=== PATIENT | male | born 1945 | race American Indian/Alaskan Native ===

== ENCOUNTER 2016-11-10 10:43 | Inpatient (IN) | payer MEDICARE ==
[2016-11-10 11:26] LABS: Hemoglobin 13.1 gm/dl (11.8-15.2); Mean Corpuscular HGB Conc 32 % (32-34); Mean Corpuscular Hemoglobin 28 pg (28-32); Mean Corpuscular Volume 88 fl (84-94); Platelet Count 145 K/mm3 (140-440); Red Blood Count 4.66 M/mm3 (3.65-5.03); Red Cell Distribution Width 14.4 % (13.2-15.2); White Blood Count 9.8 K/mm3 (4.5-11.0)
[2016-11-10 11:28] LABS: INR 0.96 (0.87-1.13)
[2016-11-10 11:36] LABS: Anion Gap 17 mmol/L; Blood Urea Nitrogen 18 mg/dL (9-20); Calcium 8.7 mg/dL (8.4-10.2); Carbon Dioxide 27 mmol/L (22-30); Glucose 73 mg/dL (75-100); Potassium 3.8 mmol/L (3.6-5.0); Sodium 142 mmol/L (137-145)
[2016-11-10] MEDS ORDERED: MORPHINE IV ONE (11:45)
[2016-11-10] MEDS ORDERED: ZOFRAN IV ONE (11:45)
--- NOTE | 2016-11-10 11:50 | Emergency Department Report ---
ED Chest Pain HPI - General Chief Complaint: Chest Pain Stated Complaint: CHEST PAIN Time Seen by Provider: 11/10/16 11:27 Source: patient, old records reviewed (no previous medical record for review) Mode of arrival: Ambulatory Limitations: No Limitations - History of Present Illness Initial Comments: 70 year old male with a past medical history of osteoarthritis, Frausto's esophagus, COPD, hypertension, COPD, elevated cholesterol, and sleep apnea presents to the hospital with complaints of intermittent chest pain 1 week. Patient is in the substernal and left side of chest and radiates to the left arm and left-sided neck. Pain is intermittent, described as 8/10 tightness. Pain worse with activity/walking, last for several minutes, improves with rest. Positive associated shortness of breath, nausea. Denies vomiting or diaphoresis. Patient also states he has some difficulty and pain with swallowing. Patient does have a history of Frausto's esophagus and has a endoscopy scheduled for December 03. Patient has chronic shortness of breath secondary to COPD. Positive cough productive of white/green sputum without reported fever. Patient states history CAD. Had a cath 10-11 years ago and which his "arteries were cleaned out". Denies stent placement or bypass surgery. Reports outpatient negative stress test approximately 1-2 months ago performed by [facility]. He says states he has similar but more severe pain at that time. Patient compliant with his medication including aspirin 81 mg daily. Patient moved here from [place] 6 months ago. This is his first ER visit is relocating to [place]. Severity scale (0 -10): 7 - Related Data Allergies Allergy/AdvReac Type Severity Reaction Status Date / Time No Known Allergies Allergy Unverified 11/10/16 11:00 Heart Score - HEART Score History: Slightly suspicious EKG: Normal Age: > 65 Risk factors: > 3 risk factors or hx of atherosclerotic disease Troponin: < normal limit HEART Score: 4 ED Review of Systems ROS: Stated complaint: CHEST PAIN Other details as noted in HPI Comment: All other systems reviewed and negative Other: Constitutional: No fevers chills Eyes: No eye pain visual changes ENT: No ear pain or throat pain Neck: Denies pain Respiratory: Denies cough wheezing Cardiovascular: Denies palpitations, syncope GI: Denies abdominal pain : Denies dysuria Musculoskeletal: Denies back pain Skin: Denies rash, lesions, erythema Neurologic: Denies headache, numbness, weakness Psychiatric: Denies suicidal ideation, hallucinations ED Past Medical Hx - Past Medical History Hx Hypertension: Yes Hx Arthritis: Yes (osteoarthritis) Hx Psychiatric Treatment: Yes (depression) Hx COPD: Yes Additional medical history: high cholesterol. sleep apnea. CAD. spinal stenosis. PVD. Frausto's esophagus - Surgical History Additional Surgical History: hernia repair x 2 - Social History Smoking Status: Current Some Day Smoker Substance Use Type: None ED Physical Exam - General Limitations: No Limitations - Other Other exam information: General: No limitations, patient is alert in no acute distress Head exam: Atraumatic, normocephalic Eyes exam: Normal appearance ENT: Moist mucous membrane Neck exam: Normal inspection, full range of motion Respiratory exam: Clear to auscultation bilateral, wheezing with forced expiration. Mild crackles at the left base Cardiovascular: Normal rate and rhythm, normal heart sounds, chest wall nontender Abdomen: Soft, nondistended, and nontender, with normal bowel sounds, no rebound, or guarding Extremity: Full range of motion normal inspection no deformity, no calf tenderness or edema Back: Normal Inspection, full range of motion, no tenderness Neurologic: Alert, oriented x3, cranial nerves intact, no motor or sensory deficit Psychiatric: normal affect, normal mood Skin: Warm, dry, intact ED Course Vital Signs 11/10/16 11/10/16 10:57 11:27 Temperature 97.7 F Pulse Rate 72 70 Respiratory 19 20 Rate Blood Pressure 165/111 Blood Pressure 167/91 [Right] O2 Sat by Pulse 100 97 Oximetry LV score - Lv Score Age > 65: (1) Yes Aspirin use within the Past 7 Days: (1) Yes 3 or more CAD Risk Factors: (1) Yes 2 or more Angina events in past 24 hrs: (1) Yes Known CAD with more than 50% Stenosis: (0) No Elevated Cardiac Markers: (0) No ST Deviation Greater than 0.5mm: (0) No LV Score: 4 ED Medical Decision Making - Lab Data Result diagrams: 11/10/16 11:03 11/10/16 11:03 Lab Results 11/10/16 11/10/16 11/10/16 Range/Units 11:03 11:03 11:03 WBC 9.8 (4.5-11.0) K/mm3 RBC 4.66 (3.65-5.03) M/mm3 Hgb 13.1 (11.8-15.2) gm/dl Hct 41.0 (35.5-45.6) % MCV 88 (84-94) fl MCH 28 (28-32) pg MCHC 32 (32-34) % RDW 14.4 (13.2-15.2) % Plt Count 145 (140-440) K/mm3 Lymph % (Auto) Microfilm Operator [place] % (Auto) Microfilm Operator Eos % (Auto) Microfilm Operator Baso % (Auto) Microfilm Operator Lymph # Microfilm Operator [place] # Microfilm Operator Eos # Microfilm Operator Baso # Microfilm Operator Seg Neutrophils % Microfilm Operator Seg Neutrophils # Microfilm Operator PT 13.3 (12.2-14.9) Sec. INR 0.96 (0.87-1.13) Sodium 142 (137-145) mmol/L Potassium 3.8 (3.6-5.0) mmol/L Chloride 102.0 (98-107) mmol/L Carbon Dioxide 27 (22-30) mmol/L Anion Gap 17 mmol/L BUN 18 (9-20) mg/dL Creatinine 1.0 (0.8-1.5) mg/dL Estimated GFR > 60 ml/min BUN/Creatinine Ratio 18.00 % Glucose 73 L (75-100) mg/dL Calcium 8.7 (8.4-10.2) mg/dL Troponin T < 0.010 (0.00-0.029) ng/mL NT-Pro-B Natriuret Pep (0-900) pg/mL 11/10/16 Range/Units 11:44 WBC (4.5-11.0) K/mm3 RBC (3.65-5.03) M/mm3 Hgb (11.8-15.2) gm/dl Hct (35.5-45.6) % MCV (84-94) fl MCH (28-32) pg MCHC (32-34) % RDW (13.2-15.2) % Plt Count (140-440) K/mm3 Lymph % (Auto) [place] % (Auto) Eos % (Auto) Baso % (Auto) Lymph # [place] # Eos # Baso # Seg Neutrophils % Seg Neutrophils # PT (12.2-14.9) Sec. INR (0.87-1.13) Sodium (137-145) mmol/L Potassium (3.6-5.0) mmol/L Chloride (98-107) mmol/L Carbon Dioxide (22-30) mmol/L Anion Gap mmol/L BUN (9-20) mg/dL Creatinine (0.8-1.5) mg/dL Estimated GFR ml/min BUN/Creatinine Ratio % Glucose (75-100) mg/dL Calcium (8.4-10.2) mg/dL Troponin T (0.00-0.029) ng/mL NT-Pro-B Natriuret Pep 87.64 (0-900) pg/mL - EKG Data -: EKG Interpreted by Me (sinus rhythm rate 70, LAE, LVH) - EKG Data When compared to previous EKG there are: previous EKG unavailable - Radiology Data Radiology results: report reviewed (chest x-ray PA and lateral: Mild COPD) - Medical Decision Making Patient treated with nitroglycerin and morphine, and Zofran. Plan to admit patient to hospital due to chest pain to rule out acute coronary syndrome. - Differential Diagnosis OR, GERD, esophageal spasm, atypical chest pain, unstable angina Critical Care Time: No Critical care attestation.: If time is entered above; I have spent that time in minutes in the direct care of this critically ill patient, excluding procedure time. ED Disposition Clinical Impression: Chest pain, HTN (hypertension), COPD (chronic obstructive pulmonary disease), Painful swallowing, History of Frausto's esophagus Disposition: 09 OP ADMIT IP TO THIS HOSP Is pt being admited?: Yes Does the pt Need Aspirin: Yes Condition: Stable Time of Disposition: 12:47 (Dr Fan/hosp)
--- NOTE | 2016-11-10 12:16 | XRay Report ---
CHEST XRAY, 2 VIEWS: History: Chest pain, shortness of breath. Findings: There is mild diffuse interstitial coarsening. The lungs are hyperexpanded but clear. No infiltrate, pleural fluid or pneumothorax is detected. The cardiac silhouette and pulmonary vasculature are within normal limits for technique. The bony thorax is unremarkable. IMPRESSION: Changes consistent with mild COPD. No acute cardiopulmonary process.
[2016-11-10] MEDS ORDERED: ASPIRIN PO ONE (12:55)
[2016-11-10] MEDS ORDERED: TYLENOL PO PRN (13:01)
[2016-11-10] MEDS ORDERED: DULCOLAX PR PRN (13:01)
[2016-11-10] MEDS ORDERED: MILK OF MAGNESIA PO PRN (13:01)
[2016-11-10] MEDS ORDERED: SODIUM CHLORIDE FLUSH SYRINGE 10 ML IV PRN (13:01)
[2016-11-10] MEDS ORDERED: PROVENTIL IH PRN (13:21)
--- NOTE | 2016-11-10 13:30 | History and Physical Report ---
History of Present Illness Chief complaint: I have chest pain History of present illness: 70 YO Male with HTN, OA, COPD, CAD, Depression, Barrets Esophagus, Nicotine Dependence, HLD, TIAGO, Spinal Stenosis presents to ED for evaluation. Pt states that he has experienced pain in his chest for the past 1 week with worsening symptoms over the past 1 day. Pain 8/10 in severity, substernal , begins on the left side of chest and radiates to the left arm and left-sided neck. Pain is intermittent, worse with activity/walking, last for several minutes, improves with rest. Pain is associated shortness of breath and nausea. Pt denies vomiting or diaphoresi, fever, chills, Palpitations, recent ill contacts , productive cough, BRBPR, unintentional weight loss or night sweats. Past History Past Medical History: arthritis, CAD, COPD, hypertension, hyperlipidemia Past Surgical History: hernia repair Social history: , lives with family, smoking. denies: alcohol abuse, prescription drug abuse, IV drug use Family history: CAD, hypertension Medications and Allergies Allergies Allergy/AdvReac Type Severity Reaction Status Date / Time No Known Allergies Allergy Unverified 11/10/16 11:00 Active Meds: Active Medications Nitroglycerin (Nitro-Bid 2%) 1 inch TP BIDNTG MOIZ PRN Reason: Protocol Review of Systems Constitutional: no weight loss, no weight gain, no fever, no chills Ears, nose, mouth and throat: no ear pain, no ear discharge, no tinnitis, no dental pain, no mouth pain Cardiovascular: chest pain Respiratory: no cough, no cough with sputum Gastrointestinal: no abdominal pain, no nausea, no vomiting, no diarrhea Genitourinary Male: no dysuria, no hematuria, no flank pain, no discharge Rectal: no pain, no incontinence, no bleeding Musculoskeletal: no neck stiffness, no neck pain, no shooting arm pain, no morning stiffness, no muscle weakness Integumentary: no rash, no pruritis, no redness, no sores Neurological: no head injury, no transient paralysis, no paralysis, no weakness , no migraines, no convulsions Psychiatric: no anxiety, no memory loss, no change in sleep habits Endocrine: no cold intolerance, no heat intolerance, no polyphagia, no excessive thirst Hematologic/Lymphatic: no easy bruising, no easy bleeding Allergic/Immunologic: no urticaria, no allergic rhinitis, no wheezing Exam - Constitutional Vitals: Temp Pulse Resp BP Pulse Ox 97.7 F 70 20 167/91 97 11/10/16 10:57 11/10/16 11:27 11/10/16 11:27 11/10/16 11:27 11/10/16 11:27 General appearance: Present: mild distress - EENT Eyes: Present: PERRL ENT: hearing intact, clear oral mucosa - Neck Neck: Present: supple, normal ROM - Respiratory Respiratory effort: normal Respiratory: bilateral: CTA - Cardiovascular Heart Sounds: Present: S1 & S2. Absent: rub, click - Extremities Extremities: pulses symmetrical, No edema Peripheral Pulses: within normal limits - Abdominal General gastrointestinal: Present: soft, non-tender, non-distended, normal bowel sounds Male genitourinary: Present: normal - Integumentary Integumentary: Present: clear, warm, dry - Musculoskeletal Musculoskeletal: gait normal, strength equal bilaterally - Psychiatric Psychiatric: appropriate mood/affect, intact judgment & insight - Neurologic Neurologic: CNII-XII intact, moves all extremities Results - Labs CBC & Chem 7: 11/10/16 13:44 11/10/16 13:44 Labs: Abnormal lab results 11/10/16 Range/Units 11:03 Glucose 73 L (75-100) mg/dL Assessment and Plan - Patient Problems (1) ACS (acute coronary syndrome) Current Visit: Yes Status: Acute Plan to address problem: Serial cardiac enzymes, ekg, telemetry, cardiology consulted, echo, stress test , (2) Accelerated hypertension Current Visit: Yes Status: Acute Plan to address problem: monitor bp q shift, continue current therapy (3) COPD (chronic obstructive pulmonary disease) Current Visit: Yes Status: Acute Qualifiers: COPD type: C Chronic bronchitis type: C Emphysema type: E Plan to address problem: supplemental oxygen, nebs, aspiration precautions, NIPPV as clinically indicated. (4) HTN (hypertension) Current Visit: Yes Status: Acute Qualifiers: Hypertension type: H Plan to address problem: monitor bp q shift (5) CAD (coronary artery disease) Current Visit: Yes Status: Acute Qualifiers: Coronary Disease-Associated Artery/Lesion type: C [place] vs. transplanted heart: N Associated angina: with stable angina Plan to address problem: Serial cardiac enzymes, ekg, supportive care, continue medical management (6) Nicotine dependence Current Visit: Yes Status: Acute Qualifiers: Nicotine product type: N Substance use status: S Plan to address problem: Pt counseled, supportive care, (7) DVT prophylaxis Current Visit: Yes Status: Acute
[2016-11-10 14:10] LABS: Basophils % (Auto) 0.4 % (0.0-1.8); Eosinophils % (Auto) 0.7 % (0.0-4.3); Hematocrit 39.1 % (35.5-45.6); Hemoglobin 12.7 gm/dl (11.8-15.2); Mean Corpuscular HGB Conc 32 % (32-34); Mean Corpuscular Hemoglobin 28 pg (28-32); Mean Corpuscular Volume 86 fl (84-94); Platelet Count 132 K/mm3 (140-440); Red Blood Count 4.52 M/mm3 (3.65-5.03); Red Cell Distribution Width 14.1 % (13.2-15.2); White Blood Count 8.9 K/mm3 (4.5-11.0)
[2016-11-10 14:20] LABS: Anion Gap 17 mmol/L; BUN/Creatinine Ratio 18.88; Blood Urea Nitrogen 17 mg/dL (9-20); Calcium 8.4 mg/dL (8.4-10.2); Carbon Dioxide 24 mmol/L (22-30); Chloride 103.4 mmol/L (98-107); Glucose 78 mg/dL (75-100); Potassium 3.7 mmol/L (3.6-5.0); Sodium 141 mmol/L (137-145)
[2016-11-10] MEDS ORDERED: BABY ASPIRIN ONE (14:44)
[2016-11-10] MEDS ORDERED: NITRO-BID 2% TP ONE (14:44)
[2016-11-10] MEDS ORDERED: ASPIRIN ONE (14:46)
[2016-11-10] MEDS: NITRO-BID 2% TP SCH (14:51)
[2016-11-11] MEDS: NITRO-BID 2% TP SCH ×2 (06:30→13:52)
--- NOTE | 2016-11-11 07:24 | Admit Criteria Form ---
Admission Criteria Documentation: CHEST PAIN Clinical Indications for Admission to Inpatient Care ([place]/check or initial the applicable condition/criteria) Admission is indicated for chest pain and ANY ONE of the following (1)(2)(3)(4)( 5)(6)(7): [X ]I. Angina with acute coronary syndrome (Also use Myocardial Infarction or Angina guideline) [ ]II. Hemodynamic instability [ ]III. Respiratory distress [ ]IV. Chest pain indicative of serious diagnosis other than coronary artery disease (e.g., aorticdissection) Extended stay beyond goal length of stay may be needed for(3)(4)(10)(45)(48) [ ]a) Unstable angina [ ]b) Continued suspicion of acute coronary syndrome with inability to complete needed cardiac evaluation (eg, patient clinically unable to undergo stress testing) [ ]c) Myocardial infarction [ ]d) Specific condition diagnosed after evaluation (eg, pulmonary embolism, aortic dissection)(49)(50)(51) The original [employer] content created by [employer] has been revised. The portions of the content which have been revised are identified through the use of italic text or in bold, and [employer] has neither reviewed nor approved the modified material. All other unmodified content is copyright [employer]. Please see references footnoted in the original [employer] edition 2017 Admission Criteria Met: Yes
--- NOTE | 2016-11-11 08:16 | Progress Note ---
Hospitalist Physical - Constitutional Vitals: Temp Pulse Resp BP Pulse Ox 98.0 F 69 18 177/92 100 11/11/16 04:01 11/11/16 04:01 11/11/16 04:01 11/11/16 04:01 11/11/16 04:01 General appearance: Present: mild distress Results - Labs CBC & Chem 7: 11/10/16 13:44 11/10/16 13:44 Labs: Laboratory Last Values WBC 8.9 K/mm3 (4.5-11.0) 11/10/16 13:44 RBC 4.52 M/mm3 (3.65-5.03) 11/10/16 13:44 Hgb 12.7 gm/dl (11.8-15.2) 11/10/16 13:44 Hct 39.1 % (35.5-45.6) 11/10/16 13:44 MCV 86 fl (84-94) 11/10/16 13:44 MCH 28 pg (28-32) 11/10/16 13:44 MCHC 32 % (32-34) 11/10/16 13:44 RDW 14.1 % (13.2-15.2) 11/10/16 13:44 Plt Count 132 K/mm3 (140-440) L 11/10/16 13:44 Lymph % (Auto) 16.1 % (13.4-35.0) 11/10/16 13:44 [place] % (Auto) 7.4 % (0.0-7.3) H 11/10/16 13:44 Eos % (Auto) 0.7 % (0.0-4.3) 11/10/16 13:44 Baso % (Auto) 0.4 % (0.0-1.8) 11/10/16 13:44 Lymph # 1.4 K/mm3 (1.2-5.4) 11/10/16 13:44 [place] # 0.7 K/mm3 (0.0-0.8) 11/10/16 13:44 Eos # 0.1 K/mm3 (0.0-0.4) 11/10/16 13:44 Baso # 0.0 K/mm3 (0.0-0.1) 11/10/16 13:44 Seg Neutrophils % 75.4 % (40.0-70.0) H 11/10/16 13:44 Seg Neutrophils # 6.7 K/mm3 (1.8-7.7) 11/10/16 13:44 PT 13.3 Sec. (12.2-14.9) 11/10/16 11:03 INR 0.96 (0.87-1.13) 11/10/16 11:03 Sodium 142 mmol/L (137-145) 11/10/16 11:03 Potassium 3.8 mmol/L (3.6-5.0) 11/10/16 11:03 Chloride 103.4 mmol/L (98-107) 11/10/16 13:44 Carbon Dioxide 24 mmol/L (22-30) 11/10/16 13:44 Anion Gap 17 mmol/L 11/10/16 13:44 BUN 17 mg/dL (9-20) 11/10/16 13:44 Creatinine 0.9 mg/dL (0.8-1.5) 11/10/16 13:44 Estimated GFR > 60 ml/min 11/10/16 13:44 BUN/Creatinine Ratio 18.88 % 11/10/16 13:44 Glucose 78 mg/dL (75-100) 11/10/16 13:44 Calcium 8.4 mg/dL (8.4-10.2) 11/10/16 13:44 Troponin T < 0.010 ng/mL (0.00-0.029) 11/10/16 19:04 NT-Pro-B Natriuret Pep 87.64 pg/mL (0-900) 11/10/16 11:44
[2016-11-11] MEDS ORDERED: LEXISCAN IV ONE ×2 (09:56→09:59)
--- NOTE | 2016-11-11 11:12 | Consultation ---
History of Present Illness Consult date: 11/11/16 Requesting physician: JUDD ROMAN Consult reason: other (ACS) History of present illness: The patient is a 70-year-old male with a past medical history significant for hypertension, hyperlipidemia and tobacco use. He has been seen in our office by Dr. Farah. He presented with complaints of chest pain for the past several days prior to arrival. He describes his chest pain has an exertional, midsternal pressure which radiates down his left arm and into his neck at times. The pain is associated with shortness of breath and SMITH. The pain is aggravated by activity and alleviated by rest. The patient denies any palpitations, nausea, vomiting, diaphoresis, dizziness or syncope. Admission EKG shows no acute ischemic changes; troponins are negative for AMI x 3 sets. On evaluation, he is seen in the stress lab for stress test ordered per primary team. He has no current complaints. Of note, he recently underwent lexiscan MPI in our office on 08/14/2016, which was negative for significant ischemia. He also had echo in our office on 08/07/2016 which showed mild to moderate LVH, EF 40 - 45%, mild, diffuse LV hypokinesis, mild diastolic dysfunction. BLE arterial duplex done in our office 08/14/2016 showed no significant abnormalities. Past History Past Medical History: arthritis, hypertension, hyperlipidemia Past Surgical History: hernia repair Social history: , lives with family, smoking. denies: alcohol abuse, prescription drug abuse, IV drug use Family history: CAD, hypertension Medications and Allergies Allergies Allergy/AdvReac Type Severity Reaction Status Date / Time No Known Allergies Allergy Unverified 11/10/16 11:00 Home Medications Medication Instructions Recorded Confirmed Last Taken Type Aspirin [Adult Low Dose Aspirin EC] 81 mg PO QDAY 11/10/16 11/10/16 Unknown History AtorvaSTATin [Lipitor] 40 mg PO QDAY 11/10/16 11/10/16 Unknown History Baclofen [Lioresal] 10 mg PO TID 11/10/16 11/10/16 Unknown History Lisinopril [Zestril] 20 mg PO QDAY 11/10/16 11/10/16 Unknown History Metoprolol [Lopressor] 25 mg PO BID 11/10/16 11/10/16 Unknown History Morphine Sulfate [Ms Contin] 15 mg PO Q12HR 11/10/16 11/10/16 Unknown History Nortriptyline [Pamelor] 10 mg PO TID 11/10/16 11/10/16 Unknown History Oxybutynin [Ditropan] 5 mg PO BID 11/10/16 11/10/16 Unknown History Pantoprazole [Protonix] 40 mg PO BID 11/10/16 11/10/16 Unknown History Ranitidine HCl [Zantac 150 MG TAB] 150 mg PO HS 11/10/16 11/10/16 Unknown History Sennosides/Docusate Sodium 2 each PO PRN PRN 11/10/16 11/10/16 Unknown History [Senna-Docusate Sodium Tablet] Tamsulosin [Flomax] 0.4 mg PO QHS 11/10/16 11/10/16 Unknown History Active Meds: Active Medications Acetaminophen (Tylenol) 650 mg PO Q4H PRN PRN Reason: Pain MILD(1-3)/Fever >100.5/FERRER Albuterol (Proventil) 2.5 mg IH Q4HRT PRN PRN Reason: Shortness Of Breath Bisacodyl (Dulcolax) 10 mg [place] QDAY PRN PRN Reason: Constipation unrelieved by MOM Magnesium Hydroxide (Milk Of Magnesia) 30 ml PO Q4H PRN PRN Reason: Constipation Nitroglycerin (Nitro-Bid 2%) 1 inch TP BIDNTG MOIZ PRN Reason: Protocol Last Admin: 11/11/16 06:30 Dose: Not Given Sodium Chloride (Sodium Chloride Flush Syringe 10 Ml) 10 ml IV PRN PRN PRN Reason: LINE FLUSH Review of Systems Constitutional: no weight loss, no weight gain, no fever, no chills, no sweats Ears, nose, mouth and throat: no ear pain, no nose pain, no sinus pressure, no sinus pain Cardiovascular: chest pain, shortness of breath, dyspnea on exertion, high blood pressure, no orthopnea, no palpitations, no rapid/irregular heart beat, no edema, no syncope, no lightheadedness, no paroxysmal nocturnal dyspnea, no leg edema Respiratory: shortness of breath, dyspnea on exertion, no cough, no congestion, no wheezing, no pain on inspiration Gastrointestinal: no abdominal pain, no nausea, no vomiting, no diarrhea, no constipation, no change in bowel habits Genitourinary Male: no dysuria, no hematuria, no flank pain, no discharge, no urinary frequency, no urinary hesitancy Musculoskeletal: low back pain (chronic), other (BLE pain, chronic), no neck stiffness, no neck pain, no shooting arm pain, no arm numbness/tingling, no shooting leg pain, no leg numbness/tingling, no redness of joints Integumentary: no rash, no pruritis, no redness, no sores, no wounds Neurological: no head injury, no paralysis, no weakness, no parathesias, no numbness, no tingling, no seizures, no syncope Psychiatric: no anxiety Endocrine: no cold intolerance, no heat intolerance Hematologic/Lymphatic: no easy bruising, no easy bleeding, no lymphadenopathy Allergic/Immunologic: no urticaria, no wheezing, no persistent infections Physical Examination Last Vital Signs Temp 98.0 F 11/11/16 07:35 Pulse 66 11/11/16 07:35 Resp 18 11/11/16 07:35 BP 164/98 11/11/16 07:35 Pulse Ox 98 11/11/16 07:35 General appearance: no acute distress HEENT: Positive: PERRL, Normocephaly, Mucus Membranes Moist Neck: Positive: neck supple, trachea midline Cardiac: Positive: Reg Rate and Rhythm, S1/S2 Lungs: Positive: clear to auscultation Neuro: Positive: Grossly Intact, Cranial Nerve 2-12 Intact Abdomen: Positive: Unremarkable, Soft, Active Bowel Sounds. Negative: Tender Skin: Positive: Clear. Negative: Rash, Wound Musculoskeletal: No Fluid Collection, No Pain, Normal Range of Motion Extremities: Absent: edema Results 11/10/16 13:44 11/10/16 13:44 CBC 11/10/16 Range/Units 13:44 WBC 8.9 (4.5-11.0) K/mm3 RBC 4.52 (3.65-5.03) M/mm3 Hgb 12.7 (11.8-15.2) gm/dl Hct 39.1 (35.5-45.6) % Plt Count 132 L (140-440) K/mm3 Lymph # 1.4 (1.2-5.4) K/mm3 [place] # 0.7 (0.0-0.8) K/mm3 Eos # 0.1 (0.0-0.4) K/mm3 Baso # 0.0 (0.0-0.1) K/mm3 Comprehensive Metabolic Panel 11/10/16 Range/Units 13:44 Chloride 103.4 (98-107) mmol/L Carbon Dioxide 24 (22-30) mmol/L BUN 17 (9-20) mg/dL Creatinine 0.9 (0.8-1.5) mg/dL Glucose 78 (75-100) mg/dL Calcium 8.4 (8.4-10.2) mg/dL - Imaging and Cardiology Echo: report reviewed (08/07/2016: mild to moderate LVH, EF 40 - 45%, mild, diffuse LV hypokinesis, mild diastolic dysfunction) EKG: image reviewed EKG interpretations - Telemetry EKG Rhythm: Sinus Rhythm - EKG Sinus rhythms and dysrhythmias: sinus rhythm Assessment and Plan Assessment: Chest pain - with somewhat typical features; EKG with no acute findings; Roseline negative for AMI x 3 sets. Accelerated HTN HLP Tobacco use Plan: Await results of lexiscan MPI stress test. Resume home cardiac regimen and optimize anti-hypertensive regimen. Chest discomfort could be secondary to accelerated HTN. Assessment and plan reviewed with pt at bedside. The patient has been seen in conjunction with Dr. Ragland agrees with the assessment and plan of care.
[2016-11-11] MEDS ORDERED: ZESTRIL PO SCH ×2 (11:20→12:00)
--- NOTE | 2016-11-11 13:01 | Event Note ---
Date: 11/11/16 lexiscan MPI stress test this AM negative for ischemia. Currently stable cardiac status. Optimize anti-hypertensive regimen. Pt may discharge home from cardiology standpoint. Recommend follow up in our office with Chela Cruz NP, within 1-2 weeks of hospital discharge ([phone] ). Hollis CONTRERAS NP / DR. JAVED
[2016-11-11 13:17] VITALS: BP 203/110
--- NOTE | 2016-11-11 13:20 | Discharge Summary ---
<ANTHONY GOMES - Last Filed: 11/11/16 13:24> Providers - Providers Date of Admission: 11/10/16 13:01 Date of discharge: 11/11/16 Attending physician: MARINA WOOD Primary care physician: ARCHITECTURE INTERN Hospitalization Condition: Good Hospital course: Patient is a 70 years old male with HTN, OA, COPD, CAD, Depression, Barrets Esophagus, Nicotine Dependence, HLD, TIAGO, Spinal Stenosis presents to ED for evaluation. Pt states that he has experienced pain in his chest pain for the past 1 week with worsening symptoms since yesterday. Patient was diagnosed Chest pain, Accelerated, Hypertension, COPD, CAD and Nicotine dependence.Patient presented with atypical chest pain, ACS was ruled out, stress test normal MPI, negative cardiac enzymes, ECGs shows normal sinus rythm , CXR was wnl and CTA with no risk for pulmonary embolism. Patient chest pain probably from musculoskeletal or gastritis. He was treated with supplemental oxygen, nebulizer therapy and antihypertensive medications. Also Nicotine dependence, smoking cessation counseling done patient strongly advised to quit. Patient agreed upon course of action.Patient is clinically improved and stable for discharge. Patient advised to follow-up with her primary care provider. Discharge Diagnosed Chest Pain due to Costochondritis Accelerated Hypertension COPD CAD Nicotine dependence Disposition: DC-01 TO HOME OR SELFCARE Time spent for discharge: 33 minutes. Core Measure Documentation - Palliative Care Palliative Care/ Comfort Measures: Not Applicable - Core Measures Any of the following diagnoses?: none Exam - Constitutional Vitals: Temp Pulse Resp BP Pulse Ox 97.8 F 54 L 20 203/110 97 11/11/16 12:20 11/11/16 12:20 11/11/16 12:20 11/11/16 12:20 11/11/16 12:20 General appearance: Present: no acute distress - EENT Eyes: Present: PERRL ENT: hearing intact, clear oral mucosa - Neck Neck: Present: supple - Respiratory Respiratory effort: normal Respiratory: bilateral: CTA - Cardiovascular Rhythm: regular Heart Sounds: Present: S1 & S2 - Extremities Extremities: no ischemia Peripheral Pulses: within normal limits - Abdominal General gastrointestinal: Present: soft, non-tender Male genitourinary: Present: deferred - Rectal Rectal Exam: deferred - Integumentary Integumentary: Present: clear, warm, dry - Musculoskeletal Musculoskeletal: strength equal bilaterally - Psychiatric Psychiatric: appropriate mood/affect - Neurologic Neurologic: CNII-XII intact - Allied Health Allied health notes reviewed: nursing Plan Activity: no restrictions Diet: low fat, low cholesterol, low salt Follow up with: PRIMARY CARE, [Primary Care Provider] - 7 Days <MARINA OWOD - Last Filed: 11/14/16 08:31> Providers - Providers Date of Admission: 11/10/16 13:01 Attending physician: MRAINA WOOD Primary care physician: ARCHITECTURE INTERN Hospitalization Hospital course: I saw and evaluated the patient. I agree with the findings and the plan of care as documented in the Nurse Practitioner's~note, with the following corrections and additions. Exam - Constitutional Vitals: Temp Pulse Resp BP Pulse Ox 97.8 F 54 L 20 203/110 97 11/11/16 12:20 11/11/16 12:20 11/11/16 12:20 11/11/16 12:20 11/11/16 12:20
[2016-11-11] MEDS ORDERED: LIORESAL PO SCH (14:00)
[2016-11-11] MEDS ORDERED: PAMELOR PO SCH (14:00)
[2016-11-11] MEDS ORDERED: PEPCID PO SCH (22:00)
[2016-11-11] MEDS ORDERED: MS CONTIN ER PO SCH (22:00)
[2016-11-11] MEDS ORDERED: MORPHINE SULFATE 15 MG PO SCH (22:00)
[2016-11-11] MEDS ORDERED: DITROPAN PO SCH (22:00)
[2016-11-11] MEDS ORDERED: NON-FORMULARY (Ranitidine Hcl [Zantac 150 Mg Tab] 150 MG) PO SCH (22:00)
[2016-11-11] MEDS ORDERED: LOPRESSOR PO SCH (22:00)
[2016-11-11] MEDS ORDERED: PROTONIX PO SCH (22:00)
[2016-11-11] MEDS ORDERED: FLOMAX PO SCH (22:00)
--- NOTE | 2016-11-12 00:02 | Treadmill Report ---
Resting images revealed homogeneous radioisotope activity throughout the myocardium. The same is noted on post-exercise images. Ejection fraction on gated scan showed 51%. There is no evidence of transient ischemic dilatation. IMPRESSION: 1.Negative test for ischemia. 2.Ejection fraction is normal at 51%. JOB# [id number] TASHA/LIGIA
[2016-11-12] MEDS ORDERED: HALFPRIN EC PO SCH (10:00)
== END 2016-11-11 14:22 | disposition home or self-care (01) | DRG 206 ==
LOC: ED 10:43 → 4A 13:01
PROVIDERS: ADMIT Internal Medicine; ATTEND Hospitalist
DX: M94.0 Chondrocostal junction syndrome [Tietze] (principal); I24.9 Acute ischemic heart disease, unspecified; F17.200 Nicotine dependence, unspecified, uncomplicated; I10 Essential (primary) hypertension; K29.70 Gastritis, unspecified, without bleeding; M19.90 Unspecified osteoarthritis, unspecified site; J44.9 Chronic obstructive pulmonary disease, unspecified; F32.9 Major depressive disorder, single episode, unspecified; I25.10 Atherosclerotic heart disease of native coronary artery without angina pectoris; I73.9 Peripheral vascular disease, unspecified; E78.5 Hyperlipidemia, unspecified; G47.33 Obstructive sleep apnea (adult) (pediatric); Z71.6 Tobacco abuse counseling; Z82.49 Family history of ischemic heart disease and other diseases of the circulatory system; Z87.19 Personal history of other diseases of the digestive system
CPT/HCPCS: 36415; 71020; 78452; 80048; 83880; 84484; 85025; 85610; 93005; 93010; 93017; 93306; 99285; A9502; J2270; J2405; J2785

== ENCOUNTER 2017-11-16 01:01 | Emergency (ER) | payer MEDICARE ==
--- NOTE | 2017-11-16 04:17 | XRay Report ---
FINAL REPORT EXAM: XRAY FOOT 2 VIEWS BILATERAL HISTORY: Bilat. foot pain , remote surgery in the left foot a couple of years ago COMPARISONS: None. FINDINGS: Two nonweightbearing views of both feet Right: There is mild osteoarthrosis at the tibiotalar and midfoot joints and moderate to severe osteoarthrosis in the tarsometatarsal joints of the right foot. Diffuse mild interphalangeal osteoarthrosis. No acute right foot fracture or gross malalignment. No obvious erosion. Mild soft tissue swelling. Normal mineralization. No abnormal soft tissue calcification. Small calcaneal heel spur is noted. Left: Surgical absence of the 5th metacarpal head in the left foot. Lucencies and mild expansion are present in the 5th proximal phalanx. There is overlying soft tissue swelling and subcutaneous emphysema. No abnormal soft tissue calcification or periosteal reaction. No acute fracture. Sequela of prior surgery involving first metatarsal base/proximal diaphysis. Small left calcaneal heel spur. Mild tibiotalar and diffuse interphalangeal osteoarthrosis. IMPRESSION: Left 5th metatarsophalangeal joint erosive arthropathy with overlying soft tissue swelling and subcutaneous emphysema may be sequela of infection superimposed on postsurgical changes. Correlation with history and any prior examinations is requested. Consider joint aspiration as warranted. Degenerative osteoarthropathy elsewhere in the right greater than left foot as detailed above. Dr. Ordoñez discussed findings with at 0311 central Time on 11/16/2017 immediately following the examination.
--- NOTE | 2017-11-16 04:44 | Emergency Department Report ---
ED Extremity Problem HPI - General Chief complaint: Extremity Injury, Lower Stated complaint: BILATERAL FOOT PAIN Time Seen by Provider: 11/16/17 04:41 Source: patient Mode of arrival: Stretcher Limitations: No Limitations - History of Present Illness Initial comments: 71-year-old -[place] male with a past medical history of hypertension COPD and sleep apnea comes in with a complaint of bilateral foot pain 2 weeks. Patient states that the pain medication is not working. Patient reports that he is on amitriptyline for pain. [place]. Patient is followed by podiatry for chronic pain of his feet. Patient has been putting corn/callus remover on his toes. Patient has not taken any other pain medication. MD Complaint: extremity pain -: week(s) (2) Location: left, right, other History of Same: Yes -: Yes myalgia, Yes arthralgia (seat) Radiation: none Severity scale (0 -10): 4 Quality: burning, aching Consistency: constant Improves with: rest Worsens with: weight bearing, walking Associated Symptoms: denies other symptoms - Related Data Home Medications Medication Instructions Recorded Confirmed Last Taken Aspirin [Adult Low Dose Aspirin EC] 81 mg PO QDAY 11/10/16 04/04/17 04/03/17 AtorvaSTATin [Lipitor] 40 mg PO QDAY 11/10/16 04/04/17 04/03/17 Baclofen [Lioresal] 10 mg PO TID 11/10/16 04/04/17 04/03/17 Lisinopril [Zestril TAB] 20 mg PO QDAY 11/10/16 04/04/17 04/03/17 Metoprolol [Lopressor TAB] 25 mg PO BID 11/10/16 04/04/17 04/03/17 Nortriptyline [Pamelor] 10 mg PO TID 11/10/16 04/04/17 04/03/17 Oxybutynin [Ditropan] 5 mg PO BID 11/10/16 04/04/17 04/03/17 Pantoprazole [Protonix TAB] 40 mg PO BID 11/10/16 04/04/17 04/03/17 Cholecalciferol (Vitamin D3) 1,000 unit PO DAILY 01/12/18 01/12/18 01/11/18 [Vitamin D3] Fluticasone [Flonase] 1 spray NS QDAY 04/04/17 04/04/17 04/03/17 Gabapentin [Neurontin] 300 mg PO Q8HR 04/04/17 04/04/17 04/03/17 Ranitidine HCl [Zantac] 300 mg PO QHS 04/04/17 04/04/17 04/03/17 Tiotropium [Spiriva] 18 mcg IH QDAY 04/04/17 04/04/17 04/03/17 amLODIPine [Norvasc] 10 mg PO DAILY 04/04/17 04/04/17 04/03/17 methOCARBAMOL [Robaxin TAB] 500 mg PO Q6H PRN 04/04/17 04/04/17 04/03/17 Previous Rx's Medication Instructions Recorded Last Taken Type Tramadol HCl [Ultram] 50 mg PO Q6H #12 tablet 11/16/17 Unknown Rx Allergies Allergy/AdvReac Type Severity Reaction Status Date / Time No Known Allergies Allergy Unverified 11/10/16 11:00 ED Review of Systems ROS: Stated complaint: BILATERAL FOOT PAIN Other details as noted in HPI Comment: All other systems reviewed and negative Musculoskeletal: arthralgia (bilateral feet) ED Past Medical Hx - Past Medical History Hx Hypertension: Yes Hx Arthritis: Yes (osteoarthritis) Hx Psychiatric Treatment: Yes (depression) Hx COPD: Yes Additional medical history: high cholesterol, Neuropathy, Chronic Foot Pain. sleep apnea. CAD. spinal stenosis. PVD. Frausto's esophagus - Surgical History Additional Surgical History: hernia repair x 2 - Social History Smoking Status: Current Every Day Smoker Substance Use Type: None - Medications Home Medications: Home Medications Medication Instructions Recorded Confirmed Last Taken Type Aspirin [Adult Low Dose Aspirin EC] 81 mg PO QDAY 11/10/16 04/04/17 04/03/17 History AtorvaSTATin [Lipitor] 40 mg PO QDAY 11/10/16 04/04/17 04/03/17 History Baclofen [Lioresal] 10 mg PO TID 11/10/16 04/04/17 04/03/17 History Lisinopril [Zestril TAB] 20 mg PO QDAY 11/10/16 04/04/17 04/03/17 History Metoprolol [Lopressor TAB] 25 mg PO BID 11/10/16 04/04/17 04/03/17 History Nortriptyline [Pamelor] 10 mg PO TID 11/10/16 04/04/17 04/03/17 History Oxybutynin [Ditropan] 5 mg PO BID 11/10/16 04/04/17 04/03/17 History Pantoprazole [Protonix TAB] 40 mg PO BID 11/10/16 04/04/17 04/03/17 History Cholecalciferol (Vitamin D3) 1,000 unit PO DAILY 04/04/17 04/04/17 04/03/17 History [Vitamin D3] Fluticasone [Flonase] 1 spray NS QDAY 04/04/17 04/04/17 04/03/17 History Gabapentin [Neurontin] 300 mg PO Q8HR 04/04/17 04/04/17 04/03/17 History Ranitidine HCl [Zantac] 300 mg PO QHS 04/04/17 04/04/17 04/03/17 History Tiotropium [Spiriva] 18 mcg IH QDAY 04/04/17 04/04/17 04/03/17 History amLODIPine [Norvasc] 10 mg PO DAILY 04/04/17 04/04/17 04/03/17 History methOCARBAMOL [Robaxin TAB] 500 mg PO Q6H PRN 04/04/17 04/04/17 04/03/17 History Tramadol HCl [Ultram] 50 mg PO Q6H #12 tablet 11/16/17 Unknown Rx ED Physical Exam - General Limitations: No Limitations General appearance: alert, in no apparent distress - Head Head exam: Present: atraumatic, normocephalic - Eye Eye exam: Present: EOMI - ENT ENT exam: Present: mucous membranes moist - Expanded Lower Extremity Exam Left Lower Leg exam: Present: normal inspection, full ROM Ankle exam: Present: normal inspection, full ROM Foot/Toe exam: Present: tenderness (right great toe). Absent: swelling Neuro vascular tendon exam: Present: no vascular compromise. Absent: abnormal cap refill Right Lower Leg exam: Present: normal inspection, full ROM. Absent: tenderness Ankle exam: Present: normal inspection, full ROM. Absent: tenderness Foot/Toe exam: Present: full ROM, tenderness (lateral fifth toe, medial great toe,) ED Course Vital Signs 11/16/17 11/16/17 02:39 05:18 Temperature 97.8 F Pulse Rate 83 80 Respiratory 18 Rate Blood Pressure 151/91 152/88 [Left] O2 Sat by Pulse 99 Oximetry ED Medical Decision Making - Lab Data Result diagrams: 11/16/17 06:00 - Radiology Data Radiology results: report reviewed, image reviewed FINAL REPORT EXAM: XRAY FOOT 2 VIEWS BILATERAL HISTORY: Bilat. foot pain , remote surgery in the left foot a couple of years ago COMPARISONS: None. FINDINGS: Two nonweightbearing views of both feet Right: There is mild osteoarthrosis at the tibiotalar and midfoot joints and moderate to severe osteoarthrosis in the tarsometatarsal joints of the right foot. Diffuse mild interphalangeal osteoarthrosis. No acute right foot fracture or gross malalignment. No obvious erosion. Mild soft tissue swelling. Normal mineralization. No abnormal soft tissue calcification. Small calcaneal heel spur is noted. Left: Surgical absence of the 5th metacarpal head in the left foot. Lucencies and mild expansion are present in the 5th proximal phalanx. There is overlying soft tissue swelling and subcutaneous emphysema. No abnormal soft tissue calcification or periosteal reaction. No acute fracture. Sequela of prior surgery involving first metatarsal base/proximal diaphysis. Small left calcaneal heel spur. Mild tibiotalar and diffuse interphalangeal osteoarthrosis. IMPRESSION: Left 5th metatarsophalangeal joint erosive arthropathy with overlying soft tissue swelling and subcutaneous emphysema may be sequela of infection superimposed on postsurgical changes. Correlation with history and any prior examinations is requested. Consider joint aspiration as warranted. Degenerative osteoarthropathy elsewhere in the right greater than left foot as detailed above. Dr. Madden discussed findings with at 0311 central Time on 11/16/2017 immediately following the examination. Transcribed By: MB Dictated By: JINA MADDEN MD Electronically Authenticated By: JINA MADDEN MD Signed Date/Time: 11/16/17415 DD/ 5 TD/TT: 11/16/17415 - Medical Decision Making Patient has been evaluated by this provider in fast track. Ibuprofen order for patient for pain management. Bilateral foot x-ray were completed Radiologist's called to report that patient has what appears to be necrosis of the left fifth metatarsal. Radiology recommended if patient has clinical complaint of the fifth metatarsal to consider infection since he appreciate emphysema of the soft tissue. Patient had labs that shows no elevation of WBCs and CRP is within normal limits. Place patient on tramadol for pain management and referral to podiatry. Critical care attestation.: If time is entered above; I have spent that time in minutes in the direct care of this critically ill patient, excluding procedure time. ED Disposition Clinical Impression: Bilateral foot pain, Callus of foot Disposition: - TO HOME OR SELFCARE Is pt being admited?: No Does the pt Need Aspirin: No Condition: Stable Additional Instructions: Please take pain medication as prescribed. Please follow up with your horticultural technical officer or one of the horticultural technical officer I have listed below. Prescriptions: Tramadol HCl [Ultram] 50 mg PO Q6H #12 tablet Referrals: NELI ESPOSITO MD [Primary Care Provider] - 3-5 Days WEI JASSO MD [Staff Physician] - 3-5 Days PRATIBHA ROSAIRO DPM [Staff Physician] - 3-5 Days Forms: Work/School Release Form(ED)
[2017-11-16 05:19] VITALS: BP 152/88
[2017-11-16] MEDS ORDERED: MOTRIN PO ONE (05:49)
[2017-11-16 06:44] LABS: Basophils % (Auto) 0.6 % (0.0-1.8); Eosinophils # (Auto) 0.2 K/mm3 (0.0-0.4); Eosinophils % (Auto) 3.2 % (0.0-4.3); Hematocrit 41.6 % (35.5-45.6); Hemoglobin 13.6 gm/dl (11.8-15.2); Lymphocytes # (Auto) 1.5 K/mm3 (1.2-5.4); Lymphocytes % (Auto) 21.2 % (13.4-35.0); Mean Corpuscular HGB Conc 33 % (32-34); Mean Corpuscular Hemoglobin 28 pg (28-32); Mean Corpuscular Volume 87 fl (84-94); Monocytes # (Auto) 0.6 K/mm3 (0.0-0.8); Monocytes % (Auto) 8.7 % (0.0-7.3); Platelet Count 178 K/mm3 (140-440); Red Cell Distribution Width 15.1 % (13.2-15.2)
[2017-11-16 07:54] LABS: Erythrocyte Sedimentation Rate 13 mm/Hr (0-20)
== END 2017-11-16 07:48 | disposition home or self-care (01) ==
LOC: ED 01:01
DX: L84 Corns and callosities (principal); M79.671 Pain in right foot; M79.672 Pain in left foot; I10 Essential (primary) hypertension; M19.90 Unspecified osteoarthritis, unspecified site; J44.9 Chronic obstructive pulmonary disease, unspecified; F32.9 Major depressive disorder, single episode, unspecified; E78.00 Pure hypercholesterolemia, unspecified; G89.29 Other chronic pain; I25.10 Atherosclerotic heart disease of native coronary artery without angina pectoris; M48.00 Spinal stenosis, site unspecified; F17.200 Nicotine dependence, unspecified, uncomplicated; Z79.82 Long term (current) use of aspirin
CPT/HCPCS: 36415; 85025; 85652; 86140

== ENCOUNTER 2018-06-20 15:33 | Inpatient (IN) | payer MEDICARE ==
--- NOTE | 2018-06-20 16:21 | Emergency Department Report ---
Blank Doc - Documentation Documentation: Cp started 2 days ago. CP in cristhian past. HTN and High cholesterol. Denies cardiac disease. Dr. Savage. . reports sob. cough. Cough x 1 week. Pain radiating down left . Cp located in mid chest and lt chest Lungs- Lung sound coarse with some wheezing CV-Tachycardia. A/P CP Cough wheeze SOB ekg labs Patient medically screened by and to go to main side ED
[2018-06-20] MEDS ORDERED: XOPENEX IH ONE (16:24)
[2018-06-20] MEDS ORDERED: ASPIRIN PO ONE (16:24)
[2018-06-20] MEDS ORDERED: ATROVENT IH ONE ×3 (16:24→19:38)
--- NOTE | 2018-06-20 17:18 | XRay Report ---
PROCEDURE: XR CHEST ROUTINE 2V TECHNIQUE: Chest radiograph , PA and lateral views. HISTORY: cough, sob COMPARISONS: CXR 04/03/2017 . FINDINGS: Heart: Normal. Mediastinum/Vessels: Unfolded aorta is stable. Lungs/Pleural space: Normal. Bony thorax: No acute osseous abnormality. Degenerative disc changes throughout the thoracic spine ar e stable Life support devices: None. IMPRESSION: No acute cardiopulmonary abnormality. No change This document is electronically signed by Ayanna Rodriguez MD., June 20 2018 05:16:25 PM ET
[2018-06-20 17:23] LABS: Basophils % (Auto) 0.1 % (0.0-1.8); Eosinophils % (Auto) 0.6 % (0.0-4.3); Hemoglobin 12.8 gm/dl (11.8-15.2); Lymphocytes # (Auto) 1.2 K/mm3 (1.2-5.4); Lymphocytes % (Auto) 16.2 % (13.4-35.0); Mean Corpuscular HGB Conc 33 % (32-34); Mean Corpuscular Volume 87 fl (84-94); Monocytes # (Auto) 0.6 K/mm3 (0.0-0.8); Monocytes % (Auto) 7.6 % (0.0-7.3); Platelet Count 217 K/mm3 (140-440); Red Cell Distribution Width 13.7 % (13.2-15.2)
[2018-06-20 17:31] LABS: Alanine Aminotransferase 10 units/L (7-56); Albumin 3.6 g/dL (3.9-5); BUN/Creatinine Ratio 15; Blood Urea Nitrogen 15 mg/dL (9-20); Hemolysis Index 19
[2018-06-20] MEDS ORDERED: TORADOL IV ONE (17:33)
[2018-06-20] MEDS ORDERED: PROVENTIL IH ONE ×2 (17:33→19:38)
[2018-06-20] MEDS ORDERED: SOLU-Medrol IV ONE (17:33)
[2018-06-20] MEDS ORDERED: LEVAQUIN 500MG/100ML 500 MG/100 ML BAG IV ONE ×2 (17:34→18:07)
[2018-06-20] MEDS ORDERED: NACL 0.9% 500 ML 500 ML IV ONE (17:35)
[2018-06-20] MEDS ORDERED: NITROSTAT SL PRN (17:35)
--- NOTE | 2018-06-20 17:36 | Emergency Department Report ---
ED Chest Pain HPI - General Chief Complaint: Chest Pain Stated Complaint: CHEST AND LEFT PAIN/SOB/ Time Seen by Provider: 06/20/18 16:14 Source: patient, RN notes reviewed, old records reviewed Mode of arrival: Ambulatory Limitations: No Limitations - History of Present Illness Initial Comments: Primary care Dr.: Dr. Francis Cardiology: [facility] This is a 72-year-old gentleman who is not known to this provider previously. His past history includes peripheral vascular disease, COPD, hypertension, heart disease. He takes aspirin on a daily basis. He presents to the emergency room today with a complaint of left-sided chest pain, that radiates down the left arm, cough, wheezing, shortness of breath. Symptoms present intermittently for the past 3-4 days. They do not have exacerbating or relieving factors. He reports cough, wheezing, shortness of breath. He reports that he feels like his COPD is acting up. He denies DVT, pulmonary embolus risk factors. MD Complaint: chest pain -: Gradual Onset: during rest Pain Location: left chest Pain Radiation: LUE Severity: moderate Quality: aching, heaviness Consistency: intermittent Improves With: other Worsens With: other Aspirin use within the Past 7 Days: (1) Yes - Related Data On Oral Contraceptives: No Home Medications Medication Instructions Recorded Confirmed Last Taken Aspirin [Adult Low Dose Aspirin EC] 81 mg PO QDAY 11/10/16 04/04/17 04/03/17 AtorvaSTATin [Lipitor] 40 mg PO QDAY 11/10/16 04/04/17 04/03/17 Baclofen [Lioresal] 10 mg PO TID 11/10/16 04/04/17 04/03/17 Lisinopril [Zestril TAB] 20 mg PO QDAY 11/10/16 04/04/17 04/03/17 Metoprolol [Lopressor TAB] 25 mg PO BID 11/10/16 04/04/17 04/03/17 Nortriptyline [Pamelor] 10 mg PO TID 11/10/16 04/04/17 04/03/17 Oxybutynin [Ditropan] 5 mg PO BID 11/10/16 04/04/17 04/03/17 Pantoprazole [Protonix TAB] 40 mg PO BID 11/10/16 04/04/17 04/03/17 Cholecalciferol (Vitamin D3) 1,000 unit PO DAILY 04/04/17 04/04/17 04/03/17 [Vitamin D3] Fluticasone [Flonase] 1 spray NS QDAY 04/04/17 04/04/17 04/03/17 Gabapentin [Neurontin] 300 mg PO Q8HR 04/04/17 04/04/17 04/03/17 Ranitidine HCl [Zantac] 300 mg PO QHS 04/04/17 04/04/17 04/03/17 Tiotropium [Spiriva] 18 mcg IH QDAY 04/04/17 04/04/17 04/03/17 amLODIPine [Norvasc] 10 mg PO DAILY 04/04/17 04/04/17 04/03/17 methOCARBAMOL [Robaxin TAB] 500 mg PO Q6H PRN 04/04/17 04/04/17 04/03/17 Previous Rx's Medication Instructions Recorded Last Taken Type Tramadol HCl [Ultram] 50 mg PO Q6H #12 tablet 11/16/17 Unknown Rx Allergies Allergy/AdvReac Type Severity Reaction Status Date / Time No Known Allergies Allergy Verified 06/20/18 16:58 Heart Score - HEART Score History: Moderately suspicious EKG: Non-specific Age: > 65 Risk factors: 1-2 risk factors Troponin: < normal limit HEART Score: 5 - Critical Actions Critical Actions: 4-6 pts:12-16.6% risk of adverse cardiac event. Should be admitted ED Review of Systems ROS: Stated complaint: CHEST AND LEFT PAIN/SOB/ Other details as noted in HPI Constitutional: denies: malaise ENT: congestion Respiratory: cough, shortness of breath, wheezing Cardiovascular: chest pain Gastrointestinal: denies: abdominal pain, nausea, vomiting Genitourinary: denies: dysuria Musculoskeletal: denies: back pain Neurological: weakness. denies: as per HPI Psychiatric: denies: anxiety ED Past Medical Hx - Past Medical History Previous Medical History?: Yes Hx Hypertension: Yes Hx Arthritis: Yes (osteoarthritis) Hx Psychiatric Treatment: Yes (depression) Hx COPD: Yes Additional medical history: high cholesterol, Neuropathy, Chronic Foot Pain. sleep apnea. CAD. spinal stenosis. PVD. Frausto's esophagus - Surgical History Past Surgical History?: Yes Additional Surgical History: hernia repair x 2 - Social History Smoking Status: Current Every Day Smoker Substance Use Type: None - Medications Home Medications: Home Medications Medication Instructions Recorded Confirmed Last Taken Type Aspirin [Adult Low Dose Aspirin EC] 81 mg PO QDAY 11/10/16 04/04/17 04/03/17 History AtorvaSTATin [Lipitor] 40 mg PO QDAY 11/10/16 04/04/17 04/03/17 History Baclofen [Lioresal] 10 mg PO TID 11/10/16 04/04/17 04/03/17 History Lisinopril [Zestril TAB] 20 mg PO QDAY 11/10/16 04/04/17 04/03/17 History Metoprolol [Lopressor TAB] 25 mg PO BID 11/10/16 04/04/17 04/03/17 History Nortriptyline [Pamelor] 10 mg PO TID 11/10/16 04/04/17 04/03/17 History Oxybutynin [Ditropan] 5 mg PO BID 11/10/16 04/04/17 04/03/17 History Pantoprazole [Protonix TAB] 40 mg PO BID 11/10/16 04/04/17 04/03/17 History Cholecalciferol (Vitamin D3) 1,000 unit PO DAILY 04/04/17 04/04/17 04/03/17 History [Vitamin D3] Fluticasone [Flonase] 1 spray NS QDAY 04/04/17 04/04/17 04/03/17 History Gabapentin [Neurontin] 300 mg PO Q8HR 04/04/17 04/04/17 04/03/17 History Ranitidine HCl [Zantac] 300 mg PO QHS 04/04/17 04/04/17 04/03/17 History Tiotropium [Spiriva] 18 mcg IH QDAY 04/04/17 04/04/17 04/03/17 History amLODIPine [Norvasc] 10 mg PO DAILY 04/04/17 04/04/17 04/03/17 History methOCARBAMOL [Robaxin TAB] 500 mg PO Q6H PRN 04/04/17 04/04/17 04/03/17 History Tramadol HCl [Ultram] 50 mg PO Q6H #12 tablet 11/16/17 Unknown Rx ED Physical Exam - General Limitations: No Limitations General appearance: alert, in no apparent distress - Head Head exam: Present: atraumatic, normocephalic - Eye Eye exam: Present: normal appearance, EOMI. Absent: nystagmus - ENT ENT exam: Present: normal exam, normal orophraynx, mucous membranes moist, normal external ear exam - Neck Neck exam: Present: normal inspection - Respiratory Respiratory exam: Present: respiratory distress, wheezes, rhonchi. Absent: decreased breath sounds - Cardiovascular Cardiovascular Exam: Present: normal rhythm, tachycardia, normal heart sounds. Absent: systolic murmur, diastolic murmur, rubs, gallop - GI/Abdominal GI/Abdominal exam: Present: soft. Absent: distended, tenderness, guarding, rebound, rigid, pulsatile mass - Rectal Rectal exam: Present: deferred - Extremities Exam Extremities exam: Present: normal inspection, full ROM, other (2+ pulses noted in the bilateral upper, lower extremities. Compartments soft. No long bony tenderness. The pelvis is stable.). Absent: pedal edema, joint swelling, calf tenderness - Back Exam Back exam: Present: normal inspection, full ROM. Absent: tenderness, CVA tenderness (R), paraspinal tenderness, vertebral tenderness - Neurological Exam Neurological exam: Present: alert, oriented X3, other (Extraocular movements intact. Tongue midline. No facial droop. Facial sensation intact to light touch in the V1, V2, V3 distribution bilaterally. 5 and 5 strength in 4 extremities.. Sensation is intact to light touch in 4 extremities.). Absent: motor sensory deficit - Psychiatric Psychiatric exam: Present: normal affect, normal mood - Skin Skin exam: Present: warm, dry, intact, normal color. Absent: rash ED Course Vital Signs 06/20/18 06/20/18 15:51 17:07 Temperature 97.9 F Pulse Rate 112 H Pulse Rate [ 103 H Anterior Bilateral Throughout] Respiratory 16 Rate Respiratory 20 Rate [Anterior Bilateral Throughout] Blood Pressure 137/91 O2 Sat by Pulse 98 Oximetry LV score - Lv Score Age > 65: (1) Yes Aspirin use within the Past 7 Days: (1) Yes 3 or more CAD Risk Factors: (1) Yes 2 or more Angina events in past 24 hrs: (1) Yes Known CAD with more than 50% Stenosis: (0) No Elevated Cardiac Markers: (0) No ST Deviation Greater than 0.5mm: (0) No LV Score: 4 ED Medical Decision Making - Lab Data Result diagrams: 06/20/18 17:00 06/20/18 17:00 Vital Signs 06/20/18 06/20/18 15:51 17:07 Temperature 97.9 F Pulse Rate 112 H Pulse Rate [ 103 H Anterior Bilateral Throughout] Respiratory 16 Rate Respiratory 20 Rate [Anterior Bilateral Throughout] Blood Pressure 137/91 O2 Sat by Pulse 98 Oximetry Lab Results 06/20/18 06/20/18 06/20/18 Range/Units 17:00 17:00 17:00 WBC 7.7 (4.5-11.0) K/mm3 RBC 4.50 (3.65-5.03) M/mm3 Hgb 12.8 (11.8-15.2) gm/dl Hct 39.0 (35.5-45.6) % MCV 87 (84-94) fl MCH 29 (28-32) pg MCHC 33 (32-34) % RDW 13.7 (13.2-15.2) % Plt Count 217 (140-440) K/mm3 Lymph % (Auto) 16.2 (13.4-35.0) % [place] % (Auto) 7.6 H (0.0-7.3) % Eos % (Auto) 0.6 (0.0-4.3) % Baso % (Auto) 0.1 (0.0-1.8) % Lymph # 1.2 (1.2-5.4) K/mm3 [place] # 0.6 (0.0-0.8) K/mm3 Eos # 0.0 (0.0-0.4) K/mm3 Baso # 0.0 (0.0-0.1) K/mm3 Seg Neutrophils % 75.5 H (40.0-70.0) % Seg Neutrophils # 5.8 (1.8-7.7) K/mm3 Sodium 138 (137-145) mmol/L Potassium 3.9 (3.6-5.0) mmol/L Chloride 98.4 (98-107) mmol/L Carbon Dioxide 29 (22-30) mmol/L Anion Gap 15 mmol/L BUN 15 (9-20) mg/dL Creatinine 1.0 (0.8-1.5) mg/dL Estimated GFR > 60 ml/min BUN/Creatinine Ratio 15 % Glucose 89 (75-100) mg/dL Calcium 9.0 (8.4-10.2) mg/dL Total Bilirubin 0.20 (0.1-1.2) mg/dL AST 14 (5-40) units/L ALT 10 (7-56) units/L Alkaline Phosphatase 64 (35-129) units/L Troponin T < 0.010 (0.00-0.029) ng/mL Total Protein 6.7 (6.3-8.2) g/dL Albumin 3.6 L (3.9-5) g/dL Albumin/Globulin Ratio 1.2 % - EKG Data -: EKG Interpreted by Nd EKG shows normal: sinus rhythm Rate: tachycardia - EKG Data 06/20/18 18:43 Sinus tachycardia, 112 bpm, normal axis, premature atrial contractions, left ventricular hypertrophy, T-wave inversions in the lateral leads, abnormal EKG, not consistent with ST elevation myocardial infarction, nonspecific changes when compared to prior EKG from 04/04/2007 - Radiology Data Radiology results: report reviewed, image reviewed X-ray the chest was negative for acute disease - Medical Decision Making Differential diagnosis, including not limited to: COPD exacerbation, pneumonia, costochondritis, GERD, gastritis, hiatal hernia, acute coronary syndrome Assessment and plan: 72-year-old gentleman with cough, wheezing, shortness of breath that proceeded chest pain. Patient is afebrile with reassuring vital signs and tachycardia. He denies DVT, pulmonary embolus risk factors. Find the patient to be low risk by well's criteria. COPD exacerbation is a more likely diagnosis than pulmonary embolus. Also complains of chest pain that radiates to the left arm. Patient on aspirin and has an elevated risk profile, as per the heart score, and LV score. He is treated empirically with albuterol, Atrovent, steroids, aspirin and Levaquin for presumed COPD exacerbation. Aspirin is also ordered.. The patient currently appears comfortable, he is resting on his stretcher, and in no acute distress, and watching TV. Discussed with covering electric tool repairer, Dr. Roly Castellon, who is group will follow in consultation and make recommendations on a cardiac risk stratification. Patient has not had a stress test recently that he can recall. Presented the case to the patient's primary care doctor, Dr. Matos, who has accepted the patient to the medical service for presumed COPD exacerbation, and cardiac risk stratification. Critical care attestation.: If time is entered above; I have spent that time in minutes in the direct care of this critically ill patient, excluding procedure time. ED Disposition Clinical Impression: COPD (chronic obstructive pulmonary disease), Chest pain, HTN (hypertension) Disposition: OP ADMIT IP TO THIS HOSP Is pt being admited?: Yes Condition: Fair
[2018-06-20] MEDS ORDERED: NACL 0.9% 500 ML 500 ML ONE (18:07)
[2018-06-20] MEDS ORDERED: SOLU-Medrol ONE (18:07)
[2018-06-20] MEDS ORDERED: TORADOL ONE (18:07)
[2018-06-20] MEDS ORDERED: MORPHINE IV PRN (19:35)
[2018-06-20] MEDS ORDERED: SODIUM CHLORIDE FLUSH SYRINGE 10 ML IV PRN (19:35)
[2018-06-20] MEDS ORDERED: SPIRIVA IH SCH (20:00)
--- NOTE | 2018-06-20 20:06 | History and Physical Report ---
History of Present Illness Date of examination: 06/20/18 Date of admission: 06/20/18 17:36 Chief complaint: Chest pain, shortness of breath, History of present illness: Patient is a 72-year-old gentleman who has a history of COPD, current tobacco use, peripheral vascular disease, heart disease. He takes aspirin on a daily basis. He presents to the emergency room today with a complaint of left-sided chest pain, that radiates down the left arm. Denies any diaphoresis. Endorses, coughing, wheezing, shortness of breath. Cough is productive of yellowish sputu m. Denies any fever. No orthopnea or paroxysmal nocturnal dyspnea. Symptoms present intermittently for the past 3-4 days. They do not have exacerbating or relieving factors. He reports that he feels like his COPD is acting up. Patient states he smokes about 5 cigarettes a day. Past History Past Medical History: COPD, hypertension Medications and Allergies Allergies Allergy/AdvReac Type Severity Reaction Status Date / Time No Known Allergies Allergy Verified 06/20/18 16:58 Home Medications Medication Instructions Recorded Confirmed Last Taken Type Aspirin [Adult Low Dose Aspirin EC] 81 mg PO QDAY 11/10/16 04/04/17 04/03/17 History AtorvaSTATin [Lipitor] 40 mg PO QDAY 11/10/16 04/04/17 04/03/17 History Baclofen [Lioresal] 10 mg PO TID 11/10/16 04/04/17 04/03/17 History Lisinopril [Zestril TAB] 20 mg PO QDAY 11/10/16 04/04/17 04/03/17 History Metoprolol [Lopressor TAB] 25 mg PO BID 11/10/16 04/04/17 04/03/17 History Nortriptyline [Pamelor] 10 mg PO TID 11/10/16 04/04/17 04/03/17 History Oxybutynin [Ditropan] 5 mg PO BID 11/10/16 04/04/17 04/03/17 History Pantoprazole [Protonix TAB] 40 mg PO BID 11/10/16 04/04/17 04/03/17 History Cholecalciferol (Vitamin D3) 1,000 unit PO DAILY 04/04/17 04/04/17 04/03/17 History [Vitamin D3] Fluticasone [Flonase] 1 spray NS QDAY 04/04/17 04/04/17 04/03/17 History Gabapentin [Neurontin] 300 mg PO Q8HR 04/04/17 04/04/17 04/03/17 History Ranitidine HCl [Zantac] 300 mg PO QHS 04/04/17 04/04/17 04/03/17 History Tiotropium [Spiriva] 18 mcg IH QDAY 04/04/17 04/04/17 04/03/17 History amLODIPine [Norvasc] 10 mg PO DAILY 04/04/17 04/04/17 04/03/17 History methOCARBAMOL [Robaxin TAB] 500 mg PO Q6H PRN 04/04/17 04/04/17 04/03/17 History Tramadol HCl [Ultram] 50 mg PO Q6H #12 tablet 11/16/17 Unknown Rx Active Meds: Active Medications Albuterol (Proventil) 2.5 mg IH Q6HRT [facility] Albuterol/Ipratropium (Duoneb *Not For Prn Use*) 1 ampul IH Q6HRT [facility] Amlodipine Besylate (Norvasc) 10 mg PO DAILY [facility] Arformoterol Tartrate (Brovana Nebu) 15 mcg IH Q12HRT [facility] Aspirin (Ecotrin) 325 mg PO QDAY [facility] Atorvastatin Calcium (Lipitor) 40 mg PO QHS [facility] Atorvastatin Calcium (Lipitor) 40 mg PO QDAY [facility] Baclofen (Lioresal) 10 mg PO TID [facility] Fluticasone Propionate (Flonase) 50 mcg NS QDAY [facility] Gabapentin (Neurontin) 300 mg PO Q8HR [facility] Levofloxacin/Dextrose (Levaquin 500mg/100ml) 500 mg in 100 mls @ 100 mls/hr IV Q24HR [facility]; Protocol Lisinopril (Zestril) 20 mg PO QDAY [facility] Methylprednisolone Sodium Succinate (Solu-Medrol) 40 mg IV Q8HR [facility] Miscellaneous Medication (Cholecalciferol (Vitamin D3) [Vitamin D3]) 1,000 unit PO DAILY [facility] Miscellaneous Medication (Ranitidine Hcl [Zantac]) 300 mg PO QHS [facility] Morphine Sulfate (Morphine) 2 mg IV Q5MIN PRN PRN Reason: Chest Pain unrelieved by NTG Nitroglycerin (Nitrostat) 0.4 mg SL .Q5MIN PRN PRN Reason: Chest Pain Nitroglycerin (Nitro Dur) 0.2 mg TD QDAY@0600 [facility] Sodium Chloride (Sodium Chloride Flush Syringe 10 Ml) 10 ml IV PRN PRN PRN Reason: LINE FLUSH Tiotropium [place] (Spiriva) puff IH QDAY Review of systems Constitutional: Well Nouridhed and Well developed. Head: NC/ AT Eyes: Denies any visual impairments. No discharge from the eyes Nose: Denies any rhinorrhea or epistaxis Throats: Denies any post nasal drainage. Ears: Denies any hearing deficits Cardiovascular system: Has chest pain, shortness of breath, orthopnea, paroxysmal nocturnal dyspnea, or palpitation. Respiratory system: Has any cough, difficulty breathing, wheezing, pleuritic chest pain, Gastrointestinal system: Denies any abdominal pain, nausea vomiting, hematemesis or melena. Neurological system: Denies any headache, slurred speech, facial droop, lateralizing weakness Genitalia system: Denies any dysuria, urinary frequency or urgency, urethral discharge Skin: No rashes, hyperpigmented spots. Hematological: Denies any cervical tenderness hemorrhages or petechia. Immunological: Denies any multiple septic spots, Lymphatic: Denies any generalized lymphadenopathy. Endocrine: Denies any polyuria, polydipsia, polyphagia. No heat or cold intolerance. Musculoskeletal system: No joint pain or swelling. Psych: No visual, tactile, auditory or hallucination Exam - Physical Exam Narrative exam: Constitutional: Well-nourished well-developed. In no distress Head: Normocephalic atraumatic Eyes: Pupils are equal round and reactive to light Nose: No enlarged turbinates, no septal deviation. Mouth: Moist mucous membranes. Neck: Supple no thyromegaly. No bruit. No JVD Heart: Regular rate and rhythm, S1-S2 normal. No rubs murmurs or gallop Lungs: Decreased breath sounds bilaterally. no rales or rhonchi Abdomen: Soft, nontender. Bowel sound are present. Extremities: No edema, no cyanosis, no clubbing. Neuro: Alert oriented Oriented x3. No focal sensory or motor deficit. Skin: No rashes or hyperpigmented spots Musculoskeletal system: No joint pain or swelling Hematological: No petechia or subcutanous hemorrhages. Immunological: No multiple septic spots on the skin Lymphatic: No generalized lymphadenopathy Psychiatry: Euthymic. Calm. - Constitutional Vitals: Temp Pulse Resp BP Pulse Ox 97.9 F 55 L 16 132/84 96 06/20/18 15:51 06/20/18 18:47 06/20/18 18:47 06/20/18 18:47 06/20/18 18:47 Results - Labs CBC & Chem 7: 06/20/18 20:08 06/20/18 17:00 Labs: Abnormal lab results 06/20/18 06/20/18 Range/Units 17:00 17:00 [place] % (Auto) 7.6 H (0.0-7.3) % Seg Neutrophils % 75.5 H (40.0-70.0) % Albumin 3.6 L (3.9-5) g/dL Assessment and Plan - Chest pain Obtain serial cardiac enzymes, Comments patient on oxygen, nitroglycerin, aspirin, morphine. We hold beta blockers because of COPD - COPD exacerbation Commence bronchodilators, Brovana IV Solu-Medrol, IV Levaquin - History of coronary artery disease On aspirin,acei, statins, holding beta jacqueline because of COPD exacerbation - Tobacco use disorder Counselling on tobacco cessation done - DVT prophylaxis with Lovenox and GI with Pepcid Advance Directives: Yes VTE prophylaxis?: Chemical Plan of care discussed with patient/family: Yes
[2018-06-20 20:35] LABS: Basophils % (Auto) 0.1 % (0.0-1.8); Eosinophils % (Auto) 0.3 % (0.0-4.3); Hematocrit 37.3 % (35.5-45.6); Hemoglobin 12.5 gm/dl (11.8-15.2); Lymphocytes # (Auto) 1.3 K/mm3 (1.2-5.4); Lymphocytes % (Auto) 11.6 % (13.4-35.0); Mean Corpuscular HGB Conc 34 % (32-34); Mean Corpuscular Volume 87 fl (84-94); Monocytes # (Auto) 0.4 K/mm3 (0.0-0.8); Monocytes % (Auto) 3.4 % (0.0-7.3); Platelet Count 208 K/mm3 (140-440); Red Blood Count 4.27 M/mm3 (3.65-5.03); Red Cell Distribution Width 13.7 % (13.2-15.2)
[2018-06-20 21:20] LABS: BUN/Creatinine Ratio 17; Blood Urea Nitrogen 15 mg/dL (9-20); Calcium 8.4 mg/dL (8.4-10.2); HDL Cholesterol 46 mg/dL (40-59); Hemolysis Index 14; LDL Cholesterol,Direct 103 mg/dL (50-130)
[2018-06-20] MEDS: PROVENTIL IH SCH (21:20)
[2018-06-20] MEDS: DUONEB *Not for PRN Use IH SCH (21:20)
[2018-06-20] MEDS: BROVANA NEBU IH SCH (21:20)
[2018-06-20 21:30] LABS: INR 0.98 (0.87-1.13)
[2018-06-20] MEDS ORDERED: NON-FORMULARY (Ranitidine Hcl [Zantac] 300 MG) PO SCH (22:00)
[2018-06-20] MEDS: LEVAQUIN 500MG/100ML 500 MG/100 ML BAG IV SCH (22:09)
[2018-06-20] MEDS: SOLU-Medrol IV SCH (22:49)
[2018-06-20] MEDS: NEURONTIN PO SCH (22:49)
[2018-06-20] MEDS: PEPCID PO SCH (22:49)
[2018-06-20] MEDS: LOVENOX SUB-Q SCH (22:49)
[2018-06-20] MEDS: NORVASC PO SCH (22:50)
[2018-06-20] MEDS: LIORESAL PO SCH (22:51)
[2018-06-20] MEDS: ZESTRIL PO SCH (22:52)
[2018-06-21] MEDS: DUONEB *Not for PRN Use IH SCH ×4 (03:03→21:16)
[2018-06-21] MEDS: PROVENTIL IH SCH ×2 (03:03→08:50)
[2018-06-21] MEDS: NEURONTIN PO SCH ×3 (05:57→22:50)
[2018-06-21] MEDS: SOLU-Medrol IV SCH ×3 (05:57→21:57)
[2018-06-21] MEDS: NITRO DUR TD SCH (05:58)
[2018-06-21] MEDS: BROVANA NEBU IH SCH ×2 (08:50→21:16)
[2018-06-21] MEDS ORDERED: NON-FORMULARY (Cholecalciferol (Vitamin D3) [Vitamin D3] 1,000 UNIT) PO SCH (10:00)
[2018-06-21] MEDS ORDERED: PROVENTIL IH PRN (10:34)
--- NOTE | 2018-06-21 11:11 | Event Note ---
Date: 06/21/18 CARDIOLOGY NOTE DICTATED 1.CHEST PAIN 2. HTN 3. HYPERLIPIDEMIA WILL OBTAIN CARDIAC TESTING AND MONITOR CLOSELY THANK YOU DR BRADEN FELIZ
[2018-06-21] MEDS: LEVAQUIN 500MG/100ML 500 MG/100 ML BAG IV SCH (11:56)
[2018-06-21] MEDS: VITAMIN D3 PO SCH (11:56)
[2018-06-21] MEDS: ECOTRIN PO SCH (11:56)
[2018-06-21] MEDS: FLONASE NS SCH ×2 (11:57)
[2018-06-21] MEDS: LIORESAL PO SCH ×3 (11:57→21:56)
[2018-06-21] MEDS: PEPCID PO SCH ×2 (11:59→21:57)
[2018-06-21] MEDS: NORVASC PO SCH (11:59)
[2018-06-21] MEDS: ZESTRIL PO SCH (11:59)
--- NOTE | 2018-06-21 12:12 | Progress Note ---
Assessment and Plan - Chest pain cardiac enzymes x 2 - nl, Continue with oxygen, nitroglycerin, aspirin, morphine. We hold beta blockers because of COPD Stress test - COPD exacerbation Cont with bronchodilators, Brovana IV Solu-Medrol, IV Levaquin - History of coronary artery disease On aspirin, acei, statins, holding beta jacqueline because of COPD exacerbation - Tobacco use disorder Counselling on tobacco cessation done - DVT prophylaxis with Lovenox and GI with Pepcid Advance Directives: Yes VTE prophylaxis?: Chemical Plan of care discussed with patient/family: Yes Subjective Date of service: 06/21/18 Principal diagnosis: COPD exacerbation, chest pain Interval history: Patient seen and examined. Chest pain resolved. Still having shortness of breath. Complains of epigastric abdominal pain. 3-07/31. No nausea no vomiting. Objective - Exam Narrative Exam: Constitutional: Well-nourished well-developed.In no distress Head: Normocephalic atraumatic Eyes: Pupils are equal round and reactive to light Nose: No enlarged turbinates, no septal deviation. Mouth: Moist mucous membranes. Neck: Supple no thyromegaly. No bruit. No JVD Heart: Regular rate and rhythm, S1-S2 normal. No rubs murmurs or gallop Lungs: Decreased breath sounds bilaterally. no rales or rhonchi Abdomen: Soft, nontender. Bowel sound are present. Extremities: No edema, no cyanosis, no clubbing. Neuro: Alert oriented Oriented x3. No focal sensory or motor deficit. Skin: No rashes or hyperpigmented spots Musculoskeletal system: No joint pain or swelling Hematological: No petechia or subcutanous hemorrhages. Immunological: No multiple septic spots on the skin Lymphatic: No generalized lymphadenopathy Psychiatry: Euthymic. Calm. - Constitutional Vitals: Vital Signs - 12hr 06/21/18 06/21/18 06/21/18 01:40 03:06 03:17 Temperature Pulse Rate 115 H Pulse Rate [ 117 H 119 H Anterior Bilateral Throughout] Respiratory Rate Respiratory 19 20 Rate [Anterior Bilateral Throughout] Blood Pressure Blood Pressure [Left] O2 Sat by Pulse Oximetry 06/21/18 06/21/18 06/21/18 03:36 05:58 08:08 Temperature 98.1 F 98.1 F Pulse Rate 115 H 112 H 121 H Pulse Rate [ Anterior Bilateral Throughout] Respiratory 18 20 20 Rate Respiratory Rate [Anterior Bilateral Throughout] Blood Pressure 102/56 Blood Pressure 133/86 [Left] O2 Sat by Pulse 96 92 92 Oximetry 06/21/18 06/21/18 08:54 10:28 Temperature Pulse Rate Pulse Rate [ 118 H Anterior Bilateral Throughout] Respiratory Rate Respiratory 20 Rate [Anterior Bilateral Throughout] Blood Pressure Blood Pressure [Left] O2 Sat by Pulse 95 Oximetry - Labs CBC & Chem 7: 06/20/18 20:08 06/20/18 20:08 Labs: Abnormal lab results 06/20/18 06/20/18 06/20/18 Range/Units 17:00 17:00 20:08 Lymph % (Auto) 11.6 L (13.4-35.0) % [place] % (Auto) 7.6 H (0.0-7.3) % Seg Neutrophils % 75.5 H 84.6 H (40.0-70.0) % Seg Neutrophils # 9.3 H (1.8-7.7) K/mm3 Sodium (137-145) mmol/L Carbon Dioxide (22-30) mmol/L Glucose (75-100) mg/dL Hemoglobin A1c (4-6) % Albumin 3.6 L (3.9-5) g/dL 06/20/18 06/20/18 Range/Units 20:08 20:08 Lymph % (Auto) (13.4-35.0) % [place] % (Auto) (0.0-7.3) % Seg Neutrophils % (40.0-70.0) % Seg Neutrophils # (1.8-7.7) K/mm3 Sodium 135 L (137-145) mmol/L Carbon Dioxide 21 L D (22-30) mmol/L Glucose 121 H (75-100) mg/dL Hemoglobin A1c 6.6 H (4-6) % Albumin (3.9-5) g/dL
[2018-06-21] MEDS ORDERED: PROVENTIL IH SCH (14:00)
--- NOTE | 2018-06-21 18:55 | Consultation ---
CARDIOLOGY EVALUATION HISTORY OF PRESENT ILLNESS: The patient is a 72-year-old gentleman admitted with chest pain. He is known to have had chest pains in the past; however, within the last 2-3 days, he has been having more discomfort, sometimes described as heaviness, but he notices more when he is standing and no significant relationship activity. No significant radiation to the neck, but sometimes it radiates to left arm. He does complain about cough and wheezing as well as some difficulty in breathing. The patient continues to smoke about 5-7 cigarettes a day. Nonalcoholic. No prior myocardial infarction. The patient is apparently known to have had chronic obstructive pulmonary disease. The patient is known to have had longstanding history of hypertension and hyperlipidemia. REVIEW OF SYSTEMS: HEAD, EYES, EARS, NOSE AND THROAT: No symptoms. ENDOCRINE: No history of diabetes. GASTROINTESTINAL: No abdominal pain, nausea, or vomiting. Bowel habits have been regular. No history of peptic ulcer disease or gallbladder disease. GENITOURINARY: No symptoms. LOCOMOTOR: No symptoms. CENTRAL NERVOUS SYSTEM: No history of cerebrovascular accident or convulsive disorder. PHYSICAL EXAMINATION: GENERAL: Adult gentleman, well built and nourished, no distress. VITAL SIGNS: Blood pressure 133/86, pulse 118. HEAD, EYES, EARS, NOSE, AND THROAT: Unremarkable. NECK: Supple. No thyromegaly. Both carotids are palpable and equal. Neck veins are flat. CHEST: Symmetrical. LUNGS: Scattered rhonchi present. Mildly reduced breath sounds in both bases. HEART: S1 and S2 are heard well. No significant murmurs are present. ABDOMEN: Soft, nontender. No hepatosplenomegaly. EXTREMITIES: No significant edema or calf tenderness. Peripheral pulses are somewhat difficult to palpate. LABORATORY DATA: Hemoglobin 12.5, hematocrit 37.3. Sodium 135, potassium 3.6, blood sugar 121, hemoglobin A1c 6.6, cholesterol 45, triglycerides 45. Total cholesterol 143, LDL 103, HDL 46. Stress EKG, sinus tachycardia, nonspecific ST changes present. IMPRESSION: 1. Chest pain, atypical. 2. Hypertension. 3. Hyperlipidemia. 4. History of chronic smoking. 5. Possible peripheral vascular disease. 6. Possible diabetes. The patient is seen for cardiac evaluation. Currently, his cardiac rhythm is stable. He still has some chest discomfort, but overall he seems to be comfortable. We will obtain a stress test and echocardiogram for further cardiac evaluation. Previous studies done in 2017 showed left ventricular systolic dysfunction. We will obtain a repeat echo and reassess status of the cardiac function. The patient will be monitored and followed closely with you. Thank you for allowing me to participate in the care of this gentleman. JOB# [id number] KB/NTS
[2018-06-21] MEDS: LOVENOX SUB-Q SCH (21:57)
[2018-06-22] MEDS: NITRO DUR TD SCH (05:59)
[2018-06-22] MEDS: NEURONTIN PO SCH ×3 (05:59→21:02)
[2018-06-22] MEDS: SOLU-Medrol IV SCH ×3 (06:01→21:02)
[2018-06-22] MEDS: DUONEB *Not for PRN Use IH SCH ×3 (07:15→20:04)
[2018-06-22] MEDS: BROVANA NEBU IH SCH ×2 (07:15→20:04)
[2018-06-22] MEDS ORDERED: LEXISCAN IV ONE ×2 (11:26→11:27)
--- NOTE | 2018-06-22 11:59 | Progress Note ---
Assessment and Plan Await echo. Proceed with lexiscan MPI stress test. Optimize BP and HR - resume home lopressor. Check thyroid profile in setting of transient SVT noted yesterday around 10AM. The patient has been seen in conjunction with Dr. Padilla who agrees with the assessment and plan of care. - Patient Problems (1) Chest pain Current Visit: Yes Status: Acute (2) SVT (supraventricular tachycardia) Current Visit: Yes Status: Acute (3) HTN (hypertension) Current Visit: Yes Status: Chronic (4) Hyperlipemia Current Visit: Yes Status: Acute (5) COPD (chronic obstructive pulmonary disease) Current Visit: Yes Status: Chronic (6) Nicotine dependence Current Visit: Yes Status: Chronic (7) PVD (peripheral vascular disease) Current Visit: Yes Status: Suspected Subjective Date of service: 06/22/18 Principal diagnosis: COPD exacerbation, chest pain Interval history: pt resting in bed, c/o intermittent chest pain overnight. tele reviewed - pt in ST HR 100s with bout of SVT noted yesterday around 10AM. Objective Last Vital Signs Temp 97.5 F L 06/22/18 08:07 Pulse 116 H 06/22/18 08:07 Resp 16 06/22/18 08:07 BP 152/94 06/22/18 08:07 Pulse Ox 97 06/22/18 08:07 - Physical Examination General: No Apparent Distress HEENT: Positive: PERRL, Normocephaly, Mucus Membranes Moist Neck: Positive: neck supple, trachea midline Cardiac: Positive: Reg Rate and Rhythm, S1/S2 Lungs: Positive: Decreased Breath Sounds Neuro: Positive: Grossly Intact Abdomen: Negative: Tender Skin: Negative: Rash Musculoskeletal: No Pain - Imaging and Cardiology Pharmacologic stress test: pending Echo: pending - Telemetry EKG Rhythm: Sinus Rhythm
[2018-06-22] MEDS: ZESTRIL PO SCH (12:37)
[2018-06-22] MEDS: LIORESAL PO SCH ×3 (12:37→21:02)
[2018-06-22] MEDS: LEVAQUIN 500MG/100ML 500 MG/100 ML BAG IV SCH (12:37)
[2018-06-22] MEDS: PEPCID PO SCH ×2 (12:37→21:03)
[2018-06-22] MEDS: NORVASC PO SCH (12:37)
[2018-06-22] MEDS: VITAMIN D3 PO SCH (12:37)
[2018-06-22] MEDS: FLONASE NS SCH (12:38)
[2018-06-22] MEDS: ECOTRIN PO SCH (12:38)
[2018-06-22] MEDS: LOPRESSOR PO SCH ×2 (12:42→21:02)
--- NOTE | 2018-06-22 17:28 | Progress Note ---
Assessment and Plan - Chest pain cardiac enzymes x 2 - nl, Continue with oxygen, nitroglycerin, aspirin, morphine. We hold beta blockers because of COPD For Lexoscan Stress test ECHO showed EF 55-60% - SVT now back to baseline Resume BB per snow shoveler - Abnormal TSH Normal T4 - COPD exacerbation Cont with bronchodilators, Brovana IV Solu-Medrol, IV Levaquin - History of coronary artery disease On aspirin, acei, statins, holding beta jacqueline because of COPD exacerbation - Tobacco use disorder Counselling on tobacco cessation done - DVT prophylaxis with Lovenox and GI with Pepcid Advance Directives: Yes VTE prophylaxis?: Chemical Plan of care discussed with patient/family: Yes Subjective Date of service: 06/22/18 Principal diagnosis: COPD exacerbation, chest pain Interval history: Patient seen and examined. Chest pain resolved. Shortness of breath improved. Complains of epigastric abdominal pain. No nausea no vomiting. Objective - Exam Narrative Exam: Constitutional: Well-nourished well-developed. In no distress Head: Normocephalic atraumatic Eyes: Pupils are equal round and reactive to light Nose: No enlarged turbinates, no septal deviation. Mouth: Moist mucous membranes. Neck: Supple no thyromegaly. No bruit. No JVD Heart: Regular rate and rhythm, S1-S2 normal. No rubs murmurs or gallop Lungs: Decreased breath sounds bilaterally. no rales or rhonchi Abdomen: Soft, nontender. Bowel sound are present. Extremities: No edema, no cyanosis, no clubbing. Neuro: Alert oriented Oriented x3. No focal sensory or motor deficit. Skin: No rashes or hyperpigmented spots Musculoskeletal system: No joint pain or swelling Hematological: No petechia or subcutanous hemorrhages. Immunological: No multiple septic spots on the skin Lymphatic: No generalized lymphadenopathy Psychiatry: Euthymic. Calm. - Constitutional Vitals: Vital Signs - 12hr 06/22/18 06/22/18 06/22/18 07:40 08:07 11:31 Temperature 97.5 F L Pulse Rate 116 H Pulse Rate [ 116 H Anterior Bilateral Throughout] Respiratory 16 Rate Respiratory 18 Rate [Anterior Bilateral Throughout] Blood Pressure 152/94 143/90 O2 Sat by Pulse 97 Oximetry 06/22/18 06/22/18 06/22/18 11:35 11:42 11:43 Temperature Pulse Rate Pulse Rate [ Anterior Bilateral Throughout] Respiratory Rate Respiratory Rate [Anterior Bilateral Throughout] Blood Pressure 122/98 138/95 146/93 O2 Sat by Pulse Oximetry 06/22/18 06/22/18 06/22/18 11:44 11:46 11:47 Temperature Pulse Rate Pulse Rate [ Anterior Bilateral Throughout] Respiratory Rate Respiratory Rate [Anterior Bilateral Throughout] Blood Pressure 137/92 136/91 139/92 O2 Sat by Pulse Oximetry 06/22/18 06/22/18 11:48 11:51 Temperature Pulse Rate Pulse Rate [ Anterior Bilateral Throughout] Respiratory Rate Respiratory Rate [Anterior Bilateral Throughout] Blood Pressure 136/90 143/90 O2 Sat by Pulse Oximetry - Labs CBC & Chem 7: 06/20/18 20:08 06/20/18 20:08 Labs: Abnormal lab results 06/22/18 Range/Units 14:21 TSH 0.134 L (0.270-4.200) mlU/mL
[2018-06-22] MEDS: LOVENOX SUB-Q SCH (21:03)
--- NOTE | 2018-06-23 01:35 | Treadmill Report ---
NUCLEAR CARDIAC IMAGING STUDY INDICATION FOR PROCEDURE: Chest pain. Informed consent was obtained. Vasodilator stress was achieved with the intravenous administration of 0.4 mg of Lexiscan per protocol. Rest and stress nuclear cardiac imaging were performed following the intravenous administration of 10 and 20 mCi of technetium 99m Myoview respectively. Imaging was performed per protocol. After data acquisition, the images were processed and reoriented into the vertical long, horizontal long, and horizontal short axis slices. A polar color map of the horizontal short axis slices was generated and reviewed. The rotating planar images were viewed in cinematic format on the computer console. Gated SPECT imaging demonstrates a post-stress left ventricular ejection fraction of 61% with normal wall motion. Myocardial perfusion imaging demonstrates no significant cavity change between stress and rest. No significant stress induced perfusion defects are seen. Nuclear cardiac imaging demonstrates grossly normal post-stress left ventricular systolic function with no significant evidence for myocardial ischemia or necrosis. JOB# [id number] JUAN/LIGIA
[2018-06-23] MEDS: NEURONTIN PO SCH ×2 (05:07→14:15)
[2018-06-23] MEDS: SOLU-Medrol IV SCH ×2 (05:07→14:25)
[2018-06-23] MEDS: NITRO DUR TD SCH (05:09)
[2018-06-23] MEDS: BROVANA NEBU IH SCH (07:59)
[2018-06-23] MEDS: DUONEB *Not for PRN Use IH SCH ×2 (07:59→13:45)
[2018-06-23] MEDS: ECOTRIN PO SCH (11:20)
[2018-06-23] MEDS: LIORESAL PO SCH ×2 (11:22→14:15)
[2018-06-23] MEDS: LOPRESSOR PO SCH (11:23)
[2018-06-23] MEDS: NORVASC PO SCH (11:23)
[2018-06-23] MEDS: LEVAQUIN 500MG/100ML 500 MG/100 ML BAG IV SCH (11:24)
[2018-06-23] MEDS: PEPCID PO SCH (11:24)
--- NOTE | 2018-06-23 11:24 | Progress Note ---
Assessment and Plan s/p lexiscan MPI stress test yesterday which was negative. tte reviewed. TSH noted to be low. Further eval/management per primary. Optimize BP and HR - increase lopressor. currently stable cardiac status. Pt may discharge home from cardiology standpoint. Recommend follow up in our office with Dr. Farah within 1-2 weeks of hospital discharge ([phone]). The patient has been seen in conjunction with Dr. Padilla who agrees with the assessment and plan of care. - Patient Problems (1) Chest pain Current Visit: Yes Status: Resolved (2) SVT (supraventricular tachycardia) Current Visit: Yes Status: Acute (3) HTN (hypertension) Current Visit: Yes Status: Chronic (4) Hyperlipemia Current Visit: Yes Status: Acute (5) COPD (chronic obstructive pulmonary disease) Current Visit: Yes Status: Chronic (6) Nicotine dependence Current Visit: Yes Status: Chronic (7) PVD (peripheral vascular disease) Current Visit: Yes Status: Suspected Subjective Date of service: 06/23/18 Principal diagnosis: COPD exacerbation, chest pain Interval history: pt resting in bed, no current complaints. tele reviewed - pt in SR with bout of PAT noted this AM, pt asymptomatic. Objective Last Vital Signs Temp 98.6 F 06/23/18 08:37 Pulse 81 06/23/18 08:11 Resp 18 06/23/18 08:37 BP 153/96 06/23/18 08:37 Pulse Ox 97 06/23/18 04:35 - Physical Examination General: No Apparent Distress HEENT: Positive: PERRL, Normocephaly, Mucus Membranes Moist Neck: Positive: neck supple, trachea midline Cardiac: Positive: Reg Rate and Rhythm, S1/S2 Lungs: Positive: Decreased Breath Sounds Neuro: Positive: Grossly Intact Abdomen: Negative: Tender Skin: Negative: Rash Musculoskeletal: No Pain - Imaging and Cardiology Echo: pending
[2018-06-23] MEDS: VITAMIN D3 PO SCH (11:26)
[2018-06-23] MEDS: ZESTRIL PO SCH (11:27)
[2018-06-23] MEDS: FLONASE NS SCH (11:33)
[2018-06-23] MEDS ORDERED: LOPRESSOR PO SCH (14:00)
[2018-06-23 16:37] VITALS: BP 147/95
--- NOTE | 2018-06-23 18:00 | Discharge Summary ---
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 He takes aspirin on a daily basis. He presents to the emergency room today with a complaint of left-sided chest pain, that radiates down the left arm. Denies any diaphoresis. Endorses, coughing, wheezing, shortness of breath. Cough is productive of yellowish sputum. Denies any fever. No orthopnea or paroxysmal nocturnal dyspnea. Symptoms present intermittently for the past 3-4 days. They do not have exacerbating or relieving factors. He reports that he feels like his COPD is acting up. Patient states he smokes about 5 cigarettes a day. EKG showed evidence of anterolateral ischemia, cardiac enzymes 3 were ordered. Result was normal. On admission patient was commenced on oxygen and nitroglycerin and aspirin and morphine. Stress test was done. This was normal. Echocardiogram showed ejection fraction of 55-60%. Patient was treated with bronchodilator for COPD. Chest pain or shortness of breath improved. He is being discharged to follow-up with primary care physician in 3- 5 days. He is to follow stitch cleaner Dr. Manley in 1-2 weeks Disposition: [id number] TO HOME OR SELFCARE Time spent for discharge: 35 min - Discharge Diagnoses (1) Hyperlipemia Status: Acute (2) SVT (supraventricular tachycardia) Status: Acute (3) COPD (chronic obstructive pulmonary disease) Status: Chronic (4) HTN (hypertension) Status: Chronic (5) Nicotine dependence Status: Chronic Core Measure Documentation - Palliative Care Palliative Care/ Comfort Measures: Not Applicable - Core Measures Any of the following diagnoses?: none Exam - Physical Exam Narrative exam: Constitutional: Well-nourished well-developed. In no distress Head: Normocephalic atraumatic Eyes: Pupils are equal round and reactive to light Nose: No enlarged turbinates, no septal deviation. Mouth: Moist mucous membranes. Neck: Supple no thyromegaly. No bruit. No JVD Heart: Regular rate and rhythm, S1-S2 normal. No rubs murmurs or gallop Lungs: Decreased breath sounds bilaterally. no rales or rhonchi Abdomen: Soft, nontender. Bowel sound are present. Extremities: No edema, no cyanosis, no clubbing. Neuro: Alert oriented Oriented x3. No focal sensory or motor deficit. Skin: No rashes or hyperpigmented spots Musculoskeletal system: No joint pain or swelling Hematological: No petechia or subcutanous hemorrhages. Immunological: No multiple septic spots on the skin Lymphatic: No generalized lymphadenopathy Psychiatry: Euthymic. Calm. - Constitutional Vitals: Temp Pulse Resp BP Pulse Ox 98.3 F 85 18 147/95 100 06/23/18 16:36 06/23/18 16:36 06/23/18 16:36 06/23/18 16:36 06/23/18 16:36 Plan Activity: advance as tolerated, fall precautions Weight Bearing Status: Weight Bear as Tolerated Diet: diabetic Follow up with: PRIMARY CARE, [Primary Care Provider] - 3-5 Days NELI ESPOSITO MD [Staff Physician] - 3 Days Forms: Work/School Release Form Prescriptions: Aspirin [Adult Low Dose Aspirin EC] 81 mg PO QDAY #30 tablet. Ipratropium/Albuterol Sulfate [DUONEB *Not for PRN Use*] 1 ampul IH TIDRT #100 ampul.neb AtorvaSTATin [Lipitor] 40 mg PO QDAY #30 tablet Metoprolol [Lopressor TAB] 25 mg PO TID #90 tablet Gabapentin [Neurontin] 300 mg PO Q8HR #90 capsule amLODIPine [Norvasc] 10 mg PO DAILY #30 tablet Nortriptyline [Pamelor] 10 mg PO HS #30 capsule Famotidine [Pepcid] 20 mg PO BID #60 tablet methOCARBAMOL [Robaxin TAB] 500 mg PO Q6H PRN #90 tablet PRN Reason: Muscle Spasm Tiotropium [Spiriva] 18 mcg IH QDAY #30 cap Cholecalciferol Vit D3 [Vitamin D3 1,000 UNIT TAB] 1,000 unit PO QDAY #30 tablet Ranitidine HCl [Zantac] 300 mg PO QHS #30 tablet Lisinopril [Zestril TAB] 20 mg PO QDAY #30 tablet
--- NOTE | 2018-06-25 11:56 | Cat Scan Report ---
PROCEDURE: CT ANGIO CHEST TECHNIQUE: Computerized tomographic angiography of the chest was performed after the IV injection of iodinated nonionic contrast including image processing. The image data was postprocessed using 2-di mensional multiplanar reformatted (MPR) and 3-dimensional (MIP and/or volume rendered) techniques. Au tomated exposure control, adjustment of mA and/or kV according to patient size, or iterative reconstr uction dose optimization techniques were utilized. CT DOSE LENGTH PRODUCT: 741 mGycm HISTORY: shortness of breath COMPARISONS: None . FINDINGS: Heart and pericardium: The heart size slightly pronounced. No pericardial effusion. Thoracic aorta: The aorta has moderate atherosclerosis.. Pulmonary vasculature: There is no evidence of pulmonary arterial emboli. Lymph nodes: No enlarged thoracic lymph nodes. Lungs: There are moderate chronic obstructive pulmonary changes. No acute consolidation, effusion or pneumothorax. The central airway is patent. Pleural space: No effusion, thickening, or pneumothorax. Musculoskeletal structures: Mild degenerative changes of the spine. No acute osseous abnormality. Upper abdominal structures: No significant abnormality. IMPRESSION: There is no evidence of pulmonary arterial emboli. COPD with mild fibrosis. No acute consolidation, effusion or pneumothorax. Mild cardiomegaly. . This document is electronically signed by Bety Arellano DO., June 20 2018 11:21:06 PM ET
== END 2018-06-23 19:50 | disposition home or self-care (01) | DRG 191 ==
LOC: ED 15:33 → 4A 17:36
PROVIDERS: ADMIT Family Medicine; ATTEND Family Medicine
PROC: 5A09357 Assistance with Respiratory Ventilation, Less than 24 Consecutive Hours, Continuous Positive Airway Pressure (ICD-10-PCS; principal; 2018-06-21)
PROC: 5A09357 Assistance with Respiratory Ventilation, Less than 24 Consecutive Hours, Continuous Positive Airway Pressure (ICD-10-PCS; 2018-06-22)
DX: J44.1 Chronic obstructive pulmonary disease with (acute) exacerbation (principal); I47.1 Supraventricular tachycardia; F17.210 Nicotine dependence, cigarettes, uncomplicated; I10 Essential (primary) hypertension; R07.89 Other chest pain; E78.5 Hyperlipidemia, unspecified; F32.9 Major depressive disorder, single episode, unspecified; E78.00 Pure hypercholesterolemia, unspecified; I25.10 Atherosclerotic heart disease of native coronary artery without angina pectoris; Z71.6 Tobacco abuse counseling; Z79.82 Long term (current) use of aspirin
CPT/HCPCS: 36415; 71046; 71275; 78452; 80048; 80053; 80061; 83036; 83735; 84439; 84443; 84484; 85025; 85610; 93005; 93010; 93017; 93306; 94640; 94660; 99406; G0378; A9270-GY; A9502; J1650; J1885; J1956; J2785; J2920; J2930; J7040; Q9967

== ENCOUNTER 2018-07-17 07:45 | Outpatient (CLI) | payer MEDICARE ==
[2018-07-17 08:48] LABS: Alanine Aminotransferase 7 units/L (7-56); Albumin 3.8 g/dL (3.9-5); BUN/Creatinine Ratio 13; Blood Urea Nitrogen 12 mg/dL (9-20); Calcium 9.2 mg/dL (8.4-10.2); Chol/HDL Ratio 2.83 %; HDL Cholesterol 59 mg/dL (40-59); Hemolysis Index 1; LDL Cholesterol,Direct 110 mg/dL (50-130)
--- NOTE | 2018-07-17 12:49 | Nuclear Medicine Report ---
NUCLEAR MEDICINE WHOLE-BODY BONE SCAN: 07/17/18 CLINICAL: Malignant neoplasm prostate COMPARISON: No previous bone scan. Bilateral foot x-rays 11/16/17. TECHNIQUE: 25 millicuries technetium 99m MDP was injected intravenously and whole body scans were obtained at 3 hours. FINDINGS: Focal FDG uptake in the right mid foot. Otherwise normal distribution of radionuclide in the skeleton and soft tissues. No suspicious uptake. IMPRESSION: Uptake in the right mid foot is likely related to arthritis which is apparent on the previous foot x-ray. Negative for metastatic disease.
== END 2018-07-17 07:46 | disposition home or self-care (01) ==
LOC: NM 07:45
PROVIDERS: ATTEND Urology
DX: C61 Malignant neoplasm of prostate (principal); I10 Essential (primary) hypertension; J44.9 Chronic obstructive pulmonary disease, unspecified; E78.5 Hyperlipidemia, unspecified
CPT/HCPCS: 36415; 78306; 80053; 80061; 82785; 82803; 84436; 84443; A9503

== ENCOUNTER 2018-08-01 11:29 | Inpatient (IN) | payer MEDICARE ==
[2018-08-01] MEDS ORDERED: ASPIRIN PO ONE (12:37)
--- NOTE | 2018-08-01 12:41 | Emergency Department Report ---
Blank Doc - Documentation Documentation: 72 y/o male comes in for multiple issues. C/o chest pain, muscle spasm dizzin ess and urinary frequency. Times 1 week. Able to drink.
[2018-08-01 13:10] LABS: Basophils % (Auto) 0.1 % (0.0-1.8); Eosinophils % (Auto) 0.1 % (0.0-4.3); Hematocrit 40.9 % (35.5-45.6); Hemoglobin 13.4 gm/dl (11.8-15.2); Lymphocytes # (Auto) 0.7 K/mm3 (1.2-5.4); Lymphocytes % (Auto) 6.8 % (13.4-35.0); Mean Corpuscular HGB Conc 33 % (32-34); Mean Corpuscular Volume 87 fl (84-94); Monocytes # (Auto) 0.6 K/mm3 (0.0-0.8); Monocytes % (Auto) 5.8 % (0.0-7.3); Platelet Count 156 K/mm3 (140-440); Red Blood Count 4.69 M/mm3 (3.65-5.03); Red Cell Distribution Width 16.2 % (13.2-15.2)
--- NOTE | 2018-08-01 13:28 | XRay Report ---
PROCEDURE: XR CHEST 1V AP TECHNIQUE: Chest, AP upright HISTORY: Chest Pain COMPARISON: 06/20/2018 FINDINGS: There is no cardiomegaly, vascular congestion, infiltrate, pleural effusion or pneumothorax seen. IMPRESSION: There is no acute abnormality identified. This document is electronically signed by Alexa Serrano MD., Aug 01 2018 01:26:53 PM ET
[2018-08-01 13:36] LABS: Alanine Aminotransferase 13 units/L (7-56); Albumin 3.9 g/dL (3.9-5); BUN/Creatinine Ratio 17; Blood Urea Nitrogen 12 mg/dL (9-20); Calcium 9.2 mg/dL (8.4-10.2); Hemolysis Index 7
--- NOTE | 2018-08-01 15:34 | Emergency Department Report ---
ED Chest Pain HPI - General Chief Complaint: Chest Pain Stated Complaint: DIZZINESS/CHEST PAIN/VOMITTING Time Seen by Provider: 08/01/18 15:25 Source: patient Mode of arrival: Ambulatory Limitations: No Limitations - History of Present Illness Initial Comments: Patient is 72 years old male with history of coronary artery disease, hypertension, COPD. Patient presented to the ER complaining of left sided chest pain, pressure in nature with no radiation. Patient denied any shortness of breath. No fever or chills or vomiting. MD Complaint: chest pain -: This morning Onset: during rest Pain Location: left chest Severity scale (0 -10): 6 Quality: tightness, pressure Consistency: constant - Related Data Home Medications Medication Instructions Recorded Confirmed Last Taken Cholecalciferol (Vitamin D3) 1,000 unit PO DAILY 04/04/17 06/21/18 2 Days Ago [Vitamin D3] ~06/19/18 Fluticasone [Flonase] 1 spray NS QDAY 04/04/17 06/21/18 2 Days Ago ~06/19/18 Previous Rx's Medication Instructions Recorded Last Taken Type Tramadol HCl [Ultram] 50 mg PO Q6H #12 tablet 11/16/17 2 Days Ago Rx ~06/19/18 Aspirin [Adult Low Dose Aspirin EC] 81 mg PO QDAY #30 tablet. 06/23/18 Unknown Rx AtorvaSTATin [Lipitor] 40 mg PO QDAY #30 tablet 06/23/18 Unknown Rx AtorvaSTATin [Lipitor] 40 mg PO QHS tablet 06/23/18 Unknown Rx Cholecalciferol Vit D3 [Vitamin D3 1,000 unit PO QDAY #30 tablet 06/23/18 Unknown Rx 1,000 UNIT TAB] Famotidine [Pepcid] 20 mg PO BID #60 tablet 06/23/18 Unknown Rx Fluticasone [Flonase] 50 mcg NS QDAY bottle 06/23/18 Unknown Rx Gabapentin [Neurontin] 300 mg PO Q8HR #90 capsule 06/23/18 Unknown Rx Ipratropium/Albuterol Sulfate 1 ampul IH TIDRT #100 ampul.neb 06/23/18 Unknown Rx [DUONEB *Not for PRN Use*] Lisinopril [Zestril TAB] 20 mg PO QDAY #30 tablet 06/23/18 Unknown Rx Metoprolol [Lopressor TAB] 25 mg PO TID #90 tablet 06/23/18 Unknown Rx Nortriptyline [Pamelor] 10 mg PO HS #30 capsule 06/23/18 Unknown Rx Ranitidine HCl [Zantac] 300 mg PO QHS #30 tablet 06/23/18 Unknown Rx Tiotropium [Spiriva] 18 mcg IH QDAY #30 cap 06/23/18 Unknown Rx amLODIPine [Norvasc] 10 mg PO DAILY #30 tablet 06/23/18 Unknown Rx methOCARBAMOL [Robaxin TAB] 500 mg PO Q6H PRN #90 tablet 06/23/18 Unknown Rx Allergies Allergy/AdvReac Type Severity Reaction Status Date / Time No Known Allergies Allergy Verified 06/20/18 16:58 Heart Score - HEART Score History: Moderately suspicious EKG: Non-specific Age: > 65 Risk factors: > 3 risk factors or hx of atherosclerotic disease Troponin: < normal limit HEART Score: 6 - Critical Actions Critical Actions: 4-6 pts:12-16.6% risk of adverse cardiac event. Should be admitted ED Review of Systems ROS: Stated complaint: DIZZINESS/CHEST PAIN/VOMITTING Other details as noted in HPI Comment: All other systems reviewed and negative Constitutional: denies: chills, fever Respiratory: cough. denies: shortness of breath, SOB with exertion, SOB at rest, wheezing Cardiovascular: chest pain. denies: palpitations, dyspnea on exertion Gastrointestinal: denies: abdominal pain, nausea, vomiting, diarrhea, constipation, hematemesis, melena, hematochezia Musculoskeletal: denies: back pain Neurological: denies: headache, weakness, numbness, paresthesias, confusion, abnormal gait ED Past Medical Hx - Past Medical History Previous Medical History?: Yes Hx Hypertension: Yes Hx Arthritis: Yes (osteoarthritis) Hx Psychiatric Treatment: Yes (depression) Hx COPD: Yes Additional medical history: high cholesterol, Neuropathy, Chronic Foot Pain. sleep apnea. CAD. spinal stenosis. PVD. Frausto's esophagus - Surgical History Past Surgical History?: Yes Additional Surgical History: hernia repair x 2 - Social History Smoking Status: Current Every Day Smoker Substance Use Type: None - Medications Home Medications: Home Medications Medication Instructions Recorded Confirmed Last Taken Type Cholecalciferol (Vitamin D3) 1,000 unit PO DAILY 04/04/17 06/21/18 2 Days Ago History [Vitamin D3] ~06/19/18 Fluticasone [Flonase] 1 spray NS QDAY 04/04/17 06/21/18 2 Days Ago History ~06/19/18 Tramadol HCl [Ultram] 50 mg PO Q6H #12 tablet 11/16/17 06/21/18 2 Days Ago Rx ~06/19/18 Aspirin [Adult Low Dose Aspirin EC] 81 mg PO QDAY #30 tablet. 06/23/18 Unknown Rx AtorvaSTATin [Lipitor] 40 mg PO QDAY #30 tablet 06/23/18 Unknown Rx AtorvaSTATin [Lipitor] 40 mg PO QHS tablet 06/23/18 Unknown Rx Cholecalciferol Vit D3 [Vitamin D3 1,000 unit PO QDAY #30 tablet 06/23/18 Unknown Rx 1,000 UNIT TAB] Famotidine [Pepcid] 20 mg PO BID #60 tablet 06/23/18 Unknown Rx Fluticasone [Flonase] 50 mcg NS QDAY bottle 06/23/18 Unknown Rx Gabapentin [Neurontin] 300 mg PO Q8HR #90 capsule 06/23/18 Unknown Rx Ipratropium/Albuterol Sulfate 1 ampul IH TIDRT #100 ampul.neb 06/23/18 Unknown Rx [DUONEB *Not for PRN Use*] Lisinopril [Zestril TAB] 20 mg PO QDAY #30 tablet 06/23/18 Unknown Rx Metoprolol [Lopressor TAB] 25 mg PO TID #90 tablet 06/23/18 Unknown Rx Nortriptyline [Pamelor] 10 mg PO HS #30 capsule 06/23/18 Unknown Rx Ranitidine HCl [Zantac] 300 mg PO QHS #30 tablet 06/23/18 Unknown Rx Tiotropium [Spiriva] 18 mcg IH QDAY #30 cap 06/23/18 Unknown Rx amLODIPine [Norvasc] 10 mg PO DAILY #30 tablet 06/23/18 Unknown Rx methOCARBAMOL [Robaxin TAB] 500 mg PO Q6H PRN #90 tablet 06/23/18 Unknown Rx ED Physical Exam - General Limitations: No Limitations General appearance: alert, in no apparent distress - Head Head exam: Present: atraumatic, normocephalic, normal inspection - Eye Eye exam: Present: normal appearance, PERRL - ENT ENT exam: Present: normal exam, normal orophraynx, mucous membranes moist - Neck Neck exam: Present: normal inspection, full ROM. Absent: tenderness, meningismus, lymphadenopathy, thyromegaly - Respiratory Respiratory exam: Present: normal lung sounds bilaterally - Cardiovascular Cardiovascular Exam: Present: regular rate, normal rhythm, normal heart sounds - GI/Abdominal GI/Abdominal exam: Present: soft, normal bowel sounds. Absent: distended, tenderness, guarding, rebound, rigid, organomegaly, mass, bruit, pulsatile mass, hernia - Extremities Exam Extremities exam: Present: normal inspection, full ROM, normal capillary refill - Back Exam Back exam: Present: normal inspection, full ROM. Absent: tenderness, CVA tenderness (R), CVA tenderness (L), muscle spasm, paraspinal tenderness - Neurological Exam Neurological exam: Present: alert, oriented X3, CN II-XII intact, reflexes normal - Psychiatric Psychiatric exam: Present: normal mood. Absent: depressed - Skin Skin exam: Present: warm, intact, normal color ED Course Vital Signs 08/01/18 08/01/18 08/01/18 12:17 15:04 15:05 Temperature 97.6 F Pulse Rate 60 Respiratory 20 14 14 Rate Blood Pressure 157/97 Blood Pressure 160/90 [Left] O2 Sat by Pulse 98 97 97 Oximetry LV score - Lv Score Age > 65: (1) Yes Aspirin use within the Past 7 Days: (1) Yes 3 or more CAD Risk Factors: (1) Yes 2 or more Angina events in past 24 hrs: (1) Yes Known CAD with more than 50% Stenosis: (0) No Elevated Cardiac Markers: (0) No ST Deviation Greater than 0.5mm: (0) No LV Score: 4 ED Medical Decision Making - Lab Data Result diagrams: 08/01/18 12:46 08/01/18 12:46 - EKG Data -: EKG Interpreted by Dc EKG shows normal: sinus rhythm Rate: normal - EKG Data Interpretation: no acute changes - Radiology Data Radiology results: report reviewed Chest x-ray is unremarkable. - Medical Decision Making Patient is 72 years old male with history of coronary artery disease, hypertension, COPD. Patient presented to the ER complaining of left sided chest pain, pressure in nature with no radiation. Patient denied any shortness of breath. No fever or chills or vomiting. EKG was no ST elevation. Chest x-ray is unremarkable. First set of troponin is negative. I discussed the patient is , he had return of the patient to medical service. Critical care attestation.: If time is entered above; I have spent that time in minutes in the direct care of this critically ill patient, excluding procedure time. ED Disposition Clinical Impression: Chest pain Disposition: OP ADMIT IP TO THIS HOSP Is pt being admited?: Yes Condition: Stable Instructions: Chest Pain (ED) Referrals: NELI ESPOSITO MD [Primary Care Provider] - 3-5 Days
[2018-08-01 18:26] LABS: Bacteria,Urine 1+ /HPF (Negative); Bilirubin,Urine NEG (Negative); Blood,Urine MOD (Negative); Color,Urine Yellow (Yellow); Mucus,Urine FEW /HPF; Protein,Urine <15 mg/dL mg/dL (Negative); Urobilinogen,Urine < 2.0 mg/dL (<2.0); WBC,Urine < 1.0 /HPF (0.0-6.0)
[2018-08-01] MEDS ORDERED: TYLENOL PO PRN (19:51)
[2018-08-01] MEDS ORDERED: PERCOCET 5/325 PO PRN (19:51)
[2018-08-01] MEDS ORDERED: IBUPROFEN PO PRN (19:51)
[2018-08-01] MEDS ORDERED: MORPHINE IV PRN (19:51)
[2018-08-01] MEDS ORDERED: SODIUM CHLORIDE FLUSH SYRINGE 10 ML IV PRN (19:51)
[2018-08-01] MEDS ORDERED: ZOFRAN IV PRN (19:51)
[2018-08-01] MEDS ORDERED: ROBAXIN PO PRN (19:56)
[2018-08-01] MEDS ORDERED: PROVENTIL IH PRN (20:02)
[2018-08-01] MEDS: HALFPRIN EC PO SCH (20:21)
[2018-08-01] MEDS: PEPCID PO SCH (21:01)
[2018-08-01] MEDS: NEURONTIN PO SCH (21:06)
[2018-08-01] MEDS: ZESTRIL PO SCH (21:07)
[2018-08-01] MEDS: LOPRESSOR PO SCH (21:07)
[2018-08-01] MEDS: ULTRAM PO SCH (21:07)
[2018-08-01] MEDS: SOLU-Medrol IV SCH (21:07)
[2018-08-01] MEDS: PAMELOR PO SCH (21:09)
[2018-08-01] MEDS: LEVAQUIN 750MG/150ML 750 MG/150 ML BAG IV SCH (21:11)
[2018-08-01] MEDS: NORVASC PO SCH (21:12)
[2018-08-01] MEDS: SODIUM CHLORIDE FLUSH SYRINGE 10 ML IV SCH (21:12)
[2018-08-01] MEDS ORDERED: PEPCID PO SCH (22:00)
[2018-08-01] MEDS ORDERED: NON-FORMULARY (Ranitidine Hcl [Zantac] 300 MG) PO SCH (22:00)
[2018-08-02] MEDS: SPIRIVA IH SCH ×2 (01:02→11:42)
[2018-08-02] MEDS: ULTRAM PO SCH ×4 (05:27→21:41)
[2018-08-02] MEDS: NEURONTIN PO SCH ×3 (05:27→21:42)
--- NOTE | 2018-08-02 05:37 | History and Physical Report ---
History of Present Illness Date of examination: 08/01/18 Date of admission: 08/01/18 15:53 Chief complaint: Cough and SOB and Chest pain 2 days History of present illness: 72 years old male with history of coronary artery disease, hypertension, COPD. Patient presented to the ER complaining of left sided chest pain, pressure in nature with no radiation and cough with shortness of breath. No fever or chills or vomiting.Cough productive of mucoid sputum.Also muscle spasm in the chest. Had complete cardiac workup in June 2018 in this facility and w/u was negativ e.Lexiscan and ECHO were normal. Past Medical History Previous Medical History?: Yes Hx Hypertension: Yes Hx Arthritis: Yes (osteoarthritis) Hx Psychiatric Treatment: Yes (depression) Hx COPD: Yes Additional medical history: high cholesterol, Neuropathy, Chronic Foot Pain. sleep apnea. CAD. spinal stenosis. PVD. Frausto's esophagus Surgical History Past Surgical History?: Yes Additional Surgical History: hernia repair x 2 Social History Smoking Status: Current Every Day Smoker Substance Use Type: None Family History Htn Review of Systems ROS: Stated complaint: DIZZINESS/CHEST PAIN/VOMITTING Other details as noted in HPI Comment: All other systems reviewed and negative Constitutional: denies: chills, fever Respiratory: cough. denies: shortness of breath, SOB with exertion, SOB at rest, wheezing Cardiovascular: chest pain. denies: palpitations, dyspnea on exertion Gastrointestinal: denies: abdominal pain, nausea, vomiting, diarrhea, constipation, hematemesis, melena, hematochezia Musculoskeletal: denies: back pain Neurological: denies: headache, weakness, numbness, paresthesias, confusion, abnormal gait Medications and Allergies Allergies Allergy/AdvReac Type Severity Reaction Status Date / Time No Known Allergies Allergy Verified 06/20/18 16:58 Home Medications Medication Instructions Recorded Confirmed Last Taken Type Tramadol HCl [Ultram] 50 mg PO Q6H #12 tablet 11/16/17 08/01/18 2 Days Ago Rx ~06/19/18 Aspirin [Adult Low Dose Aspirin EC] 81 mg PO QDAY #30 tablet. 06/23/18 08/01/18 Unknown Rx AtorvaSTATin [Lipitor] 40 mg PO QHS tablet 06/23/18 08/01/18 Unknown Rx Cholecalciferol Vit D3 [Vitamin D3 1,000 unit PO QDAY #30 tablet 06/23/18 08/01/18 Unknown Rx 1,000 UNIT TAB] Famotidine [Pepcid] 20 mg PO BID #60 tablet 06/23/18 08/01/18 Unknown Rx Fluticasone [Flonase] 50 mcg NS QDAY bottle 06/23/18 08/01/18 Unknown Rx Gabapentin [Neurontin] 300 mg PO Q8HR #90 capsule 06/23/18 08/01/18 Unknown Rx Ipratropium/Albuterol Sulfate 1 ampul IH TIDRT #100 ampul.neb 06/23/18 08/01/18 Unknown Rx [DUONEB *Not for PRN Use*] Lisinopril [Zestril TAB] 20 mg PO QDAY #30 tablet 06/23/18 08/01/18 Unknown Rx Metoprolol [Lopressor TAB] 25 mg PO TID #90 tablet 06/23/18 08/01/18 Unknown Rx Nortriptyline [Pamelor] 10 mg PO HS #30 capsule 06/23/18 08/01/18 Unknown Rx Ranitidine HCl [Zantac] 300 mg PO QHS #30 tablet 06/23/18 08/01/18 Unknown Rx Tiotropium [Spiriva] 18 mcg IH QDAY #30 cap 06/23/18 08/01/18 Unknown Rx amLODIPine [Norvasc] 10 mg PO DAILY #30 tablet 06/23/18 08/01/18 Unknown Rx methOCARBAMOL [Robaxin TAB] 500 mg PO Q6H PRN #90 tablet 06/23/18 08/01/18 Unknown Rx Active Meds: Active Medications Acetaminophen (Tylenol) 650 mg PO Q4H PRN PRN Reason: Pain MILD(1-3)/Fever >100.5/FERRER Albuterol (Proventil) 2.5 mg IH Q4HRT PRN PRN Reason: Shortness Of Breath Albuterol/Ipratropium (Duoneb *Not For Prn Use*) 1 ampul IH QIDRT REPLACED BY [facility] Amlodipine Besylate (Norvasc) 10 mg PO DAILY REPLACED BY [facility] Last Admin: 08/01/18 21:12 Dose: 10 mg Documented by: Aspirin (Halfprin Ec) 81 mg PO QDAY REPLACED BY [facility] Last Admin: 08/01/18 20:21 Dose: Not Given Documented by: Atorvastatin Calcium (Lipitor) 40 mg PO QHS REPLACED BY [facility] Last Admin: 08/01/18 21:06 Dose: 40 mg Documented by: Cholecalciferol (Vitamin D3) 1,000 unit PO QDAY REPLACED BY [facility] Enoxaparin Sodium (Lovenox) 40 mg SUB-Q QDAY REPLACED BY [facility] Famotidine (Pepcid) 20 mg PO BID REPLACED BY [facility] Last Admin: 08/01/18 21:01 Dose: 20 mg Documented by: Fluticasone Propionate (Flonase) 50 mcg NS QDAY REPLACED BY [facility] Gabapentin (Neurontin) 300 mg PO Q8HR REPLACED BY [facility] Last Admin: 08/02/18 05:27 Dose: 300 mg Documented by: Levofloxacin/Dextrose (Levaquin 750mg/150ml) 750 mg in 150 mls @ 100 mls/hr IV Q24HR REPLACED BY [facility]; Protocol Last Admin: 08/01/18 21:11 Dose: 100 mls/hr Documented by: Ibuprofen (Motrin) 600 mg PO Q6H PRN PRN Reason: Pain, Mild (1-3) Lisinopril (Zestril) 20 mg PO QDAY REPLACED BY [facility] Last Admin: 08/01/18 21:07 Dose: 20 mg Documented by: Methocarbamol (Robaxin) 500 mg PO Q6H PRN PRN Reason: Muscle Spasm Last Admin: 08/02/18 00:11 Dose: 500 mg Documented by: Methylprednisolone Sodium Succinate (Solu-Medrol) 20 mg IV Q12HR REPLACED BY [facility] Last Admin: 08/01/18 21:07 Dose: 20 mg Documented by: Metoprolol Tartrate (Lopressor) 25 mg PO TID REPLACED BY [facility] Last Admin: 08/01/18 21:07 Dose: 25 mg Documented by: Morphine Sulfate (Morphine) 2 mg IV Q4H PRN PRN Reason: Pain, Moderate (4-6) Nortriptyline HCl (Pamelor) 10 mg PO HS REPLACED BY [facility] Last Admin: 08/01/18 21:09 Dose: 10 mg Documented by: Ondansetron HCl (Zofran) 4 mg IV Q8H PRN PRN Reason: Nausea And Vomiting Oxycodone/Acetaminophen (Percocet 5/325) 1 tab PO Q6H PRN PRN Reason: Pain, Moderate (4-6) Sodium Chloride (Sodium Chloride Flush Syringe 10 Ml) 10 ml IV BID REPLACED BY [facility] Last Admin: 08/01/18 21:12 Dose: 10 ml Documented by: Sodium Chloride (Sodium Chloride Flush Syringe 10 Ml) 10 ml IV PRN PRN PRN Reason: LINE FLUSH Tiotropium Solen (Spiriva) 1 puff IH QDAY REPLACED BY [facility] Last Admin: 08/02/18 01:02 Dose: Not Given Documented by: Tramadol HCl (Ultram) 50 mg PO Q6H REPLACED BY [facility] Last Admin: 08/02/18 05:27 Dose: 50 mg Documented by: Exam - Constitutional Vitals: Temp Pulse Resp BP Pulse Ox 98.6 F 72 16 137/92 96 08/02/18 04:26 08/02/18 04:26 08/02/18 04:26 08/02/18 04:26 08/02/18 04:26 General appearance: Present: mild distress, well-nourished - EENT Eyes: Present: PERRL ENT: hearing intact, clear oral mucosa - Neck Neck: Present: supple, normal ROM - Respiratory Respiratory effort: normal Respiratory: bilateral: rhonchi, wheezing - Cardiovascular Heart rate: 76 Rhythm: regular Heart Sounds: Present: S1 & S2. Absent: rub, click - Extremities Extremities: pulses symmetrical, No edema Peripheral Pulses: within normal limits - Abdominal General gastrointestinal: Present: soft, non-tender, non-distended, normal bowel sounds Male genitourinary: Present: normal - Rectal Rectal Exam: deferred - Integumentary Integumentary: Present: clear, warm, dry - Musculoskeletal Musculoskeletal: gait normal, strength equal bilaterally - Psychiatric Psychiatric: appropriate mood/affect, intact judgment & insight - Neurologic Neurologic: CNII-XII intact, moves all extremities - Allied Health Allied health notes reviewed: nursing, case management Results - Labs CBC & Chem 7: 08/01/18 12:46 08/01/18 12:46 Labs: Laboratory Last Values WBC 10.1 K/mm3 (4.5-11.0) 08/01/18 12:46 RBC 4.69 M/mm3 (3.65-5.03) 08/01/18 12:46 Hgb 13.4 gm/dl (11.8-15.2) 08/01/18 12:46 Hct 40.9 % (35.5-45.6) 08/01/18 12:46 MCV 87 fl (84-94) 08/01/18 12:46 MCH 29 pg (28-32) 08/01/18 12:46 MCHC 33 % (32-34) 08/01/18 12:46 RDW 16.2 % (13.2-15.2) H 08/01/18 12:46 Plt Count 156 K/mm3 (140-440) 08/01/18 12:46 Lymph % (Auto) 6.8 % (13.4-35.0) L 08/01/18 12:46 Lane % (Auto) 5.8 % (0.0-7.3) 08/01/18 12:46 Eos % (Auto) 0.1 % (0.0-4.3) 08/01/18 12:46 Baso % (Auto) 0.1 % (0.0-1.8) 08/01/18 12:46 Lymph # 0.7 K/mm3 (1.2-5.4) L 08/01/18 12:46 Lane # 0.6 K/mm3 (0.0-0.8) 08/01/18 12:46 Eos # 0.0 K/mm3 (0.0-0.4) 08/01/18 12:46 Baso # 0.0 K/mm3 (0.0-0.1) 08/01/18 12:46 Seg Neutrophils % 87.2 % (40.0-70.0) H 08/01/18 12:46 Seg Neutrophils # 8.8 K/mm3 (1.8-7.7) H 08/01/18 12:46 Sodium 141 mmol/L (137-145) 08/01/18 12:46 Potassium 4.1 mmol/L (3.6-5.0) 08/01/18 12:46 Chloride 101.9 mmol/L (98-107) 08/01/18 12:46 Carbon Dioxide 27 mmol/L (22-30) 08/01/18 12:46 16 mmol/L 08/01/18 12:46 BUN 12 mg/dL (9-20) 08/01/18 12:46 0.7 mg/dL (0.8-1.5) L 08/01/18 12:46 Estimated GFR > 60 ml/min 08/01/18 12:46 17 % 08/01/18 12:46 Glucose 123 mg/dL (75-100) H 08/01/18 12:46 6.8 % (4-6) H 08/01/18 20:09 Calcium 9.2 mg/dL (8.4-10.2) 08/01/18 12:46 0.50 mg/dL (0.1-1.2) 08/01/18 12:46 AST 14 units/L (5-40) 08/01/18 12:46 ALT 13 units/L (7-56) 08/01/18 12:46 55 units/L (35-129) 08/01/18 12:46 < 0.010 ng/mL (0.00-0.029) 08/01/18 18:07 6.5 g/dL (6.3-8.2) 08/01/18 12:46 3.9 g/dL (3.9-5) 08/01/18 12:46 1.5 % 08/01/18 12:46 Yellow (Yellow) 08/01/18 Unknown Clear (Clear) 08/01/18 Unknown 9.0 (5.0-7.0) H 08/01/18 Unknown Ur Specific [place] 1.009 (1.003-1.030) 08/01/18 Unknown <15 mg/dl mg/dL (Negative) 08/01/18 Unknown Neg mg/dL (Negative) 08/01/18 Unknown Neg mg/dL (Negative) 08/01/18 Unknown Mod (Negative) 08/01/18 Unknown Neg (Negative) 08/01/18 Unknown Neg (Negative) 08/01/18 Unknown < 2.0 mg/dL (<2.0) 08/01/18 Unknown Ur Leukocyte Esterase Neg (Negative) 08/01/18 Unknown < 1.0 /HPF (0.0-6.0) 08/01/18 Unknown 26.0 /HPF (0.0-6.0) 08/01/18 Unknown 1+ /HPF (Negative) 08/01/18 Unknown Few /HPF 08/01/18 Unknown Short CBC 08/01/18 Range/Units 12:46 WBC 10.1 (4.5-11.0) K/mm3 Hgb 13.4 (11.8-15.2) gm/dl Hct 40.9 (35.5-45.6) % Plt Count 156 (140-440) K/mm3 BMP 08/01/18 12:46 Sodium 141 Potassium 4.1 Chloride 101.9 Carbon Dioxide 27 BUN 12 Creatinine 0.7 L Glucose 123 H Calcium 9.2 Cardiac Enzymes 08/01/18 08/01/18 08/01/18 Range/Units 12:46 15:45 18:07 Troponin T < 0.010 < 0.010 < 0.010 (0.00-0.029) ng/mL Liver Function 08/01/18 Range/Units 12:46 Total Bilirubin 0.50 (0.1-1.2) mg/dL AST 14 (5-40) units/L ALT 13 (7-56) units/L Alkaline Phosphatase 55 (35-129) units/L Albumin 3.9 (3.9-5) g/dL Urine 08/01/18 Range/Units Unknown Urine Color Yellow (Yellow) Urine pH 9.0 H (5.0-7.0) Ur Specific [place] 1.009 (1.003-1.030) Urine Protein <15 mg/dl (Negative) mg/dL Urine Glucose (UA) Neg (Negative) mg/dL - Imaging and Cardiology EKG: report reviewed (NSR 75/min,No acute St t wave changes) Chest x-ray: report reviewed (NAF) Assessment and Plan Advance Directives: Yes (Full code) VTE prophylaxis?: Chemical Plan of care discussed with patient/family: Yes - Patient Problems (1) COPD with acute exacerbation Current Visit: Yes Status: Acute Plan to address problem: Patientinitiated on IV Levaquin Neb treatments and low dose IV solumedrol. No resp failure. (2) Newly diagnosed diabetes Current Visit: Yes Status: Acute Plan to address problem: Patients A1c 6.8 Primary team to cemetery counselor about T2DM The data was not available during history taking Initiated on Metformin (3) Chest pain Current Visit: Yes Status: Acute Qualifiers: Chest pain type: intercostal pain Qualified Code(s): R07.82 - Intercostal pain Plan to address problem: C/w costochondritis sec to coughing W/u in June 2018 negative including Lexiscan and ECHO which were normal NSAIDS prn (4) Acute costochondritis Current Visit: Yes Status: Acute Plan to address problem: NSAIDS (5) HTN (hypertension) Current Visit: Yes Status: Chronic Qualifiers: Hypertension type: essential hypertension Qualified Code(s): I10 - Essential (primary) hypertension Plan to address problem: Cont antihypertensives (6) HLD (hyperlipidemia) Current Visit: Yes Status: Chronic Qualifiers: Hyperlipidemia type: mixed hyperlipidemia Qualified Code(s): E78.2 - Mixed hyperlipidemia Plan to address problem: COnt statins (7) GERD (gastroesophageal reflux disease) Current Visit: Yes Status: Chronic Qualifiers: Esophagitis presence: with esophagitis Qualified Code(s): K21.0 - Gastro- esophageal reflux disease with esophagitis Plan to address problem: Cont Famotidine (8) Peripheral neuropathy Current Visit: Yes Status: Chronic Qualifiers: Peripheral neuropathy type: polyneuropathy, unspecified Qualified Code(s): G62.9 - Polyneuropathy, unspecified Plan to address problem: Cont Gabapentin (9) DVT prophylaxis Current Visit: Yes Status: Acute Plan to address problem: On Lovenox and GI prophylaxis
[2018-08-02 06:09] LABS: Hematocrit 39.9 % (35.5-45.6); Hemoglobin 13.3 gm/dl (11.8-15.2); Mean Corpuscular HGB Conc 33 % (32-34); Mean Corpuscular Volume 88 fl (84-94); Platelet Count 145 K/mm3 (140-440); Red Blood Count 4.55 M/mm3 (3.65-5.03); Red Cell Distribution Width 15.8 % (13.2-15.2)
[2018-08-02 06:31] LABS: Alanine Aminotransferase 11 units/L (7-56); Albumin 3.6 g/dL (3.9-5); BUN/Creatinine Ratio 17; Blood Urea Nitrogen 12 mg/dL (9-20); Calcium 8.8 mg/dL (8.4-10.2); Hemolysis Index 2
[2018-08-02 07:05] LABS: Eosinophils % (Manual) 0 % (0.0-4.3); Total Cells Counted 100
[2018-08-02 07:08] LABS: Basophils % (Manual) 0 % (0.0-1.8); Platelet Estimate Consistent w Auto; RBC Morphology Normal
[2018-08-02] MEDS: DUONEB *Not for PRN Use IH SCH ×4 (07:19→21:42)
[2018-08-02] MEDS: LOVENOX SUB-Q SCH (09:08)
[2018-08-02] MEDS: SOLU-Medrol IV SCH ×2 (09:08→21:44)
[2018-08-02] MEDS: LOPRESSOR PO SCH ×3 (09:09→21:42)
[2018-08-02] MEDS: VITAMIN D3 PO SCH (09:10)
[2018-08-02] MEDS: ZESTRIL PO SCH (09:10)
[2018-08-02] MEDS: PEPCID PO SCH ×2 (09:10→21:43)
[2018-08-02] MEDS: HALFPRIN EC PO SCH (09:11)
[2018-08-02] MEDS: HumaLOG SUB-Q SCH ×3 (09:21→16:57)
[2018-08-02] MEDS: LEVAQUIN 750MG/150ML 750 MG/150 ML BAG IV SCH (09:34)
[2018-08-02] MEDS: FLONASE NS SCH (12:49)
[2018-08-02] MEDS: GLUCOPHAGE XR PO SCH (12:50)
[2018-08-02] MEDS: MOBIC PO SCH (12:50)
--- NOTE | 2018-08-02 14:05 | Progress Note ---
Assessment and Plan Assessment and plan: Patient is a 72 yo man with a history of CAD, hypertension, COPD, tobacco dependency, OA, dyslipidemia, PVD and OA who presents with sob and chest pains. Patient had cardiac workup in June 2018 in this facility, w/u was negative including Lexiscan stress test and ECHO. Patient states his PCP is Dr. Del Cid. I spoke with him and Dr. Del Cid will assume care tomorrow. AE COPD: treat with abx, iv steroid and nebs Newly diagnosed NIDDM, A1c 6.8: counseling done, Initiated on Metformin Chest pain suspected related to costochondritis sec to coughing Hypertension: cardiac diet, antihypertensives Tobacco dependency: family life counselor on stopping Dr. Matos, his pcp will assume care tomorrow History Interval history: Patient was seen and examined. Follow-up on current diagnosis of COPD and chest pains, which has resolved. No overnight events reported to me. Patient denies any chest pain, shortness breath, nausea/vomiting or severe headaches. Imaging, nursing note, chart, labs and old chart reviewed. Discussed with patient and he wants to go home. Hospitalist Physical - Physical exam Narrative exam: Gen: WDWN, NAD, Awake, Alert, Orientated HEENT: NCAT, EOMI, PERRL, OP Clear Neck: supple, no adenopathy, no thyromegaly, no JVD CVS/Heart: RRR, normal S1S2, pulses present bilaterally Chest/Lungs: diminished bs bilateral with wheezing, Symmetrical chest expansion, good air entry bilaterally GI/Abdomen: soft, NTND, good bowel sounds, no guarding or rebound /Bladder: no suprapubic tenderness, no CVA or paraspinal tenderness Extermity/Skin: no c/c/e, no obvious rash MSK: FROM x 4 Neuro: CN 2-12 grossly intact, no new focal deficits Psych: calm - Constitutional Vitals: Temp Pulse Resp BP Pulse Ox 97.1 F L 79 18 111/64 96 08/02/18 08:11 08/02/18 09:09 08/02/18 08:11 08/02/18 08:11 08/02/18 04:26 General appearance: Present: well-nourished. Absent: mild distress Results - Labs CBC & Chem 7: 08/02/18 04:32 08/02/18 04:32 Labs: Laboratory Last Values WBC 8.7 K/mm3 (4.5-11.0) 08/02/18 04:32 RBC 4.55 M/mm3 (3.65-5.03) 08/02/18 04:32 Hgb 13.3 gm/dl (11.8-15.2) 08/02/18 04:32 Hct 39.9 % (35.5-45.6) 08/02/18 04:32 MCV 88 fl (84-94) 08/02/18 04:32 MCH 29 pg (28-32) 08/02/18 04:32 MCHC 33 % (32-34) 08/02/18 04:32 RDW 15.8 % (13.2-15.2) H 08/02/18 04:32 Plt Count 145 K/mm3 (140-440) 08/02/18 04:32 Lymph % (Auto) 6.8 % (13.4-35.0) L 08/01/18 12:46 [place] % (Auto) 5.8 % (0.0-7.3) 08/01/18 12:46 Eos % (Auto) 0.1 % (0.0-4.3) 08/01/18 12:46 Baso % (Auto) 0.1 % (0.0-1.8) 08/01/18 12:46 Lymph # 0.7 K/mm3 (1.2-5.4) L 08/01/18 12:46 Dundy # 0.6 K/mm3 (0.0-0.8) 08/01/18 12:46 Eos # 0.0 K/mm3 (0.0-0.4) 08/01/18 12:46 Baso # 0.0 K/mm3 (0.0-0.1) 08/01/18 12:46 Add Manual Diff Complete 08/02/18 04:32 Total Counted 100 08/02/18 04:32 Seg Neutrophils % Garbage Pick Up Worker 08/02/18 04:32 Seg Neuts % (Manual) 95.0 % (40.0-70.0) H 08/02/18 04:32 0 % 08/02/18 04:32 3.0 % (13.4-35.0) L 08/02/18 04:32 Reactive Lymphs % (Man) 0 % 08/02/18 04:32 2.0 % (0.0-7.3) 08/02/18 04:32 0 % (0.0-4.3) 08/02/18 04:32 0 % (0.0-1.8) 08/02/18 04:32 0 % 08/02/18 04:32 0 % 08/02/18 04:32 0 % 08/02/18 04:32 0 % 08/02/18 04:32 Nucleated RBC % Not Reportable 08/02/18 04:32 Seg Neutrophils # 8.8 K/mm3 (1.8-7.7) H 08/01/18 12:46 Seg Neutrophils # Man 8.3 K/mm3 (1.8-7.7) H 08/02/18 04:32 Band Neutrophils # 0.0 K/mm3 08/02/18 04:32 0.3 K/mm3 (1.2-5.4) L 08/02/18 04:32 Abs React Lymphs (Man) 0.0 K/mm3 08/02/18 04:32 0.2 K/mm3 (0.0-0.8) 08/02/18 04:32 0.0 K/mm3 (0.0-0.4) 08/02/18 04:32 0.0 K/mm3 (0.0-0.1) 08/02/18 04:32 0.0 K/mm3 08/02/18 04:32 0.0 K/mm3 08/02/18 04:32 0.0 K/mm3 08/02/18 04:32 Blast Cells # 0.0 K/mm3 08/02/18 04:32 WBC Morphology Not Reportable 08/02/18 04:32 WBC Morphology TNR 08/02/18 04:32 Hypersegmented Neuts Not Reportable 08/02/18 04:32 Hyposegmented Neuts Not Reportable 08/02/18 04:32 Hypogranular Neuts Not Reportable 08/02/18 04:32 Not Reportable 08/02/18 04:32 Not Reportable 08/02/18 04:32 Not Reportable 08/02/18 04:32 Not Reportable 08/02/18 04:32 Not Reportable 08/02/18 04:32 Not Reportable 08/02/18 04:32 Consistent w auto 08/02/18 04:32 Not Reportable 08/02/18 04:32 Plt Clumps, EDTA Not Reportable 08/02/18 04:32 Not Reportable 08/02/18 04:32 Not Reportable 08/02/18 04:32 Not Reportable 08/02/18 04:32 Plt Morphology Comment Not Reportable 08/02/18 04:32 RBC Morphology Normal 08/02/18 04:32 Dimorphic RBCs Not Reportable 08/02/18 04:32 Not Reportable 08/02/18 04:32 Not Reportable 08/02/18 04:32 Not Reportable 08/02/18 04:32 Not Reportable 08/02/18 04:32 Not Reportable 08/02/18 04:32 Not Reportable 08/02/18 04:32 Not Reportable 08/02/18 04:32 Not Reportable 08/02/18 04:32 Not Reportable 08/02/18 04:32 Not Reportable 08/02/18 04:32 Not Reportable 08/02/18 04:32 Not Reportable 08/02/18 04:32 Not Reportable 08/02/18 04:32 Not Reportable 08/02/18 04:32 Not Reportable 08/02/18 04:32 Not Reportable 08/02/18 04:32 Not Reportable 08/02/18 04:32 Not Reportable 08/02/18 04:32 Not Reportable 08/02/18 04:32 Acanthocytes (Spur) Not Reportable 08/02/18 04:32 Rouleaux Not Reportable 08/02/18 04:32 Not Reportable 08/02/18 04:32 Not Reportable 08/02/18 04:32 Not Reportable 08/02/18 04:32 Not Reportable 08/02/18 04:32 Hem Pathologist Commnt No 08/02/18 04:32 Sodium 136 mmol/L (137-145) L 08/02/18 04:32 Potassium 4.5 mmol/L (3.6-5.0) 08/02/18 04:32 Chloride 100.5 mmol/L (98-107) 08/02/18 04:32 Carbon Dioxide 24 mmol/L (22-30) 08/02/18 04:32 16 mmol/L 08/02/18 04:32 BUN 12 mg/dL (9-20) 08/02/18 04:32 0.7 mg/dL (0.8-1.5) L 08/02/18 04:32 Estimated GFR > 60 ml/min 08/02/18 04:32 17 % 08/02/18 04:32 Glucose 125 mg/dL (75-100) H 08/02/18 04:32 POC Glucose 142 (70-105) H 08/02/18 12:29 6.8 % (4-6) H 08/01/18 20:09 Calcium 8.8 mg/dL (8.4-10.2) 08/02/18 04:32 0.50 mg/dL (0.1-1.2) 08/02/18 04:32 AST 13 units/L (5-40) 08/02/18 04:32 ALT 11 units/L (7-56) 08/02/18 04:32 51 units/L (35-129) 08/02/18 04:32 < 0.010 ng/mL (0.00-0.029) 08/01/18 18:07 6.3 g/dL (6.3-8.2) 08/02/18 04:32 3.6 g/dL (3.9-5) L 08/02/18 04:32 1.3 % 08/02/18 04:32 Yellow (Yellow) 08/01/18 Unknown Clear (Clear) 08/01/18 Unknown 9.0 (5.0-7.0) H 08/01/18 Unknown Ur Specific [place] 1.009 (1.003-1.030) 08/01/18 Unknown <15 mg/dl mg/dL (Negative) 08/01/18 Unknown Neg mg/dL (Negative) 08/01/18 Unknown Neg mg/dL (Negative) 08/01/18 Unknown Mod (Negative) 08/01/18 Unknown Neg (Negative) 08/01/18 Unknown Neg (Negative) 08/01/18 Unknown < 2.0 mg/dL (<2.0) 08/01/18 Unknown Ur Leukocyte Esterase Neg (Negative) 08/01/18 Unknown < 1.0 /HPF (0.0-6.0) 08/01/18 Unknown 26.0 /HPF (0.0-6.0) 08/01/18 Unknown 1+ /HPF (Negative) 08/01/18 Unknown Few /HPF 08/01/18 Unknown Active Medications - Current Medications Current Medications: Generic Name Dose Route Start Last Admin Trade Name Freq PRN Reason Stop Dose Admin Acetaminophen 650 mg 08/01/18 19:51 Tylenol PO Q4H PRN Pain MILD(1-3)/Fever >100.5/FERRER Albuterol 2.5 mg 08/01/18 20:02 Proventil IH Q4HRT PRN Shortness Of Breath Albuterol/Ipratropium 1 ampul 08/02/18 08:00 08/02/18 07:19 Duoneb *Not For Prn Use* IH 1 ampul QIDRT MOIZ Administration Amlodipine Besylate 10 mg 08/01/18 20:00 08/01/18 21:12 Norvasc PO 10 mg DAILY MOIZ Administration Aspirin 81 mg 08/01/18 20:00 08/02/18 09:11 Halfprin Ec PO 81 mg QDAY MOIZ Administration Atorvastatin Calcium 40 mg 08/01/18 22:00 08/01/18 21:06 Lipitor PO 40 mg QHS MOIZ Administration Cholecalciferol 1,000 unit 08/02/18 10:00 08/02/18 09:10 Vitamin D3 PO 1,000 unit QDAY MOIZ Administration Enoxaparin Sodium 40 mg 08/02/18 10:00 08/02/18 09:08 Lovenox SUB-Q 40 mg QDAY MOIZ Administration Famotidine 20 mg 08/01/18 22:00 08/02/18 09:10 Pepcid PO 20 mg BID MOIZ Administration Fluticasone Propionate 50 mcg 08/02/18 10:00 08/02/18 12:49 Flonase NS 50 mcg QDAY MOIZ Administration Gabapentin 300 mg 08/01/18 22:00 08/02/18 05:27 Neurontin PO 300 mg Q8HR MOIZ Administration Levofloxacin/Dextrose 750 mg in 150 mls @ 100 mls/hr 08/01/18 21:00 08/02/18 09:34 Levaquin 750mg/150ml IV 100 mls/hr Q24HR MOIZ Administration Protocol Ibuprofen 600 mg 08/01/18 19:51 Motrin PO Q6H PRN Pain, Mild (1-3) Insulin Human Lispro 0 unit 08/02/18 07:30 08/02/18 09:21 Humalog SUB-Q Not Given ACHS [facility] Protocol Lisinopril 20 mg 08/01/18 20:00 08/02/18 09:10 Zestril PO 20 mg QDAY MOIZ Administration Meloxicam 7.5 mg 08/02/18 10:00 08/02/18 12:50 Mobic PO 7.5 mg QDAY MOIZ Administration Metformin HCl 500 mg 08/02/18 08:00 08/02/18 12:50 Glucophage Xr PO 500 mg QDDIAB MOIZ Administration Methocarbamol 500 mg 08/01/18 19:56 08/02/18 00:11 Robaxin PO 500 mg Q6H PRN Administration Muscle Spasm Methylprednisolone Sodium Succinate 20 mg 08/01/18 22:00 08/02/18 09:08 Solu-Medrol IV 20 mg Q12HR MOIZ Administration Metoprolol Tartrate 25 mg 08/01/18 20:00 08/02/18 09:09 Lopressor PO 25 mg TID MOIZ Administration Morphine Sulfate 2 mg 08/01/18 19:51 Morphine IV Q4H PRN Pain, Moderate (4-6) Nortriptyline HCl 10 mg 08/01/18 22:00 08/01/18 21:09 Pamelor PO 10 mg HS MOIZ Administration Ondansetron HCl 4 mg 08/01/18 19:51 Zofran IV Q8H PRN Nausea And Vomiting Oxycodone/Acetaminophen 1 tab 08/01/18 19:51 Percocet 5/325 PO Q6H PRN Pain, Moderate (4-6) Sodium Chloride 10 ml 08/01/18 22:00 08/01/18 21:12 Sodium Chloride Flush Syringe 10 Ml IV 10 ml BID MOIZ Administration Sodium Chloride 10 ml 08/01/18 19:51 Sodium Chloride Flush Syringe 10 Ml IV PRN PRN LINE FLUSH Tiotropium [place] 1 puff 08/01/18 20:00 08/02/18 11:42 Spiriva IH Not Given QDAY MOIZ Tramadol HCl 50 mg 08/01/18 20:00 08/02/18 09:27 Ultram PO 50 mg Q6H MOIZ Administration
[2018-08-02] MEDS: NORVASC PO SCH (15:22)
[2018-08-02] MEDS: SODIUM CHLORIDE FLUSH SYRINGE 10 ML IV SCH ×2 (15:26→21:44)
[2018-08-02] MEDS: PAMELOR PO SCH (21:43)
[2018-08-03] MEDS: HumaLOG SUB-Q SCH ×4 (00:09→21:25)
[2018-08-03] MEDS: ULTRAM PO SCH ×4 (03:07→21:21)
[2018-08-03] MEDS: NEURONTIN PO SCH ×3 (05:21→21:21)
[2018-08-03] MEDS: DUONEB *Not for PRN Use IH SCH ×4 (07:20→20:44)
[2018-08-03] MEDS: LOPRESSOR PO SCH ×3 (09:25→21:23)
[2018-08-03] MEDS: LOVENOX SUB-Q SCH (09:25)
[2018-08-03] MEDS: GLUCOPHAGE XR PO SCH (09:27)
[2018-08-03] MEDS: ZESTRIL PO SCH (09:27)
[2018-08-03] MEDS: PEPCID PO SCH ×2 (09:27→21:21)
[2018-08-03] MEDS: VITAMIN D3 PO SCH (09:28)
[2018-08-03] MEDS: HALFPRIN EC PO SCH (09:28)
[2018-08-03] MEDS: NORVASC PO SCH (09:28)
[2018-08-03] MEDS: MOBIC PO SCH (09:29)
[2018-08-03] MEDS: LEVAQUIN 750MG/150ML 750 MG/150 ML BAG IV SCH (09:31)
[2018-08-03] MEDS: SODIUM CHLORIDE FLUSH SYRINGE 10 ML IV SCH ×2 (09:32→21:22)
[2018-08-03] MEDS: SOLU-Medrol IV SCH ×2 (10:00→21:22)
--- NOTE | 2018-08-03 10:05 | Progress Note ---
Assessment and Plan AE COPD: treat with abx, iv steroid and nebs Newly diagnosed NIDDM, A1c 6.8: counseling done, Initiated on Metformin Chest pain suspected related to costochondritis sec to coughing Hypertension: cardiac diet, antihypertensives Tobacco dependency: recreation counselor on stopping DVT PPx with lovenox Code status : pt is full code Subjective Date of service: 08/03/18 Principal diagnosis: chest pain, shortness of breath Interval history: still having shortness of breath Objective - Constitutional Vitals: Vital Signs - 12hr 08/02/18 08/03/18 08/03/18 23:37 04:16 06:00 Temperature 97.6 F 97.7 F Pulse Rate 71 70 66 Respiratory 18 20 Rate Blood Pressure 171/100 117/64 O2 Sat by Pulse 98 94 Oximetry 08/03/18 08/03/18 08/03/18 09:25 09:27 09:28 Temperature Pulse Rate 93 H 93 H 93 H Respiratory Rate Blood Pressure 106/72 106/72 106/72 O2 Sat by Pulse Oximetry 08/03/18 08/03/18 09:49 09:51 Temperature 97.7 F Pulse Rate 82 Respiratory 18 Rate Blood Pressure 135/79 O2 Sat by Pulse 96 Oximetry General appearance: Present: no acute distress, well-nourished - EENT Eyes: PERRL, EOM intact ENT: clear oral mucosa Ears: bilateral: normal - Neck Neck: supple, normal ROM - Respiratory Respiratory effort: normal Respiratory: bilateral: CTA - Cardiovascular Rhythm: regular Heart Sounds: Present: S1 & S2. Absent: gallop, rub Extremities: pulses intact, No edema, normal color, Full ROM - Gastrointestinal General gastrointestinal: Present: soft, non-tender, non-distended, normal bowel sounds - Integumentary Integumentary: clear, warm, dry - Musculoskeletal Musculoskeletal: 1, strength equal bilaterally - Neurologic Neurologic: moves all extremities - Psychiatric Psychiatric: memory intact, appropriate mood/affect, intact judgment & insight - Labs CBC & Chem 7: 08/02/18 04:32 08/02/18 04:32 Labs: Abnormal lab results 08/02/18 08/02/18 08/02/18 Range/Units 09:26 12:29 20:03 POC Glucose 114 H 142 H 156 H (70-105) 08/03/18 Range/Units 07:53 POC Glucose 145 H (70-105)
[2018-08-03] MEDS: FLONASE NS SCH (10:31)
[2018-08-03] MEDS: SPIRIVA IH SCH (12:07)
[2018-08-03] MEDS: PAMELOR PO SCH (21:21)
[2018-08-04] MEDS: ULTRAM PO SCH ×2 (01:45→10:20)
[2018-08-04] MEDS: NEURONTIN PO SCH (05:42)
[2018-08-04] MEDS: HumaLOG SUB-Q SCH (08:00)
[2018-08-04 08:21] VITALS: BP 146/90
[2018-08-04] MEDS: DUONEB *Not for PRN Use IH SCH (08:49)
--- NOTE | 2018-08-04 10:12 | Discharge Summary ---
Providers - Providers Date of Admission: 08/01/18 15:53 Date of discharge: 08/04/18 Attending physician: NELI ESPOSITO none Primary care physician: NELI ESPOSITO Hospitalization Reason for admission: chest pain, shortness of breath. Condition: Stable Pertinent studies: cxr thaw twas normal and EKG showed normal sinus rhythm Procedures: none Hospital course: 72 years old male with history of coronary artery disease, hypertension, COPD. Patient presented to the ER complaining of left sided chest pain, pressure like in nature with no radiation. He has cough with shortness of breath. No fever or chills or vomiting. Cough productive of mucoid sputum. Also c/o muscle spasm in the chest. Had complete cardiac workup in June 2018 in this facility and w/u was negative.Lexiscan and ECHO were normal. Patient on admission was commenced on bronchodilators and antihypertensive medications. Cardiac enzyme was normal. Shortness of breath improved with bronchodilators. He was also placed on Levaquin for COPD exacerbation. Cough resolved. He was diagnosed with new onst diabetes mellitus with A1c of 6.8%. Dietary counseling was done. Patient comments on oral anti-diabetic medication. Tobacco cessation couselling was also done. He'll be discharged today to follow with primary care physician in 3 to 5 days. Disposition: TO HOME OR SELFCARE Time spent for discharge: 35 min - Discharge Diagnoses (1) Acute costochondritis Status: Acute (2) COPD with acute exacerbation Status: Acute (3) Chest pain Status: Acute (4) Newly diagnosed diabetes Status: Acute (5) GERD (gastroesophageal reflux disease) Status: Chronic Qualifiers: Esophagitis presence: with esophagitis Qualified Code(s): K21.0 - Gastro- esophageal reflux disease with esophagitis Core Measure Documentation - Palliative Care Palliative Care/ Comfort Measures: Not Applicable - Core Measures Any of the following diagnoses?: none Exam - Physical Exam Narrative exam: Constitutional: Well-nourished well-developed. In no distress Head: Normocephalic atraumatic Eyes: Pupils are equal round and reactive to light Nose: No enlarged turbinates, no septal deviation. Mouth: Moist mucous membranes. Neck: Supple no thyromegaly. No bruit. No JVD Heart: Regular rate and rhythm, S1-S2 normal. No rubs murmurs or gallop Lungs: Clear to auscultation bilaterally. no rales or rhonchi Abdomen: Soft, nontender. Bowel sound are present. Extremities: No edema, no cyanosis, no clubbing. Neuro: Alert oriented Oriented x3. No focal sensory or motor deficit. Skin: No rashes or hyperpigmented spots Musculoskeletal system: No joint pain or swelling Hematological: No petechia or subcutanous hemorrhages. Immunological: No multiple septic spots on the skin Lymphatic: No generalized lymphadenopathy Psychiatry: Euthymic. Calm. - Constitutional Vitals: Temp Pulse Resp BP Pulse Ox 98.1 F 78 18 146/90 97 08/04/18 08:19 08/04/18 08:51 08/04/18 08:51 08/04/18 08:19 08/04/18 03:40 Plan Activity: fall precautions Weight Bearing Status: Weight Bear as Tolerated Diet: diabetic Follow up with: NELI ESPOSITO MD [Primary Care Provider] - 3-5 Days Prescriptions: Glimepiride [Amaryl] 2 mg PO QAM #30 tablet Ipratropium/Albuterol Sulfate [DUONEB *Not for PRN Use*] 1 ampul IH QIDRT #100 ampul.neb metFORMIN [Glucophage] 500 mg PO BID #60 tablet AtorvaSTATin [Lipitor] 40 mg PO QHS #30 tablet Metoprolol [Lopressor TAB] 25 mg PO BID #90 tablet amLODIPine [Norvasc] 10 mg PO DAILY #30 tablet Nortriptyline [Pamelor] 10 mg PO HS #30 capsule Famotidine [Pepcid] 20 mg PO DAILY #30 tablet ALBUTEROL NEB's [Proventil 0.083% NEBS] 2.5 mg IH Q4HRT PRN #100 nebu PRN Reason: Shortness Of Breath Tiotropium [Spiriva] 18 mcg IH QDAY #30 cap Lisinopril [Zestril TAB] 20 mg PO QDAY #30 tablet
[2018-08-04] MEDS: LEVAQUIN 750MG/150ML 750 MG/150 ML BAG IV SCH (10:16)
[2018-08-04] MEDS: GLUCOPHAGE XR PO SCH (10:17)
[2018-08-04] MEDS: FLONASE NS SCH (10:17)
[2018-08-04] MEDS: NORVASC PO SCH (10:18)
[2018-08-04] MEDS: MOBIC PO SCH (10:18)
[2018-08-04] MEDS: VITAMIN D3 PO SCH (10:19)
[2018-08-04] MEDS: ZESTRIL PO SCH (10:19)
[2018-08-04] MEDS: PEPCID PO SCH (10:19)
[2018-08-04] MEDS: LOVENOX SUB-Q SCH (10:19)
[2018-08-04] MEDS: HALFPRIN EC PO SCH (10:20)
[2018-08-04] MEDS: SODIUM CHLORIDE FLUSH SYRINGE 10 ML IV SCH (10:20)
[2018-08-04] MEDS: SOLU-Medrol IV SCH (10:21)
[2018-08-04] MEDS: SPIRIVA IH SCH (10:30)
[2018-08-04] MEDS: LOPRESSOR PO SCH (10:37)
== END 2018-08-04 13:00 | disposition home or self-care (01) | DRG 206 ==
LOC: ED 11:29 → 4A 15:53
PROVIDERS: ADMIT Internal Medicine; ATTEND Family Medicine
DX: M94.0 Chondrocostal junction syndrome [Tietze] (principal); J44.1 Chronic obstructive pulmonary disease with (acute) exacerbation; I25.10 Atherosclerotic heart disease of native coronary artery without angina pectoris; I10 Essential (primary) hypertension; M19.90 Unspecified osteoarthritis, unspecified site; F32.9 Major depressive disorder, single episode, unspecified; G89.29 Other chronic pain; F17.210 Nicotine dependence, cigarettes, uncomplicated; E11.51 Type 2 diabetes mellitus with diabetic peripheral angiopathy without gangrene; E11.42 Type 2 diabetes mellitus with diabetic polyneuropathy; E78.2 Mixed hyperlipidemia; R07.82 Intercostal pain; K21.0 Gastro-esophageal reflux disease with esophagitis; Z71.6 Tobacco abuse counseling; Z71.3 Dietary counseling and surveillance
CPT/HCPCS: 36415; 71045; 80053; 81001; 82962; 83036; 84484; 85007; 85025; 93005; 93010; 94640; G0378; A9270-GY; J1650; J1956; J2920

== ENCOUNTER 2018-09-09 09:59 | Day surgery (SDC) | payer MEDICARE ==
[2018-09-09] MEDS ORDERED: ANCEF/STERILE WATER 2 GM/20 ML IV NR (10:00)
[2018-09-09] MEDS ORDERED: SUBLIMAZE IV PRN (10:51)
--- NOTE | 2018-09-09 10:54 | Anesthesia Consultation ---
Anesthesia Consult and Med Hx Date of service: 09/09/18 - Airway Anesthetic Teeth Evaluation: Poor (multiple missing teeth. Denies loose teeth.) ROM Head & Neck: Adequate Mental/Hyoid Distance: Adequate Mallampati Class: Class II Intubation Access Assessment: Probably Good - Pulmonary Exam CTA: No (mild scatter expiratory wheezes) - Cardiac Exam Cardiac Exam: RRR - Pre-Operative Health Status ASA Pre-Surgery Classification: ASA3 Proposed Anesthetic Plan: General - Pulmonary Hx Smoking: Yes (CURRENT SMOKER) SOB: Yes (SOB; recent neg cardiac work up) COPD: Yes (daily spiriva, advair, and prn albuterol) Home Oxygen Therapy: No Hx Sleep Apnea: Yes (compliant with CPAP) - Cardiovascular System Hx Hypertension: Yes Hx Coronary Artery Disease: Yes (neg ST and normal TTE 07/2018) Hx Heart Attack/AMI: No Hx Percutaneous Transluminal Coronary Angioplasty (PTCA): No Hx Cardia Arrhythmia: Yes (Hx SVT. Normal EKG 08/02/18) Hx Pacemaker: No Hx Internal Defibrillator: No Hx Peripheral Vascular Disease: Yes - Central Nervous System Hx Seizures: No CVA: No Hx Back Pain: Yes Hx Psychiatric Problems: No - Gastrointestinal Hx Gastroesophageal Reflux Disease: No - Endocrine Hx Renal Disease: No Hx Liver Disease: No Hx Non-Insulin Dependent Diabetes: Yes (took oral hypoglycemic medication this morning) Hx Thyroid Disease: No - Hematic Hx Anemia: Yes - Other Systems Hx Obesity: No - Additional Comments Anesthesia Medical History Comments: No hx anesthetic complications. Will check glucose perioperatively. Albuterol and home dose metoprolol to be given in preop.
--- NOTE | 2018-09-09 10:55 | Anesthesia Day of Surgery ---
Anesthesia Day of Surgery - Day of Surgery Patient Examined: Yes Patient H&P Reviewed: Yes Patient is NPO: Yes Beta Blockers: Yes Cardiac Clearance: Yes
[2018-09-09] MEDS ORDERED: LACTATED RINGERS 1,000 ML IV SCH (11:00)
[2018-09-09] MEDS ORDERED: PROVENTIL IH NR (11:00)
[2018-09-09] MEDS ORDERED: LOPRESSOR PO ONE (11:51)
[2018-09-09] MEDS ORDERED: DILAUDID ONE (12:41)
[2018-09-09] MEDS ORDERED: DIPRIVAN 10 MG/ML IV ONE (12:41)
[2018-09-09] MEDS ORDERED: XYLOCAINE MPF 2% ONE (12:43)
[2018-09-09] MEDS ORDERED: NACL 0.9% 1000 ML 1,000 ML ONE (13:10)
[2018-09-09] MEDS ORDERED: NACL 0.9% 1000 ML IR ONE (14:02)
[2018-09-09] MEDS ORDERED: NACL 0.9% IR ONE (14:02)
--- NOTE | 2018-09-09 14:48 | Post Operative Note ---
Date of procedure: 09/09/18 Pre-op diagnosis: ca prostate Post-op diagnosis: same Findings: as above Procedure: cysto cryo ablation prostate Anesthesia: GETA Surgeon: COLT BRYANT Estimated blood loss: minimal Pathology: none Condition: stable Disposition: PACU
--- NOTE | 2018-09-09 14:49 | Discharge Summary ---
Short Stay Discharge Plan Activity: other (strAINING ) Weight Bearing Status: Full Weight Bearing Diet: low fat, low salt Wound: open to air Special Instructions: other (ICE PACKS IN RR ) Durable Medical Equipment Needed Upon Discharge: other (HOME WITH PRADO ) Follow up with: NELI ESPOSITO MD [Primary Care Provider] - 7 Days COLT BRYANT MD [Staff Physician] - 7 Days
[2018-09-09] MEDS ORDERED: VERSED ONE ×2 (15:31→15:38)
[2018-09-09] MEDS ORDERED: KETALAR ONE (15:55)
[2018-09-09] MEDS ORDERED: PROVENTIL IH ONE (15:55)
[2018-09-09] MEDS ORDERED: APRESOLINE ONE (15:57)
[2018-09-09] MEDS ORDERED: ZOFRAN IV PRN (16:30)
[2018-09-09] MEDS ORDERED: ZOFRAN ONE (16:32)
--- NOTE | 2018-09-09 17:53 | Post Anesthesia Evaluation ---
- Post Anesthesia Evaluation Patient Participated: Yes Airway Patent: Yes Stable Respiratory Function: Yes Nausea/Vomiting: No Temp > 96.8F: Yes Pain Manageable: Yes Adequeate Hydration: Yes Anesthesia Complications: No
[2018-09-09 19:45] VITALS: BP 138/75
[2018-09-09] MEDS ORDERED: PROVENTIL IH SCH (20:00)
--- NOTE | 2018-09-09 20:01 | Operative Report ---
PREOPERATIVE DIAGNOSIS: Adenocarcinoma of the prostate, right lobe. POSTOPERATIVE DIAGNOSIS: Adenocarcinoma of the prostate, right lobe. PROCEDURES: Cystoscopy, cryosurgical ablation of prostate. SURGEON: Kevyn Torres MD ANESTHESIA: General. FINDINGS: This is a gentleman with extensive prostate cancer, right lobe. He now presents for cryoablation. All risks and implications discussed. DESCRIPTION OF PROCEDURE: The patient was brought to the operating room and placed on the operating table. Following induction of anesthesia, placed in lithotomy position, prepped and draped in usual sterile fashion. At this point, Mahan catheter was inserted. The ultrasound was placed on the gantry and excellent visualization of the prostate on ultrasound. The prostate gland measured approximately 26 grams. Once we had the initial measurements, 6 probes were used. After the probes were all checked, probes 1 and 2 were placed, 5 and 6 and 3 and 4. Excellent positioning was done. We repositioned all the probes from 3-3.5 cm. The patient tolerated the procedure well. At this point, it should be noted once probes 1 and 2 were placed, we placed ____ fascia without difficulty. External sphincter was also placed. Once this was done, cystoscopy showed interestingly enough an area of the mid urethra on the right side, almost looked like a nevus. This was biopsied. The patient tolerated the procedure well. The rest of the urethra, there was no trauma to the urethra at all and this was in the mid urethra well away from where any of the needles were and there was no bleeding and nowhere near where the needles were placed. There was no trauma to the urethra, bladder neck or bladder. Cystoscopy placed the wire and the warmer under ultrasound vision was placed. The patient tolerated the procedure well. At this point, probes were rechecked and the first freeze was carried out for approximately total of about 7-7-1/2 minutes. We went from 1 to 2 to 3 and 4 and then probes 5 and to 6. We had an excellent ice ball focusing higher percentages in temperatures on the right lobe. A thaw was carried out and then the probes were rechecked and second freeze was carried out. The patient tolerated the procedure well. No significant complication. After a second thaw carried out, we left the warmer for approximately 25-30 minutes in the coude catheter was easily placed and brought to recovery in stable condition. [facility]# [id number] KARLA/LIGIA
== END 2018-09-09 18:30 | disposition home or self-care (01) ==
LOC: OR 09:59
PROVIDERS: ATTEND Urology
DX: C61 Malignant neoplasm of prostate (principal); F17.210 Nicotine dependence, cigarettes, uncomplicated; I25.10 Atherosclerotic heart disease of native coronary artery without angina pectoris; E78.00 Pure hypercholesterolemia, unspecified; I10 Essential (primary) hypertension; E11.51 Type 2 diabetes mellitus with diabetic peripheral angiopathy without gangrene; J44.9 Chronic obstructive pulmonary disease, unspecified; G47.30 Sleep apnea, unspecified; M19.90 Unspecified osteoarthritis, unspecified site; F32.9 Major depressive disorder, single episode, unspecified; Z79.899 Other long term (current) drug therapy; Z79.84 Long term (current) use of oral hypoglycemic drugs; Z98.890 Other specified postprocedural states; Z86.2 Personal history of diseases of the blood and blood-forming organs and certain disorders involving the immune mechanism
CPT/HCPCS: 55873; 82962; 88305; A4217; C2618; J0360; J0690; J1170; J2250; J2405; J2704; J3010; J7030; J7120; 88342

== ENCOUNTER 2018-09-11 13:06 | Inpatient (IN) | payer MEDICARE ==
[2018-09-11] MEDS ORDERED: NACL 0.9% 1000 ML IV ONE ×2 (13:16→19:06)
--- NOTE | 2018-09-11 13:19 | Event Note ---
ED Screening Note ED Screening Note: SP ABLATION OF PROSTATE 6-19 COMES TO ER WITH CHILLS, ABD PAIN, PRADO CATH WITH CLOUDY URINE, TACHY AND HYPO TENSION CULTURES SENT IV ROCEPHIN TO MAIN This initial assessment/diagnostic orders/clinical plan/treatment(s) is/are subject to change based on patients health status, clinical progression and re- assessment by fellow clinical providers in the ED. Further treatment and workup at subsequent clinical providers discretion. Patient/guardian urged not to elope from the ED as their condition may be serious if not clinically assessed and managed. Initial orders include:
[2018-09-11] MEDS ORDERED: MAXIPIME/NS 2 GM/100 ML 2 GM/100 ML BAG IV ONE (13:40)
--- NOTE | 2018-09-11 13:41 | Emergency Department Report ---
ED General Adult HPI - General Chief complaint: Urogenital-Male Stated complaint: CATH BAG CLOGGED Time Seen by Provider: 09/11/18 13:12 Source: patient Mode of arrival: Ambulatory Limitations: Physical Limitation - History of Present Illness Initial comments: Patient is a 72-year-old mellitus emergency room with complaints of his catheter being clogged. Patient states yesterday he had a prostate procedure done for prostate cancer and was discharged from his urologist office with a catheter. Patient states he is not having any lower abdominal pain. Patient states symptoms of penile discomfort from the catheter tube. Patient states his little more short of breath today than usual. Patient denies fever and chills. Patient denies abdominal pain. Patient denies headache. Patient denies chest pain. In triage the patient was found to be tachycardic and hypotensive. Patient had a code sepsis initiated by the nursing staff. -: Sudden Location: genitals Severity scale (0 -10): 3 Quality: aching Consistency: constant Improves with: rest Worsens with: movement Associated Symptoms: malaise, shortness of breath. denies: confusion, chest p ain, cough, diaphoresis, fever/chills, headaches, loss of appetite, nausea/vomiting, rash, seizure, syncope, weakness Treatments Prior to Arrival: none - Related Data Home Medications Medication Instructions Recorded Confirmed Last Taken Albuterol Sulfate [Proventil Hfa] 2 puff IH PRN PRN 08/27/18 09/11/18 09/08/18 21:00 Baclofen [Lioresal] 10 mg PO QDAY 08/27/18 09/11/18 09/08/18 21:00 Ranitidine HCl [Zantac] 300 mg PO QHS 08/27/18 09/11/18 09/08/18 21:00 Tamsulosin [Flomax] 0.4 mg PO QDAY 08/27/18 09/11/18 09/08/18 21:00 Docusate Sodium [Colace] 100 mg PO QDAY PRN 09/11/18 09/11/18 Unknown Metoprolol Xl [Metoprolol 25 mg PO QDAY 09/11/18 09/11/18 Unknown SUCCINATE ER TAB] Previous Rx's Medication Instructions Recorded Last Taken Type AtorvaSTATin [Lipitor] 40 mg PO QHS #30 tablet 08/04/18 09/08/18 21:00 Rx metFORMIN [Glucophage] 500 mg PO BID #60 tablet 08/04/18 09/08/18 21:00 Rx ALBUTEROL NEB's [Proventil 0.083% 2.5 mg IH Q4H PRN #100 nebu 09/13/18 Unknown Rx NEBS] Fluticasone [Flonase] 2 sprays NS QDAY #1 bottle 09/13/18 Unknown Rx Gabapentin [Neurontin] 100 mg PO TID #60 capsule 09/13/18 Unknown Rx Glimepiride [Amaryl] 2 mg PO QAM #30 tablet 09/13/18 Unknown Rx Lisinopril [Zestril TAB] 40 mg PO BID #60 tablet 09/13/18 Unknown Rx Nortriptyline [Pamelor] 30 mg PO BID #60 capsule 09/13/18 Unknown Rx oxyCODONE /ACETAMINOPHEN [Percocet 1 tab PO Q4HR PRN #8 09/13/18 Unknown Rx 5/325 mg] Allergies Allergy/AdvReac Type Severity Reaction Status Date / Time No Known Allergies Allergy Verified 09/11/18 13:14 ED Review of Systems ROS: Stated complaint: CATH BAG CLOGGED Other details as noted in HPI Constitutional: malaise. denies: chills, fever Eyes: denies: eye pain, eye discharge, vision change ENT: denies: ear pain, throat pain Respiratory: shortness of breath. denies: cough, wheezing Cardiovascular: denies: chest pain, palpitations Endocrine: no symptoms reported Gastrointestinal: denies: abdominal pain, nausea, diarrhea Genitourinary: denies: urgency, dysuria Musculoskeletal: denies: back pain, joint swelling, arthralgia Skin: denies: rash, lesions Neurological: denies: headache, weakness, paresthesias Psychiatric: denies: anxiety, depression Hematological/Lymphatic: denies: easy bleeding, easy bruising ED Past Medical Hx - Past Medical History Previous Medical History?: Yes Hx Hypertension: Yes Hx Heart Attack/AMI: No Hx Liver Disease: No Hx Renal Disease: No Hx Arthritis: Yes (osteoarthritis) Hx Seizures: No Hx Psychiatric Treatment: Yes (depression) Hx COPD: Yes (daily spiriva, advair, and prn albuterol) Additional medical history: high cholesterol, Neuropathy, Chronic Foot Pain. sleep apnea. CAD. spinal stenosis. PVD. Frausto's esophagus - Surgical History Past Surgical History?: Yes Hx Pacemaker: No Hx Internal Defibrillator: No Additional Surgical History: hernia repair x 2. Prostate cancer removal surgery - Family History Family history: no significant - Social History Smoking Status: Current Every Day Smoker Substance Use Type: None - Medications Home Medications: Home Medications Medication Instructions Recorded Confirmed Last Taken Type AtorvaSTATin [Lipitor] 40 mg PO QHS #30 tablet 08/04/18 09/11/18 09/08/18 21:00 Rx metFORMIN [Glucophage] 500 mg PO BID #60 tablet 08/04/18 09/11/18 09/08/18 21:00 Rx Albuterol Sulfate [Proventil Hfa] 2 puff IH PRN PRN 08/27/18 09/11/18 09/08/18 21:00 History Baclofen [Lioresal] 10 mg PO QDAY 08/27/18 09/11/18 09/08/18 21:00 History Ranitidine HCl [Zantac] 300 mg PO QHS 08/27/18 09/11/18 09/08/18 21:00 History Tamsulosin [Flomax] 0.4 mg PO QDAY 08/27/18 09/11/18 09/08/18 21:00 History Docusate Sodium [Colace] 100 mg PO QDAY PRN 09/11/18 09/11/18 Unknown History Metoprolol Xl [Metoprolol 25 mg PO QDAY 09/11/18 09/11/18 Unknown History SUCCINATE ER TAB] ALBUTEROL NEB's [Proventil 0.083% 2.5 mg IH Q4H PRN #100 nebu 09/13/18 Unknown Rx NEBS] Fluticasone [Flonase] 2 sprays NS QDAY #1 bottle 09/13/18 Unknown Rx Gabapentin [Neurontin] 100 mg PO TID #60 capsule 09/13/18 Unknown Rx Glimepiride [Amaryl] 2 mg PO QAM #30 tablet 09/13/18 Unknown Rx Lisinopril [Zestril TAB] 40 mg PO BID #60 tablet 09/13/18 Unknown Rx Nortriptyline [Pamelor] 30 mg PO BID #60 capsule 09/13/18 Unknown Rx oxyCODONE /ACETAMINOPHEN [Percocet 1 tab PO Q4HR PRN #8 09/13/18 09/11/18 Unknown Rx 5/325 mg] ED Physical Exam - General Limitations: Physical Limitation General appearance: alert, in no apparent distress - Head Head exam: Present: atraumatic, normocephalic - Eye Eye exam: Present: normal appearance, PERRL Pupils: Present: normal accommodation - ENT ENT exam: Present: mucous membranes moist - Neck Neck exam: Present: normal inspection - Respiratory Respiratory exam: Present: normal lung sounds bilaterally. Absent: respiratory distress, wheezes, rales - Cardiovascular Cardiovascular Exam: Present: regular rate, normal rhythm, tachycardia. Absent: systolic murmur, diastolic murmur, rubs, gallop - GI/Abdominal GI/Abdominal exam: Present: soft, tenderness (mild lower abdominal tenderness.), normal bowel sounds - Rectal Rectal exam: Present: deferred - Extremities Exam Extremities exam: Present: normal inspection - Back Exam Back exam: Present: normal inspection - Neurological Exam Neurological exam: Present: alert, oriented X3 - Psychiatric Psychiatric exam: Present: normal affect, normal mood - Skin Skin exam: Present: warm, dry, intact, normal color. Absent: rash ED Course Vital Signs 09/11/18 09/11/18 09/11/18 13:11 13:12 13:31 Temperature 97.5 F L Pulse Rate 117 H 117 H 94 H Pulse Rate [ From Monitor] Respiratory 20 Rate Blood Pressure 86/58 132/74 Blood Pressure 89/49 [Right] O2 Sat by Pulse 100 Oximetry 09/11/18 09/11/18 09/11/18 13:45 14:00 14:15 Temperature Pulse Rate 99 H 106 H 105 H Pulse Rate [ From Monitor] Respiratory 18 21 14 Rate Blood Pressure 94/70 99/77 115/74 Blood Pressure [Right] O2 Sat by Pulse 95 Oximetry 09/11/18 09/11/18 09/11/18 14:30 14:45 15:30 Temperature Pulse Rate 104 H 97 H Pulse Rate [ From Monitor] Respiratory 20 20 18 Rate Blood Pressure 101/70 112/68 Blood Pressure [Right] O2 Sat by Pulse 94 93 97 Oximetry 09/11/18 09/11/18 09/11/18 16:30 16:45 17:00 Temperature Pulse Rate 86 83 Pulse Rate [ From Monitor] Respiratory 18 15 Rate Blood Pressure 112/68 111/75 113/83 Blood Pressure [Right] O2 Sat by Pulse 95 95 96 Oximetry 09/11/18 09/11/18 09/11/18 17:01 17:15 17:30 Temperature Pulse Rate 82 81 Pulse Rate [ 93 H From Monitor] Respiratory 15 17 18 Rate Blood Pressure 119/77 119/81 Blood Pressure [Right] O2 Sat by Pulse 97 97 97 Oximetry 09/11/18 17:44 Temperature Pulse Rate 86 Pulse Rate [ From Monitor] Respiratory 19 Rate Blood Pressure Blood Pressure [Right] O2 Sat by Pulse 95 Oximetry - Reevaluation(s) Reevaluation #1: Patient denies shortness of breath. Patient states he is feeling little bit better. Patient getting fluids. Patient blood pressure improving 09/11/18 15:13 Discussed all results with patient. Patient will be admitted to the primary care's service. Patient agrees to plan of care. 09/11/18 15:51 Vazquez flushed with no resistance. No urine noted. Patient denied pain 09/11/18 17:27 Vazquez flushed again. No resistance noted. 6 mL pushed in and 60 mL return. Patient complained of discomfort with flushing. Urologist will be made aware. 09/11/18 17:55 - Consultations Consultation #1: DR ESPOSITO consulted for admission. PCP to admit AND assume care patient. 09/11/18 15:54 Dr. Esposito updated with information 09/11/18 16:51 Consultation #2: Radiologist called to discuss CT scan and recommends cystogram 09/11/18 16:49 Consultation #3: Urologist paged 09/11/18 16:[address] BRYANT, the patient's urologist. Dr. BRYANT recommends admission and patient to have a cystogram done and to have the Vazquez flushed. Dr. Bryant made aware of ct reading. Dr bryant states this is not a bladder rupture. 09/11/18 17:15 Dr. BRYANT made aware of vazqeuz flushed without resistance but with discomfort 09/11/18 17:58 ED Medical Decision Making - Lab Data Result diagrams: 09/13/18 04:46 09/13/18 04:46 - EKG Data -: EKG Interpreted by Me EKG shows normal: sinus rhythm, axis, intervals, QRS complexes, ST-T waves Rate: normal - Radiology Data Radiology results: report reviewed AP CHEST: HISTORY: Shortness of breath AP view of the chest demonstrates a normal mediastinal and cardiac contour with clear lungs and normal bony and soft tissue structures. IMPRESSION: No acute cardiopulmonary process. PROCEDURE: NM LUNG SCAN PERF/VENT TECHNIQUE: 4.37 mCi Tc-99m MAA was injected IV for pulmonary perfusion imaging in multiple projections. 23.4 mCi Xenon-133 was inhaled for pulmonary ventilation imaging in multiple projections. HISTORY: Tachycardic. Shortness of breath. Postoperative. Renal insufficiency. COMPARISONS: Chest x-ray September 11, 2018. FINDINGS: Ventilation: Heterogeneous. Perfusion: Small subsegmental perfusion deficits in both upper lungs appear matched. IMPRESSION: * Based on the PIOPED study, findings represent low probability for PE. CT ABD> IMPRESSION: * Emphysema. * Nonspecific peripheral pulmonary findings may represent pneumonitis or mild pulmonary vascular congestion. * Right renal cyst. * Small amount of free fluid around the spleen. Trace fluid in both colic gutters. Stranding of the mesentery in the right lower abdomen and upper pelvis extending around the dome of the bladder. Findings could represent postsurgical changes, inflammation, or infection. A distinct fluid collection is not clearly evident on this noncontrast CT scan. * Bladder is collapsed around a Vazquez catheter and not adequately evaluated. Small pocket of gas at the superior aspect may be related to Vazquez catheter insertion. A fistula is not entirely excluded. * Enlarged heterogeneous prostate. Prominent bilateral seminal vesicles. - Medical Decision Making Patient is a 72-year-old mellitus emergency room for shortness of breath and clogged Vazquez and penile irritation. Patient found to be hypotensive and tachycardic in triage. Patient brought to the main ER and code sepsis initiated. She given fluids and antibiotics immediately. Patient tender upon palpation of the abdomen and CT scan was done. CT scan has abnormal findings. His urologist and primary care made aware of all results. Neurology recommends Vazquez be flushed and cystogram done cystogram ordered. Vazquez flushed without difficulty. CT scan reviewed. Patient also complained of shortness of breath and had a d-dimer done. D-dimer elevated and nuclear med scan to lungs. Nuclear scan negative. Chest x-ray negative. Patient's labs positive for elevated white count and lactic acidosis. Patient also found to have renal failure. - Differential Diagnosis abdominal pain. Vazquez blockage. UTI. Pyelonephritis. Sepsis. Critical Care Time: Yes Critical care attestation.: If time is entered above; I have spent that time in minutes in the direct care of this critically ill patient, excluding procedure time. Critical Care Time: 55 MINUTES ED Disposition Clinical Impression: Tachycardia, SOB (shortness of breath), Elevated lactic acid level Hypotension Qualifiers: Hypotension type: unspecified hypotension type Qualified Code(s): I95.9 - Hypotension, unspecified Vazquez catheter problem Qualifiers: Encounter type: initial encounter Qualified Code(s): T83.9XXA - Unspecified complication of genitourinary prosthetic device, implant and graft, initial encounter Sepsis Qualifiers: Sepsis type: sepsis due to unspecified organism Qualified Code(s): A41.9 - Seps is, unspecified organism Renal failure Qualifiers: Renal failure chronicity: acute Acute renal failure type: unspecified Qualified Code(s): N17.9 - Acute kidney failure, unspecified Abdominal pain Qualifiers: Abdominal location: lower abdomen, unspecified Qualified Code(s): R10.30 - Lower abdominal pain, unspecified UTI (urinary tract infection) Qualifiers: Urinary tract infection type: catheter-associated UTI Indwelling urinary catheter type: indwelling urethral catheter Encounter type: initial encounter Qualified Code(s): T83.511A - Infection and inflammatory reaction due to indwelling urethral catheter, initial encounter Disposition: OP ADMIT IP TO THIS HOSP Is pt being admited?: Yes Does the pt Need Aspirin: No Condition: Critical Time of Disposition: 15:56
[2018-09-11 13:48] LABS: Basophils % (Auto) 0.2 % (0.0-1.8); Eosinophils % (Auto) 0.1 % (0.0-4.3); Hematocrit 43.8 % (35.5-45.6); Hemoglobin 14.9 gm/dl (11.8-15.2); Lymphocytes # (Auto) 1.3 K/mm3 (1.2-5.4); Lymphocytes % (Auto) 11.8 % (13.4-35.0); Mean Corpuscular HGB Conc 34 % (32-34); Mean Corpuscular Volume 87 fl (84-94); Monocytes # (Auto) 0.8 K/mm3 (0.0-0.8); Monocytes % (Auto) 7.4 % (0.0-7.3); Platelet Count 174 K/mm3 (140-440); Red Blood Count 5.04 M/mm3 (3.65-5.03); Red Cell Distribution Width 15.7 % (13.2-15.2)
[2018-09-11] MEDS ORDERED: ROCEPHIN/NS 1 GM/50 ML 1 GM/50 ML BAG IV SCH (14:00)
[2018-09-11 14:03] LABS: Albumin 3.7 g/dL (3.9-5); Calcium 9.2 mg/dL (8.4-10.2)
[2018-09-11 14:31] LABS: Creatine Kinase MB 3.6 ng/mL (0.0-4.0)
--- NOTE | 2018-09-11 15:04 | XRay Report ---
AP CHEST: HISTORY: Shortness of breath AP view of the chest demonstrates a normal mediastinal and cardiac contour with clear lungs and normal bony and soft tissue structures. IMPRESSION: No acute cardiopulmonary process.
[2018-09-11] MEDS ORDERED: NACL 0.9% 1000 ML 1,000 ML ONE (15:35)
[2018-09-11 15:52] LABS: Bilirubin,Urine NEG (Negative); Blood,Urine LG (Negative); Color,Urine Amber (Yellow); Mucus,Urine 2+ /HPF; Urobilinogen,Urine < 2.0 mg/dL (<2.0)
[2018-09-11 15:55] LABS: RBC,Urine > 182.0 /HPF (0.0-6.0)
[2018-09-11] MEDS ORDERED: VANCOMYCIN/NS 1 GM/250 ML 1 GM/250 ML BAG IV ONE (16:15)
--- NOTE | 2018-09-11 16:34 | Cat Scan Report ---
PROCEDURE: CT ABDOMEN PELVIS WO CON TECHNIQUE: Computerized axial tomography of the abdomen and pelvis was performed without intravenous contrast. This study is performed without intravascular contrast material and its sensitivity for abd ominal and pelvic pathology, including neoplasms, inflammation, abscess, free fluid, thrombosis, jo rial dissection and infarction, is reduced compared with a contrast enhanced study. CT DOSE LENGTH PRODUCT: 1005.4 mGy-cm. HISTORY: abd pain. Recent prostate surgery COMPARISONS: None currently available. FINDINGS: Abdomen: Peripheral interseptal thickening noted within both lung bases. Interspersed areas of groundglass opa cities without honeycombing. No traction bronchiectasis. No centrilobular nodules. Emphysema. Kidneys: Low-attenuation lesion in the mid cortex of the right kidney measures 2.3 cm. No hydronephro sis. No stone. Left kidney is unremarkable. Liver, gallbladder, stomach, spleen, pancreas, and adrenals are unremarkable. No aneurysm. Vyyp-ed-dyfzhpya atherosclerotic disease. IVC is unremarkable. There is no periaortic or retroperitoneal adenopathy or mass. Gzbp-af-efrnygyu stool. No wall thickening or inflammatory changes. Terminal ileum is unremarkable. Appendix is normal. Small bowel loops are unremarkable. No obstructive pattern. No air-fluid levels. Trace fluid in both colic gutters. Small amount of fluid around the spleen. Stranding of the mesentery in the right lower abdomen extending into the upper pelvis may be related to postsurgical changes. No distinct fluid collection in the right lower quadrant around the pelvis. Pelvis: Enlarged heterogeneous prostate with calcification. Prominent bilateral seminal vesicles. Bladder: Collapsed around a Mahan catheter and not adequately evaluated. Small pocket of gas at the s uperior aspect may be related to Mahan catheter insertion. Stranding around the dome of the bladder m ay be related to postsurgical changes. There is no pelvic mass or adenopathy. Inguinal regions are unremarkable. Bones: No suspicious osseous lesions on this limited examination of the skeleton. Metastatic disease better evaluated with bone scan. Degenerative changes are in the spine. IMPRESSION: * Emphysema. * Nonspecific peripheral pulmonary findings may represent pneumonitis or mild pulmonary vascular con gestion. * Right renal cyst. * Small amount of free fluid around the spleen. Trace fluid in both colic gutters. Stranding of the mesentery in the right lower abdomen and upper pelvis extending around the dome of the bladder. Findi ngs could represent postsurgical changes, inflammation, or infection. A distinct fluid collection is not clearly evident on this noncontrast CT scan. * Bladder is collapsed around a Mahan catheter and not adequately evaluated. Small pocket of gas at the superior aspect may be related to Mahan catheter insertion. A fistula is not entirely excluded. * Enlarged heterogeneous prostate. Prominent bilateral seminal vesicles. This document is electronically signed by Salvador Avelar MD., September 11 2018 04:32:51 PM ET
--- NOTE | 2018-09-11 16:43 | Nuclear Medicine Report ---
PROCEDURE: NM LUNG SCAN PERF/VENT TECHNIQUE: 4.37 mCi Tc-99m MAA was injected IV for pulmonary perfusion imaging in multiple projectio ns. 23.4 mCi Xenon-133 was inhaled for pulmonary ventilation imaging in multiple projections. HISTORY: Tachycardic. Shortness of breath. Postoperative. Renal insufficiency. COMPARISONS: Chest x-ray September 11, 2018. FINDINGS: Ventilation: Heterogeneous. Perfusion: Small subsegmental perfusion deficits in both upper lungs appear matched. IMPRESSION: * Based on the PIOPED study, findings represent low probability for PE. This document is electronically signed by Salvador Avelar MD., September 11 2018 04:41:11 PM ET
[2018-09-11] MEDS ORDERED: NACL 0.9% 1000 ML 1,000 ML IV ONE ×2 (17:58)
--- NOTE | 2018-09-11 19:18 | History and Physical Report ---
History of Present Illness Date of examination: 09/11/18 Date of admission: 09/11/18 16:14 Chief complaint: sepsis from UTI History of present illness: Patient is a 72-year-old gentleman with a history of COPD, peripheral vascular disease, current smoker, prostate cancer status post cryoablation on 09/09/18 and discharged home on Mahan's catheter connected to get him back presented to the emergency department on account of being unable to pass urine saying that his Mahan catheter is clogged up. He was also noted to have chills, lower abdominal pain, tachycardia and hypotension with systolic blood pressure in the 80s. Patient denies any headache no chest pain or shortness of breath. Patient had mucositis of 11.4, lactic acid was 3.7 and subsequently increased to 4.1. BUN was 34 and creatinine was 2.2. Baseline creatinine was 0.9 as at 06/20/2018. Code sepsis was initiated. IV fluid resuscitation commenced. Blood cultures and IV antibiotics initiated. CT scan of the abdomen and pelvis without contrast showed evidence small food around the spleen that may be consistent with post surgical changes. Enlarged heterogeneous prostate with prominent seminal vesicles also identified. Emphysema and nonspecific pulmonary changes around right renal cyst reported. Urologist, was consulted. By emergency department physician. Bladder irrigation was done in emergency department as well as in the ICU to which he was admitted. Uterine flow established. Abdomen pain gradually resolved. Past History Past Medical History: COPD, hypertension, other (prostate cancer) Past Surgical History: Other (cryoablation of the prostate) Social history: smoking. denies: alcohol abuse, prescription drug abuse Family history: no significant family history Medications and Allergies Allergies Allergy/AdvReac Type Severity Reaction Status Date / Time No Known Allergies Allergy Verified 09/11/18 13:14 Home Medications Medication Instructions Recorded Confirmed Last Taken Type AtorvaSTATin [Lipitor] 40 mg PO QHS #30 tablet 08/04/18 09/11/18 09/08/18 21:00 Rx Glimepiride [Amaryl] 2 mg PO QAM #30 tablet 08/04/18 09/11/18 09/08/18 21:00 Rx metFORMIN [Glucophage] 500 mg PO BID #60 tablet 08/04/18 09/11/18 09/08/18 21:00 Rx Albuterol Sulfate [Proventil Hfa] 2 puff IH PRN PRN 08/27/18 09/11/18 09/08/18 21:00 History Baclofen [Lioresal] 10 mg PO QDAY 08/27/18 09/11/18 09/08/18 21:00 History Fluticasone [Flonase] 2 sprays NS QDAY 08/27/18 09/11/18 09/08/18 21:00 History Nortriptyline [Pamelor] 30 mg PO BID 08/27/18 09/11/18 09/08/18 21:00 History Ranitidine HCl [Zantac] 300 mg PO QHS 08/27/18 09/11/18 09/08/18 21:00 History Tamsulosin [Flomax] 0.4 mg PO QDAY 08/27/18 09/11/18 09/08/18 21:00 History ALBUTEROL NEB's [Proventil] 2.5 mg IH Q4H PRN 09/11/18 09/11/18 Unknown History Docusate Sodium [Colace] 100 mg PO QDAY PRN 09/11/18 09/11/18 Unknown History Gabapentin [Neurontin] 100 mg PO TID 09/11/18 09/11/18 Unknown History Lisinopril [Zestril TAB] 40 mg PO BID 09/11/18 09/11/18 Unknown History Metoprolol Xl [Metoprolol 25 mg PO QDAY 09/11/18 09/11/18 Unknown History SUCCINATE ER TAB] oxyCODONE /ACETAMINOPHEN [Percocet 1 tab PO Q4HR PRN 09/11/18 09/11/18 Unknown History 5/325] Active Meds: Active Medications Sodium Chloride (Nacl 0.9% 1000 Ml) 1,000 mls @ 250 mls/hr IV ONCE ONE Stop: 09/11/18 21:57 Review of systems Constitutional: Well Nourished and Well developed. Head: NC/ AT Eyes: Denies any visual impairments. No discharge from the eyes Nose: Denies any rhinorrhea or epistaxis Throats: Denies any post nasal drainage. Ears: Denies any hearing deficits Cardiovascular system: Denies any chest pain, shortness of breath, orthopnea, paroxysmal nocturnal dyspnea, or palpitation. Respiratory system: Denies any cough, difficulty breathing, wheezing, pleuritic chest pain, Gastrointestinal system: Has abdominal pain, no nausea vomiting, hematemesis or melena. Neurological system: Denies any headache, slurred speech, facial droop, lateralizing weakness Genitalia system: Unable to pass urine through the Mahan catheter Skin: No rashes, hyperpigmented spots. Hematological: Denies any cervical tenderness hemorrhages or petechia. Immunological: Denies any multiple septic spots, Lymphatic: Denies any generalized lymphadenopathy. Endocrine: Denies any polyuria, polydipsia, polyphagia. No heat or cold intolerance. Musculoskeletal system: No joint pain or swelling. Psych: No visual, tactile, auditory or hallucination Exam - Physical Exam Narrative exam: Constitutional: Well-nourished well-developed. In no distress Head: Normocephalic atraumatic Eyes: Pupils are equal round and reactive to light Nose: No enlarged turbinates, no septal deviation. Mouth: Moist mucous membranes. Neck: Supple no thyromegaly. No bruit. No JVD Heart: Regular rate and rhythm, S1-S2 normal. No rubs murmurs or gallop Lungs: Clear to auscultation bilaterally. no rales or rhonchi Abdomen: Soft, nontender. Bowel sound are present. ADITYA: Has a Mahan catheter in place connected to a urine bag slightly bloody urine. Extremities: No edema, no cyanosis, no clubbing. Neuro: Alert oriented Oriented x3. No focal sensory or motor deficit. Skin: No rashes or hyperpigmented spots Musculoskeletal system: No joint pain or swelling Hematological: No petechia or subcutanous hemorrhages. Immunological: No multiple septic spots on the skin Lymphatic: No generalized lymphadenopathy Psychiatry: Euthymic. Calm. - Constitutional Vitals: Temp Pulse Resp BP Pulse Ox 97.5 F L 81 18 119/81 97 09/11/18 13:12 09/11/18 17:30 09/11/18 17:30 09/11/18 17:30 09/11/18 17:30 Results - Labs CBC & Chem 7: 09/11/18 13:19 09/11/18 13:19 Labs: Abnormal lab results 09/11/18 09/11/18 09/11/18 Range/Units 13:19 13:19 13:19 WBC 11.3 H (4.5-11.0) K/mm3 RBC 5.04 H (3.65-5.03) M/mm3 RDW 15.7 H (13.2-15.2) % Lymph % (Auto) 11.8 L (13.4-35.0) % [place] % (Auto) 7.4 H (0.0-7.3) % Seg Neutrophils % 80.5 H (40.0-70.0) % Seg Neutrophils # 9.1 H (1.8-7.7) K/mm3 D-Dimer (0-234) ng/mlDDU Sodium 134 L (137-145) mmol/L Chloride 94.5 L (98-107) mmol/L BUN 34 H (9-20) mg/dL Creatinine 2.2 H (0.8-1.5) mg/dL Glucose 111 H (75-100) mg/dL Lactic Acid 2.70 H* (0.7-2.0) mmol/L Total Creatine Kinase (55-170) units/L Albumin 3.7 L (3.9-5) g/dL Urine WBC (Auto) (0.0-6.0) /HPF 09/11/18 09/11/18 09/11/18 Range/Units 13:38 13:48 14:15 WBC (4.5-11.0) K/mm3 RBC (3.65-5.03) M/mm3 RDW (13.2-15.2) % Lymph % (Auto) (13.4-35.0) % [place] % (Auto) (0.0-7.3) % Seg Neutrophils % (40.0-70.0) % Seg Neutrophils # (1.8-7.7) K/mm3 D-Dimer 6305.03 H (0-234) ng/mlDDU Sodium (137-145) mmol/L Chloride (98-107) mmol/L BUN (9-20) mg/dL Creatinine (0.8-1.5) mg/dL Glucose (75-100) mg/dL Lactic Acid 3.70 H* (0.7-2.0) mmol/L Total Creatine Kinase 442 H (55-170) units/L Albumin (3.9-5) g/dL Urine WBC (Auto) (0.0-6.0) /HPF 09/11/18 09/11/18 Range/Units 14:57 16:05 WBC (4.5-11.0) K/mm3 RBC (3.65-5.03) M/mm3 RDW (13.2-15.2) % Lymph % (Auto) (13.4-35.0) % [place] % (Auto) (0.0-7.3) % Seg Neutrophils % (40.0-70.0) % Seg Neutrophils # (1.8-7.7) K/mm3 D-Dimer (0-234) ng/mlDDU Sodium (137-145) mmol/L Chloride (98-107) mmol/L BUN (9-20) mg/dL Creatinine (0.8-1.5) mg/dL Glucose (75-100) mg/dL Lactic Acid 4.10 H* (0.7-2.0) mmol/L Total Creatine Kinase (55-170) units/L Albumin (3.9-5) g/dL Urine WBC (Auto) 34.0 H (0.0-6.0) /HPF Assessment and Plan Patient is a 72-year-old gentleman with a history of COPD, peripheral vascular disease, current smoker, prostate cancer status post cryoablation on 09/09/18 and discharged home on Mahan's catheter on continuous drainage presented to the emergency department on account of being unable to pass urine saying that his Mahan catheter is clogged up. He was also noted to have chills, lower abdominal pain, tachycardia and hypotension with systolic blood pressure in the 80s. Patient denies any headache, chest pain or shortness of breath. Patient had leukocytosis of 11.4 and lactic acid level of 3.7 and subsequently increased to 4.1. BUN was 34 and creatinine was 2.2. Baseline creatinine was 0.9 as at 05/24. Code sepsis was initiated. IV fluid resuscitation commenced. Blood cultures and IV antibiotics initiated. CT scan of the abdomen and pelvis without contrast showed evidence small fluid around the spleen that may be consistent with post surgical changes. Enlarged heterogeneous prostate with prominent seminal vesicles were also identified. Emphysema and nonspecific pulmonary changes asx well as right renal cyst reported. The emergency room physician irrigated the bladder. Urologist, was consulted. 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 Uterine flow established. Abdomen pain gradually resolved. - Sepsis with shock positive for UTI Treatment with tachycardia, tachypnea, leukocytosis and elevated lactic acid level greater than 4.0 Obtain urine and blood cultures Comments patient on sepsis protocol with IV hydration, serial lactic acid levels, IV antibiotics ID consult - Acute renal failure from acute tubular necrosis Strict input and output CT scan of the abdomen did not identified any hydronephrosis Serial electrolytes Nephrologic consult - Lactic acidosis IV hydration Trend - Urinary obstruction status post cryoablation If additional symptoms have resolved the obstruction Urology oracle adf consultant in emergency department We'll continue to monitor urine output - Prostate cancer status post cryoablation Stable Urology following - 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
[2018-09-11] MEDS ORDERED: COLACE PO PRN (19:24)
[2018-09-11] MEDS ORDERED: PROAIR IH PRN (19:24)
[2018-09-11] MEDS ORDERED: PROVENTIL IH PRN (19:24)
[2018-09-11] MEDS ORDERED: ZOSYN/NS 2.25 GM/50ML 2.25 GM/50 ML BAG IV SCH (22:00)
[2018-09-11] MEDS ORDERED: ZOSYN/NS 4.5GM/100ML 4.5 GM/100 ML VIAL IV SCH (22:00)
[2018-09-11] MEDS ORDERED: FLAGYL 500 MG/100 ML 500 MG/100 ML BAG IV SCH (22:00)
[2018-09-11] MEDS: FLONASE NS SCH (23:26)
[2018-09-11] MEDS: NEURONTIN PO SCH (23:27)
[2018-09-11] MEDS: HEPARIN SUB-Q SCH (23:27)
[2018-09-11] MEDS: PAMELOR PO SCH (23:28)
[2018-09-11] MEDS: MAXIPIME/NS 2 GM/100 ML 2 GM/100 ML BAG IV SCH (23:28)
[2018-09-11] MEDS: PEPCID IV SCH (23:29)
[2018-09-11] MEDS: ZOSYN/NS 2.25 GM/50ML 2.25 GM/50 ML BAG IV SCH (23:37)
[2018-09-11] MEDS ORDERED: D5/0.45NS 2,000 ML IV SCH (23:45)
--- NOTE | 2018-09-12 00:15 | Consultation ---
History of Present Illness - Reason for Consult Consult date: 09/11/18 - History of Present Illness pt w/ prosta ca and cyro this week. presetn er w/ poor cath drainage , fever Past History Past Medical History: COPD, hypertension, other (prostate cancer) Past Surgical History: Other (cryoablation of the prostate) Social history: smoking. denies: alcohol abuse, prescription drug abuse Family history: no significant family history Medications and Allergies Allergies Allergy/AdvReac Type Severity Reaction Status Date / Time No Known Allergies Allergy Verified 09/11/18 13:14 Home Medications Medication Instructions Recorded Confirmed Last Taken Type AtorvaSTATin [Lipitor] 40 mg PO QHS #30 tablet 08/04/18 09/11/18 09/08/18 21:00 Rx Glimepiride [Amaryl] 2 mg PO QAM #30 tablet 08/04/18 09/11/18 09/08/18 21:00 Rx metFORMIN [Glucophage] 500 mg PO BID #60 tablet 08/04/18 09/11/18 09/08/18 21:00 Rx Albuterol Sulfate [Proventil Hfa] 2 puff IH PRN PRN 08/27/18 09/11/18 09/08/18 21:00 History Baclofen [Lioresal] 10 mg PO QDAY 08/27/18 09/11/18 09/08/18 21:00 History Fluticasone [Flonase] 2 sprays NS QDAY 08/27/18 09/11/18 09/08/18 21:00 History Nortriptyline [Pamelor] 30 mg PO BID 08/27/18 09/11/18 09/08/18 21:00 History Ranitidine HCl [Zantac] 300 mg PO QHS 08/27/18 09/11/18 09/08/18 21:00 History Tamsulosin [Flomax] 0.4 mg PO QDAY 08/27/18 09/11/18 09/08/18 21:00 History ALBUTEROL NEB's [Proventil] 2.5 mg IH Q4H PRN 09/11/18 09/11/18 Unknown History Docusate Sodium [Colace] 100 mg PO QDAY PRN 09/11/18 09/11/18 Unknown History Gabapentin [Neurontin] 100 mg PO TID 09/11/18 09/11/18 Unknown History Lisinopril [Zestril TAB] 40 mg PO BID 09/11/18 09/11/18 Unknown History Metoprolol Xl [Metoprolol 25 mg PO QDAY 09/11/18 09/11/18 Unknown History SUCCINATE ER TAB] oxyCODONE /ACETAMINOPHEN [Percocet 1 tab PO Q4HR PRN 09/11/18 09/11/18 Unknown H istory 5/325] Active Meds: Active Medications Albuterol (Proventil) 2.5 mg IH Q4H PRN PRN Reason: Shortness Of Breath Atorvastatin Calcium (Lipitor) 40 mg PO QHS [facility] Last Admin: 09/11/18 23:28 Dose: 40 mg Documented by: Docusate Sodium (Colace) 100 mg PO QDAY PRN PRN Reason: Constipation Famotidine (Pepcid) 20 mg IV BID [facility] Last Admin: 09/11/18 23:29 Dose: 20 mg Documented by: Fluticasone Propionate (Flonase) 100 mcg NS QDAY [facility] Last Admin: 09/11/18 23:26 Dose: 100 mcg Documented by: Gabapentin (Neurontin) 100 mg PO TID [facility] Last Admin: 09/11/18 23:27 Dose: 100 mg Documented by: Heparin Sodium (Porcine) (Heparin) 5,000 unit SUB-Q Q12HR [facility] Last Admin: 09/11/18 23:27 Dose: 5,000 unit Documented by: Cefepime HCl (Maxipime/Ns 2 Gm/100 Ml) 2 gm in 100 mls @ 200 mls/hr IV Q12HR [facility]; Protocol Last Admin: 09/11/18 23:28 Dose: 200 mls/hr Documented by: Dextrose/Sodium Chloride (D5/0.45ns) 2,000 mls @ 125 mls/hr IV DIRECT MOIZ Stop: 09/12/18 15:44 Last Admin: 09/11/18 23:44 Dose: 125 mls/hr Documented by: Piperacillin Sod/Tazobactam Sod (Zosyn/Ns 2.25 Gm/50ml) 2.25 gm in 50 mls @ 100 mls/hr IV Q6HR [facility] Last Admin: 09/11/18 23:37 Dose: 100 mls/hr Documented by: Nortriptyline HCl (Pamelor) 30 mg PO BID [facility] Last Admin: 09/11/18 23:28 Dose: 30 mg Documented by: Exam - Constitutional Vitals: Temp Pulse Resp BP Pulse Ox 98.4 F 101 H 20 119/81 100 09/11/18 23:20 09/11/18 19:01 09/11/18 19:01 09/11/18 17:30 09/11/18 19:01 - EENT Eyes: Present: EOM intact - Neck Neck: Present: supple - Respiratory Respiratory effort: normal - Abdominal General gastrointestinal: Present: soft, non-tender, non-distended Male genitourinary: Present: normal Results - Labs CBC & Chem 7: 09/11/18 13:19 09/11/18 13:19 Labs: Abnormal lab results 09/11/18 09/11/18 09/11/18 Range/Units 13:19 13:19 13:19 WBC 11.3 H (4.5-11.0) K/mm3 RBC 5.04 H (3.65-5.03) M/mm3 RDW 15.7 H (13.2-15.2) % Lymph % (Auto) 11.8 L (13.4-35.0) % [place] % (Auto) 7.4 H (0.0-7.3) % Seg Neutrophils % 80.5 H (40.0-70.0) % Seg Neutrophils # 9.1 H (1.8-7.7) K/mm3 D-Dimer (0-234) ng/mlDDU Sodium 134 L (137-145) mmol/L Chloride 94.5 L (98-107) mmol/L BUN 34 H (9-20) mg/dL Creatinine 2.2 H (0.8-1.5) mg/dL Glucose 111 H (75-100) mg/dL POC Glucose (70-105) Lactic Acid 2.70 H* (0.7-2.0) mmol/L Total Creatine Kinase (55-170) units/L Albumin 3.7 L (3.9-5) g/dL Urine WBC (Auto) (0.0-6.0) /HPF 09/11/18 09/11/18 09/11/18 Range/Units 13:38 13:48 14:15 WBC (4.5-11.0) K/mm3 RBC (3.65-5.03) M/mm3 RDW (13.2-15.2) % Lymph % (Auto) (13.4-35.0) % [place] % (Auto) (0.0-7.3) % Seg Neutrophils % (40.0-70.0) % Seg Neutrophils # (1.8-7.7) K/mm3 D-Dimer 6305.03 H (0-234) ng/mlDDU Sodium (137-145) mmol/L Chloride (98-107) mmol/L BUN (9-20) mg/dL Creatinine (0.8-1.5) mg/dL Glucose (75-100) mg/dL POC Glucose (70-105) Lactic Acid 3.70 H* (0.7-2.0) mmol/L Total Creatine Kinase 442 H (55-170) units/L Albumin (3.9-5) g/dL Urine WBC (Auto) (0.0-6.0) /HPF 09/11/18 09/11/18 09/11/18 Range/Units 14:57 16:05 17:59 WBC (4.5-11.0) K/mm3 RBC (3.65-5.03) M/mm3 RDW (13.2-15.2) % Lymph % (Auto) (13.4-35.0) % [place] % (Auto) (0.0-7.3) % Seg Neutrophils % (40.0-70.0) % Seg Neutrophils # (1.8-7.7) K/mm3 D-Dimer (0-234) ng/mlDDU Sodium (137-145) mmol/L Chloride (98-107) mmol/L BUN (9-20) mg/dL Creatinine (0.8-1.5) mg/dL Glucose (75-100) mg/dL POC Glucose < 40 L (70-105) Lactic Acid 4.10 H* (0.7-2.0) mmol/L Total Creatine Kinase (55-170) units/L Albumin (3.9-5) g/dL Urine WBC (Auto) 34.0 H (0.0-6.0) /HPF 09/11/18 09/11/18 Range/Units 20:15 21:25 WBC (4.5-11.0) K/mm3 RBC (3.65-5.03) M/mm3 RDW (13.2-15.2) % Lymph % (Auto) (13.4-35.0) % [place] % (Auto) (0.0-7.3) % Seg Neutrophils % (40.0-70.0) % Seg Neutrophils # (1.8-7.7) K/mm3 D-Dimer (0-234) ng/mlDDU Sodium (137-145) mmol/L Chloride (98-107) mmol/L BUN (9-20) mg/dL Creatinine (0.8-1.5) mg/dL Glucose (75-100) mg/dL POC Glucose (70-105) Lactic Acid 3.80 H* 3.60 H* (0.7-2.0) mmol/L Total Creatine Kinase (55-170) units/L Albumin (3.9-5) g/dL Urine WBC (Auto) (0.0-6.0) /HPF Assessment and Plan PROSTATE CA S/P CRYOABLATION SEPSIS / UTI CATH OBSTR AKD - cath draining; irrigated by nj easily - abx / management per IMS - supportive care
[2018-09-12 04:56] LABS: Basophils % (Auto) 0.2 % (0.0-1.8); Eosinophils # (Auto) 0.1 K/mm3 (0.0-0.4); Eosinophils % (Auto) 1.1 % (0.0-4.3); Hemoglobin 12.2 gm/dl (11.8-15.2); Lymphocytes # (Auto) 1.5 K/mm3 (1.2-5.4); Lymphocytes % (Auto) 19.9 % (13.4-35.0); Mean Corpuscular HGB Conc 33 % (32-34); Mean Corpuscular Volume 88 fl (84-94); Monocytes # (Auto) 0.7 K/mm3 (0.0-0.8); Monocytes % (Auto) 9.3 % (0.0-7.3); Platelet Count 148 K/mm3 (140-440); Red Cell Distribution Width 15.6 % (13.2-15.2)
[2018-09-12 05:17] LABS: INR 1.15 (0.87-1.13)
[2018-09-12 05:24] LABS: Alanine Aminotransferase 10 units/L (7-56); Albumin 2.9 g/dL (3.9-5); BUN/Creatinine Ratio 27; Blood Urea Nitrogen 27 mg/dL (9-20); Calcium 7.7 mg/dL (8.4-10.2); Hemolysis Index 24
[2018-09-12] MEDS: ZOSYN/NS 2.25 GM/50ML 2.25 GM/50 ML BAG IV SCH ×2 (06:15→14:55)
--- NOTE | 2018-09-12 08:04 | Progress Note ---
Assessment and Plan creatinine normal suspect this was all due to dehydration good urine output perhaps cath was kinked ok for dischage urologically cath out in 3 -4 days as out pt Subjective Date of service: 09/12/18 Principal diagnosis: prostate cancer Objective - Constitutional Vitals: Vital Signs - 12hr 09/11/18 09/11/18 09/11/18 21:00 22:00 23:00 Temperature Pulse Rate 94 H 88 91 H Pulse Rate [ From Monitor] Respiratory 21 18 17 Rate Blood Pressure 137/74 136/74 112/63 O2 Sat by Pulse 97 96 95 Oximetry 09/11/18 09/12/18 09/12/18 23:20 00:00 01:00 Temperature 98.4 F Pulse Rate 90 86 Pulse Rate [ 101 H From Monitor] Respiratory 19 18 Rate Blood Pressure 128/79 114/72 O2 Sat by Pulse 94 94 Oximetry 09/12/18 09/12/18 09/12/18 02:00 03:00 03:30 Temperature 97.7 F Pulse Rate 79 70 Pulse Rate [ From Monitor] Respiratory 12 16 Rate Blood Pressure 118/69 118/69 O2 Sat by Pulse 95 98 Oximetry 09/12/18 09/12/18 09/12/18 04:00 05:00 06:00 Temperature Pulse Rate 66 69 68 Pulse Rate [ 101 H From Monitor] Respiratory 14 15 12 Rate Blood Pressure 127/70 119/78 120/73 O2 Sat by Pulse 98 99 95 Oximetry 09/12/18 07:00 Temperature Pulse Rate 59 L Pulse Rate [ From Monitor] Respiratory 17 Rate Blood Pressure 118/72 O2 Sat by Pulse 100 Oximetry General appearance: Present: no acute distress - Neck Neck: supple - Respiratory Respiratory effort: normal Extremities: no ischemia - Gastrointestinal General gastrointestinal: Present: soft, non-tender - Labs CBC & Chem 7: 09/12/18 04:23 09/12/18 04:23 Labs: Abnormal lab results 09/11/18 09/11/18 09/11/18 Range/Units 13:19 13:19 13:19 WBC 11.3 H (4.5-11.0) K/mm3 RBC 5.04 H (3.65-5.03) M/mm3 RDW 15.7 H (13.2-15.2) % Lymph % (Auto) 11.8 L (13.4-35.0) % [place] % (Auto) 7.4 H (0.0-7.3) % Seg Neutrophils % 80.5 H (40.0-70.0) % Seg Neutrophils # 9.1 H (1.8-7.7) K/mm3 INR (0.87-1.13) D-Dimer (0-234) ng/mlDDU Sodium 134 L (137-145) mmol/L Chloride 94.5 L (98-107) mmol/L BUN 34 H (9-20) mg/dL Creatinine 2.2 H (0.8-1.5) mg/dL Glucose 111 H (75-100) mg/dL POC Glucose (70-105) Lactic Acid 2.70 H* (0.7-2.0) mmol/L Calcium (8.4-10.2) mg/dL Total Creatine Kinase (55-170) units/L Total Protein (6.3-8.2) g/dL Albumin 3.7 L (3.9-5) g/dL Urine WBC (Auto) (0.0-6.0) /HPF 09/11/18 09/11/18 09/11/18 Range/Units 13:38 13:48 14:15 WBC (4.5-11.0) K/mm3 RBC (3.65-5.03) M/mm3 RDW (13.2-15.2) % Lymph % (Auto) (13.4-35.0) % [place] % (Auto) (0.0-7.3) % Seg Neutrophils % (40.0-70.0) % Seg Neutrophils # (1.8-7.7) K/mm3 INR (0.87-1.13) D-Dimer 6305.03 H (0-234) ng/mlDDU Sodium (137-145) mmol/L Chloride (98-107) mmol/L BUN (9-20) mg/dL Creatinine (0.8-1.5) mg/dL Glucose (75-100) mg/dL POC Glucose (70-105) Lactic Acid 3.70 H* (0.7-2.0) mmol/L Calcium (8.4-10.2) mg/dL Total Creatine Kinase 442 H (55-170) units/L Total Protein (6.3-8.2) g/dL Albumin (3.9-5) g/dL Urine WBC (Auto) (0.0-6.0) /HPF 09/11/18 09/11/18 09/11/18 Range/Units 14:57 16:05 17:59 WBC (4.5-11.0) K/mm3 RBC (3.65-5.03) M/mm3 RDW (13.2-15.2) % Lymph % (Auto) (13.4-35.0) % [place] % (Auto) (0.0-7.3) % Seg Neutrophils % (40.0-70.0) % Seg Neutrophils # (1.8-7.7) K/mm3 INR (0.87-1.13) D-Dimer (0-234) ng/mlDDU Sodium (137-145) mmol/L Chloride (98-107) mmol/L BUN (9-20) mg/dL Creatinine (0.8-1.5) mg/dL Glucose (75-100) mg/dL POC Glucose < 40 L (70-105) Lactic Acid 4.10 H* (0.7-2.0) mmol/L Calcium (8.4-10.2) mg/dL Total Creatine Kinase (55-170) units/L Total Protein (6.3-8.2) g/dL Albumin (3.9-5) g/dL Urine WBC (Auto) 34.0 H (0.0-6.0) /HPF 09/11/18 09/11/18 09/12/18 Range/Units 20:15 21:25 04:23 WBC (4.5-11.0) K/mm3 RBC (3.65-5.03) M/mm3 RDW 15.6 H (13.2-15.2) % Lymph % (Auto) (13.4-35.0) % [place] % (Auto) 9.3 H (0.0-7.3) % Seg Neutrophils % (40.0-70.0) % Seg Neutrophils # (1.8-7.7) K/mm3 INR (0.87-1.13) D-Dimer (0-234) ng/mlDDU Sodium (137-145) mmol/L Chloride (98-107) mmol/L BUN (9-20) mg/dL Creatinine (0.8-1.5) mg/dL Glucose (75-100) mg/dL POC Glucose (70-105) Lactic Acid 3.80 H* 3.60 H* (0.7-2.0) mmol/L Calcium (8.4-10.2) mg/dL Total Creatine Kinase (55-170) units/L Total Protein (6.3-8.2) g/dL Albumin (3.9-5) g/dL Urine WBC (Auto) (0.0-6.0) /HPF 09/12/18 09/12/18 Range/Units 04:23 04:23 WBC (4.5-11.0) K/mm3 RBC (3.65-5.03) M/mm3 RDW (13.2-15.2) % Lymph % (Auto) (13.4-35.0) % [place] % (Auto) (0.0-7.3) % Seg Neutrophils % (40.0-70.0) % Seg Neutrophils # (1.8-7.7) K/mm3 INR 1.15 H (0.87-1.13) D-Dimer (0-234) ng/mlDDU Sodium (137-145) mmol/L Chloride (98-107) mmol/L BUN 27 H (9-20) mg/dL Creatinine (0.8-1.5) mg/dL Glucose 106 H (75-100) mg/dL POC Glucose (70-105) Lactic Acid (0.7-2.0) mmol/L Calcium 7.7 L D (8.4-10.2) mg/dL Total Creatine Kinase (55-170) units/L Total Protein 4.9 L D (6.3-8.2) g/dL Albumin 2.9 L (3.9-5) g/dL Urine WBC (Auto) (0.0-6.0) /HPF Medications & Allergies - Medications Allergies/Adverse Reactions: Allergies No Known Allergies Allergy (Verified 09/11/18 13:14) Home Medications: Home Medications Medication Instructions Recorded Confirmed Last Taken Type AtorvaSTATin [Lipitor] 40 mg PO QHS #30 tablet 08/04/18 09/11/18 09/08/18 21:00 Rx Glimepiride [Amaryl] 2 mg PO QAM #30 tablet 08/04/18 09/11/18 09/08/18 21:00 Rx metFORMIN [Glucophage] 500 mg PO BID #60 tablet 08/04/18 09/11/18 09/08/18 21:00 Rx Albuterol Sulfate [Proventil Hfa] 2 puff IH PRN PRN 08/27/18 09/11/18 09/08/18 21:00 History Baclofen [Lioresal] 10 mg PO QDAY 08/27/18 09/11/18 09/08/18 21:00 History Fluticasone [Flonase] 2 sprays NS QDAY 08/27/18 09/11/18 09/08/18 21:00 History Nortriptyline [Pamelor] 30 mg PO BID 08/27/18 09/11/18 09/08/18 21:00 History Ranitidine HCl [Zantac] 300 mg PO QHS 08/27/18 09/11/18 09/08/18 21:00 History Tamsulosin [Flomax] 0.4 mg PO QDAY 08/27/18 09/11/18 09/08/18 21:00 History ALBUTEROL NEB's [Proventil] 2.5 mg IH Q4H PRN 09/11/18 09/11/18 Unknown History Docusate Sodium [Colace] 100 mg PO QDAY PRN 09/11/18 09/11/18 Unknown History Gabapentin [Neurontin] 100 mg PO TID 09/11/18 09/11/18 Unknown History Lisinopril [Zestril TAB] 40 mg PO BID 09/11/18 09/11/18 Unknown History Metoprolol Xl [Metoprolol 25 mg PO QDAY 09/11/18 09/11/18 Unknown History SUCCINATE ER TAB] oxyCODONE /ACETAMINOPHEN [Percocet 1 tab PO Q4HR PRN 09/11/18 09/11/18 Unknown History 5/325] Active Medications: Generic Name Dose Route Start Last Admin Trade Name Freq PRN Reason Stop Dose Admin Albuterol 2.5 mg 09/11/18 19:24 Proventil IH Q4H PRN Shortness Of Breath Atorvastatin Calcium 40 mg 09/11/18 22:00 09/11/18 23:28 Lipitor PO 40 mg QHS MOIZ Administration Docusate Sodium 100 mg 09/11/18 19:24 Colace PO QDAY PRN Constipation Famotidine 20 mg 09/11/18 22:00 09/11/18 23:29 Pepcid IV 20 mg BID MOIZ Administration Fluticasone Propionate 100 mcg 09/11/18 20:00 09/11/18 23:26 Flonase NS 100 mcg QDAY MOIZ Administration Gabapentin 100 mg 09/11/18 20:00 09/11/18 23:27 Neurontin PO 100 mg TID MOIZ Administration Heparin Sodium (Porcine) 5,000 unit 09/11/18 22:00 09/11/18 23:27 Heparin SUB-Q 5,000 unit Q12HR MOIZ Administration Cefepime HCl 2 gm in 100 mls @ 200 mls/hr 09/11/18 22:00 09/11/18 23:28 Maxipime/Ns 2 Gm/100 Ml IV 200 mls/hr Q12HR MOIZ Administration Protocol Dextrose/Sodium Chloride 2,000 mls @ 125 mls/hr 09/11/18 23:45 09/11/18 23:44 D5/0.45ns IV 09/12/18 15:44 125 mls/hr DIRECT MOIZ Administration Piperacillin Sod/Tazobactam Sod 2.25 gm in 50 mls @ 100 mls/hr 09/12/18 00:00 09/12/18 06:15 Zosyn/Ns 2.25 Gm/50ml IV 100 mls/hr Q6HR MOIZ Administration Nortriptyline HCl 30 mg 09/11/18 22:00 09/11/18 23:28 Pamelor PO 30 mg BID MOIZ Administration
--- NOTE | 2018-09-12 10:33 | Consultation ---
History of Present Illness - History of Present Illness Thank you for the consultation ! Patient was evaluated today My assessment and plan are as follows Acute kidney injury currently in remission patient creatinine has returned back to 1.0 which was 2.2 yesterday in the prior admissions in 2017 and 2018 and 19 he has been having a normal renal function creatinine has been less than 1 At this point I'll recommend close follow-up on the renal function, avoid any hypotension hypoxemia Lactic acidosis has already improved it peaked at around 4.10 currently 1.1 Mild elevation in CK that needs to be monitored Malnutrition present upon admission Pyuria consider doing a urine culture patient also does have evidence of hematuria history of prostate cancer status post urology evaluation admitted with fever sepsis-like picture Prior history of COPD, hypertension, prostate cancer status post cryoablation of prostate diabetes mellitus type 2, patient was taking lisinopril 40 mg twice a day as well as metformin in outpatient setting which should be avoided for now Had a detailed discussion with patient about the plan of care from renal standpoint. All questions were answered labs and pertinent imaging findings were explained to the patient and simple Portuguese. Prognosis: Guarded We'll continue to follow and make recommendation from renal standpoint Thank you for the consultation. History of presenting illness; Patient is 72-year-old the male who has been admitted here with multiple health issues including sepsis likely urinary source in the setting of prostate cancer status post urology evaluation patient has had cryoablation done on August, and came to the hospital with complaints of unable to avoid and Mahan that was not draining. He was also noted to have chills fever or abdominal pain tachycardia hypertension and was also having issues with lactic acidosis which is currently improved. Baseline creatinine is essentially normal in his case, Events of this hospitalization have been noted Current allergies: Reviewed Home medication/present medication: Reviewed Social history: Reviewed from the current chart Family history: Reviewed from the current chart Review of system is positive for; All other review of systems were negative Physical examination Vitals: Reviewed from this admission Gen.: No acute distress HEENT: Normocephalic/atraumatic skull oral mucosa moist minimal pallor no icterus or uremic order Neck: Supple without any thyromegaly nodular mass or JVD Chest: Clear to auscultation anteriorly few faint basilar crackles otherwise unremarkable Heart: Regular rate and rhythm S1 and S2 heard no S3-S4 no pericardial rub Abdomen: Soft nontender no guarding rigidity rebound organomegaly no suprapubic masses, no CVA tenderness no renal bruit Back: No CVA tenderness Derm: No petechial rashes dry skin Extremity: Pulses palpable no peripheral cyanosis, 1+ edema dry skin Neurological: Alert awake follows commands Psychiatric: No agitation and aggression Labs and x-rays: Were reviewed from this admission Past History Past Medical History: COPD, hypertension, other (prostate cancer) Past Surgical History: Other (cryoablation of the prostate) Social history: smoking. denies: alcohol abuse, prescription drug abuse Family history: no significant family history Medications and Allergies Allergies Allergy/AdvReac Type Severity Reaction Status Date / Time No Known Allergies Allergy Verified 09/11/18 13:14 Home Medications Medication Instructions Recorded Confirmed Last Taken Type AtorvaSTATin [Lipitor] 40 mg PO QHS #30 tablet 08/04/18 09/11/18 09/08/18 21:00 Rx Glimepiride [Amaryl] 2 mg PO QAM #30 tablet 08/04/18 09/11/18 09/08/18 21:00 Rx metFORMIN [Glucophage] 500 mg PO BID #60 tablet 08/04/18 09/11/18 09/08/18 21:00 Rx Albuterol Sulfate [Proventil Hfa] 2 puff IH PRN PRN 08/27/18 09/11/18 09/08/18 21:00 History Baclofen [Lioresal] 10 mg PO QDAY 08/27/18 09/11/18 09/08/18 21:00 History Fluticasone [Flonase] 2 sprays NS QDAY 08/27/18 09/11/18 09/08/18 21:00 History Nortriptyline [Pamelor] 30 mg PO BID 08/27/18 09/11/18 09/08/18 21:00 History Ranitidine HCl [Zantac] 300 mg PO QHS 08/27/18 09/11/18 09/08/18 21:00 History Tamsulosin [Flomax] 0.4 mg PO QDAY 08/27/18 09/11/18 09/08/18 21:00 History ALBUTEROL NEB's [Proventil] 2.5 mg IH Q4H PRN 09/11/18 09/11/18 Unknown History Docusate Sodium [Colace] 100 mg PO QDAY PRN 09/11/18 09/11/18 Unknown History Gabapentin [Neurontin] 100 mg PO TID 09/11/18 09/11/18 Unknown History Lisinopril [Zestril TAB] 40 mg PO BID 09/11/18 09/11/18 Unknown History Metoprolol Xl [Metoprolol 25 mg PO QDAY 09/11/18 09/11/18 Unknown History SUCCINATE ER TAB] oxyCODONE /ACETAMINOPHEN [Percocet 1 tab PO Q4HR PRN 09/11/18 09/11/18 Unknown History 5/325] Active Meds: Active Medications Albuterol (Proventil) 2.5 mg IH Q4H PRN PRN Reason: Shortness Of Breath Atorvastatin Calcium (Lipitor) 40 mg PO QHS [facility] Last Admin: 09/11/18 23:28 Dose: 40 mg Documented by: Docusate Sodium (Colace) 100 mg PO QDAY PRN PRN Reason: Constipation Famotidine (Pepcid) 20 mg IV BID [facility] Last Admin: 09/11/18 23:29 Dose: 20 mg Documented by: Fluticasone Propionate (Flonase) 100 mcg NS QDAY [facility] Last Admin: 09/11/18 23:26 Dose: 100 mcg Documented by: Gabapentin (Neurontin) 100 mg PO TID [facility] Last Admin: 09/11/18 23:27 Dose: 100 mg Documented by: Heparin Sodium (Porcine) (Heparin) 5,000 unit SUB-Q Q12HR [facility] Last Admin: 09/11/18 23:27 Dose: 5,000 unit Documented by: Cefepime HCl (Maxipime/Ns 2 Gm/100 Ml) 2 gm in 100 mls @ 200 mls/hr IV Q12HR [facility]; Protocol Last Admin: 09/11/18 23:28 Dose: 200 mls/hr Documented by: Dextrose/Sodium Chloride (D5/0.45ns) 2,000 mls @ 125 mls/hr IV DIRECT [facility] Stop: 09/12/18 15:44 Last Admin: 09/11/18 23:44 Dose: 125 mls/hr Documented by: Piperacillin Sod/Tazobactam Sod (Zosyn/Ns 2.25 Gm/50ml) 2.25 gm in 50 mls @ 100 mls/hr IV Q6HR [facility] Last Admin: 09/12/18 06:15 Dose: 100 mls/hr Documented by: Nortriptyline HCl (Pamelor) 30 mg PO BID [facility] Last Admin: 09/11/18 23:28 Dose: 30 mg Documented by: Exam - Vital Signs Vital signs: Vital Signs Pulse BP 117 H 86/58 09/11/18 13:11 09/11/18 13:11 Results - Lab Results 09/12/18 04:23 09/12/18 04:23 Most recent lab results Calcium 7.7 mg/dL (8.4-10.2) L D 09/12/18 04:23 Phosphorus 3.50 mg/dL (2.5-4.5) 09/12/18 04:23 Magnesium 1.70 mg/dL (1.7-2.3) 09/12/18 04:23
[2018-09-12] MEDS: MAXIPIME/NS 2 GM/100 ML 2 GM/100 ML BAG IV SCH (10:38)
[2018-09-12] MEDS: FLONASE NS SCH (10:39)
[2018-09-12] MEDS: NEURONTIN PO SCH ×3 (10:40→21:47)
[2018-09-12] MEDS: PEPCID IV SCH ×2 (10:40→21:48)
[2018-09-12] MEDS: HEPARIN SUB-Q SCH ×2 (10:40→21:46)
[2018-09-12] MEDS: PAMELOR PO SCH (10:40)
--- NOTE | 2018-09-12 12:31 | Progress Note ---
Assessment and Plan Patient is a 72-year-old gentleman with a history of COPD, peripheral vascular disease, current smoker, prostate cancer status post cryoablation on 09/09/18 and discharged home on Mahan's catheter on continuous drainage presented to the emergency department on account of being unable to pass urine saying that his Mahan catheter is clogged up. He was also noted to have chills, lower abdominal pain, tachycardia and hypotension with systolic blood pressure in the 80s. Patient denies any headache, chest pain or shortness of breath. Patient had leukocytosis of 11.4 and lactic acid level of 3.7 and subsequently increased to 4.1. BUN was 34 and creatinine was 2.2. Baseline creatinine was 0.9 as at 06/20/2018. Code sepsis was initiated. IV fluid resuscitation commenced. Blood cultures and IV antibiotics initiated. CT scan of the abdomen and pelvis without contrast showed evidence small fluid around the spleen that may be co nsistent with post surgical changes. Enlarged heterogeneous prostate with prominent seminal vesicles were also identified. Emphysema and nonspecific pulmonary changes asx well as right renal cyst reported. The emergency room physician irrigated the bladder. Urologist, was consulted. 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 Uterine flow established. Abdomen pain gradually resolved. - Sepsis with shock positive for UTI Treatment with tachycardia, tachypnea, leukocytosis and elevated lactic acid level greater than 4.0 f/u with urine and blood cultures Cont patient on sepsis protocol with IV hydration, serial lactic acid levels, IV antibiotics ID consult - Acute renal failure from acute tubular necrosis - improving Strict input and output CT scan of the abdomen did not identified any hydronephrosis Serial electrolytes Nephrologic consult - Lactic acidosis - resolved IV hydration Trend - Urinary obstruction status post cryoablation If additional symptoms have resolved the obstruction Urology help desk consultant in emergency department We'll continue to monitor urine output - Prostate cancer status post cryoablation Stable Urology following - 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 Subjective Date of service: 09/12/18 Principal diagnosis: sepsis with septic shock, acute renal failure, prostate cancer Interval history: Patient is feeling better. Having good urinary flow from the Mahan's catheter, Objective - Exam Narrative Exam: Constitutional: Well-nourished well-developed. In no distress Head: Normocephalic atraumatic Eyes: Pupils are equal round and reactive to light Nose: No enlarged turbinates, no septal deviation. Mouth: Moist mucous membranes. Neck: Supple no thyromegaly. No bruit. No JVD Heart: Regular rate and rhythm, S1-S2 normal. No rubs murmurs or gallop Lungs: Clear to auscultation bilaterally. no rales or rhonchi Abdomen: Soft, nontender. Bowel sound are present. ADITYA: Has a Mahan catheter in place connected to a urine bag slightly bloody urine. Extremities: No edema, no cyanosis, no clubbing. Neuro: Alert oriented Oriented x3. No focal sensory or motor deficit. Skin: No rashes or hyperpigmented spots Musculoskeletal system: No joint pain or swelling Hematological: No petechia or subcutanous hemorrhages. Immunological: No multiple septic spots on the skin Lymphatic: No generalized lymphadenopathy Psychiatry: Euthymic. Calm. - Constitutional Vitals: Vital Signs - 12hr 09/12/18 09/12/18 09/12/18 01:00 02:00 03:00 Temperature Pulse Rate 86 79 70 Pulse Rate [ 101 H From Monitor] Respiratory 18 12 16 Rate Blood Pressure 114/72 118/69 118/69 O2 Sat by Pulse 94 95 98 Oximetry 09/12/18 09/12/18 09/12/18 03:30 04:00 05:00 Temperature 97.7 F Pulse Rate 66 69 Pulse Rate [ 101 H From Monitor] Respiratory 14 15 Rate Blood Pressure 127/70 119/78 O2 Sat by Pulse 98 99 Oximetry 09/12/18 09/12/18 09/12/18 06:00 07:00 08:00 Temperature Pulse Rate 68 59 L 78 Pulse Rate [ 78 From Monitor] Respiratory 12 17 18 Rate Blood Pressure 120/73 118/72 120/73 O2 Sat by Pulse 95 100 98 Oximetry - Labs CBC & Chem 7: 09/12/18 04:23 09/12/18 04:23 Labs: Abnormal lab results 09/11/18 09/11/18 09/11/18 Range/Units 13:19 13:19 13:19 WBC 11.3 H (4.5-11.0) K/mm3 RBC 5.04 H (3.65-5.03) M/mm3 RDW 15.7 H (13.2-15.2) % Lymph % (Auto) 11.8 L (13.4-35.0) % [place] % (Auto) 7.4 H (0.0-7.3) % Seg Neutrophils % 80.5 H (40.0-70.0) % Seg Neutrophils # 9.1 H (1.8-7.7) K/mm3 INR (0.87-1.13) D-Dimer (0-234) ng/mlDDU Sodium 134 L (137-145) mmol/L Chloride 94.5 L (98-107) mmol/L BUN 34 H (9-20) mg/dL Creatinine 2.2 H (0.8-1.5) mg/dL Glucose 111 H (75-100) mg/dL POC Glucose (70-105) Lactic Acid 2.70 H* (0.7-2.0) mmol/L Calcium (8.4-10.2) mg/dL Total Creatine Kinase (55-170) units/L Total Protein (6.3-8.2) g/dL Albumin 3.7 L (3.9-5) g/dL Urine WBC (Auto) (0.0-6.0) /HPF 09/11/18 09/11/18 09/11/18 Range/Units 13:38 13:48 14:15 WBC (4.5-11.0) K/mm3 RBC (3.65-5.03) M/mm3 RDW (13.2-15.2) % Lymph % (Auto) (13.4-35.0) % [place] % (Auto) (0.0-7.3) % Seg Neutrophils % (40.0-70.0) % Seg Neutrophils # (1.8-7.7) K/mm3 INR (0.87-1.13) D-Dimer 6305.03 H (0-234) ng/mlDDU Sodium (137-145) mmol/L Chloride (98-107) mmol/L BUN (9-20) mg/dL Creatinine (0.8-1.5) mg/dL Glucose (75-100) mg/dL POC Glucose (70-105) Lactic Acid 3.70 H* (0.7-2.0) mmol/L Calcium (8.4-10.2) mg/dL Total Creatine Kinase 442 H (55-170) units/L Total Protein (6.3-8.2) g/dL Albumin (3.9-5) g/dL Urine WBC (Auto) (0.0-6.0) /HPF 09/11/18 09/11/18 09/11/18 Range/Units 14:57 16:05 17:59 WBC (4.5-11.0) K/mm3 RBC (3.65-5.03) M/mm3 RDW (13.2-15.2) % Lymph % (Auto) (13.4-35.0) % [place] % (Auto) (0.0-7.3) % Seg Neutrophils % (40.0-70.0) % Seg Neutrophils # (1.8-7.7) K/mm3 INR (0.87-1.13) D-Dimer (0-234) ng/mlDDU Sodium (137-145) mmol/L Chloride (98-107) mmol/L BUN (9-20) mg/dL Creatinine (0.8-1.5) mg/dL Glucose (75-100) mg/dL POC Glucose < 40 L (70-105) Lactic Acid 4.10 H* (0.7-2.0) mmol/L Calcium (8.4-10.2) mg/dL Total Creatine Kinase (55-170) units/L Total Protein (6.3-8.2) g/dL Albumin (3.9-5) g/dL Urine WBC (Auto) 34.0 H (0.0-6.0) /HPF 09/11/18 09/11/18 09/12/18 Range/Units 20:15 21:25 04:23 WBC (4.5-11.0) K/mm3 RBC (3.65-5.03) M/mm3 RDW 15.6 H (13.2-15.2) % Lymph % (Auto) (13.4-35.0) % [place] % (Auto) 9.3 H (0.0-7.3) % Seg Neutrophils % (40.0-70.0) % Seg Neutrophils # (1.8-7.7) K/mm3 INR (0.87-1.13) D-Dimer (0-234) ng/mlDDU Sodium (137-145) mmol/L Chloride (98-107) mmol/L BUN (9-20) mg/dL Creatinine (0.8-1.5) mg/dL Glucose (75-100) mg/dL POC Glucose (70-105) Lactic Acid 3.80 H* 3.60 H* (0.7-2.0) mmol/L Calcium (8.4-10.2) mg/dL Total Creatine Kinase (55-170) units/L Total Protein (6.3-8.2) g/dL Albumin (3.9-5) g/dL Urine WBC (Auto) (0.0-6.0) /HPF 09/12/18 09/12/18 Range/Units 04:23 04:23 WBC (4.5-11.0) K/mm3 RBC (3.65-5.03) M/mm3 RDW (13.2-15.2) % Lymph % (Auto) (13.4-35.0) % [place] % (Auto) (0.0-7.3) % Seg Neutrophils % (40.0-70.0) % Seg Neutrophils # (1.8-7.7) K/mm3 INR 1.15 H (0.87-1.13) D-Dimer (0-234) ng/mlDDU Sodium (137-145) mmol/L Chloride (98-107) mmol/L BUN 27 H (9-20) mg/dL Creatinine (0.8-1.5) mg/dL Glucose 106 H (75-100) mg/dL POC Glucose (70-105) Lactic Acid (0.7-2.0) mmol/L Calcium 7.7 L D (8.4-10.2) mg/dL Total Creatine Kinase (55-170) units/L Total Protein 4.9 L D (6.3-8.2) g/dL Albumin 2.9 L (3.9-5) g/dL Urine WBC (Auto) (0.0-6.0) /HPF
[2018-09-12] MEDS ORDERED: D50W (25GM) Syringe IV PRN ×2 (13:23→21:32)
[2018-09-12] MEDS: ZESTRIL PO SCH ×2 (14:55→21:47)
--- NOTE | 2018-09-12 16:09 | Consultation ---
History of Present Illness - Reason for Consult Consult date: 09/12/18 Sepsis Requesting physician: NELI ESPOSITO - History of Present Illness The patient is a 72-year-old male with COPD, peripheral vascular disease, prostate cancer who underwent cryoablation on 09/09/2018 was discharged home with a Mahan catheter presented to the emergency room and was hospitalized on 09/11/2018 with complaints of lower abdominal pain and unable to pass urine. Patient was concerned that his Mahan catheter was clogged up. He was found to have leukocytosis as well as lactic acidosis with concerns for sepsis. His creatinine was also found to be elevated. He was given IV fluids, IV antibiotics. Urology was consulted for his Mahan catheter, which was flushed and now is functioning well. Currently, he is feeling well. He has remained afebrile. He feels that he is back to his baseline. Creatinine has also improved. Infectious diseases was consulted for antibiotic recommendations. Review of Systems: General: no fevers,chills or rigors HEENT: no new visual disturbance Respiratory: No cough, sputum, hemoptysis or shortness of breath Cardiovascular: No chest pain, syncope Gastrointestinal: No nausea, vomiting or diarrhea. Lower abdominal pain + on a dmission, now resolved. Genitourinary: No dysuria or hematuria Musculoskeletal: No new or worsening neck pain or back pain Neurologic: No headaches, seizures Hematologic: No easy bruising or bleeding Endocrine: No night sweats or acute weight loss Skin: negative for rash, jaundice Psychiatric: No suicidal or homicidal ideation Past History Past Medical History: COPD, hypertension, other (prostate cancer) Past Surgical History: Other (cryoablation of the prostate) Social history: smoking. denies: alcohol abuse, prescription drug abuse Family history: no significant family history Medications and Allergies Allergies Allergy/AdvReac Type Severity Reaction Status Date / Time No Known Allergies Allergy Verified 09/11/18 13:14 Home Medications Medication Instructions Recorded Confirmed Last Taken Type AtorvaSTATin [Lipitor] 40 mg PO QHS #30 tablet 08/04/18 09/11/18 09/08/18 21:00 Rx Glimepiride [Amaryl] 2 mg PO QAM #30 tablet 08/04/18 09/11/18 09/08/18 21:00 Rx metFORMIN [Glucophage] 500 mg PO BID #60 tablet 0509/11/18 09/08/18 21:00 Rx Albuterol Sulfate [Proventil Hfa] 2 puff IH PRN PRN 08/27/18 09/11/18 09/08/18 21:00 History Baclofen [Lioresal] 10 mg PO QDAY 08/27/18 09/11/18 09/08/18 21:00 History Fluticasone [Flonase] 2 sprays NS QDAY 08/27/18 09/11/18 09/08/18 21:00 History Nortriptyline [Pamelor] 30 mg PO BID 08/27/18 09/11/18 09/08/18 21:00 History Ranitidine HCl [Zantac] 300 mg PO QHS 08/27/18 09/11/18 09/08/18 21:00 History Tamsulosin [Flomax] 0.4 mg PO QDAY 08/27/18 09/11/18 09/08/18 21:00 History ALBUTEROL NEB's [Proventil] 2.5 mg IH Q4H PRN 09/11/18 09/11/18 Unknown History Docusate Sodium [Colace] 100 mg PO QDAY PRN 09/11/18 09/11/18 Unknown History Gabapentin [Neurontin] 100 mg PO TID 09/11/18 09/11/18 Unknown History Lisinopril [Zestril TAB] 40 mg PO BID 09/11/18 09/11/18 Unknown History Metoprolol Xl [Metoprolol 25 mg PO QDAY 09/11/18 09/11/18 Unknown History SUCCINATE ER TAB] oxyCODONE /ACETAMINOPHEN [Percocet 1 tab PO Q4HR PRN 09/11/18 09/11/18 Unknown History 5/325] Active Meds: Active Medications Albuterol (Proventil) 2.5 mg IH Q4H PRN PRN Reason: Shortness Of Breath Atorvastatin Calcium (Lipitor) 40 mg PO QHS [facility] Last Admin: 09/11/18 23:28 Dose: 40 mg Documented by: Dextrose (D50w (25gm) Syringe) 50 ml IV PRN PRN PRN Reason: Hypoglycemia Last Admin: 09/12/18 13:32 Dose: 50 ml Documented by: Docusate Sodium (Colace) 100 mg PO QDAY PRN PRN Reason: Constipation Famotidine (Pepcid) 20 mg IV BID [facility] Last Admin: 09/12/18 10:40 Dose: 20 mg Documented by: Fluticasone Propionate (Flonase) 100 mcg NS QDAY [facility] Last Admin: 09/12/18 10:39 Dose: 100 mcg Documented by: Gabapentin (Neurontin) 100 mg PO TID [facility] Last Admin: 09/12/18 13:32 Dose: 100 mg Documented by: Heparin Sodium (Porcine) (Heparin) 5,000 unit SUB-Q Q12HR [facility] Last Admin: 09/12/18 10:40 Dose: 5,000 unit Documented by: Cefepime HCl (Maxipime/Ns 2 Gm/100 Ml) 2 gm in 100 mls @ 200 mls/hr IV Q12HR [facility]; Protocol Last Admin: 09/12/18 10:38 Dose: 200 mls/hr Documented by: Piperacillin Sod/Tazobactam Sod (Zosyn/Ns 2.25 Gm/50ml) 2.25 gm in 50 mls @ 100 mls/hr IV Q6HR [facility] Last Admin: 09/12/18 14:55 Dose: 100 mls/hr Documented by: Lisinopril (Zestril) 40 mg PO BID [facility] Last Admin: 09/12/18 14:55 Dose: 40 mg Documented by: Nortriptyline HCl (Pamelor) 30 mg PO BID [facility] Last Admin: 09/12/18 10:40 Dose: 30 mg Documented by: Physical Examination - Physical Exam Narrative exam: Physical Exam: Constitutional: Alert, cooperative. No acute distress Head, Ears, Nose: Normocephalic, atraumatic. External ears, nose normal Eyes: Conjunctivae/corneas clear. No icterus. No ptosis. Neck: Supple, no meningeal signs Oral: dentition fair with few missing teeth, no thrush Cardiovascular: S1, S2 normal, 2/6 murmur + Respiratory: Good air entry, clear to auscultation bilaterally GI: Soft, non-tender; bowel sounds normal. No peritoneal signs. No suprapubic or CVA tenderness. Mahan + Musculoskeletal: No pedal edema, no cyanosis. Skin: No rash or abscess Hem/Lymphatic: No palpable cervical or supraclavicular nodes. No lymphangitis Psych: Mood ok. Affect normal Neurological: Awake, alert, oriented. No gross abnormality Imaging: reviewed personally. CT abdomen pelvis without contrast IMPRESSION: * Emphysema. * Nonspecific peripheral pulmonary findings may represent pneumonitis or mild pulmonary vascular congestion. * Right renal cyst. * Small amount of free fluid around the spleen. Trace fluid in both colic gutters. Stranding of the mesentery in the right lower abdomen and upper pelvis extending around the dome of the bladder. Findings could represent postsurgical changes, inflammation, or infection. A distinct fluid collection is not clearly evident on this noncontrast CT scan. * Bladder is collapsed around a Mahan catheter and not adequately evaluated. Small pocket of gas at the superior aspect may be related to Mahan catheter insertion. A fistula is not entirely excluded. * Enlarged heterogeneous prostate. Prominent bilateral seminal vesicles. - Constitutional Vitals: Vital Signs Temp Pulse Resp BP Pulse Ox 97.7 F 100 H 20 156/102 98 09/12/18 03:30 09/12/18 15:00 09/12/18 15:00 09/12/18 15:00 09/12/18 15:00 Temperature -Last 24 Hours Temperature 97.7 F Temperature 98.4 F Temperature 98.1 F Results - Labs CBC & Chem 7: 09/12/18 04:23 09/12/18 04:23 Labs: Abnormal lab results 09/11/18 09/11/18 09/11/18 Range/Units 16:05 17:59 20:15 RDW (13.2-15.2) % [place] % (Auto) (0.0-7.3) % INR (0.87-1.13) BUN (9-20) mg/dL Glucose (75-100) mg/dL POC Glucose < 40 L (70-105) Lactic Acid 4.10 H* 3.80 H* (0.7-2.0) mmol/L Calcium (8.4-10.2) mg/dL Total Protein (6.3-8.2) g/dL Albumin (3.9-5) g/dL 09/11/18 09/12/18 09/12/18 Range/Units 21:25 04:23 04:23 RDW 15.6 H (13.2-15.2) % [place] % (Auto) 9.3 H (0.0-7.3) % INR 1.15 H (0.87-1.13) BUN (9-20) mg/dL Glucose (75-100) mg/dL POC Glucose (70-105) Lactic Acid 3.60 H* (0.7-2.0) mmol/L Calcium (8.4-10.2) mg/dL Total Protein (6.3-8.2) g/dL Albumin (3.9-5) g/dL 09/12/18 09/12/18 09/12/18 Range/Units 04:23 11:50 12:54 RDW (13.2-15.2) % [place] % (Auto) (0.0-7.3) % INR (0.87-1.13) BUN 27 H (9-20) mg/dL Glucose 106 H (75-100) mg/dL POC Glucose 62 L 65 L (70-105) Lactic Acid (0.7-2.0) mmol/L Calcium 7.7 L D (8.4-10.2) mg/dL Total Protein 4.9 L D (6.3-8.2) g/dL Albumin 2.9 L (3.9-5) g/dL - Imaging and Cardiology Chest x-ray: report reviewed, image reviewed (Chest x-ray shows no evidence of pneumonia. VQ scan showed low probability of PE.) Assessment and Plan Cultures: 09/11/2018 blood culture: No growth 09/11/2018 urine culture: No growth A/P: 72-year-old male with COPD, peripheral vascular disease, prostate cancer who underwent cryoablation on 09/09/2018 was discharged home with a Mahan catheter, now with: 1) Severe sepsis, possibly related to UTI in the setting of Mahan catheter dysfunction: Present on admission, leukocytosis and lactic acidosis. Improved. 2) Acute renal failure: Creatinine improved. 3) Prostate cancer status post cryoablation. Recs: Treat empirically with IV cefepime 2 gm q12 hrs for now. Zosyn discontinued Follow-up blood and urine cultures, if negative at 48 hours, anticipate discharge on oral antibiotics, short course recommended MD Jaycee [facility] C: [phone] O: [phone] F: [phone]
[2018-09-13] MEDS: PAMELOR PO SCH ×2 (00:01→11:01)
[2018-09-13] MEDS: MAXIPIME/NS 2 GM/100 ML 2 GM/100 ML BAG IV SCH ×2 (00:01→11:01)
[2018-09-13 05:22] LABS: Basophils % (Auto) 0.4 % (0.0-1.8); Eosinophils # (Auto) 0.1 K/mm3 (0.0-0.4); Eosinophils % (Auto) 1.8 % (0.0-4.3); Hematocrit 37.7 % (35.5-45.6); Hemoglobin 12.7 gm/dl (11.8-15.2); Lymphocytes # (Auto) 1.5 K/mm3 (1.2-5.4); Lymphocytes % (Auto) 19.9 % (13.4-35.0); Mean Corpuscular HGB Conc 34 % (32-34); Mean Corpuscular Volume 88 fl (84-94); Monocytes # (Auto) 0.7 K/mm3 (0.0-0.8); Platelet Count 151 K/mm3 (140-440); Red Cell Distribution Width 15.6 % (13.2-15.2)
[2018-09-13 05:43] LABS: Alanine Aminotransferase 9 units/L (7-56); Albumin 3.1 g/dL (3.9-5); BUN/Creatinine Ratio 20; Blood Urea Nitrogen 14 mg/dL (9-20); Calcium 8.4 mg/dL (8.4-10.2); Hemolysis Index 7
[2018-09-13] MEDS: ZESTRIL PO SCH (11:00)
[2018-09-13] MEDS: NEURONTIN PO SCH (11:00)
[2018-09-13] MEDS: PEPCID IV SCH (11:00)
[2018-09-13] MEDS: HEPARIN SUB-Q SCH (11:01)
--- NOTE | 2018-09-13 11:02 | Progress Note ---
Subjective Principal diagnosis: sepsis with septic shock, acute renal failure, prostate cancer Interval history: Patient was seen today for follow-up on multiple renal related issues Events of this hospitalization noted Patient denies having any chest pain pressure or shortness of breath Vitals labs intake output medications were reviewed Social history: Reviewed Allergies: Reviewed Family history: Reviewed Physical examination HEENT: Oral mucosa moist no pallor or icterus Neck: Supple no JVD Chest: Clear to auscultation anteriorly CVS: Regular rate and rhythm S1 and S2 heard Abdomen: Soft nontender no suprapubic masses no organomegaly appreciable Extremity: Dry skin less than 1+ peripheral edema Musculoskeletal: No joint effusion noted in knees and ankle Neurological: Alert awake Dermatology: No petechial rashes Psychiatry: No evidence of any agitation and aggression noted Assessment and plan; Acute kidney injury mostly resulting from volume depletion Obstructive uropathy, renal function normalized Small lesion the kidney patient will follow-up with urology Will sign off the case please call if needed Status post recent prostate surgery Objective - Vital Signs Vital signs: Vital Signs - 12hr 09/13/18 06:05 Temperature 98.0 F Pulse Rate [ 86 Left] Respiratory 20 Rate Blood Pressure 126/63 O2 Sat by Pulse 100 Oximetry - Lab 09/13/18 04:46 09/13/18 04:46 Most recent lab results Calcium 8.4 mg/dL (8.4-10.2) 09/13/18 04:46 Phosphorus 3.50 mg/dL (2.5-4.5) 09/12/18 04:23 Magnesium 1.70 mg/dL (1.7-2.3) 09/12/18 04:23 Medications & Allergies - Medications Allergies/Adverse Reactions: Allergies No Known Allergies Allergy (Verified 09/11/18 13:14) Home Medications: Home Medications Medication Instructions Recorded Confirmed Last Taken Type AtorvaSTATin [Lipitor] 40 mg PO QHS #30 tablet 08/04/18 09/11/18 09/08/18 21:00 Rx Glimepiride [Amaryl] 2 mg PO QAM #30 tablet 08/04/18 09/11/18 09/08/18 21:00 Rx metFORMIN [Glucophage] 500 mg PO BID #60 tablet 08/04/18 09/11/18 09/08/18 21:00 Rx Albuterol Sulfate [Proventil Hfa] 2 puff IH PRN PRN 08/27/18 09/11/18 09/08/18 21:00 History Baclofen [Lioresal] 10 mg PO QDAY 08/27/18 09/11/18 09/08/18 21:00 History Fluticasone [Flonase] 2 sprays NS QDAY 08/27/18 09/11/18 09/08/18 21:00 History Nortriptyline [Pamelor] 30 mg PO BID 08/27/18 09/11/18 09/08/18 21:00 History Ranitidine HCl [Zantac] 300 mg PO QHS 08/27/18 09/11/18 09/08/18 21:00 History Tamsulosin [Flomax] 0.4 mg PO QDAY 08/27/18 09/11/18 09/08/18 21:00 History ALBUTEROL NEB's [Proventil] 2.5 mg IH Q4H PRN 09/11/18 09/11/18 Unknown History Docusate Sodium [Colace] 100 mg PO QDAY PRN 09/11/18 09/11/18 Unknown History Gabapentin [Neurontin] 100 mg PO TID 09/11/18 09/11/18 Unknown History Lisinopril [Zestril TAB] 40 mg PO BID 09/11/18 09/11/18 Unknown History Metoprolol Xl [Metoprolol 25 mg PO QDAY 09/11/18 09/11/18 Unknown History SUCCINATE ER TAB] oxyCODONE /ACETAMINOPHEN [Percocet 1 tab PO Q4HR PRN 09/11/18 09/11/18 Unknown History 5/325] Active Medications: Generic Name Dose Route Start Last Admin Trade Name Freq PRN Reason Stop Dose Admin Albuterol 2.5 mg 09/11/18 19:24 Proventil IH Q4H PRN Shortness Of Breath Atorvastatin Calcium 40 mg 09/11/18 22:00 09/12/18 21:47 Lipitor PO 40 mg QHS MOIZ Administration Dextrose 50 ml 09/12/18 21:32 D50w (25gm) Syringe IV PRN PRN Hypoglycemia Docusate Sodium 100 mg 09/11/18 19:24 Colace PO QDAY PRN Constipation Famotidine 20 mg 09/11/18 22:00 09/12/18 21:48 Pepcid IV 20 mg BID MOIZ Administration Fluticasone Propionate 100 mcg 09/11/18 20:00 09/12/18 10:39 Flonase NS 100 mcg QDAY MOIZ Administration Gabapentin 100 mg 09/11/18 20:00 09/12/18 21:47 Neurontin PO 100 mg TID MOIZ Administration Heparin Sodium (Porcine) 5,000 unit 09/11/18 22:00 09/12/18 21:46 Heparin SUB-Q 5,000 unit Q12HR MOIZ Administration Cefepime HCl 2 gm in 100 mls @ 200 mls/hr 09/11/18 22:00 09/13/18 00:01 Maxipime/Ns 2 Gm/100 Ml IV 200 mls/hr Q12HR MOIZ Administration Protocol Lisinopril 40 mg 09/12/18 14:00 09/12/18 21:47 Zestril PO 40 mg BID MOIZ Administration Nortriptyline HCl 30 mg 09/11/18 22:00 09/13/18 00:01 Pamelor PO 30 mg BID MOIZ Administration
[2018-09-13] MEDS: FLONASE NS SCH (11:03)
[2018-09-13 12:00] VITALS: BP 156/98
--- NOTE | 2018-09-13 13:05 | Discharge Summary ---
Providers - Providers Date of Admission: 09/11/18 16:14 Date of discharge: 09/13/18 Attending physician: NELI ESPOSITO 09/11/18 17:25 Consult to Physician [CONS] Stat Comment: Dr. Marrero spoke with Dr. Bryant @ [id number] Consulting Provider: COLT BRYANT Physician Instructions: Reason For Exam: abd pain. s/p prostate sxr 09/11/18 19:15 Consult to Infection Control Nurse [CONS] Routine Reason For Exam: sepsis 09/11/18 19:26 Consult to Physician [CONS] Routine Comment: Consulting Provider: NORMA VICENTE Physician Instructions: Reason For Exam: sepsis 09/11/18 23:06 Consult to Physician [CONS] Routine Comment: Consulting Provider: PAUL PRICE Physician Instructions: Reason For Exam: Acute renal failure Primary care physician: NELI ESPOSITO Hospitalization Reason for admission: sepsis, urinary retention s/p cryoablation of the prostate for prostate CA Condition: Critical Pertinent studies: Chest x-ray was unremarkable CT abdomen and pelvis that showed a right renal cyst, possible bladder fistula however no clinical evidence Procedures: Bladder irrigation Hospital course: Patient is a 72-year-old gentleman with a history of COPD, peripheral vascular disease, current smoker, prostate cancer status post cryoablation on 09/09/18 and discharged home on Mahan's catheter connected to get him back presented to the emergency department on account of being unable to pass urine saying that his Mahan catheter is clogged up. He was also noted to have chills, lower abdominal pain, tachycardia and hypotension with systolic blood pressure in the 80s. Patient denies any headache no chest pain or shortness of breath. Patient had mucositis of 11.4, lactic acid was 3.7 and subsequently increased to 4.1. BUN was 34 and creatinine was 2.2. Baseline creatinine was 0.9 as at 06/20/2018. Code sepsis was initiated. IV fluid resuscitation commenced. Blood cultures and IV antibiotics initiated. CT scan of the abdomen and pelvis without contrast showed evidence small food around the spleen that may be consistent with post surgical changes. Enlarged heterogeneous prostate with prominent seminal vesicles also identified. Emphysema and nonspecific pulmonary changes around right renal cyst reported. Urologist, was consulted. By emergency department physician. Bladder irrigation was done in emergency department as well as in the ICU to which he was admitted. Uterine flow established. Blood pressure improved. Had episode of hypoglycemia without any symptoms. Patient was commenced on regular diet. Blood sugar improved. Johnson resolved. ID recommendation applied. Patient is tolerating regular diet with stable vital signs. He is been discharged today to follow with primary care physician in 3-5 days and urologist in 1 week Disposition: DC-[id number] TO HOME OR SELFCARE Time spent for discharge: 40 mins - Discharge Diagnoses (1) Urinary retention Status: Acute (2) Abdominal pain Status: Acute Qualifiers: Abdominal location: lower abdomen, unspecified Qualified Code(s): R10.30 - Lower abdominal pain, unspecified (3) Elevated lactic acid level Status: Acute (4) Hypotension Status: Acute Qualifiers: Hypotension type: unspecified hypotension type Qualified Code(s): I95.9 - Hypotension, unspecified (5) SOB (shortness of breath) Status: Acute (6) Sepsis Status: Acute Qualifiers: Sepsis type: sepsis due to unspecified organism Qualified Code(s): A41.9 - Sepsis, unspecified organism (7) Tachycardia Status: Acute Core Measure Documentation - Palliative Care Palliative Care/ Comfort Measures: Not Applicable - Core Measures Any of the following diagnoses?: none Exam - Physical Exam Narrative exam: Constitutional: Well-nourished well-developed. In no distress Head: Normocephalic atraumatic Eyes: Pupils are equal round and reactive to light Nose: No enlarged turbinates, no septal deviation. Mouth: Moist mucous membranes. Neck: Supple no thyromegaly. No bruit. No JVD Heart: Regular rate and rhythm, S1-S2 normal. No rubs murmurs or gallop Lungs: Clear to auscultation bilaterally. no rales or rhonchi Abdomen: Soft, nontender. Bowel sound are present. ADITYA: Has a Mahan catheter in place connected to a urine bag with clearing urine. Extremities: No edema, no cyanosis, no clubbing. Neuro: Alert oriented Oriented x3. No focal sensory or motor deficit. Skin: No rashes or hyperpigmented spots Musculoskeletal system: No joint pain or swelling Hematological: No petechia or subcutanous hemorrhages. Immunological: No multiple septic spots on the skin Lymphatic: No generalized lymphadenopathy Psychiatry: Euthymic. Calm. - Constitutional Vitals: Temp Pulse Resp BP Pulse Ox 97.9 F 82 16 156/98 98 09/13/18 11:25 09/13/18 11:25 09/13/18 11:25 09/13/18 11:25 09/13/18 11:25 Plan Activity: advance as tolerated Weight Bearing Status: Weight Bear as Tolerated Diet: diabetic Follow up with: NELI ESPOSITO MD [Primary Care Provider] - 3-5 Days Prescriptions: Glimepiride [Amaryl] 2 mg PO QAM #30 tablet Fluticasone [Flonase] 2 sprays NS QDAY #1 bottle Gabapentin [Neurontin] 100 mg PO TID #60 capsule Nortriptyline [Pamelor] 30 mg PO BID #60 capsule ALBUTEROL NEB's [Proventil 0.083% NEBS] 2.5 mg IH Q4H PRN #100 nebu PRN Reason: Shortness Of Breath Lisinopril [Zestril TAB] 40 mg PO BID #60 tablet
== END 2018-09-13 16:10 | disposition home or self-care (01) | DRG 698 ==
LOC: ED 13:06 → CC1 16:14 → 3A 09-12 20:05
PROVIDERS: ADMIT Family Medicine; ATTEND Family Medicine
DX: T83.511A Infection and inflammatory reaction due to indwelling urethral catheter, initial encounter (principal); A41.9 Sepsis, unspecified organism; N17.0 Acute kidney failure with tubular necrosis; R65.21 Severe sepsis with septic shock; E46 Unspecified protein-calorie malnutrition; N39.0 Urinary tract infection, site not specified; E16.2 Hypoglycemia, unspecified; J43.9 Emphysema, unspecified; I10 Essential (primary) hypertension; M19.90 Unspecified osteoarthritis, unspecified site; F32.9 Major depressive disorder, single episode, unspecified; G62.9 Polyneuropathy, unspecified; G89.29 Other chronic pain; I25.10 Atherosclerotic heart disease of native coronary artery without angina pectoris; I73.9 Peripheral vascular disease, unspecified; F17.210 Nicotine dependence, cigarettes, uncomplicated; K12.30 Oral mucositis (ulcerative), unspecified; Z68.24 Body mass index [BMI] 24.0-24.9, adult; N13.9 Obstructive and reflux uropathy, unspecified; R33.9 Retention of urine, unspecified; Y83.8 Other surgical procedures as the cause of abnormal reaction of the patient, or of later complication, without mention of misadventure at the time of the procedure; Y92.89 Other specified places as the place of occurrence of the external cause; Z85.46 Personal history of malignant neoplasm of prostate
CPT/HCPCS: 36415; 71045; 74176; 78582; 80053; 81001; 82140; 82550; 82553; 82962; 83735; 83930; 84100; 84484; 84550; 85025; 85379; 85610; 86850; 86900; 86901; 87040; 87086; 93005; 93010; 96361; 96365; G0378; A9270-GY; A9540; A9558; J0692; J1644; J2543; J3370; J7030

== ENCOUNTER 2020-01-05 12:36 | Outpatient (CLI) | payer MEDICARE ==
[2020-01-05 13:30] LABS: Hematocrit 41.3 % (35.5-45.6); Hemoglobin 13.6 gm/dl (11.8-15.2); Mean Corpuscular HGB Conc 33 % (32-34); Mean Corpuscular Volume 88 fl (84-94); Platelet Count 178 K/mm3 (140-440); Red Blood Count 4.68 M/mm3 (3.65-5.03); Red Cell Distribution Width 13.2 % (13.2-15.2)
[2020-01-05 13:43] LABS: INR 1.06 (0.87-1.13); Partial Thromboplastin Time 28.5 Sec. (24.2-36.6)
[2020-01-05 13:59] LABS: ABG Base Excess 3.4 mmol/L (-2.0-3.0); ABG HCO3 28.3 mmol/L (20.0-26.0); ABG Methemoglobin 0.5 % (0.0-1.5); ABG Oxygen Saturation 95.7 % (95.0-99.0); ABG PH 7.427 pH Units (7.350-7.450); ABG PO2 67.7 mm Hg (80.0-90.0)
--- NOTE | 2020-01-05 14:28 | XRay Report ---
CHEST 2 VIEWS INDICATION / CLINICAL INFORMATION: COPD. COMPARISON: 09/11/2018 FINDINGS: SUPPORT DEVICES: None. HEART / MEDIASTINUM: No significant abnormality. LUNGS / PLEURA: Stable hyperexpansion suggesting obstructive airways disease with mild chronic bibasi lar linear scarring. No acute findings. No pneumothorax. ADDITIONAL FINDINGS: No significant additional findings. IMPRESSION: 1. No acute findings. Signer Name: Brown Segura MD Signed: 01/05/2020 2:23 PM Workstation Name: [id number]
[2020-01-05 15:36] LABS: Alanine Aminotransferase 16 units/L (7-56); BUN/Creatinine Ratio 15; Blood Urea Nitrogen 12 mg/dL (9-20); Calcium 9.5 mg/dL (8.4-10.2); Hemolysis Index 7
[2020-01-05 16:30] LABS: HDL Cholesterol 50 mg/dL (40-59); LDL Cholesterol,Direct 116 mg/dL (50-130)
== END 2020-01-05 12:37 | disposition home or self-care (01) ==
LOC: LAB 12:36
PROVIDERS: ATTEND Internal Medicine
DX: J44.9 Chronic obstructive pulmonary disease, unspecified (principal); G47.33 Obstructive sleep apnea (adult) (pediatric); I10 Essential (primary) hypertension; E66.9 Obesity, unspecified
CPT/HCPCS: 36415; 71046; 80053; 80061; 82803; 84436; 84443; 85027; 85610; 85730

== ENCOUNTER 2020-02-09 05:53 | Day surgery (SDC) | payer MEDICARE ==
--- NOTE | 2020-02-02 10:50 | Anesthesia Consultation ---
Anesthesia Consult and Med Hx Date of service: 02/09/20 - Airway Anesthetic Teeth Evaluation: Chipped (Missing) ROM Head & Neck: Adequate Mental/Hyoid Distance: Adequate Mallampati Class: Class II Intubation Access Assessment: Probably Good - Pulmonary Exam CTA: No (+Expiratory wheezing R>L) - Cardiac Exam Cardiac Exam: RRR - Pre-Operative Health Status ASA Pre-Surgery Classification: ASA4 Proposed Anesthetic Plan: General - Pulmonary Hx Smoking: Yes (CURRENT SMOKER) Hx Respiratory Symptoms: Yes (States he can walk a city block) SOB: Yes (SOB; Neg cardiac work up 2018) COPD: Yes (DAILY AND PRN INHALERS/ POOR COMPLIANCE) Home Oxygen Therapy: No (+Pulmonary clearance) Hx Sleep Apnea: Yes (DX SLEEP APNEA WITH CPAP USE) - Cardiovascular System Hx Hypertension: Yes Hx Coronary Artery Disease: Yes (neg ST and normal TTE 07/2018) Hx Heart Attack/AMI: No Hx Percutaneous Transluminal Coronary Angioplasty (PTCA): No Hx Cardia Arrhythmia: Yes (Hx SVT. Normal EKG 08/02/18) Hx Pacemaker: No Hx Internal Defibrillator: No Hx Peripheral Vascular Disease: Yes - Central Nervous System Hx Neuromuscular Disorder: Yes (Neuropathy) Hx Seizures: No CVA: No Hx Back Pain: Yes (SPINAL STENOSIS) - Gastrointestinal Hx Gastroesophageal Reflux Disease: Yes (Frausto's) - Endocrine Hx Renal Disease: No Hx Liver Disease: No Hx Non-Insulin Dependent Diabetes: Yes Hx Thyroid Disease: No - Hematic Hx Anemia: Yes (NOT RECENT) - Other Systems Hx Cancer: Yes (Prostate) Hx Obesity: No
[2020-02-09] MEDS ORDERED: ONDANSETRON 4 MG/2 ML INJ IV PRN (07:22)
[2020-02-09] MEDS ORDERED: HYDROmorphone 1 MG/1 ML INJ IV PRN ×2 (07:22)
--- NOTE | 2020-02-09 07:22 | Anesthesia Day of Surgery ---
Anesthesia Day of Surgery - Day of Surgery Patient Examined: Yes Patient H&P Reviewed: Yes Patient is NPO: Yes
[2020-02-09] MEDS ORDERED: GLYCOPYRROLATE 0.4 MG/2 ML INJ ONE (07:33)
[2020-02-09] MEDS ORDERED: propofoL 200 MG/20 ML VIAL IV ONE (07:33)
[2020-02-09] MEDS ORDERED: dexAMETHasone 20 MG/5 ML VIAL ONE (07:33)
[2020-02-09] MEDS ORDERED: LIDOCAINE MPF (2%) 20 MG/1 ML VIAL 5 ML ONE (07:33)
[2020-02-09] MEDS ORDERED: PHENYLEPHRINE/NS 1,000 MCG/10 ML SYRINGE (OR USE) IV ONE (07:33)
[2020-02-09] MEDS ORDERED: fentaNYL 100 MCG/2 ML INJ ONE (07:33)
[2020-02-09] MEDS ORDERED: SUCCINYLCHOLINE CHLORIDE 200 MG/10 ML INJ MDV ONE (07:33)
[2020-02-09] MEDS ORDERED: LACTATED RINGERS 1,000 ML IV SCH (08:00)
[2020-02-09] MEDS ORDERED: IOHEXOL 300 MG/ML 100ML IR ONE (08:39)
[2020-02-09] MEDS ORDERED: SODIUM CHLORIDE 0.9% IRRIG SOLN 2000 ML IR ONE (08:39)
[2020-02-09] MEDS ORDERED: ceFAZolin/STERILE WATER 2 GM/20 ML SYRINGE IV NR (09:30)
[2020-02-09] MEDS ORDERED: IPRATROPIUM 0.02% NEBU 2.5 ML IH ONE ×2 (09:59)
[2020-02-09] MEDS ORDERED: SODIUM CHLORIDE FOR INHALATION NEBU 3 ML ONE (10:00)
[2020-02-09] MEDS ORDERED: ALBUTEROL 2.5 MG/3 ML NEBU IH ONE (10:30)
[2020-02-09 10:39] VITALS: BP 132/82
--- NOTE | 2020-02-09 10:39 | Post Operative Note ---
Date of procedure: 02/09/20 Pre-op diagnosis: hematuria +cytology Post-op diagnosis: same Findings: nl Procedure: cysto rpg bx Anesthesia: GETA Estimated blood loss: none Pathology: list (bladder) Specimen disposition: to lab Condition: stable Disposition: PACU
--- NOTE | 2020-02-09 10:40 | Discharge Summary ---
Short Stay Discharge Plan Activity: other (no straining) Weight Bearing Status: Full Weight Bearing Diet: low fat, low cholesterol, low salt Special Instructions: other (inc fluids ) Follow up with: NELI ESPOSITO MD [Primary Care Provider] - 7 Days CLOT BRYANT MD [Staff Physician] - 7 Days Forms: Outpatient Surgery DC Inst.
--- NOTE | 2020-02-09 10:54 | Operative Report ---
PREOPERATIVE DIAGNOSES: History of prostate cancer, hematuria, positive cytology. POSTOPERATIVE DIAGNOSES: History of prostate cancer, hematuria, positive cytology with no evidence of solid lesions. PROCEDURE: Cystoscopy, retrograde biopsies. SURGEON: Dr. Torres. ANESTHESIA: General. FINDINGS: This is a gentleman with positive cytology, now presents for cystoscopy. He had prostate cancer. DESCRIPTION OF PROCEDURE: The patient was brought to the operating table. Following induction of anesthesia, placed in lithotomy position, prepped and draped in usual sterile fashion. Cystourethroscopy showed an open bladder neck, previous cryo. The trigone, which showed small orifices. Retrograde showed delicate collecting system, which drained bilaterally. There were no solid lesions. Bladder was well visualized with 30-and 70-degree lenses. Random biopsies were taken. The patient tolerated the procedure well and brought to recovery in stable condition. JOB# [id number] KARLA/LIGIA
--- NOTE | 2020-02-09 11:15 | Post Anesthesia Evaluation ---
- Post Anesthesia Evaluation Patient Participated: Yes Airway Patent: Yes Stable Respiratory Function: Yes Nausea/Vomiting: No Temp > 96.8F: Yes Pain Manageable: Yes Adequeate Hydration: Yes Anesthesia Complications: No Block Receding Appropriately: Not Applicable Patient on Ventilator: No
--- NOTE | 2020-02-09 15:21 | Fluoroscopy Report ---
FL retrograde urography INDICATION / CLINICAL INFORMATION: NEOPLASM BLADDER. COMPARISON: None available. FINDINGS: Bilateral retrograde ureterography. The collecting systems are nondilated. Small filling defect noted at the right ureteropelvic junction. It is uncertain if this is real or artifactual. Fluoroscopy time: 11 seconds. Fluoroscopic images: 5. Signer Name: Hammad Pena MD Signed: 02/09/2020 3:20 PM Workstation Name: [id number]
== END 2020-02-09 11:15 | disposition home or self-care (01) ==
LOC: OR 05:53
PROVIDERS: ATTEND Urology
DX: R31.9 Hematuria, unspecified (principal); N32.89 Other specified disorders of bladder; Z20.828 Contact with and (suspected) exposure to other viral communicable diseases; F17.210 Nicotine dependence, cigarettes, uncomplicated; I10 Essential (primary) hypertension; I25.2 Old myocardial infarction; I25.10 Atherosclerotic heart disease of native coronary artery without angina pectoris; E78.5 Hyperlipidemia, unspecified; K21.9 Gastro-esophageal reflux disease without esophagitis; G62.9 Polyneuropathy, unspecified; I73.9 Peripheral vascular disease, unspecified; J43.9 Emphysema, unspecified; F32.9 Major depressive disorder, single episode, unspecified; G47.30 Sleep apnea, unspecified; M19.90 Unspecified osteoarthritis, unspecified site; E11.51 Type 2 diabetes mellitus with diabetic peripheral angiopathy without gangrene; Z79.899 Other long term (current) drug therapy; Z79.84 Long term (current) use of oral hypoglycemic drugs; Z79.82 Long term (current) use of aspirin; Z87.19 Personal history of other diseases of the digestive system; Z87.440 Personal history of urinary (tract) infections; Z98.890 Other specified postprocedural states
CPT/HCPCS: 52204; 74420; 82962; 88112; 88305; A4217; C1758; J0330; J1100; J2370; J2405; J2704; J3010; J7120; Q9967; U0003

== ENCOUNTER 2020-04-14 10:38 | Outpatient (CLI) | payer MEDICARE ==
[2020-04-14 12:01] LABS: Blood Urea Nitrogen 19 mg/dL (9-20)
--- NOTE | 2020-04-14 14:22 | Cat Scan Report ---
CT ABDOMEN AND PELVIS WITHOUT CONTRAST HISTORY: MALIGNANT NEOPLASM OF PROSTATE COMPARISON: 08/22/2018 TECHNIQUE: Axial CT images were obtained through the abdomen and pelvis without IV contrast. Sagittal and coronal reformatted images. All CT scans at this location are performed using CT dose reduction for ALARA by means of automated exposure control. FINDINGS: CT ABDOMEN: Lung Bases: Clear. Liver: No significant abnormality. Biliary: No significant abnormality. Spleen: No significant abnormality. Unenlarged. Pancreas: No significant abnormality. Adrenals: No significant abnormality. Kidneys: A 2.7 cm cyst is noted near mid pole of the right kidney. No change. Lymphatics: No lymphadenopathy. Vasculature: Moderate aortic and iliac calcifications are identified. No aneurysm. Bowel/Peritoneum: No significant abnormality. No free air. No free fluid. CT PELVIS: : No significant abnormality. Osseous Structures: Mild osteopenia and degenerative changes throughout the thoracolumbar spine and b ilateral hips. No suspicious bony lesion is detected. Millimetric sclerotic densities in the 11 and T 12 are unchanged and most consistent with small bone islands. Additional Findings: None IMPRESSION: No evidence for metastatic disease to the abdomen or pelvis. Signer Name: Travis Bey Jr, MD Signed: 04/14/2020 2:18 PM Workstation Name: [id number]
== END 2020-04-14 10:39 | disposition home or self-care (01) ==
LOC: CT 10:38
PROVIDERS: ATTEND Urology
DX: C61 Malignant neoplasm of prostate (principal); N28.1 Cyst of kidney, acquired; M47.815 Spondylosis without myelopathy or radiculopathy, thoracolumbar region; M16.0 Bilateral primary osteoarthritis of hip
CPT/HCPCS: 36415; 74176; 74178; 82565; 84520

== ENCOUNTER 2020-05-07 11:12 | Emergency (ER) | payer MEDICARE ==
[2020-05-07 11:54] LABS: Basophils % (Auto) 0.3 % (0.0-1.8); Eosinophils # (Auto) 0.1 K/mm3 (0.0-0.4); Eosinophils % (Auto) 1.9 % (0.0-4.3); Hematocrit 40.1 % (35.5-45.6); Lymphocytes # (Auto) 1.1 K/mm3 (1.2-5.4); Mean Corpuscular HGB Conc 32 % (32-34); Mean Corpuscular Volume 88 fl (84-94); Monocytes # (Auto) 0.5 K/mm3 (0.0-0.8); Monocytes % (Auto) 7.5 % (0.0-7.3); Platelet Count 169 K/mm3 (140-440); Red Blood Count 4.55 M/mm3 (3.65-5.03); Red Cell Distribution Width 14.4 % (13.2-15.2)
--- NOTE | 2020-05-07 12:10 | Emergency Department Report ---
ED General Adult HPI - General Chief complaint: Dizziness Stated complaint: FALL INJURY/PAIN Time Seen by Provider: 05/07/20 11:55 Source: patient Mode of arrival: Ambulatory Limitations: Physical Limitation - History of Present Illness Initial comments: This is a 74-year old man who states he has been dizzy for a month. Today he was at the sink in the bathroom when he felt weak and fell backwards onto his bottom. He describes some lower back pain to me but on exam it appeared to be not vertebral but actually in the right flank area. He states he did not lose consciousness. He no longer feels dizzy. He did not experience vertigo. He ordinarily walks with a cane. The patient has a history of COPD but is not on home O2. Uses nebs. He does not report any respiratory symptoms at all to include shortness of breath, cough and denies chest pain. He states that he would really like to go home. He does not report headache or neurological change. -: Gradual Location: back Radiation: non-radiation Quality: aching Consistency: intermittent Improves with: none Worsens with: none Associated Symptoms: denies other symptoms, weakness Treatments Prior to Arrival: none - Related Data Home Medications Medication Instructions Recorded Confirmed Last Taken Albuterol Sulfate [Proventil Hfa] 2 puff IH PRN PRN 08/27/18 02/09/20 02/08/20 08:00 Baclofen [Lioresal] 10 mg PO TID 08/27/18 02/09/20 02/08/20 20:00 Tamsulosin [Flomax] 0.4 mg PO QDAY 08/27/18 02/09/20 02/08/20 08:00 raNITIdine HCl [Zantac] 300 mg PO QHS 08/27/18 02/09/20 02/08/20 20:00 Metoprolol Xl [Metoprolol 25 mg PO QDAY 09/11/18 02/09/20 02/08/20 07:00 SUCCINATE ER TAB] Aspirin [Adult Aspirin] 81 mg PO DAILY 12/16/19 02/09/20 02/05/20 08:00 Gabapentin 100 mg PO BID 12/16/19 02/09/20 02/08/20 20:00 Oxybutynin [Ditropan] 5 mg PO BID 12/16/19 02/09/20 02/08/20 20:00 lisinopriL [Zestril TAB] 20 mg PO DAILY 12/16/19 02/09/20 02/08/20 08:00 ALBUTEROL NEB's [Proventil 0.083% 2.5 mg IH Q6HR 01/31/20 02/09/20 02/08/20 08:00 NEBS] Amlodipine Besylate/Benazepril 1 each PO DAILY 01/31/20 02/09/20 02/08/20 08:00 [Amlodipine-Benazepril 5-40 mg] Amoxicillin/K Clav Tab [Augmentin 1 each PO Q12HR 01/31/20 02/09/20 02/08/20 20:00 500 MG TAB] Cyclobenzaprine [Flexeril] 5 mg PO TID PRN 01/31/20 02/09/20 02/08/20 20:00 Famotidine [Pepcid] 20 mg PO BID 01/31/20 02/09/20 02/08/20 20:00 Fluticasone/Salmeterol(Nf) [Advair 2 puff IH BID 01/31/20 02/09/20 02/08/20 20:00 HFA 115-21 mcg] HYDROcodone/APAP 5-325 [[place] 1 each PO Q6HR PRN 01/31/20 02/09/20 02/08/20 08:00 5/325] ISOSORBIDE MONOnitrate [Imdur ER] 30 mg PO DAILY 01/31/20 02/09/20 02/08/20 08:00 Prednisone [predniSONE (Daniel) ER 5 mg PO QDAY 01/31/20 02/09/20 02/08/20 08:00 TAB] Umeclidinium Brm/Vilanterol Tr 1 each IH DAILY 01/31/20 02/09/20 02/08/20 08:00 [Anoro Ellipta 62.5-25 Mcg INH] hydroCHLOROthiazide [Hctz] 12.5 mg PO QDAY 01/31/20 02/09/20 02/08/20 08:00 Previous Rx's Medication Instructions Recorded Last Taken Type AtorvaSTATin [Lipitor] 40 mg PO QHS #30 tablet 08/04/18 02/08/20 20:00 Rx metFORMIN [Glucophage] 500 mg PO BID #60 tablet 08/04/18 02/08/20 17:00 Rx Glimepiride [Amaryl] 2 mg PO QAM #30 tablet 09/13/18 02/08/20 08:00 Rx Nortriptyline [Pamelor] 30 mg PO BID #60 capsule 09/13/18 02/08/20 20:00 Rx Allergies Allergy/AdvReac Type Severity Reaction Status Date / Time No Known Allergies Allergy Verified 09/11/18 13:14 ED Review of Systems ROS: Stated complaint: FALL INJURY/PAIN Other details as noted in HPI Constitutional: weakness. denies: chills, fever Eyes: denies: eye pain, vision change ENT: denies: ear pain, throat pain Respiratory: denies: cough, shortness of breath Cardiovascular: denies: chest pain, palpitations Endocrine: no symptoms reported Gastrointestinal: denies: abdominal pain, nausea, vomiting Genitourinary: denies: urgency, dysuria Musculoskeletal: denies: back pain, arthralgia Skin: denies: rash, lesions Neurological: denies: headache, weakness, numbness, paresthesias, confusion Psychiatric: denies: anxiety, depression Hematological/Lymphatic: denies: easy bleeding, easy bruising ED Past Medical Hx - Past Medical History Previous Medical History?: Yes Hx Hypertension: Yes Hx Heart Attack/AMI: No Hx Diabetes: Yes Hx GERD: Yes Hx Liver Disease: No Hx Renal Disease: No Hx Arthritis: Yes (osteoarthritis) Hx Seizures: No Hx Psychiatric Treatment: Yes (depression) Hx COPD: Yes (DAILY AND PRN INHALERS/ POOR COMPLIANCE) Hx HIV: No Additional medical history: high cholesterol, Neuropathy, Chronic Foot Pain. sleep apnea. CAD. spinal stenosis. PVD. Frausto's esophagus - Surgical History Past Surgical History?: Yes Hx Pacemaker: No Hx Internal Defibrillator: No Additional Surgical History: hernia repair x 2. Prostate cancer removal surgery - Social History Smoking Status: Current Every Day Smoker Substance Use Type: None - Medications Home Medications: Home Medications Medication Instructions Recorded Confirmed Last Taken Type AtorvaSTATin [Lipitor] 40 mg PO QHS #30 tablet 08/04/18 02/09/20 02/08/20 20:00 Rx metFORMIN [Glucophage] 500 mg PO BID #60 tablet 08/04/18 02/09/20 02/08/20 17:00 Rx Albuterol Sulfate [Proventil Hfa] 2 puff IH PRN PRN 08/27/18 02/09/20 02/08/20 08:00 History Baclofen [Lioresal] 10 mg PO TID 08/27/18 02/09/20 02/08/20 20:00 History Tamsulosin [Flomax] 0.4 mg PO QDAY 08/27/18 02/09/20 02/08/20 08:00 History raNITIdine HCl [Zantac] 300 mg PO QHS 08/27/18 02/09/20 02/08/20 20:00 History Metoprolol Xl [Metoprolol 25 mg PO QDAY 09/11/18 02/09/20 02/08/20 07:00 History SUCCINATE ER TAB] Glimepiride [Amaryl] 2 mg PO QAM #30 tablet 09/13/18 02/09/20 02/08/20 08:00 Rx Nortriptyline [Pamelor] 30 mg PO BID #60 capsule 09/13/18 02/09/20 02/08/20 20:00 Rx Aspirin [Adult Aspirin] 81 mg PO DAILY 12/16/19 02/09/20 02/05/20 08:00 History Gabapentin 100 mg PO BID 12/16/19 02/09/20 02/08/20 20:00 History Oxybutynin [Ditropan] 5 mg PO BID 12/16/19 02/09/20 02/08/20 20:00 History lisinopriL [Zestril TAB] 20 mg PO DAILY 12/16/19 02/09/20 02/08/20 08:00 History ALBUTEROL NEB's [Proventil 0.083% 2.5 mg IH Q6HR 01/31/20 02/09/20 02/08/20 08:00 History NEBS] Amlodipine Besylate/Benazepril 1 each PO DAILY 01/31/20 02/09/20 02/08/20 08:00 History [Amlodipine-Benazepril 5-40 mg] Amoxicillin/K Clav Tab [Augmentin 1 each PO Q12HR 01/31/20 02/09/20 02/08/20 20:00 History 500 MG TAB] Cyclobenzaprine [Flexeril] 5 mg PO TID PRN 01/31/20 02/09/20 02/08/20 20:00 History Famotidine [Pepcid] 20 mg PO BID 01/31/20 02/09/20 02/08/20 20:00 History Fluticasone/Salmeterol(Nf) [Advair 2 puff IH BID 01/31/20 02/09/20 02/08/20 20:00 History HFA 115-21 mcg] HYDROcodone/APAP 5-325 [[place] 1 each PO Q6HR PRN 01/31/20 02/09/20 02/08/20 08:00 History 5/325] ISOSORBIDE MONOnitrate [Imdur ER] 30 mg PO DAILY 01/31/20 02/09/20 02/08/20 08:00 History Prednisone [predniSONE (Daniel) ER 5 mg PO QDAY 01/31/20 02/09/20 02/08/20 08:00 History TAB] Umeclidinium Brm/Vilanterol Tr 1 each IH DAILY 01/31/20 02/09/20 02/08/20 08:00 History [Anoro Ellipta 62.5-25 Mcg INH] hydroCHLOROthiazide [Hctz] 12.5 mg PO QDAY 01/31/20 02/09/20 02/08/20 08:00 History ED Physical Exam - General Limitations: Physical Limitation General appearance: alert, in no apparent distress, obese - Head Head exam: Present: atraumatic, normocephalic - Eye Eye exam: Present: normal appearance. Absent: scleral icterus - ENT ENT exam: Present: mucous membranes moist - Neck Neck exam: Present: normal inspection. Absent: tenderness - Respiratory Respiratory exam: Present: normal lung sounds bilaterally (No wheezes no rales no rhonchi), prolonged expiratory. Absent: respiratory distress - Cardiovascular Cardiovascular Exam: Present: regular rate, normal rhythm. Absent: systolic murmur, diastolic murmur, rubs, gallop - GI/Abdominal GI/Abdominal exam: Present: soft, normal bowel sounds. Absent: distended, tenderness, guarding, rebound - Rectal Rectal exam: Present: deferred - Extremities Exam Extremities exam: Present: normal inspection. Absent: calf tenderness - Back Exam Back exam: Present: normal inspection, CVA tenderness (R) (Some mild discomfort only), other (States no pain in the middle of his back). Absent: tenderness, CVA tenderness (L), muscle spasm, paraspinal tenderness, vertebral tenderness - Neurological Exam Neurological exam: Present: alert, oriented X3, CN II-XII intact. Absent: motor sensory deficit - Psychiatric Psychiatric exam: Present: normal affect, normal mood - Skin Skin exam: Present: warm, dry, intact, normal color. Absent: rash ED Course Vital Signs 05/07/20 05/07/20 05/07/20 11:22 11:49 12:18 Temperature 98 F Pulse Rate 83 83 85 Pulse Rate [ Anterior Bilateral Throughout] Respiratory 20 18 22 Rate Respiratory Rate [Anterior Bilateral Throughout] Blood Pressure 122/83 Blood Pressure 128/86 147/91 [Left] O2 Sat by Pulse 97 99 98 Oximetry 05/07/20 05/07/20 05/07/20 13:05 13:06 13:37 Temperature Pulse Rate 76 76 Pulse Rate [ 75 Anterior Bilateral Throughout] Respiratory 18 Rate Respiratory 16 Rate [Anterior Bilateral Throughout] Blood Pressure Blood Pressure 144/94 [Left] O2 Sat by Pulse 96 Oximetry 05/07/20 13:54 Temperature Pulse Rate 86 Pulse Rate [ Anterior Bilateral Throughout] Respiratory 18 Rate Respiratory Rate [Anterior Bilateral Throughout] Blood Pressure Blood Pressure 142/93 [Left] O2 Sat by Pulse 98 Oximetry - Reevaluation(s) Reevaluation #1: Reexamination times several. Hemodynamically stable. Pulse oximetry 100% preneb. Improved expiratory phase after neb. Patient strongly desirous of discharge. He is asymptomatic. He will be released. 05/07/20 14:07 ED Medical Decision Making - Lab Data Result diagrams: 05/07/20 11:41 05/07/20 11:41 Laboratory Results - last 24 hr 05/07/20 05/07/20 05/07/20 11:41 11:41 12:10 WBC 6.3 RBC 4.55 Hgb 13.0 Hct 40.1 MCV 88 MCH 29 MCHC 32 RDW 14.4 Plt Count 169 Lymph % (Auto) 18.0 [place] % (Auto) 7.5 H Eos % (Auto) 1.9 Baso % (Auto) 0.3 Lymph # (Auto) 1.1 L [place] # (Auto) 0.5 Eos # (Auto) 0.1 Baso # (Auto) 0.0 Seg Neutrophils % 72.3 H Seg Neutrophils # 4.6 Sodium 143 Potassium 3.8 Chloride 108.2 H Carbon Dioxide 29 Anion Gap 10 BUN 14 Creatinine 0.8 Estimated GFR > 60 BUN/Creatinine Ratio 18 Glucose 124 H Calcium 8.7 Total Bilirubin 0.20 AST 21 ALT 25 Alkaline Phosphatase 75 Troponin T < 0.010 Total Protein 6.6 Albumin 4.0 Albumin/Globulin Ratio 1.5 Urine Color Yellow Urine Turbidity Clear Urine pH 5.0 Ur Specific [place] 1.022 Urine Protein <15 mg/dl Urine Glucose (UA) >=500 Urine Ketones Neg Urine Blood Sm Urine Nitrite Neg Urine Bilirubin Neg Urine Urobilinogen < 2.0 Ur Leukocyte Esterase Neg Urine WBC (Auto) < 1.0 Urine RBC (Auto) 13.0 - EKG Data -: EKG Interpreted by Me EKG shows normal: sinus rhythm, axis, intervals, QRS complexes, ST-T waves Rate: normal - EKG Data Interpretation: nonspecific ST-T wave lucius - Radiology Data Radiology results: report reviewed (No acute process CT of the head and chest x- ray with chronic scarring no interval change) Critical care attestation.: If time is entered above; I have spent that time in minutes in the direct care of this critically ill patient, excluding procedure time. ED Disposition Clinical Impression: COPD exacerbation Fall Qualifiers: Encounter type: initial encounter Qualified Code(s): W19.XXXA - Unspecified fall, initial encounter Contusion, back Qualifiers: Encounter type: initial encounter Laterality: right Qualified Code(s): S20.221A - Contusion of right back wall of thorax, initial encounter Disposition: DC- TO HOME OR SELFCARE Is pt being admited?: No Does the pt Need Aspirin: No Condition: Stable Instructions: Chronic Obstructive Pulmonary Disease (ED), Contusion, [id number], Chronic Obstructive Pulmonary Disease Additional Instructions: Return any acute change or worsening symptoms. Referrals: PRIMARY CARE,MD [Primary Care Provider] - 2-3 Days Time of Disposition: 14:15
--- NOTE | 2020-05-07 12:13 | XRay Report ---
CHEST 1 VIEW 05/07/2020 10:59 AM INDICATION / CLINICAL INFORMATION: Lightheadedness/Dizziness. COMPARISON: 01/05/2020 FINDINGS: SUPPORT DEVICES: None. HEART / MEDIASTINUM: Stable. LUNGS / PLEURA: Mild bibasilar pulmonary opacities which appears similar when compared to 01/05/2020 and may represent chronic atelectasis/scarring. No definite acute pulmonary parenchymal or pleural ab normality is identified. No pneumothorax. ADDITIONAL FINDINGS: No significant additional findings. IMPRESSION: 1. Mild bibasilar pulmonary opacities which appear similar when compared to 01/05/2020 and may repres ent chronic atelectasis/scarring. No definite acute cardiopulmonary process. Signer Name: Addison Marmolejo MD Signed: 05/07/2020 12:08 PM Workstation Name: [id number]
[2020-05-07 12:22] LABS: Alanine Aminotransferase 25 units/L (7-56); BUN/Creatinine Ratio 18; Blood Urea Nitrogen 14 mg/dL (9-20); Calcium 8.7 mg/dL (8.4-10.2); Hemolysis Index 8
--- NOTE | 2020-05-07 12:34 | Cat Scan Report ---
CT head/brain wo con INDICATION: Lightheadedness/Dizziness. TECHNIQUE: Routine CT head without contrast. All CT scans at this location are performed using CT dos e reduction for ALARA by means of automated exposure control. COMPARISON: None. FINDINGS: BRAIN / INTRACRANIAL CONTENTS: No acute hemorrhage, mass effect, midline shift, or hydrocephalus. No appreciable acute large territorial or lacunar infarct. No chronic infarct. Age-commensurate ventricu lar and cisternal/sulcal prominence. Mild-moderate patchy and confluent supratentorial/periventricula r hypoattenuation suggesting sequela of chronic microvascular ischemia. No extra-axial blood or fluid collection identified. ORBITS: No significant abnormality of visualized orbits. SINUSES / MASTOIDS: Moderate mucosal thickening in the maxillary antra and frontal sinuses with near complete opacification of the frontal sinuses noting some aerated secretions. Aerated secretions are also visualized in the maxillary antra. Patchy opacification of the ethmoidal air cells. Mastoid air cells are essentially clear. ADDITIONAL FINDINGS: Anterior subluxation of the mandibular condyles. IMPRESSION: 1. No acute intracranial abnormality. 2. Generalized cerebral volume loss and sequela of chronic microvascular ischemia. 3. Findings suggestive of acute sinusitis. 4. Anterior subluxation of the mandibular condyles. Signer Name: Addison Marmolejo MD Signed: 05/07/2020 12:30 PM Workstation Name: [id number]
[2020-05-07 13:11] LABS: Bilirubin,Urine NEG (Negative); Blood,Urine SM (Negative); Color,Urine Yellow (Yellow); Protein,Urine <15 mg/dL mg/dL (Negative); Urobilinogen,Urine < 2.0 mg/dL (<2.0); WBC,Urine < 1.0 /HPF (0.0-6.0)
[2020-05-07] MEDS ORDERED: IPRATROPIUM/ALBUTEROL SULFATE 3 ML AMPUL.NEB IH ONE (13:17)
[2020-05-07 14:34] VITALS: BP 146/87
== END 2020-05-07 14:33 | disposition home or self-care (01) ==
LOC: ED 11:12
DX: S20.221A Contusion of right back wall of thorax, initial encounter (principal); J44.1 Chronic obstructive pulmonary disease with (acute) exacerbation; I10 Essential (primary) hypertension; E11.9 Type 2 diabetes mellitus without complications; K21.9 Gastro-esophageal reflux disease without esophagitis; F32.9 Major depressive disorder, single episode, unspecified; F17.200 Nicotine dependence, unspecified, uncomplicated; Z79.899 Other long term (current) drug therapy; Z98.890 Other specified postprocedural states; W18.30XA Fall on same level, unspecified, initial encounter; Y93.89 Activity, other specified; Y92.091 Bathroom in other non-institutional residence as the place of occurrence of the external cause; Y99.8 Other external cause status
CPT/HCPCS: 36415; 70450; 71045; 80053; 81001; 84484; 85025; 93005; 94640; 94644

== ENCOUNTER 2020-05-22 07:58 | Inpatient (IN) | payer MEDICARE ==
[2020-05-22] MEDS ORDERED: ASPIRIN 81 MG TAB CHEW PO ONE ×2 (08:15→08:32)
--- NOTE | 2020-05-22 08:34 | Emergency Department Report ---
ED Chest Pain HPI - General Chief Complaint: Chest Pain Stated Complaint: CHEST PAIN Time Seen by Provider: 05/22/20 08:15 Source: patient Mode of arrival: Ambulatory Limitations: No Limitations - History of Present Illness Initial Comments: Patient is 74 years old male with history of coronary artery disease, congestive heart failure, hypertension and diabetes. Patient presented to the ER complaining of substernal chest pain, heaviness with no radiation. Patient stated that his pain associated with shortness of breath and orthopnea. Patient denied any fever or chills. No abdominal pain, nausea or vomiting. MD Complaint: chest pain -: days(s) (2) Onset: during rest, during exertion Pain Location: substernal Pain Radiation: none Severity: moderate Quality: tightness Consistency: intermittent - Related Data Home Medications Medication Instructions Recorded Confirmed Last Taken Albuterol Sulfate [Proventil Hfa] 2 puff IH PRN PRN 08/27/18 02/09/20 02/08/20 08:00 Baclofen [Lioresal] 10 mg PO TID 08/27/18 02/09/20 02/08/20 20:00 Tamsulosin [Flomax] 0.4 mg PO QDAY 08/27/18 02/09/20 02/08/20 08:00 raNITIdine HCl [Zantac] 300 mg PO QHS 08/27/18 02/09/20 02/08/20 20:00 Metoprolol Xl [Metoprolol 25 mg PO QDAY 09/11/18 02/09/20 02/08/20 07:00 SUCCINATE ER TAB] Aspirin [Adult Aspirin] 81 mg PO DAILY 12/16/19 02/09/20 02/05/20 08:00 Gabapentin 100 mg PO BID 12/16/19 02/09/20 02/08/20 20:00 Oxybutynin [Ditropan] 5 mg PO BID 12/16/19 02/09/20 02/08/20 20:00 lisinopriL [Zestril TAB] 20 mg PO DAILY 12/16/19 02/09/20 02/08/20 08:00 ALBUTEROL NEB's [Proventil 0.083% 2.5 mg IH Q6HR 01/31/20 02/09/20 02/08/20 08:00 NEBS] Amlodipine Besylate/Benazepril 1 each PO DAILY 01/31/20 02/09/20 02/08/20 08:00 [Amlodipine-Benazepril 5-40 mg] Amoxicillin/K Clav Tab [Augmentin 1 each PO Q12HR 01/31/20 02/09/20 02/08/20 20:00 500 MG TAB] Cyclobenzaprine [Flexeril] 5 mg PO TID PRN 01/31/20 02/09/20 02/08/20 20:00 Famotidine [Pepcid] 20 mg PO BID 01/31/20 02/09/20 02/08/20 20:00 Fluticasone/Salmeterol(Nf) [Advair 2 puff IH BID 01/31/20 02/09/20 02/08/20 20:00 HFA 115-21 mcg] HYDROcodone/APAP 5-325 [[place] 1 each PO Q6HR PRN 01/31/20 02/09/20 02/08/20 08:00 5/325] ISOSORBIDE MONOnitrate [Imdur ER] 30 mg PO DAILY 01/31/20 02/09/20 02/08/20 08:00 Prednisone [predniSONE (Daniel) ER 5 mg PO QDAY 01/31/20 02/09/20 02/08/20 08:00 TAB] Umeclidinium Brm/Vilanterol Tr 1 each IH DAILY 01/31/20 02/09/20 02/08/20 08:00 [Anoro Ellipta 62.5-25 Mcg INH] hydroCHLOROthiazide [Hctz] 12.5 mg PO QDAY 01/31/20 02/09/20 02/08/20 08:00 Previous Rx's Medication Instructions Recorded Last Taken Type AtorvaSTATin [Lipitor] 40 mg PO QHS #30 tablet 08/04/18 02/08/20 20:00 Rx metFORMIN [Glucophage] 500 mg PO BID #60 tablet 08/04/18 02/08/20 17:00 Rx Glimepiride [Amaryl] 2 mg PO QAM #30 tablet 09/13/18 02/08/20 08:00 Rx Nortriptyline [Pamelor] 30 mg PO BID #60 capsule 09/13/18 02/08/20 20:00 Rx Allergies Allergy/AdvReac Type Severity Reaction Status Date / Time No Known Allergies Allergy Verified 05/22/20 07:59 Heart Score - HEART Score History: Moderately suspicious EKG: Non-specific Age: > 65 Risk factors: > 3 risk factors or hx of atherosclerotic disease Troponin: < normal limit HEART Score: 6 - Critical Actions Critical Actions: 4-6 pts:12-16.6% risk of adverse cardiac event. Should be admitted ED Review of Systems ROS: Stated complaint: CHEST PAIN Other details as noted in HPI Comment: All other systems reviewed and negative Constitutional: denies: chills, fever Respiratory: orthopnea, shortness of breath, SOB with exertion, SOB at rest. denies: cough, wheezing Cardiovascular: chest pain. denies: palpitations, dyspnea on exertion Gastrointestinal: denies: abdominal pain, nausea, vomiting Musculoskeletal: denies: back pain Neurological: denies: headache, weakness, numbness, paresthesias, confusion, abn ormal gait ED Past Medical Hx - Past Medical History Hx Hypertension: Yes Hx Heart Attack/AMI: No Hx Diabetes: Yes Hx GERD: Yes Hx Liver Disease: No Hx Renal Disease: No Hx Arthritis: Yes (osteoarthritis) Hx Seizures: No Hx Psychiatric Treatment: Yes (depression) Hx COPD: Yes (DAILY AND PRN INHALERS/ POOR COMPLIANCE) Hx HIV: No Additional medical history: high cholesterol, Neuropathy, Chronic Foot Pain. sleep apnea. CAD. spinal stenosis. PVD. Frausto's esophagus - Surgical History Hx Pacemaker: No Hx Internal Defibrillator: No Additional Surgical History: hernia repair x 2. Prostate cancer removal surgery - Social History Smoking Status: Never Smoker Substance Use Type: None - Medications Home Medications: Home Medications Medication Instructions Recorded Confirmed Last Taken Type AtorvaSTATin [Lipitor] 40 mg PO QHS #30 tablet 08/04/18 02/09/20 02/08/20 20:00 Rx metFORMIN [Glucophage] 500 mg PO BID #60 tablet 08/04/18 02/09/20 02/08/20 17:00 Rx Albuterol Sulfate [Proventil Hfa] 2 puff IH PRN PRN 08/27/18 02/09/20 02/08/20 08:00 History Baclofen [Lioresal] 10 mg PO TID 08/27/18 02/09/20 02/08/20 20:00 History Tamsulosin [Flomax] 0.4 mg PO QDAY 08/27/18 02/09/20 02/08/20 08:00 History raNITIdine HCl [Zantac] 300 mg PO QHS 08/27/18 02/09/20 02/08/20 20:00 History Metoprolol Xl [Metoprolol 25 mg PO QDAY 09/11/18 02/09/20 02/08/20 07:00 History SUCCINATE ER TAB] Glimepiride [Amaryl] 2 mg PO QAM #30 tablet 09/13/18 02/09/20 02/08/20 08:00 Rx Nortriptyline [Pamelor] 30 mg PO BID #60 capsule 09/13/18 02/09/20 02/08/20 20:00 Rx Aspirin [Adult Aspirin] 81 mg PO DAILY 12/16/19 02/09/20 02/05/20 08:00 History Gabapentin 100 mg PO BID 12/16/19 02/09/20 02/08/20 20:00 History Oxybutynin [Ditropan] 5 mg PO BID 12/16/19 02/09/20 02/08/20 20:00 History lisinopriL [Zestril TAB] 20 mg PO DAILY 12/16/19 02/09/20 02/08/20 08:00 History ALBUTEROL NEB's [Proventil 0.083% 2.5 mg IH Q6HR 01/31/20 02/09/20 02/08/20 08:00 History NEBS] Amlodipine Besylate/Benazepril 1 each PO DAILY 01/31/20 02/09/20 02/08/20 08:00 History [Amlodipine-Benazepril 5-40 mg] Amoxicillin/K Clav Tab [Augmentin 1 each PO Q12HR 01/31/20 02/09/20 02/08/20 20:00 History 500 MG TAB] Cyclobenzaprine [Flexeril] 5 mg PO TID PRN 01/31/20 02/09/20 02/08/20 20:00 History Famotidine [Pepcid] 20 mg PO BID 01/31/20 02/09/20 02/08/20 20:00 History Fluticasone/Salmeterol(Nf) [Advair 2 puff IH BID 01/31/20 02/09/20 02/08/20 20:00 History HFA 115-21 mcg] HYDROcodone/APAP 5-325 [[place] 1 each PO Q6HR PRN 01/31/20 02/09/20 02/08/20 08:00 History 5/325] ISOSORBIDE MONOnitrate [Imdur ER] 30 mg PO DAILY 01/31/20 02/09/20 02/08/20 08:00 History Prednisone [predniSONE (Daniel) ER 5 mg PO QDAY 01/31/20 02/09/20 02/08/20 08:00 History TAB] Umeclidinium Brm/Vilanterol Tr 1 each IH DAILY 01/31/20 02/09/20 02/08/20 08:00 History [Anoro Ellipta 62.5-25 Mcg INH] hydroCHLOROthiazide [Hctz] 12.5 mg PO QDAY 01/31/20 02/09/20 02/08/20 08:00 History ED Physical Exam - General Limitations: No Limitations General appearance: alert, in distress - Head Head exam: Present: atraumatic, normocephalic, normal inspection - Eye Eye exam: Present: normal appearance, PERRL - ENT ENT exam: Present: normal exam, normal orophraynx, mucous membranes moist - Neck Neck exam: Present: normal inspection, full ROM. Absent: tenderness, meningismus, lymphadenopathy, thyromegaly - Respiratory Respiratory exam: Present: respiratory distress, rales, decreased breath sounds. Absent: wheezes, rhonchi, accessory muscle use, prolonged expiratory - Cardiovascular Cardiovascular Exam: Present: regular rate, normal rhythm, normal heart sounds - GI/Abdominal GI/Abdominal exam: Present: soft, normal bowel sounds. Absent: distended, tenderness, guarding, rebound, rigid, mass, bruit, pulsatile mass, hernia - Extremities Exam Extremities exam: Present: normal inspection, full ROM, normal capillary refill. Absent: tenderness, pedal edema, joint swelling, calf tenderness - Back Exam Back exam: Present: normal inspection, full ROM. Absent: CVA tenderness (R), CVA tenderness (L) - Neurological Exam Neurological exam: Present: alert, oriented X3, CN II-XII intact, normal gait - Psychiatric Psychiatric exam: Present: normal mood - Skin Skin exam: Present: warm, intact, normal color ED Course Vital Signs 05/22/20 05/22/20 05/22/20 08:04 08:31 08:49 Temperature 97.8 F Pulse Rate 83 85 Respiratory 24 15 18 Rate Blood Pressure 143/84 Blood Pressure 140/87 [Left] O2 Sat by Pulse 92 92 97 Oximetry LV score - Lv Score Age > 65: (1) Yes Aspirin use within the Past 7 Days: (1) Yes 3 or more CAD Risk Factors: (1) Yes 2 or more Angina events in past 24 hrs: (1) Yes Known CAD with more than 50% Stenosis: (0) No Elevated Cardiac Markers: (0) No ST Deviation Greater than 0.5mm: (0) No LV Score: 4 ED Medical Decision Making - Lab Data Result diagrams: 05/22/20 08:38 05/22/20 08:38 - EKG Data -: EKG Interpreted by Me EKG shows normal: sinus rhythm Rate: normal - EKG Data Interpretation: no acute changes - Radiology Data Radiology results: report reviewed - Medical Decision Making Patient is 74 years old male with history of coronary artery disease, congestive heart failure, hypertension and diabetes. Patient presented to the ER complaining of substernal chest pain, heaviness with no radiation. Patient stated that his pain associated with shortness of breath and orthopnea. Patient denied any fever or chills. No abdominal pain, nausea or vomiting. EKG is unremarkable. Chest x-ray is negative for acute finding. Labs reviewed and is negative including first troponin. I discussed the patient with Dr. Duke, he agreed to admit the patient to medical service and advised to admit the patient to Dr. Lafleur. Critical care attestation.: If time is entered above; I have spent that time in minutes in the direct care of this critically ill patient, excluding procedure time. ED Disposition Clinical Impression: Acute chest pain Disposition: DC-09 OP ADMIT IP TO THIS HOSP Is pt being admited?: Yes Condition: Stable Instructions: Chest Pain (ED) Referrals: JACKY ZAYAS MD [Primary Care Provider] - 3-5 Days
--- NOTE | 2020-05-22 08:43 | XRay Report ---
CHEST 1 VIEW INDICATION: Chest Pain. COMPARISON: 05/07/2020 FINDINGS: Support devices: None. Heart: Within normal limits. Lungs/Pleura: No acute air space or interstitial disease. Additional findings: None. IMPRESSION: No acute findings. Signer Name: Travis Bey Jr, MD Signed: 05/22/2020 8:39 AM Workstation Name: [id number]
[2020-05-22 08:57] LABS: Basophils % (Auto) 0.2 % (0.0-1.8); Eosinophils # (Auto) 0.1 K/mm3 (0.0-0.4); Eosinophils % (Auto) 1.7 % (0.0-4.3); Hematocrit 41.1 % (35.5-45.6); Hemoglobin 13.3 gm/dl (11.8-15.2); Lymphocytes # (Auto) 1.2 K/mm3 (1.2-5.4); Lymphocytes % (Auto) 20.2 % (13.4-35.0); Mean Corpuscular HGB Conc 32 % (32-34); Mean Corpuscular Volume 90 fl (84-94); Monocytes # (Auto) 0.7 K/mm3 (0.0-0.8); Platelet Count 169 K/mm3 (140-440); Red Blood Count 4.58 M/mm3 (3.65-5.03); Red Cell Distribution Width 14.7 % (13.2-15.2)
[2020-05-22 09:08] LABS: INR 0.99 (0.87-1.13); Partial Thromboplastin Time 28.7 Sec. (24.2-36.6)
[2020-05-22 09:20] LABS: Alanine Aminotransferase 21 units/L (7-56); Albumin 4.1 g/dL (3.9-5); BUN/Creatinine Ratio 9; Blood Urea Nitrogen 11 mg/dL (9-20); Calcium 9.1 mg/dL (8.4-10.2); Hemolysis Index 2
[2020-05-22 09:21] LABS: Bilirubin,Direct < 0.2 mg/dL (0-0.2)
[2020-05-22] MEDS ORDERED: ALBUTEROL 8.5 GM MDI INHALATION IH PRN (10:11)
--- NOTE | 2020-05-22 10:14 | History and Physical Report ---
History of Present Illness Date of examination: 05/22/20 Date of admission: 05/22/20 Chief complaint: Chest pain no shortness of breath History of present illness: Patient is a 74-year-old male with history of CAD, COPD, depression, congestive heart failure, hypertension and diabetes mellitus also recent history of flank pain who presents to the ED with complainS of substernal chest pain, heaviness with no radiation. Patient stated that his pain associated with shortness of breath and orthopnea. Patient denied any fever or chills. No abdominal pain, nausea or vomiting. Per the patient this has been ongoing for 3 days and intermittent and worsening both at rest and with exertion. He reports compliance with all his medication was recently seen at his doctor's office early last month. He denies any fever nausea vomiting he reports mild swelling in his lower extremity. He recently had a study for lower extremity DVT evaluation and was found to be negative. Past History Past Medical History: COPD, diabetes, heart failure, hypertension, hyperlipidemia Past Surgical History: No surgical history Social history: Family history: no significant family history Medications and Allergies Allergies Allergy/AdvReac Type Severity Reaction Status Date / Time No Known Allergies Allergy Verified 05/22/20 07:59 Home Medications Medication Instructions Recorded Confirmed Last Taken Type AtorvaSTATin [Lipitor] 40 mg PO QHS #30 tablet 08/04/18 02/09/20 02/08/20 20:00 Rx metFORMIN [Glucophage] 500 mg PO BID #60 tablet 08/04/18 02/09/20 02/08/20 17:00 Rx Albuterol Sulfate [Proventil Hfa] 2 puff IH PRN PRN 08/27/18 02/09/20 02/08/20 08:00 History Baclofen [Lioresal] 10 mg PO TID 08/27/18 02/09/20 02/08/20 20:00 History Tamsulosin [Flomax] 0.4 mg PO QDAY 08/27/18 02/09/20 02/08/20 08:00 History raNITIdine HCl [Zantac] 300 mg PO QHS 08/27/18 02/09/20 02/08/20 20:00 History Metoprolol Xl [Metoprolol 25 mg PO QDAY 09/11/18 02/09/20 02/08/20 07:00 History SUCCINATE ER TAB] Glimepiride [Amaryl] 2 mg PO QAM #30 tablet 09/13/18 02/09/20 02/08/20 08:00 Rx Nortriptyline [Pamelor] 30 mg PO BID #60 capsule 09/13/18 02/09/20 02/08/20 20:00 Rx Aspirin [Adult Aspirin] 81 mg PO DAILY 12/16/19 02/09/20 02/05/20 08:00 History Gabapentin 100 mg PO BID 12/16/19 02/09/20 02/08/20 20:00 History Oxybutynin [Ditropan] 5 mg PO BID 12/16/19 02/09/20 02/08/20 20:00 History lisinopriL [Zestril TAB] 20 mg PO DAILY 12/16/19 02/09/20 02/08/20 08:00 History ALBUTEROL NEB's [Proventil 0.083% 2.5 mg IH Q6HR 01/31/20 02/09/20 02/08/20 08:00 History NEBS] Amlodipine Besylate/Benazepril 1 each PO DAILY 01/31/20 02/09/20 02/08/20 08:00 History [Amlodipine-Benazepril 5-40 mg] Amoxicillin/K Clav Tab [Augmentin 1 each PO Q12HR 01/31/20 02/09/20 02/08/20 20:00 History 500 MG TAB] Cyclobenzaprine [Flexeril] 5 mg PO TID PRN 01/31/20 02/09/20 02/08/20 20:00 History Famotidine [Pepcid] 20 mg PO BID 01/31/20 02/09/20 02/08/20 20:00 History Fluticasone/Salmeterol(Nf) [Advair 2 puff IH BID 01/31/20 02/09/20 02/08/20 20:00 History HFA 115-21 mcg] HYDROcodone/APAP 5-325 [[place] 1 each PO Q6HR PRN 01/31/20 02/09/20 02/08/20 08:00 History 5/325] ISOSORBIDE MONOnitrate [Imdur ER] 30 mg PO DAILY 01/31/20 02/09/20 02/08/20 08:00 History Prednisone [predniSONE (Daniel) ER 5 mg PO QDAY 01/31/20 02/09/20 02/08/20 08:00 History TAB] Umeclidinium Brm/Vilanterol Tr 1 each IH DAILY 01/31/20 02/09/20 02/08/20 08:00 History [Anoro Ellipta 62.5-25 Mcg INH] hydroCHLOROthiazide [Hctz] 12.5 mg PO QDAY 01/31/20 02/09/20 02/08/20 08:00 History Review of Systems All systems: negative Constitutional: weight gain, no fever, no chills, no sweats, no night sweats, no malaise, no lethargy Cardiovascular: chest pain, orthopnea, edema, shortness of breath, dyspnea on exertion, no palpitations, no rapid/irregular heart beat, no syncope, no lightheadedness, no paroxysmal nocturnal dyspnea, no claudication, no phlebitis, no high blood pressure Respiratory: no cough, no cough with sputum, no hemoptysis, no shortness of breath, no dyspnea on exertion, no congestion, no wheezing, no pleurisy, no pain on inspiration Gastrointestinal: no abdominal pain, no vomiting, no diarrhea, no constipation, no change in bowel habits, no melena, no early satiety, no heartburn, no dyspepsia/bloating, no early satiety Musculoskeletal: no neck stiffness, no shooting arm pain, no arm numbness/tingling, no low back pain, no shooting leg pain, no morning stiffness, no muscle weakness, no myalgias, no fractures, no prior amputations Integumentary: no rash, no sores, no wounds, no boils, no bullae, no darkening of skin, no acne, no color changes, no striae Neurological: no transient paralysis, no weakness, no numbness, no seizures, no tremors, no tic, no change in speech, no change in mentation, no sensory deficit, no double vision Psychiatric: no memory loss, no sleep disturbances, no insomnia, no hypersomnia, no anhedonia, no anxiety attacks, no irritability Endocrine: no heat intolerance, no polydipsia, no nocturia Exam - Physical Exam Narrative exam: VITAL SIGNS: Reviewed. GENERAL: The patient appears normally developed, Vital signs as documented. HEAD: No signs of head trauma. EYES: Pupils are equal. Extraocular motions intact. EARS: Hearing grossly intact. MOUTH: Oropharynx is normal. NECK: No adenopathy, no JVD. CHEST: Chest with diminished with mild crackles breath sounds bilaterally. No wheezes. CARDIAC: Regular rate and rhythm. S1 and S2, without murmurs, gallops, or rubs. VASCULAR: +2 pitting edema. Peripheral pulses normal and equal in all extremities. ABDOMEN: Soft, non tender and non distended. No rebound or guarding, and no masses palpated. Bowel Sounds normal. MUSCULOSKELETAL: Good range of motion of all major joints. Extremities without clubbing, cyanosis. +2 pitting edema. NEUROLOGIC EXAM: Alert and oriented x 3 No focal sensory or strength deficits. Speech normal. Follows commands. PSYCHIATRIC: Mood normal. SKIN: Chronic venous changes bilateral lower extremity detail exam as documented in skin assessment - Constitutional Vitals: Temp Pulse Resp BP Pulse Ox 97.8 F 85 18 140/87 97 05/22/20 08:04 05/22/20 08:31 05/22/20 08:49 05/22/20 08:31 05/22/20 08:49 HEART Score - HEART Score EKG: Non-specific Age: > 65 Risk factors: > 3 risk factors or hx of atherosclerotic disease Troponin: Troponin T < 0.010 ng/mL (0.00-0.029) 05/22/20 08:38 Troponin: < normal limit - Critical Actions Critical Actions: 4-6 pts:12-16.6% risk of adverse cardiac event. Should be admitted Results - Labs CBC & Chem 7: 05/22/20 11:35 05/22/20 11:35 Labs: Laboratory Last Values WBC 6.0 K/mm3 (4.5-11.0) 05/22/20 08:38 RBC 4.58 M/mm3 (3.65-5.03) 05/22/20 08:38 Hgb 13.3 gm/dl (11.8-15.2) 05/22/20 08:38 Hct 41.1 % (35.5-45.6) 05/22/20 08:38 MCV 90 fl (84-94) 05/22/20 08:38 MCH 29 pg (28-32) 05/22/20 08:38 MCHC 32 % (32-34) 05/22/20 08:38 RDW 14.7 % (13.2-15.2) 05/22/20 08:38 Plt Count 169 K/mm3 (140-440) 05/22/20 08:38 Lymph % (Auto) 20.2 % (13.4-35.0) 05/22/20 08:38 [place] % (Auto) 11.0 % (0.0-7.3) H 05/22/20 08:38 Eos % (Auto) 1.7 % (0.0-4.3) 05/22/20 08:38 Baso % (Auto) 0.2 % (0.0-1.8) 05/22/20 08:38 Lymph # (Auto) 1.2 K/mm3 (1.2-5.4) 05/22/20 08:38 [place] # (Auto) 0.7 K/mm3 (0.0-0.8) 05/22/20 08:38 Eos # (Auto) 0.1 K/mm3 (0.0-0.4) 05/22/20 08:38 Baso # (Auto) 0.0 K/mm3 (0.0-0.1) 05/22/20 08:38 Seg Neutrophils % 66.9 % (40.0-70.0) 05/22/20 08:38 Seg Neutrophils # 4.0 K/mm3 (1.8-7.7) 05/22/20 08:38 PT 13.0 Sec. (12.2-14.9) 05/22/20 08:38 INR 0.99 (0.87-1.13) 05/22/20 08:38 APTT 28.7 Sec. (24.2-36.6) 05/22/20 08:38 Sodium 146 mmol/L (137-145) H 05/22/20 08:38 Potassium 4.0 mmol/L (3.6-5.0) 05/22/20 08:38 Chloride 105.9 mmol/L (98-107) 05/22/20 08:38 Carbon Dioxide 35 mmol/L (22-30) H 05/22/20 08:38 Anion Gap 9 mmol/L 05/22/20 08:38 BUN 11 mg/dL (9-20) 05/22/20 08:38 Creatinine 1.2 mg/dL (0.8-1.3) 05/22/20 08:38 Estimated GFR > 60 ml/min 05/22/20 08:38 BUN/Creatinine Ratio 9 % 05/22/20 08:38 Glucose 97 mg/dL (75-100) 05/22/20 08:38 Calcium 9.1 mg/dL (8.4-10.2) 05/22/20 08:38 Total Bilirubin 0.20 mg/dL (0.1-1.2) 05/22/20 08:38 Direct Bilirubin < 0.2 mg/dL (0-0.2) 05/22/20 08:38 Indirect Bilirubin 0.0 mg/dL 05/22/20 08:38 AST 22 units/L (5-40) 05/22/20 08:38 ALT 21 units/L (7-56) 05/22/20 08:38 Alkaline Phosphatase 79 units/L (35-129) 05/22/20 08:38 Troponin T < 0.010 ng/mL (0.00-0.029) 05/22/20 08:38 NT-Pro-B Natriuret Pep 31.42 pg/mL (0-900) 05/22/20 08:38 Total Protein 6.6 g/dL (6.3-8.2) 05/22/20 08:38 Albumin 4.1 g/dL (3.9-5) 05/22/20 08:38 Albumin/Globulin Ratio 1.6 % 05/22/20 08:38 Lipase 31 units/L (13-60) 05/22/20 08:38 Assessment and Plan Assessment and plan: Patient is a 74-year-old male with history of CAD, COPD, depression, congestive heart failure, hypertension and diabetes mellitus also recent history of flank pain who presents to the ED with complains of substernal chest pain, 3/10 in intensity heaviness with no radiation. Patient stated that his pain associated with shortness of breath and orthopnea. Patient denied any fever or chills. No abdominal pain, nausea or vomiting. Per the patient this has been ongoing for 3 days and intermittent and worsening both at rest and with exertion. He reports compliance with all his medication was recently seen at his doctor's office early last month. He denies any fever nausea vomiting he reports mild swelling in his lower extremity. He recently had a study for lower extremity DVT evaluation and was found to be negative. Atypical chest pain likely secondary to CHF exacerbation Acute congestive heart failure possible systolic COPD without acute exacerbation Diabetes mellitus CAD Depression Tobacco use disorder Plan Admit to telemetry and observation Cardiology consult Resume home medication including diuretics IV Lasix. Monitor labs and renal function test. Goal-directed medical therapy Monitor intake and output Daily weight Insulin and keep blood sugar between 40-1 60. Counseling provided to the patient on compliance with medical management and tobacco use cessation DVT and GI prophylaxis Advance Directives: Yes Plan of care discussed with patient/family: Yes
[2020-05-22] MEDS ORDERED: NITROGLYCERIN 0.4 MG TAB SUBL SL PRN (10:27)
[2020-05-22] MEDS ORDERED: DEXTROSE 50% IN WATER (25GM) 50 ML SYRINGE IV PRN (10:28)
[2020-05-22] MEDS ORDERED: MORPHINE 4 MG/1 ML INJ IV PRN (10:30)
[2020-05-22] MEDS ORDERED: ACETAMINOPHEN 325 MG TAB PO PRN (10:30)
[2020-05-22] MEDS ORDERED: ALBUTEROL 2.5 MG/3 ML NEBU IH SCH (12:00)
[2020-05-22 12:04] LABS: Basophils % (Auto) 0.2 % (0.0-1.8); Eosinophils # (Auto) 0.1 K/mm3 (0.0-0.4); Eosinophils % (Auto) 1.6 % (0.0-4.3); Hematocrit 41.3 % (35.5-45.6); Hemoglobin 13.3 gm/dl (11.8-15.2); Lymphocytes # (Auto) 1.5 K/mm3 (1.2-5.4); Lymphocytes % (Auto) 23.3 % (13.4-35.0); Mean Corpuscular HGB Conc 32 % (32-34); Mean Corpuscular Volume 89 fl (84-94); Monocytes # (Auto) 0.6 K/mm3 (0.0-0.8); Monocytes % (Auto) 9.3 % (0.0-7.3); Platelet Count 176 K/mm3 (140-440); Red Blood Count 4.67 M/mm3 (3.65-5.03); Red Cell Distribution Width 14.7 % (13.2-15.2)
[2020-05-22 12:29] LABS: BUN/Creatinine Ratio 10; Blood Urea Nitrogen 10 mg/dL (9-20); Calcium 8.9 mg/dL (8.4-10.2); Chol/HDL Ratio 1.94 %; HDL Cholesterol 56 mg/dL (40-59); Hemolysis Index 13; LDL Cholesterol,Direct 55 mg/dL (50-130)
[2020-05-22] MEDS ORDERED: ALBUTEROL 2.5 MG/3 ML NEBU IH PRN (13:22)
[2020-05-22] MEDS ORDERED: IPRATROPIUM/ALBUTEROL SULFATE 3 ML AMPUL.NEB IH SCH (14:00)
[2020-05-22] MEDS: INSULIN LISPRO 100 UNIT/ML SUB-Q SCH ×3 (14:27→21:48)
--- NOTE | 2020-05-22 14:35 | Consultation ---
History of Present Illness Consult date: 05/22/20 Requesting physician: RICK RICO Consult reason: chest pain, congestive heart failure History of present illness: Patient is a 74 year old Male with a hx of CAD s/p PTCA, COPD Emphysema, HFpEF, HTN, DM, PVD. he is known to our practice. He is followed in our office by Dr Farah. Patient presented to [facility] ER c/o CP, SOB, and orthopnea. Hx obtained from chart. He is currently on CPAP therapy. Patient is somnolent and difficult to wake. He has been alert and able to follow commands per nursing team. Echo 05/2018: EF 55-60%. Agitated saline study is suspicious for small PFO. Otherwise normal. CXR is negative for acute findings. Past History Past Medical History: COPD, diabetes, heart failure, hypertension, hyperlipidemia Past Surgical History: No surgical history Social history: Family history: no significant family history Medications and Allergies Allergies Allergy/AdvReac Type Severity Reaction Status Date / Time No Known Allergies Allergy Verified 05/22/20 07:59 Home Medications Medication Instructions Recorded Confirmed Last Taken Type AtorvaSTATin [Lipitor] 40 mg PO QHS #30 tablet 08/04/18 02/09/20 02/08/20 20:00 Rx metFORMIN [Glucophage] 500 mg PO BID #60 tablet 08/04/18 02/09/20 02/08/20 17:00 Rx Albuterol Sulfate [Proventil Hfa] 2 puff IH PRN PRN 08/27/18 02/09/20 02/08/20 0 8:00 History Baclofen [Lioresal] 10 mg PO TID 08/27/18 02/09/20 02/08/20 20:00 History Tamsulosin [Flomax] 0.4 mg PO QDAY 08/27/18 02/09/20 02/08/20 08:00 History raNITIdine HCl [Zantac] 300 mg PO QHS 08/27/18 02/09/20 02/08/20 20:00 History Metoprolol Xl [Metoprolol 25 mg PO QDAY 09/11/18 02/09/20 02/08/20 07:00 History SUCCINATE ER TAB] Glimepiride [Amaryl] 2 mg PO QAM #30 tablet 09/13/18 02/09/20 02/08/20 08:00 Rx Nortriptyline [Pamelor] 30 mg PO BID #60 capsule 09/13/18 02/09/20 02/08/20 20:00 Rx Aspirin [Adult Aspirin] 81 mg PO DAILY 12/16/19 02/09/20 02/05/20 08:00 History Gabapentin 100 mg PO BID 12/16/19 02/09/20 02/08/20 20:00 History Oxybutynin [Ditropan] 5 mg PO BID 12/16/19 02/09/20 02/08/20 20:00 History lisinopriL [Zestril TAB] 20 mg PO DAILY 12/16/19 02/09/20 02/08/20 08:00 History ALBUTEROL NEB's [Proventil 0.083% 2.5 mg IH Q6HR 01/31/20 02/09/20 02/08/20 08:00 History NEBS] Amlodipine Besylate/Benazepril 1 each PO DAILY 01/31/20 02/09/20 02/08/20 08:00 History [Amlodipine-Benazepril 5-40 mg] Amoxicillin/K Clav Tab [Augmentin 1 each PO Q12HR 01/31/20 02/09/20 02/08/20 20:00 History 500 MG TAB] Cyclobenzaprine [Flexeril] 5 mg PO TID PRN 01/31/20 02/09/20 02/08/20 20:00 History Famotidine [Pepcid] 20 mg PO BID 01/31/20 02/09/20 02/08/20 20:00 History Fluticasone/Salmeterol(Nf) [Advair 2 puff IH BID 01/31/20 02/09/20 02/08/20 20:00 History HFA 115-21 mcg] HYDROcodone/APAP 5-325 [[place] 1 each PO Q6HR PRN 01/31/20 02/09/20 02/08/20 08:00 History 5/325] ISOSORBIDE MONOnitrate [Imdur ER] 30 mg PO DAILY 01/31/20 02/09/20 02/08/20 08:00 History Prednisone [predniSONE (Daniel) ER 5 mg PO QDAY 01/31/20 02/09/20 02/08/20 08:00 History TAB] Umeclidinium Brm/Vilanterol Tr 1 each IH DAILY 01/31/20 02/09/20 02/08/20 08:00 History [Anoro Ellipta 62.5-25 Mcg INH] hydroCHLOROthiazide [Hctz] 12.5 mg PO QDAY 01/31/20 02/09/20 02/08/20 08:00 History Active Meds: Active Medications Acetaminophen (Acetaminophen 325 Mg Tab) 650 mg PO Q6H PRN PRN Reason: Pain, Mild (1-3) Albuterol (Albuterol 2.5 Mg/3 Ml Nebu) 2.5 mg IH Q4HRT PRN PRN Reason: Shortness of breath Albuterol/Ipratropium (Ipratropium/Albuterol Sulfate 3 Ml Ampul.Neb) 1 ampul IH Q6HRT [facility] Arformoterol Tartrate (Arformoterol 15 Mcg/2 Ml Nebu) 15 mcg IH Q12HRT [facility] Aspirin (Aspirin Ec 325 Mg Tab) 325 mg PO QDAY [facility] Atorvastatin Calcium (Atorvastatin 40 Mg Tab) 40 mg PO QHS [facility] Baclofen (Baclofen 10 Mg Tab) 10 mg PO TID [facility] Budesonide (Budesonide 0.5 Mg/2 Ml Nebu) 0.5 mg IH Q12HRT [facility] Dextrose (Dextrose 50% In Water (25gm) 50 Ml Syringe) 50 ml IV Q30MIN PRN; Protocol PRN Reason: Hypoglycemia Famotidine (Famotidine 20 Mg Tab) 20 mg PO BID [facility] Furosemide (Furosemide 40 Mg/4 Ml Inj) 40 mg IV 0600,1800 [facility] Hydralazine HCl (Hydralazine 25 Mg Tab) 25 mg PO Q8HR [facility] Insulin Glargine (Insulin Glargine 100 Units/Ml) 15 units SUB-Q QHS [facility] Insulin Human Lispro (Insulin Lispro 100 Unit/Ml) 0 unit SUB-Q ACHS MOIZ; Protocol Metoprolol Succinate (Metoprolol Succinate Xl 25 Mg Tab) 50 mg PO QDAY [facility] Morphine Sulfate (Morphine 4 Mg/1 Ml Inj) 2 mg IV Q5MIN PRN PRN Reason: Chest Pain Nitroglycerin (Nitroglycerin 0.4 Mg Tab Subl) 0.4 mg SL .Q5MIN PRN PRN Reason: Chest Pain Nortriptyline HCl (Nortriptyline 25 Mg Cap) 50 mg PO QHS [facility] Oxybutynin Chloride (Oxybutynin 5 Mg Tab) 5 mg PO BID [facility] Sodium Chloride (Sodium Chloride 0.9% 10 Ml Flush Syringe) 10 ml IV PRN PRN PRN Reason: LINE FLUSH Tamsulosin HCl (Tamsulosin 0.4 Mg Cap) 0.4 mg PO QDAY [facility] Review of Systems ROS unobtainable: due to mental status (Patient is sleeping with CPAP, difficult to rouse.) Physical Examination Last Vital Signs Temp 97.8 F 05/22/20 12:53 Pulse 77 05/22/20 14:43 Resp 17 05/22/20 13:17 BP 154/88 05/22/20 14:43 Pulse Ox 97 05/22/20 13:20 General appearance: other Neck: Positive: neck supple, trachea midline Cardiac: Positive: Reg Rate and Rhythm, S1/S2 Lungs: Positive: Decreased Breath Sounds Abdomen: Positive: Distended Skin: Negative: Rash, Wound Extremities: Present: upper extr. pulses, lower extr. pulses, +1 Edema Results 05/22/20 11:35 05/22/20 11:35 Cardiac Enzymes 05/22/20 Range/Units 08:38 AST 22 (5-40) units/L Coagulation 05/22/20 Range/Units 08:38 PT 13.0 (12.2-14.9) Sec. INR 0.99 (0.87-1.13) APTT 28.7 (24.2-36.6) Sec. Lipids 05/22/20 Range/Units 11:35 Triglycerides 48 (2-149) mg/dL Cholesterol 109 (50-199) mg/dL HDL Cholesterol 56 (40-59) mg/dL Cholesterol/HDL Ratio 1.94 % CBC 05/22/20 05/22/20 Range/Units 08:38 11:35 WBC 6.0 6.3 (4.5-11.0) K/mm3 RBC 4.58 4.67 (3.65-5.03) M/mm3 Hgb 13.3 13.3 (11.8-15.2) gm/dl Hct 41.1 41.3 (35.5-45.6) % Plt Count 169 176 (140-440) K/mm3 Lymph # (Auto) 1.2 1.5 (1.2-5.4) K/mm3 [place] # (Auto) 0.7 0.6 (0.0-0.8) K/mm3 Eos # (Auto) 0.1 0.1 (0.0-0.4) K/mm3 Baso # (Auto) 0.0 0.0 (0.0-0.1) K/mm3 Comprehensive Metabolic Panel 05/22/20 05/22/20 Range/Units 08:38 11:35 Sodium 146 H 144 (137-145) mmol/L Potassium 4.0 4.2 (3.6-5.0) mmol/L Chloride 105.9 105.5 (98-107) mmol/L Carbon Dioxide 35 H 32 H (22-30) mmol/L BUN 11 10 (9-20) mg/dL Creatinine 1.2 1.0 (0.8-1.3) mg/dL Glucose 97 92 (75-100) mg/dL Calcium 9.1 8.9 (8.4-10.2) mg/dL Direct Bilirubin < 0.2 (0-0.2) mg/dL Indirect Bilirubin 0.0 mg/dL AST 22 (5-40) units/L ALT 21 (7-56) units/L Alkaline Phosphatase 79 (35-129) units/L Total Protein 6.6 (6.3-8.2) g/dL Albumin 4.1 (3.9-5) g/dL - Imaging and Cardiology Echo: report reviewed (Echo 05/2018: EF 55-60%. Agitated saline study is suspicious for small PFO. Otherwise normal.) EKG: report reviewed, image reviewed EKG interpretations - EKG Sinus rhythms and dysrhythmias: sinus rhythm Assessment and Plan 74 year old male presenting with SOB x several days. Cardiology was consulted to evaluate chest pain, however patient denies any symptoms of chest pain at his time. AMI ruled out. MPI Stress Test 06/2018: negative. No plans for further ischemic eval at this time. Will obtain echo. Agree with IV diuretics and all other cardiac regimen. f/u BMP in AM. Will follow. This patient was seen in conjunction with Dr Davila, who agrees with this assessment and plan of care. - Patient Problems (1) (HFpEF) heart failure with preserved ejection fraction Current Visit: Yes Status: Acute (2) Acute respiratory failure Current Visit: Yes Status: Acute (3) COPD with acute exacerbation Current Visit: Yes Status: Acute (4) Diabetes mellitus Current Visit: Yes Status: Chronic (5) CAD (coronary artery disease) Current Visit: Yes Status: Chronic Qualifiers: Associated angina: with stable angina (6) History of PTCA Current Visit: Yes Status: Chronic (7) Hyperlipemia Current Visit: Yes Status: Chronic (8) HTN (hypertension) Current Visit: Yes Status: Chronic (9) Tobacco use Current Visit: Yes Status: Chronic (10) Obesity Current Visit: Yes Status: Chronic (11) PVD (peripheral vascular disease) Current Visit: Yes Status: Chronic
[2020-05-22] MEDS: BACLOFEN 10 MG TAB PO SCH ×2 (14:43→21:36)
[2020-05-22] MEDS: hydrALAZINE 25 MG TAB PO SCH ×2 (14:43→21:37)
[2020-05-22] MEDS: FUROSEMIDE 40 MG/4 ML INJ IV SCH (17:50)
[2020-05-22] MEDS: BUDESONIDE 0.5 MG/2 ML NEBU IH SCH (20:35)
[2020-05-22] MEDS: ARFORMOTEROL 15 MCG/2 ML NEBU IH SCH (20:36)
[2020-05-22] MEDS: IPRATROPIUM/ALBUTEROL SULFATE 3 ML AMPUL.NEB IH SCH (20:46)
[2020-05-22] MEDS: NORTRIPTYLINE 25 MG CAP PO SCH (21:35)
[2020-05-22] MEDS: FAMOTIDINE 20 MG TAB PO SCH (21:36)
[2020-05-22] MEDS: OXYBUTYNIN 5 MG TAB PO SCH (21:36)
[2020-05-22] MEDS: INSULIN GLARGINE 100 UNITS/ML SUB-Q SCH (21:37)
[2020-05-22] MEDS ORDERED: NORTRIPTYLINE 10 MG CAP PO SCH ×2 (22:00)
[2020-05-23 05:17] LABS: BUN/Creatinine Ratio 11; Blood Urea Nitrogen 10 mg/dL (9-20); Calcium 8.6 mg/dL (8.4-10.2); Hemolysis Index 16
[2020-05-23] MEDS: FUROSEMIDE 40 MG/4 ML INJ IV SCH (05:49)
[2020-05-23] MEDS: hydrALAZINE 25 MG TAB PO SCH ×3 (05:51→22:13)
[2020-05-23] MEDS: IPRATROPIUM/ALBUTEROL SULFATE 3 ML AMPUL.NEB IH SCH ×6 (06:11→19:59)
[2020-05-23] MEDS: INSULIN LISPRO 100 UNIT/ML SUB-Q SCH ×4 (07:54→22:12)
--- NOTE | 2020-05-23 07:54 | Progress Note ---
Assessment and Plan Assessment and plan: Patient is a 74-year-old male with history of CAD, COPD, depression, congestive heart failure, hypertension and diabetes mellitus also recent history of flank pain who presents to the ED with complains of substernal chest pain, 3/10 in intensity heaviness with no radiation. Patient stated that his pain associated with shortness of breath and orthopnea. Patient denied any fever or chills. No abdominal pain, nausea or vomiting. Per the patient this has been ongoing for 3 days and intermittent and worsening both at rest and with exertion. He reports compliance with all his medication was recently seen at his doctor's office early last month. He denies any fever nausea vomiting he reports mild swelling in his lower extremity. He recently had a study for lower extremity DVT evaluation and was found to be negative. Atypical chest pain likely secondary to CHF exacerbation Acute congestive heart failure diastolic with preserved EF COPD without acute exacerbation Diabetes mellitus CAD Depression Tobacco use disorder Plan / cardiology input is noted. Chest x-ray again reviewed is unremarkable. But patient with noted wheezing. Likely more of a COPD exacerbation than exacerbated heart failure we will add steroids. Reduce Lasix to daily. Anticipate discharge in a.m. We will also add a stool softener. Cardiology consult Resume home medication Monitor labs and renal function test. Goal-directed medical therapy Monitor intake and output Daily weight Insulin and keep blood sugar between 140-160. Counseling provided to the patient on compliance with medical management and tobacco use cessation DVT and GI prophylaxis History Interval history: Patient seen and examined this morning had an uneventful night per nursing staff. -230 cc of fluids as of this morning. He reports that he feels uncomfortable still with some wheezing noted. Abdomen appears distended he states his last BM was 2 days ago he believes he goes every 2 days. Hospitalist Physical - Physical exam Narrative exam: VITAL SIGNS: Reviewed. GENERAL: The patient appears normally developed, Vital signs as documented. HEAD: No signs of head trauma. EYES: Pupils are equal. Extraocular motions intact. EARS: Hearing grossly intact. MOUTH: Oropharynx is normal. NECK: No adenopathy, no JVD. CHEST: Chest with diminished with mild expiratory wheeze breath sounds bilaterally. CARDIAC: Regular rate and rhythm. S1 and S2, without murmurs, gallops, or rubs. VASCULAR: +2 pitting edema. Peripheral pulses normal and equal in all extremities. ABDOMEN: Soft, non tender and non distended. No rebound or guarding, and no masses palpated. Bowel Sounds normal. MUSCULOSKELETAL: Good range of motion of all major joints. Extremities without clubbing, cyanosis. +2 pitting edema. NEUROLOGIC EXAM: Alert and oriented x 3 No focal sensory or strength deficits. Speech normal. Follows commands. PSYCHIATRIC: Mood normal. SKIN: Chronic venous changes bilateral lower extremity detail exam as documented in skin assessment - Constitutional Vitals: Temp Pulse Resp BP Pulse Ox 97.6 F 83 20 130/88 100 05/23/20 04:32 05/23/20 04:32 05/23/20 04:32 05/23/20 05:51 05/23/20 04:32 General appearance: Present: other HEART Score - HEART Score EKG: Non-specific Age: > 65 Risk factors: > 3 risk factors or hx of atherosclerotic disease Troponin: Troponin T < 0.010 ng/mL (0.00-0.029) 05/22/20 14:06 Troponin: < normal limit - Critical Actions Critical Actions: 4-6 pts:12-16.6% risk of adverse cardiac event. Should be admitted Results - Labs CBC & Chem 7: 05/22/20 11:35 05/23/20 04:11 Labs: Laboratory Last Values WBC 6.3 K/mm3 (4.5-11.0) 05/22/20 11:35 RBC 4.67 M/mm3 (3.65-5.03) 05/22/20 11:35 Hgb 13.3 gm/dl (11.8-15.2) 05/22/20 11:35 Hct 41.3 % (35.5-45.6) 05/22/20 11:35 MCV 89 fl (84-94) 05/22/20 11:35 MCH 29 pg (28-32) 05/22/20 11:35 MCHC 32 % (32-34) 05/22/20 11:35 RDW 14.7 % (13.2-15.2) 05/22/20 11:35 Plt Count 176 K/mm3 (140-440) 05/22/20 11:35 Lymph % (Auto) 23.3 % (13.4-35.0) 05/22/20 11:35 [place] % (Auto) 9.3 % (0.0-7.3) H 05/22/20 11:35 Eos % (Auto) 1.6 % (0.0-4.3) 05/22/20 11:35 Baso % (Auto) 0.2 % (0.0-1.8) 05/22/20 11:35 Lymph # (Auto) 1.5 K/mm3 (1.2-5.4) 05/22/20 11:35 [place] # (Auto) 0.6 K/mm3 (0.0-0.8) 05/22/20 11:35 Eos # (Auto) 0.1 K/mm3 (0.0-0.4) 05/22/20 11:35 Baso # (Auto) 0.0 K/mm3 (0.0-0.1) 05/22/20 11:35 Seg Neutrophils % 65.6 % (40.0-70.0) 05/22/20 11:35 Seg Neutrophils # 4.1 K/mm3 (1.8-7.7) 05/22/20 11:35 PT 13.0 Sec. (12.2-14.9) 05/22/20 08:38 INR 0.99 (0.87-1.13) 05/22/20 08:38 APTT 28.7 Sec. (24.2-36.6) 05/22/20 08:38 Sodium 143 mmol/L (137-145) 05/23/20 04:11 Potassium 3.6 mmol/L (3.6-5.0) 05/23/20 04:11 Chloride 104.3 mmol/L (98-107) 05/23/20 04:11 Carbon Dioxide 31 mmol/L (22-30) H 05/23/20 04:11 Anion Gap 11 mmol/L 05/23/20 04:11 BUN 10 mg/dL (9-20) 05/23/20 04:11 Creatinine 0.9 mg/dL (0.8-1.3) 05/23/20 04:11 Estimated GFR > 60 ml/min 05/23/20 04:11 BUN/Creatinine Ratio 11 % 05/23/20 04:11 Glucose 74 mg/dL (75-100) L 05/23/20 04:11 POC Glucose 187 mg/dL (70-105) H 05/22/20 21:23 Calcium 8.6 mg/dL (8.4-10.2) 05/23/20 04:11 Total Bilirubin 0.20 mg/dL (0.1-1.2) 05/22/20 08:38 Direct Bilirubin < 0.2 mg/dL (0-0.2) 05/22/20 08:38 Indirect Bilirubin 0.0 mg/dL 05/22/20 08:38 AST 22 units/L (5-40) 05/22/20 08:38 ALT 21 units/L (7-56) 05/22/20 08:38 Alkaline Phosphatase 79 units/L (35-129) 05/22/20 08:38 Troponin T < 0.010 ng/mL (0.00-0.029) 05/22/20 14:06 NT-Pro-B Natriuret Pep 31.42 pg/mL (0-900) 05/22/20 08:38 Total Protein 6.6 g/dL (6.3-8.2) 05/22/20 08:38 Albumin 4.1 g/dL (3.9-5) 05/22/20 08:38 Albumin/Globulin Ratio 1.6 % 05/22/20 08:38 Triglycerides 48 mg/dL (2-149) 05/22/20 11:35 Cholesterol 109 mg/dL (50-199) 05/22/20 11:35 LDL Cholesterol Direct 55 mg/dL (50-130) 05/22/20 11:35 HDL Cholesterol 56 mg/dL (40-59) 05/22/20 11:35 Cholesterol/HDL Ratio 1.94 % 05/22/20 11:35 Lipase 31 units/L (13-60) 05/22/20 08:38 [place]/IV: Voiding Method Urinal Active Medications - Current Medications Current Medications: Generic Name Dose Route Start Last Admin Trade Name Freq PRN Reason Stop Dose Admin Acetaminophen 650 mg 05/22/20 10:30 Acetaminophen 325 Mg Tab PO Q6H PRN Pain, Mild (1-3) Albuterol 2.5 mg 05/22/20 13:22 Albuterol 2.5 Mg/3 Ml Nebu IH Q4HRT PRN Shortness of breath Albuterol/Ipratropium 1 ampul 05/22/20 20:00 05/23/20 06:11 Ipratropium/Albuterol Sulfate 3 Ml Ampul.Neb IH Not Given Q6HRT [facility] Arformoterol Tartrate 15 mcg 05/22/20 20:00 05/22/20 20:36 Arformoterol 15 Mcg/2 Ml Nebu IH 15 mcg Q12HRT [facility] Administration Aspirin 81 mg 05/23/20 10:00 Aspirin 81 Mg Tab Chew PO QDAY [facility] Atorvastatin Calcium 40 mg 05/22/20 22:00 05/22/20 21:36 Atorvastatin 40 Mg Tab PO 40 mg QHS [facility] Administration Baclofen 10 mg 05/22/20 14:00 05/22/20 21:36 Baclofen 10 Mg Tab PO 10 mg TID [facility] Administration Budesonide 0.5 mg 05/22/20 20:00 05/22/20 20:35 Budesonide 0.5 Mg/2 Ml Nebu IH 0.5 mg Q12HRT [facility] Administration Dextrose 50 ml 05/22/20 10:28 Dextrose 50% In Water (25gm) 50 Ml Syringe IV Q30MIN PRN Hypoglycemia Protocol Famotidine 20 mg 05/22/20 22:00 05/22/20 21:36 Famotidine 20 Mg Tab PO 20 mg BID [facility] Administration Furosemide 40 mg 05/22/20 18:00 05/23/20 05:49 Furosemide 40 Mg/4 Ml Inj IV 40 mg 0600,1800 [facility] Administration Hydralazine HCl 25 mg 05/22/20 14:00 05/23/20 05:51 Hydralazine 25 Mg Tab PO 25 mg Q8HR [facility] Administration Insulin Glargine 15 units 05/22/20 22:00 05/22/20 21:37 Insulin Glargine 100 Units/Ml SUB-Q 15 units QHS [facility] Administration Insulin Human Lispro 0 unit 05/22/20 11:30 05/22/20 21:48 Insulin Lispro 100 Unit/Ml SUB-Q 2 unit ACHS [facility] Administration Protocol Methylprednisolone Sodium Succinate 60 mg 05/23/20 08:00 Methylprednisolone Sod Succinate 125 Mg/2 Ml Inj IV Q8HR [facility] Metoprolol Succinate 50 mg 05/23/20 10:00 Metoprolol Succinate Xl 25 Mg Tab PO QDAY [facility] Morphine Sulfate 2 mg 05/22/20 10:30 05/22/20 23:43 Morphine 4 Mg/1 Ml Inj IV 2 mg Q5MIN PRN Administration Chest Pain Nitroglycerin 0.4 mg 05/22/20 10:27 Nitroglycerin 0.4 Mg Tab Subl SL .Q5MIN PRN Chest Pain Nortriptyline HCl 50 mg 05/22/20 22:00 05/22/20 21:35 Nortriptyline 25 Mg Cap PO 50 mg QHS [facility] Administration Oxybutynin Chloride 5 mg 05/22/20 22:00 05/22/20 21:36 Oxybutynin 5 Mg Tab PO 5 mg BID [facility] Administration Sodium Chloride 10 ml 05/22/20 10:10 05/22/20 23:44 Sodium Chloride 0.9% 10 Ml Flush Syringe IV 10 ml PRN PRN Administration LINE FLUSH Tamsulosin HCl 0.4 mg 05/23/20 10:00 Tamsulosin 0.4 Mg Cap PO QDAY [facility]
[2020-05-23] MEDS ORDERED: GLIMEPIRIDE 2 MG TAB PO SCH (08:00)
[2020-05-23] MEDS: ARFORMOTEROL 15 MCG/2 ML NEBU IH SCH ×3 (09:09→20:04)
[2020-05-23] MEDS: BUDESONIDE 0.5 MG/2 ML NEBU IH SCH ×3 (09:09→19:59)
--- NOTE | 2020-05-23 09:25 | Consultation ---
History of Present Illness Consult date: 05/23/20 Requesting physician: RICK RICO Reason for consult: COPD, other (wheezing) History of present illness: Patient is a 74-year-old male with history of CAD, COPD, depression, congestive heart failure, hypertension and diabetes mellitus also recent history of flank pain who presented to the ED with complaints of substernal chest pain, heaviness with no radiation. Patient stated that his pain was associated with shortness of breath and orthopnea. Patient denied any fever or chills. No abdominal pain, nausea or vomiting. Per the patient this has been ongoing for 3 days and intermittent and worsening both at rest and with exertion. He reports compliance with all his medication was recently seen at his doctor's office early last month. He denies any fever nausea vomiting he reports mild swelling in his lower extremity. He recently had a study for lower extremity DVT evaluation and was found to be negative. Upon interviewing patient he states that his lung physician is Dr. Ibarra. Past History Past Medical History: COPD, diabetes, heart failure, hypertension, hyp erlipidemia Past Surgical History: No surgical history Social history: Family history: no significant family history Medications and Allergies Allergies Allergy/AdvReac Type Severity Reaction Status Date / Time No Known Allergies Allergy Verified 05/22/20 07:59 Home Medications Medication Instructions Recorded Confirmed Last Taken Type AtorvaSTATin [Lipitor] 40 mg PO QHS #30 tablet 08/04/18 02/09/20 02/08/20 20:00 Rx metFORMIN [Glucophage] 500 mg PO BID #60 tablet 08/04/18 02/09/20 02/08/20 17:00 Rx Albuterol Sulfate [Proventil Hfa] 2 puff IH PRN PRN 08/27/18 02/09/20 02/08/20 08:00 History Baclofen [Lioresal] 10 mg PO TID 08/27/18 02/09/20 02/08/20 20:00 History Tamsulosin [Flomax] 0.4 mg PO QDAY 08/27/18 02/09/20 02/08/20 08:00 History raNITIdine HCl [Zantac] 300 mg PO QHS 08/27/18 02/09/20 02/08/20 20:00 History Metoprolol Xl [Metoprolol 25 mg PO QDAY 09/11/18 02/09/20 02/08/20 07:00 History SUCCINATE ER TAB] Glimepiride [Amaryl] 2 mg PO QAM #30 tablet 09/13/18 02/09/20 02/08/20 08:00 Rx Nortriptyline [Pamelor] 30 mg PO BID #60 capsule 09/13/18 02/09/20 02/08/20 20:00 Rx Aspirin [Adult Aspirin] 81 mg PO DAILY 12/16/19 02/09/20 02/05/20 08:00 History Gabapentin 100 mg PO BID 12/16/19 02/09/20 02/08/20 20:00 History Oxybutynin [Ditropan] 5 mg PO BID 12/16/19 02/09/20 02/08/20 20:00 History lisinopriL [Zestril TAB] 20 mg PO DAILY 12/16/19 02/09/20 02/08/20 08:00 History ALBUTEROL NEB's [Proventil 0.083% 2.5 mg IH Q6HR 01/31/20 02/09/20 02/08/20 08:00 History NEBS] Amlodipine Besylate/Benazepril 1 each PO DAILY 01/31/20 02/09/20 02/08/20 08:00 History [Amlodipine-Benazepril 5-40 mg] Amoxicillin/K Clav Tab [Augmentin 1 each PO Q12HR 01/31/20 02/09/20 02/08/20 20:00 History 500 MG TAB] Cyclobenzaprine [Flexeril] 5 mg PO TID PRN 01/31/20 02/09/20 02/08/20 20:00 History Famotidine [Pepcid] 20 mg PO BID 01/31/20 02/09/20 02/08/20 20:00 History Fluticasone/Salmeterol(Nf) [Advair 2 puff IH BID 01/31/20 02/09/20 02/08/20 20:00 History HFA 115-21 mcg] HYDROcodone/APAP 5-325 [Mitchell 1 each PO Q6HR PRN 01/31/20 02/09/20 02/08/20 08:00 History 5/325] ISOSORBIDE MONOnitrate [Imdur ER] 30 mg PO DAILY 01/31/20 02/09/20 02/08/20 08:0 0 History Prednisone [predniSONE (Daniel) ER 5 mg PO QDAY 01/31/20 02/09/20 02/08/20 08:00 History TAB] Umeclidinium Brm/Vilanterol Tr 1 each IH DAILY 01/31/20 02/09/20 02/08/20 08:00 History [Anoro Ellipta 62.5-25 Mcg INH] hydroCHLOROthiazide [Hctz] 12.5 mg PO QDAY 01/31/20 02/09/20 02/08/20 08:00 History Active Meds: Active Medications Acetaminophen (Acetaminophen 325 Mg Tab) 650 mg PO Q6H PRN PRN Reason: Pain, Mild (1-3) Albuterol (Albuterol 2.5 Mg/3 Ml Nebu) 2.5 mg IH Q4HRT PRN PRN Reason: Shortness of breath Albuterol/Ipratropium (Ipratropium/Albuterol Sulfate 3 Ml Ampul.Neb) 1 ampul IH Q6HRT [facility] Last Admin: 05/23/20 09:09 Dose: Not Given Documented by: Arformoterol Tartrate (Arformoterol 15 Mcg/2 Ml Nebu) 15 mcg IH Q12HRT [facility] Last Admin: 05/23/20 09:09 Dose: Not Given Documented by: Aspirin (Aspirin 81 Mg Tab Chew) 81 mg PO QDAY [facility] Atorvastatin Calcium (Atorvastatin 40 Mg Tab) 40 mg PO QHS [facility] Last Admin: 05/22/20 21:36 Dose: 40 mg Documented by: Baclofen (Baclofen 10 Mg Tab) 10 mg PO TID [facility] Last Admin: 05/22/20 21:36 Dose: 10 mg Documented by: Budesonide (Budesonide 0.5 Mg/2 Ml Nebu) 0.5 mg IH Q12HRT [facility] Last Admin: 05/23/20 09:09 Dose: Not Given Documented by: Dextrose (Dextrose 50% In Water (25gm) 50 Ml Syringe) 50 ml IV Q30MIN PRN; Protocol PRN Reason: Hypoglycemia Famotidine (Famotidine 20 Mg Tab) 20 mg PO BID [facility] Last Admin: 05/22/20 21:36 Dose: 20 mg Documented by: Furosemide (Furosemide 40 Mg/4 Ml Inj) 40 mg IV DAILY [facility] Hydralazine HCl (Hydralazine 25 Mg Tab) 25 mg PO Q8HR [facility] Last Admin: 05/23/20 05:51 Dose: 25 mg Documented by: Insulin Glargine (Insulin Glargine 100 Units/Ml) 15 units SUB-Q QHS [facility] Last Admin: 05/22/20 21:37 Dose: 15 units Documented by: Insulin Human Lispro (Insulin Lispro 100 Unit/Ml) 0 unit SUB-[address] [facility]; Protocol Last Admin: 05/22/20 21:48 Dose: 2 unit Documented by: Methylprednisolone Sodium Succinate (Methylprednisolone Sod Succinate 125 Mg/2 Ml Inj) 60 mg IV Q8HR [facility] Metoprolol Succinate (Metoprolol Succinate Xl 25 Mg Tab) 50 mg PO QDAY [facility] Morphine Sulfate (Morphine 4 Mg/1 Ml Inj) 2 mg IV Q5MIN PRN PRN Reason: Chest Pain Last Admin: 05/22/20 23:43 Dose: 2 mg Documented by: Nitroglycerin (Nitroglycerin 0.4 Mg Tab Subl) 0.4 mg SL .Q5MIN PRN PRN Reason: Chest Pain Nortriptyline HCl (Nortriptyline 25 Mg Cap) 50 mg PO QHS [facility] Last Admin: 05/22/20 21:35 Dose: 50 mg Documented by: Oxybutynin Chloride (Oxybutynin 5 Mg Tab) 5 mg PO BID [facility] Last Admin: 05/22/20 21:36 Dose: 5 mg Documented by: Sodium Chloride (Sodium Chloride 0.9% 10 Ml Flush Syringe) 10 ml IV PRN PRN PRN Reason: LINE FLUSH Last Admin: 05/22/20 23:44 Dose: 10 ml Documented by: Tamsulosin HCl (Tamsulosin 0.4 Mg Cap) 0.4 mg PO QDAY [facility] Review of Systems All systems: negative Physical Examination Vital signs: Vital Signs Temp Pulse Resp BP Pulse Ox 97.8 F 83 24 143/84 92 05/22/20 08:04 05/22/20 08:04 05/22/20 08:04 05/22/20 08:04 05/22/20 08:04 Patient currently in restroom so history was obtained via conversation and I was not able to physically examine the patient. Results - Laboratory Findings CBC and BMP: 05/22/20 11:35 05/23/20 04:11 PT/INR, D-dimer PT 13.0 Sec. (12.2-14.9) 05/22/20 08:38 INR 0.99 (0.87-1.13) 05/22/20 08:38 Abnormal lab findings: Abnormal Labs 05/22/20 05/22/20 05/22/20 08:38 08:38 11:35 Graves % (Auto) 11.0 H 9.3 H Sodium 146 H Carbon Dioxide 35 H Glucose POC Glucose 05/22/20 05/22/20 05/22/20 11:35 12:42 21:23 Graves % (Auto) Sodium Carbon Dioxide 32 H Glucose POC Glucose 150 H 187 H 05/23/20 05/23/20 04:11 07:55 Graves % (Auto) Sodium Carbon Dioxide 31 H Glucose 74 L POC Glucose 64 L - Diagnostic Findings Chest x-ray: report reviewed (unable to see images secodnary to system error) Assessment and Plan 74 y/o male with chest pain and known COPD 1. [facility] initially felt this was all cardiac which based on previous admission appears to be the case. However wheezing was noted on exam so pulmonary was consulted. Upon further review, Patient already established with a p ulmonologist, Dr. Ibarra, whom I have asked the charge nurse to consult. In the meant time, I agree with the current management by the medical team and will defer any further adjustments to Dr. Ibarra.
[2020-05-23] MEDS ORDERED: METOPROLOL SUCCINATE XL 25 MG TAB PO SCH ×2 (10:00)
[2020-05-23] MEDS ORDERED: DAPAGLIFLOZIN (NF) PROPANEDIOL 5 MG TAB PO SCH (10:00)
[2020-05-23] MEDS ORDERED: ASPIRIN EC 325 MG TAB PO SCH (10:00)
[2020-05-23] MEDS: methylPREDNISolone Sod Succinate 125 MG/2 ML INJ IV SCH ×3 (10:16→22:09)
[2020-05-23] MEDS: TAMSULOSIN 0.4 MG CAP PO SCH (10:17)
[2020-05-23] MEDS: ASPIRIN 81 MG TAB CHEW PO SCH (10:17)
[2020-05-23] MEDS: FAMOTIDINE 20 MG TAB PO SCH ×2 (10:17→22:09)
[2020-05-23] MEDS: BACLOFEN 10 MG TAB PO SCH ×3 (10:17→22:08)
[2020-05-23] MEDS: OXYBUTYNIN 5 MG TAB PO SCH ×2 (10:17→22:08)
--- NOTE | 2020-05-23 11:33 | Progress Note ---
Assessment and Plan 74 year old male presenting with SOB x several days. Cardiology was consulted to evaluate chest pain, however patient denies any symptoms of chest pain at his time. AMI ruled out. MPI Stress Test 06/2018: negative. No plans for further ischemic eval at this time. Echo performed this AM, results pending. Agree with IV diuretics and all other cardiac regimen. f/u BMP in AM. Will follow. This patient was seen in conjunction with Dr Davila, who agrees with this assessment and plan of care. - Patient Problems (1) (HFpEF) heart failure with preserved ejection fraction Current Visit: Yes Status: Acute (2) Acute respiratory failure Current Visit: Yes Status: Acute (3) COPD with acute exacerbation Current Visit: Yes Status: Acute (4) Diabetes mellitus Current Visit: Yes Status: Chronic (5) CAD (coronary artery disease) Current Visit: Yes Status: Chronic Qualifiers: Associated angina: with stable angina (6) History of PTCA Current Visit: Yes Status: Chronic (7) Hyperlipemia Current Visit: Yes Status: Chronic (8) HTN (hypertension) Current Visit: Yes Status: Chronic (9) Tobacco use Current Visit: Yes Status: Chronic (10) Obesity Current Visit: Yes Status: Chronic (11) PVD (peripheral vascular disease) Current Visit: Yes Status: Chronic Subjective Date of service: 05/23/20 Principal diagnosis: COPD Exacerbation Interval history: Patient is resting comfortably in bed, on Nasal Cannula, Alert & Orented. Patient denies any current CP. No new cardiac complaints. Tele reviewed: Sinus Rhythm HR 108. Objective Last Vital Signs Temp 97.4 F L 05/23/20 07:53 Pulse 78 05/23/20 10:33 Resp 20 05/23/20 10:33 BP 142/92 05/23/20 07:53 Pulse Ox 99 05/23/20 10:11 - Physical Examination Neck: Positive: neck supple, trachea midline Cardiac: Positive: Regular Rhythm, S1/S2 Lungs: Positive: Decreased Breath Sounds Neuro: Positive: Grossly Intact Abdomen: Positive: Unremarkable Skin: Negative: Rash, Wound Extremities: Present: upper extr. pulses, lower extr. pulses, +1 Edema - Labs and Meds Lipids 05/22/20 Range/Units 11:35 Triglycerides 48 (2-149) mg/dL Cholesterol 109 (50-199) mg/dL HDL Cholesterol 56 (40-59) mg/dL Cholesterol/HDL Ratio 1.94 % CBC 05/22/20 Range/Units 11:35 WBC 6.3 (4.5-11.0) K/mm3 RBC 4.67 (3.65-5.03) M/mm3 Hgb 13.3 (11.8-15.2) gm/dl Hct 41.3 (35.5-45.6) % Plt Count 176 (140-440) K/mm3 Lymph # (Auto) 1.5 (1.2-5.4) K/mm3 Cooper # (Auto) 0.6 (0.0-0.8) K/mm3 Eos # (Auto) 0.1 (0.0-0.4) K/mm3 Baso # (Auto) 0.0 (0.0-0.1) K/mm3 Comprehensive Metabolic Panel 05/22/20 05/23/20 Range/Units 11:35 04:11 Sodium 144 143 (137-145) mmol/L Potassium 4.2 3.6 (3.6-5.0) mmol/L Chloride 105.5 104.3 (98-107) mmol/L Carbon Dioxide 32 H 31 H (22-30) mmol/L BUN 10 10 (9-20) mg/dL Creatinine 1.0 0.9 (0.8-1.3) mg/dL Glucose 92 74 L (75-100) mg/dL Calcium 8.9 8.6 (8.4-10.2) mg/dL - Imaging and Cardiology EKG: report reviewed, image reviewed Echo: report reviewed (Echo 05/2018: EF 55-60%. Agitated saline study is suspicious for small PFO. Otherwise normal.) - EKG Sinus rhythms and dysrhythmias: sinus rhythm
[2020-05-23] MEDS: NORTRIPTYLINE 25 MG CAP PO SCH (22:08)
[2020-05-23] MEDS: INSULIN GLARGINE 100 UNITS/ML SUB-Q SCH (22:10)
[2020-05-24] MEDS: IPRATROPIUM/ALBUTEROL SULFATE 3 ML AMPUL.NEB IH SCH ×2 (03:51→10:59)
[2020-05-24 05:38] LABS: BUN/Creatinine Ratio 19; Blood Urea Nitrogen 25 mg/dL (9-20); Calcium 9.3 mg/dL (8.4-10.2); Hemolysis Index 12
[2020-05-24] MEDS: hydrALAZINE 25 MG TAB PO SCH (05:57)
[2020-05-24] MEDS: INSULIN LISPRO 100 UNIT/ML SUB-Q SCH ×3 (08:03→17:20)
--- NOTE | 2020-05-24 09:07 | Discharge Summary ---
Providers - Providers Date of Admission: 05/22/20 16:11 Attending physician: GABY MARTELL 05/22/20 Consult to Cardiac Rehabilitation [CONS] Routine Reason For Exam: Phase I 05/22/20 10:10 Consult to Cardiology [CONS] Routine Consulting Provider: ADAN JAVED Reason For Exam: chest pain 05/22/20 12:56 Consult to Physician [CONS] Routine Comment: Consulting Provider: BUCK CASTRO Physician Instructions: Reason For Exam: COPD EXACERBATION 05/23/20 07:55 Physical Therapy Evaluation and Treat [CONS] Routine Comment: Reason For Exam: Debility Primary care physician: JACKY ZAYAS Hospitalization Reason for admission: COPD EXACERBATION Condition: Stable Hospital course: Patient is a 74-year-old male with history of CAD, COPD, depression, congestive heart failure, hypertension and diabetes mellitus also recent history of flank pain who presents to the ED with complains of substernal chest pain, 3/10 in i ntensity heaviness with no radiation. Patient stated that his pain associated with shortness of breath and orthopnea. Patient denied any fever or chills. No abdominal pain, nausea or vomiting. Per the patient this has been ongoing for 3 days and intermittent and worsening both at rest and with exertion. He reports compliance with all his medication was recently seen at his doctor's office early last month. He denies any fever nausea vomiting he reports mild swelling in his lower extremity. He recently had a study for lower extremity DVT evaluation and was found to be negative. Atypical chest pain likely secondary to CHF exacerbation Acute congestive heart failure diastolic with preserved EF COPD without acute exacerbation Diabetes mellitus CAD Depression Tobacco use disorder Plan 05/23 cardiology input is noted. Chest x-ray again reviewed is unremarkable. But patient with noted wheezing. Likely more of a COPD exacerbation than exacerbated heart failure we will add steroids. Reduce Lasix to daily. Anticipate discharge in a.m. We will also add a stool softener. 3: Patient states he improved, wants to go home. Will check home o2 and discharge on tapering steroids. He will follow with his PCP on discharge. Patient is also chronically deconditioned recommended outpatient rehab therapy for the patient to be arranged by primary care physician. Cardiology suggested beta-ajcqueline for better control of tachycardia Cardiology consult NOTED Pulmonary input appreciated Resume home medication Monitor labs and renal function test. Goal-directed medical therapy Monitor intake and output Daily weight Insulin and keep blood sugar between 140-160. Counseling provided to the patient on compliance with medical management and tobacco use cessation DVT and GI prophylaxis Disposition: DC-01 TO HOME OR SELFCARE Time spent for discharge: 35 MINS Core Measure Documentation - Palliative Care Palliative Care/ Comfort Measures: Not Applicable - Core Measures Any of the following diagnoses?: none Exam - Physical Exam Narrative exam: VITAL SIGNS: Reviewed. GENERAL: The patient appears normally developed, Vital signs as documented. HEAD: No signs of head trauma. EYES: Pupils are equal. Extraocular motions intact. EARS: Hearing grossly intact. MOUTH: Oropharynx is normal. NECK: No adenopathy, no JVD. CHEST: Chest with diminished with mild expiratory wheeze breath sounds bilaterally Much improved. CARDIAC: Regular rate and rhythm. S1 and S2, without murmurs, gallops, or rubs. VASCULAR: +2 pitting edema. Peripheral pulses normal and equal in all extremities. ABDOMEN: Soft, non tender and non distended. No rebound or guarding, and no masses palpated. Bowel Sounds normal. MUSCULOSKELETAL: Good range of motion of all major joints. Extremities without clubbing, cyanosis. +2 pitting edema. NEUROLOGIC EXAM: Alert and oriented x 3 No focal sensory or strength deficits. Speech normal. Follows commands. PSYCHIATRIC: Mood normal. SKIN: Chronic venous changes bilateral lower extremity detail exam as documented in skin assessment - Constitutional Vitals: Temp Pulse Resp BP Pulse Ox 98.1 F 110 H 18 120/69 96 05/24/20 08:51 05/24/20 08:51 05/24/20 08:51 05/24/20 08:51 05/24/20 08:51 Plan Activity: advance as tolerated, fall precautions Diet: low fat Special Instructions: record daily weights, record daily BP diary Follow up with: JACKY ZAYAS MD [Primary Care Provider] - 3-5 Days BUCK CASTRO MD [Staff Physician] - 7 Days DORIAN KNOX MD [Staff Physician] - 7 Days Prescriptions: Metoprolol Xl [Metoprolol SUCCINATE ER TAB] 50 mg PO QDAY #60 Prednisone [predniSONE 5 mg (6-Day Pack, 21 Tabs)] 5 mg PO .TAPER #1 tab.ds.pk Albuterol Sulfate [Proventil Hfa] 2 puff IH PRN PRN #1 PRN Reason: Shortness Of Breath
[2020-05-24] MEDS: OXYBUTYNIN 5 MG TAB PO SCH (09:20)
[2020-05-24] MEDS ORDERED: FUROSEMIDE 40 MG/4 ML INJ IV SCH (10:00)
[2020-05-24] MEDS ORDERED: METOPROLOL SUCCINATE XL 25 MG TAB PO SCH (10:00)
[2020-05-24] MEDS ORDERED: FUROSEMIDE 40 MG TAB PO SCH (10:00)
[2020-05-24] MEDS: ASPIRIN 81 MG TAB CHEW PO SCH (10:05)
[2020-05-24] MEDS: BACLOFEN 10 MG TAB PO SCH (10:05)
[2020-05-24] MEDS: FAMOTIDINE 20 MG TAB PO SCH (10:05)
[2020-05-24] MEDS: TAMSULOSIN 0.4 MG CAP PO SCH (10:05)
--- NOTE | 2020-05-24 10:25 | Progress Note ---
Assessment and Plan tte reviewed - Currently stable cardiac status. Agree with conversion to PO lasix. Cont all other present cardiac management. tele reviewed - in SR HR 100s, pt noted to develop LBBB today around 7:30AM and remains in LBBB, no prior history of LBBB. Pt is resting comfortably with no current cardiac complaints. Roseline negative for AMI. MPI Stress Test 06/2018: negative. Will plan for OP stress testing for further evaluation of LBBB once medically stabilized. Pt may discharge from cardiology standpoint on present cardiac regimen. Follow up in our [place] office with Dr. Farah on 06/08/2020 @ 9:50AM. The patient has been seen in conjunction with Dr. Davila who agrees with the assessment and plan of care. - Patient Problems (1) (HFpEF) heart failure with preserved ejection fraction Current Visit: Yes Status: Acute (2) Acute respiratory failure Current Visit: Yes Status: Acute (3) COPD with acute exacerbation Current Visit: Yes Status: Acute (4) Diabetes mellitus Current Visit: Yes Status: Chronic (5) CAD (coronary artery disease) Current Visit: Yes Status: Chronic Qualifiers: Associated angina: with stable angina (6) History of PTCA Current Visit: Yes Status: Chronic (7) Hyperlipemia Current Visit: Yes Status: Chronic (8) HTN (hypertension) Current Visit: Yes Status: Chronic (9) Tobacco use Current Visit: Yes Status: Chronic (10) Obesity Current Visit: Yes Status: Chronic (11) PVD (peripheral vascular disease) Current Visit: Yes Status: Chronic (12) LBBB Current Visit: Yes Status: Acute Subjective Date of service: 05/24/20 Principal diagnosis: COPD Exacerbation Interval history: pt lying in bed comfortably, on O2 via NC, no current complaints. tele reviewed - in SR HR 100s, pt noted to develop LBBB today around 7:30AM and remains in LBBB, no prior history of LBBB. Objective Last Vital Signs Temp 98.1 F 05/24/20 08:51 Pulse 110 H 05/24/20 10:05 Resp 18 05/24/20 08:51 BP 120/69 05/24/20 08:51 Pulse Ox 96 05/24/20 08:51 - Physical Examination General: No Apparent Distress HEENT: Positive: PERRL Neck: Positive: neck supple, trachea midline Cardiac: Positive: Reg Rate and Rhythm, S1/S2 Lungs: Positive: Decreased Breath Sounds Neuro: Positive: Grossly Intact Abdomen: Positive: Unremarkable Skin: Negative: Rash, Wound Musculoskeletal: No Pain Extremities: Present: upper extr. pulses, lower extr. pulses, +1 Edema - Labs and Meds Comprehensive Metabolic Panel 05/24/20 Range/Units 04:41 Sodium 141 (137-145) mmol/L Potassium 4.4 D (3.6-5.0) mmol/L Chloride 102.1 (98-107) mmol/L Carbon Dioxide 29 (22-30) mmol/L BUN 25 H (9-20) mg/dL Creatinine 1.3 (0.8-1.3) mg/dL Glucose 144 H (75-100) mg/dL Calcium 9.3 (8.4-10.2) mg/dL - Imaging and Cardiology EKG: report reviewed, image reviewed Echo: report reviewed (Echo 05/2018: EF 55-60%. Agitated saline study is suspicious for small PFO. Otherwise normal.) - Telemetry EKG Rhythm: Sinus Rhythm - EKG Sinus rhythms and dysrhythmias: sinus rhythm
[2020-05-24] MEDS: ARFORMOTEROL 15 MCG/2 ML NEBU IH SCH (11:11)
[2020-05-24] MEDS: BUDESONIDE 0.5 MG/2 ML NEBU IH SCH (11:11)
[2020-05-24 12:16] VITALS: BP 125/76
[2020-05-24] MEDS: methylPREDNISolone Sod Succinate 125 MG/2 ML INJ IV SCH (16:00)
== END 2020-05-24 16:40 | disposition home or self-care (01) | DRG 291 ==
LOC: ED 07:58 → 4A 09:52 → OBSVTOIN 16:11
PROVIDERS: ADMIT Internal Medicine; ATTEND Internal Medicine
PROC: 5A09457 Assistance with Respiratory Ventilation, 24-96 Consecutive Hours, Continuous Positive Airway Pressure (ICD-10-PCS; principal; 2020-05-22)
DX: I11.0 Hypertensive heart disease with heart failure (principal); J96.00 Acute respiratory failure, unspecified whether with hypoxia or hypercapnia; I50.33 Acute on chronic diastolic (congestive) heart failure; Z79.899 Other long term (current) drug therapy; Z79.82 Long term (current) use of aspirin; M19.90 Unspecified osteoarthritis, unspecified site; E11.9 Type 2 diabetes mellitus without complications; K21.9 Gastro-esophageal reflux disease without esophagitis; F32.9 Major depressive disorder, single episode, unspecified; J44.9 Chronic obstructive pulmonary disease, unspecified; E78.00 Pure hypercholesterolemia, unspecified; I25.10 Atherosclerotic heart disease of native coronary artery without angina pectoris; E11.40 Type 2 diabetes mellitus with diabetic neuropathy, unspecified; Z79.84 Long term (current) use of oral hypoglycemic drugs; E66.9 Obesity, unspecified; Z68.28 Body mass index [BMI] 28.0-28.9, adult; Z71.3 Dietary counseling and surveillance; I44.7 Left bundle-branch block, unspecified
CPT/HCPCS: 36415; 71045; 80048; 80061; 80076; 82962; 83690; 83880; 84484; 85025; 85610; 85730; 93005; 93306; 94640; 94660; 94760; 96374; 96375; G0378; A9270-GY; J1815; J1940; J2270; J2930

== ENCOUNTER 2020-07-14 20:13 | Observation (INO) | payer MEDICARE ==
[2020-07-14] MEDS ORDERED: ASPIRIN 325 MG TAB PO ONE (20:52)
--- NOTE | 2020-07-14 21:11 | Event Note ---
ED Screening Note ED Screening Note: left CP that radiates to left neck, left shoulder and down the arm that began today +worsening SOB states he uses 4L of oxygen at home +chills no fever +nausea no vomiting +productive cough with white mucus +diarrhea no known sick contacts no travel no recent surgery PMHx CHF, HTN, HLD, COPD, sleep apnea, DM +smoker no allergies to meds This initial assessment/diagnostic orders/clinical plan/treatment(s) is/are subject to change based on patients health status, clinical progression and re- assessment by fellow clinical providers in the ED. Further treatment and workup at subsequent clinical providers discretion. Patient/guardian urged not to elope from the ED as their condition may be serious if not clinically assessed and managed. Initial orders include: CP protocol
[2020-07-14] MEDS ORDERED: ASPIRIN 81 MG TAB CHEW PO ONE (21:12)
[2020-07-14 22:03] LABS: Basophils % (Auto) 0.1 % (0.0-1.8); Eosinophils # (Auto) 0.1 K/mm3 (0.0-0.4); Eosinophils % (Auto) 0.7 % (0.0-4.3); Hematocrit 46.4 % (35.5-45.6); Hemoglobin 15.2 gm/dl (11.8-15.2); Lymphocytes # (Auto) 0.5 K/mm3 (1.2-5.4); Lymphocytes % (Auto) 4.8 % (13.4-35.0); Mean Corpuscular HGB Conc 33 % (32-34); Mean Corpuscular Volume 89 fl (84-94); Monocytes # (Auto) 0.4 K/mm3 (0.0-0.8); Monocytes % (Auto) 4.5 % (0.0-7.3); Platelet Count 180 K/mm3 (140-440); Red Blood Count 5.24 M/mm3 (3.65-5.03); Red Cell Distribution Width 15.2 % (13.2-15.2)
[2020-07-14 22:10] LABS: INR 1.04 (0.87-1.13)
[2020-07-14 22:11] LABS: Partial Thromboplastin Time 30.3 Sec. (24.2-36.6)
[2020-07-14 22:15] LABS: Alanine Aminotransferase 20 units/L (7-56); Albumin 3.9 g/dL (3.9-5); BUN/Creatinine Ratio 18; Blood Urea Nitrogen 18 mg/dL (9-20); Calcium 9.1 mg/dL (8.4-10.2); Hemolysis Index 11
--- NOTE | 2020-07-14 22:33 | XRay Report ---
XR chest routine 2V INDICATION / CLINICAL INFORMATION: cp COMPARISON: May 22, 2020 FINDINGS: SUPPORT DEVICES: None. HEART / MEDIASTINUM: No significant abnormality. LUNGS / PLEURA: Lungs are clear. Costophrenic sulci are sharp. No pneumothorax. ADDITIONAL FINDINGS: No significant additional findings. IMPRESSION: 1. No acute findings. Signer Name: Petar Agarwal MD Signed: 07/14/2020 10:28 PM Workstation Name: [id number]
[2020-07-15] MEDS ORDERED: IPRATROPIUM/ALBUTEROL SULFATE 3 ML AMPUL.NEB IH ONE (04:06)
[2020-07-15] MEDS ORDERED: methylPREDNISolone Sod Succinate 125 MG/2 ML INJ IV ONE (04:07)
--- NOTE | 2020-07-15 04:11 | Emergency Department Report ---
HPI - General Chief Complaint: Chest Pain Time Seen by Provider: 07/14/20 21:08 - HPI HPI: Room 18 The patient is a 74-year-old male present with a chief complaint of chest pain. The patient states that this morning while getting into an argument with his he developed pain in his left chest described as sharp and intermittent in nature. Patient admits to shortness of breath and nausea/vomiting with the chest pain. Patient denies diaphoresis. Patient states his last stress test occurred years ago and his last cardiac catheterization occurred last year which revealed some blockages which were too small to stent. ED Past Medical Hx - Past Medical History Hx Hypertension: Yes Hx Diabetes: Yes Hx GERD: Yes Hx Arthritis: Yes (osteoarthritis) Hx Psychiatric Treatment: Yes (depression) Hx COPD: Yes (DAILY AND PRN INHALERS/ POOR COMPLIANCE) Additional medical history: high cholesterol, Neuropathy, Chronic Foot Pain. sleep apnea. CAD. spinal stenosis. PVD. Frausto's esophagus - Surgical History Additional Surgical History: hernia repair x 2. Prostate cancer removal surgery - Family History Family history: no significant - Social History Smoking Status: Former Smoker (None x1 month) Substance Use Type: None (Denies illicit drug use) - Medications Home Medications: Home Medications Medication Instructions Recorded Confirmed Last Taken Type AtorvaSTATin [Lipitor] 40 mg PO QHS #30 tablet 08/04/18 02/09/20 02/08/20 20:00 Rx metFORMIN [Glucophage] 500 mg PO BID #60 tablet 08/04/18 02/09/20 02/08/20 17:00 Rx Baclofen [Lioresal] 10 mg PO TID 08/27/18 02/09/20 02/08/20 20:00 History Tamsulosin [Flomax] 0.4 mg PO QDAY 08/27/18 02/09/20 02/08/20 08:00 History raNITIdine HCl [Zantac] 300 mg PO QHS 08/27/18 02/09/20 02/08/20 20:00 History Glimepiride [Amaryl] 2 mg PO QAM #30 tablet 09/13/18 02/09/20 02/08/20 08:00 Rx Nortriptyline [Pamelor] 30 mg PO BID #60 capsule 09/13/18 02/09/20 02/08/20 20:00 Rx Aspirin [Adult Aspirin] 81 mg PO DAILY 12/16/19 02/09/20 02/05/20 08:00 History Gabapentin 100 mg PO BID 12/16/19 02/09/20 02/08/20 20:00 History Oxybutynin [Ditropan] 5 mg PO BID 12/16/19 02/09/20 02/08/20 20:00 History lisinopriL [Zestril TAB] 20 mg PO DAILY 12/16/19 02/09/20 02/08/20 08:00 History ALBUTEROL NEB's [Proventil 0.083% 2.5 mg IH Q6HR 01/31/20 02/09/20 02/08/20 08:00 History NEBS] Amlodipine Besylate/Benazepril 1 each PO DAILY 01/31/20 02/09/20 02/08/20 08:00 History [Amlodipine-Benazepril 5-40 mg] Cyclobenzaprine [Flexeril 10 MG 5 mg PO TID PRN 01/31/20 02/09/20 02/08/20 20:00 History TAB] Famotidine [Pepcid] 20 mg PO BID 01/31/20 02/09/20 02/08/20 20:00 History Fluticasone/Salmeterol(Nf) [Advair 2 puff IH BID 01/31/20 02/09/20 02/08/20 20:00 History HFA 115-21 mcg] HYDROcodone/APAP 5-325 [[place] 1 each PO Q6HR PRN 01/31/20 02/09/20 02/08/20 08:00 History 5-325 mg TAB] ISOSORBIDE MONOnitrate [Imdur ER] 30 mg PO DAILY 01/31/20 02/09/20 02/08/20 08:00 History Umeclidinium Brm/Vilanterol Tr 1 each IH DAILY 01/31/20 02/09/20 02/08/20 08:00 History [Anoro Ellipta 62.5-25 Mcg INH] hydroCHLOROthiazide [HCTZ] 12.5 mg PO QDAY 01/31/20 02/09/20 02/08/20 08:00 History Albuterol Sulfate [Proventil Hfa] 2 puff IH PRN PRN #1 05/24/20 Unknown Rx Metoprolol Xl [Metoprolol 50 mg PO QDAY #60 05/24/20 Unknown Rx SUCCINATE ER TAB] Prednisone [predniSONE 5 mg (6-Day 5 mg PO .TAPER #1 tab.ds.pk 05/24/20 Unknown Rx Pack, 21 Tabs)] ED Review of Systems ROS: Stated complaint: VOMITING/CHILLS Other details as noted in HPI Constitutional: denies: diaphoresis Eyes: denies: eye pain ENT: denies: throat pain Respiratory: shortness of breath Cardiovascular: chest pain Endocrine: no symptoms reported Gastrointestinal: nausea, vomiting Genitourinary: denies: dysuria Musculoskeletal: denies: back pain Neurological: denies: headache Physical Exam - Physical Exam Vital Signs: Vital Signs 07/14/20 07/15/20 20:49 04:00 Temperature 98.2 F Pulse Rate 84 Respiratory 18 24 Rate Blood Pressure 118/81 O2 Sat by Pulse 96 99 Oximetry Physical Exam: GENERAL: The patient is well-developed well-nourished male lying on stretcher not appearing to be in acute distress. [] HEENT: Normocephalic. Atraumatic. Extraocular motions are intact. Patient has moist mucous membranes. NECK: Supple. Trachea midline CHEST/LUNGS: Occasional faint expiratory wheeze. There is no respiratory distress noted. HEART/CARDIOVASCULAR: Regular. There is no tachycardia. There is no gallop rub or murmur. ABDOMEN: Abdomen is soft, nontender. Patient has normal bowel sounds. There is no abdominal distention. SKIN: There is no rash. There is no edema. There is no diaphoresis. NEURO: The patient is awake, alert, and oriented. The patient is cooperative. The patient has no focal neurologic deficits. The patient has normal speech MUSCULOSKELETAL: There is no evidence of acute injury. ED Course Vital Signs 07/14/20 07/15/20 20:49 04:00 Temperature 98.2 F Pulse Rate 84 Respiratory 18 24 Rate Blood Pressure 118/81 O2 Sat by Pulse 96 99 Oximetry ED Medical Decision Making - Lab Data Result diagrams: 07/14/20 21:23 07/14/20 21:23 Laboratory Tests 07/14/20 07/14/20 07/14/20 21:23 21:23 21:23 WBC 9.7 RBC 5.24 H Hgb 15.2 Hct 46.4 H MCV 89 MCH 29 MCHC 33 RDW 15.2 Plt Count 180 Lymph % (Auto) 4.8 L [place] % (Auto) 4.5 Eos % (Auto) 0.7 Baso % (Auto) 0.1 Lymph # (Auto) 0.5 L [place] # (Auto) 0.4 Eos # (Auto) 0.1 Baso # (Auto) 0.0 Seg Neutrophils % 89.9 H Seg Neutrophils # 8.7 H PT INR APTT Sodium 140 Potassium 4.5 Chloride 105.2 Carbon Dioxide 26 Anion Gap 13 BUN 18 Creatinine 1.0 Estimated GFR > 60 BUN/Creatinine Ratio 18 Glucose 113 H Calcium 9.1 Total Bilirubin 0.60 AST 22 ALT 20 Alkaline Phosphatase 99 Troponin T < 0.010 NT-Pro-B Natriuret Pep Total Protein 6.8 Albumin 3.9 Albumin/Globulin Ratio 1.3 Lipase 22 07/14/20 07/14/20 07/14/20 21:23 21:23 23:38 WBC RBC Hgb Hct MCV MCH MCHC RDW Plt Count Lymph % (Auto) [place] % (Auto) Eos % (Auto) Baso % (Auto) Lymph # (Auto) [place] # (Auto) Eos # (Auto) Baso # (Auto) Seg Neutrophils % Seg Neutrophils # PT 13.4 INR 1.04 APTT 30.3 Sodium Potassium Chloride Carbon Dioxide Anion Gap BUN Creatinine Estimated GFR BUN/Creatinine Ratio Glucose Calcium Total Bilirubin AST ALT Alkaline Phosphatase Troponin T < 0.010 NT-Pro-B Natriuret Pep 38.67 Total Protein Albumin Albumin/Globulin Ratio Lipase 07/15/20 02:56 WBC RBC Hgb Hct MCV MCH MCHC RDW Plt Count Lymph % (Auto) [place] % (Auto) Eos % (Auto) Baso % (Auto) Lymph # (Auto) [place] # (Auto) Eos # (Auto) Baso # (Auto) Seg Neutrophils % Seg Neutrophils # PT INR APTT Sodium Potassium Chloride Carbon Dioxide Anion Gap BUN Creatinine Estimated GFR BUN/Creatinine Ratio Glucose Calcium Total Bilirubin AST ALT Alkaline Phosphatase Troponin T < 0.010 NT-Pro-B Natriuret Pep Total Protein Albumin Albumin/Globulin Ratio Lipase - EKG Data -: EKG Interpreted by Me EKG shows normal: sinus rhythm Rate: normal - EKG Data When compared to previous EKG there are: previous EKG unavailable Interpretation: other (No ischemic changes seen) - Radiology Data Radiology results: report reviewed (Chest x-ray), image reviewed (Chest x-ray) interpreted by me: Chest x-ray-no focal infiltrates, no pneumothorax. No foreign body seen [facility] [address] [place] [address] XRay Report Signed Patient: SHELTON BRYAN MR#: Otis [id number] : 1945 Acct:[id number] Age/Sex: 74 / M ADM Date: 07/14/20 Loc: ED Attending Dr: Ordering Physician: ED MD MILAD Date of Service: 07/14/20 Procedure(s): XR chest 1V ap Accession Number(s): [id number] cc: ED MD MILAD Fluoro Time In Minutes: XR chest routine 2V INDICATION / CLINICAL INFORMATION: cp COMPARISON: May 22, 2020 FINDINGS: SUPPORT DEVICES: None. HEART / MEDIASTINUM: No significant abnormality. LUNGS / PLEURA: Lungs are clear. Costophrenic sulci are sharp. No pneumothorax. ADDITIONAL FINDINGS: No significant additional findings. IMPRESSION: 1. No acute findings. Signer Name: Petar Agarwal MD Signed: 07/14/2020 10:28 PM Workstation Name: [id number] Transcribed By: CS Dictated By: Petar Agarwal MD Electronically Authenticated By: Petar Agarwal MD Signed Date/Time: 07/14/202227 DD/ 27 TD/TT: Print Cancel - Differential Diagnosis ACS, pericarditis, GERD Critical care attestation.: If time is entered above; I have spent that time in minutes in the direct care of this critically ill patient, excluding procedure time. ED Disposition Clinical Impression: Chest pain Disposition: OP ADMIT IP TO THIS HOSP Is pt being admited?: Yes Does the pt Need Aspirin: Yes Condition: Fair Instructions: Nonspecific Chest Pain, Adult Referrals: DR POPPY [Other] - 3-5 Days Heart Score - HEART Score History: Moderately suspicious EKG: Normal Age: > 65 Risk factors: > 3 risk factors or hx of atherosclerotic disease Troponin: < normal limit HEART Score: 5 - EKG Read Time Time EKG Completed: 21:04 EKG Read Time: 21:12
[2020-07-15] MEDS ORDERED: CYCLOBENZAPRINE 10 MG TAB PO PRN (04:47)
[2020-07-15] MEDS ORDERED: ALBUTEROL 8.5 GM MDI INHALATION IH PRN (04:47)
[2020-07-15] MEDS ORDERED: NITROGLYCERIN 0.4 MG TAB SUBL SL PRN (04:49)
[2020-07-15] MEDS ORDERED: traMADol 50 MG TAB PO PRN (04:49)
[2020-07-15] MEDS ORDERED: ACETAMINOPHEN 325 MG TAB PO PRN (04:49)
[2020-07-15] MEDS ORDERED: ASPIRIN 81 MG TAB CHEW PO ONE (04:49)
[2020-07-15] MEDS ORDERED: hydrALAZINE 20 MG/1 ML INJ IV PRN (04:51)
--- NOTE | 2020-07-15 04:56 | History and Physical Report ---
History of Present Illness Date of examination: 07/15/20 Date of admission: 07/15/20 04:20 Chief complaint: Chest pain History of present illness: 74-year-old male with past medical history of hypertension, diabetes, GERD was brought to the emergency room because of chest pain. The patient states that this morning while getting into an argument with his he developed pain in his left chest described as sharp and intermittent in nature 05/31. Patient admits to shortness of breath and nausea/vomiting with the chest pain. Patient denies diaphoresis. Patient states his last stress test occurred years ago and his last cardiac catheterization occurred last year which revealed some blockages which were too small to stent. In the emergency room initial cardiac enzyme is negative. Troponin is 0.010 Past History Past Medical History: arthritis, cancer, diabetes, hypertension, hyperlipidemia Medications and Allergies Allergies Allergy/AdvReac Type Severity Reaction Status Date / Time No Known Allergies Allergy Verified 05/22/20 07:59 Home Medications Medication Instructions Recorded Confirmed Last Taken Type AtorvaSTATin [Lipitor] 40 mg PO QHS #30 tablet 08/04/18 02/09/20 02/08/20 20:00 Rx metFORMIN [Glucophage] 500 mg PO BID #60 tablet 08/04/18 02/09/20 02/08/20 17:00 Rx Baclofen [Lioresal] 10 mg PO TID 08/27/18 02/09/20 02/08/20 20:00 History Tamsulosin [Flomax] 0.4 mg PO QDAY 08/27/18 02/09/20 02/08/20 08:00 History raNITIdine HCl [Zantac] 300 mg PO QHS 08/27/18 02/09/20 02/08/20 20:00 History Glimepiride [Amaryl] 2 mg PO QAM #30 tablet 09/13/18 02/09/20 02/08/20 08:00 Rx Nortriptyline [Pamelor] 30 mg PO BID #60 capsule 09/13/18 02/09/20 02/08/20 20:00 Rx Aspirin [Adult Aspirin] 81 mg PO DAILY 12/16/19 02/09/20 02/05/20 08:00 History Gabapentin 100 mg PO BID 12/16/19 02/09/20 02/08/20 20:00 History Oxybutynin [Ditropan] 5 mg PO BID 12/16/19 02/09/20 02/08/20 20:00 History lisinopriL [Zestril TAB] 20 mg PO DAILY 12/16/19 02/09/20 02/08/20 08:00 History ALBUTEROL NEB's [Proventil 0.083% 2.5 mg IH Q6HR 01/31/20 02/09/20 02/08/20 08:00 History NEBS] Amlodipine Besylate/Benazepril 1 each PO DAILY 01/31/20 02/09/20 02/08/20 08:00 History [Amlodipine-Benazepril 5-40 mg] Cyclobenzaprine [Flexeril 10 MG 5 mg PO TID PRN 01/31/20 02/09/20 02/08/20 20:00 History TAB] Famotidine [Pepcid] 20 mg PO BID 01/31/20 02/09/20 02/08/20 20:00 History Fluticasone/Salmeterol(Nf) [Advair 2 puff IH BID 01/31/20 02/09/20 02/08/20 20:00 History HFA 115-21 mcg] HYDROcodone/APAP 5-325 [[place] 1 each PO Q6HR PRN 01/31/20 02/09/20 02/08/20 08:00 History 5-325 mg TAB] ISOSORBIDE MONOnitrate [Imdur ER] 30 mg PO DAILY 01/31/20 02/09/20 02/08/20 08:00 History Umeclidinium Brm/Vilanterol Tr 1 each IH DAILY 01/31/20 02/09/20 02/08/20 08:00 History [Anoro Ellipta 62.5-25 Mcg INH] hydroCHLOROthiazide [HCTZ] 12.5 mg PO QDAY 01/31/20 02/09/20 02/08/20 08:00 History Albuterol Sulfate [Proventil Hfa] 2 puff IH PRN PRN #1 05/24/20 Unknown Rx Metoprolol Xl [Metoprolol 50 mg PO QDAY #60 05/24/20 Unknown Rx SUCCINATE ER TAB] Prednisone [predniSONE 5 mg (6-Day 5 mg PO .TAPER #1 tab.ds.pk 05/24/20 Unknown Rx Pack, 21 Tabs)] Active Meds: Active Medications Albuterol (Albuterol 2.5 Mg/3 Ml Nebu) 2.5 mg IH Q6HR MOIZ Albuterol (Albuterol 8.5 Gm Mdi Inhalation) 2 puff IH PRN PRN PRN Reason: Shortness Of Breath Aspirin (Aspirin Ec 81 Mg Tab) 81 mg PO DAILY [facility] Atorvastatin Calcium (Atorvastatin 40 Mg Tab) 40 mg PO QHS [facility] Baclofen (Baclofen 10 Mg Tab) 10 mg PO TID MOIZ Cyclobenzaprine HCl (Cyclobenzaprine 10 Mg Tab) 5 mg PO TID PRN PRN Reason: Muscle Spasm Famotidine (Famotidine 20 Mg Tab) 20 mg PO BID [facility] Gabapentin (Gabapentin 100 Mg Cap) 100 mg PO BID [facility] Miscellaneous Medication (Amlodipine Besylate/Benazepril [Amlodipine-Benazepril 5-40 Mg]) 1 each PO DAILY [facility] Miscellaneous Medication (Fluticasone/Salmeterol(Nf) [Advair Hfa 115-21 Mcg]) 2 puff IH BID [facility] Review of Systems Cardiovascular: chest pain, shortness of breath, dyspnea on exertion Respiratory: shortness of breath Exam - Constitutional Vitals: Temp Pulse Resp BP Pulse Ox 98.2 F 78 16 150/83 100 07/14/20 20:49 07/15/20 04:39 07/15/20 04:39 07/15/20 04:00 07/15/20 04:00 General appearance: Present: no acute distress, well-nourished - EENT Eyes: Present: PERRL ENT: hearing intact, clear oral mucosa - Neck Neck: Present: supple, normal ROM - Respiratory Respiratory effort: normal Respiratory: bilateral: diminished - Cardiovascular Heart Sounds: Present: S1 & S2. Absent: rub, click - Extremities Extremities: pulses symmetrical, No edema Peripheral Pulses: within normal limits - Abdominal General gastrointestinal: Present: soft, non-tender, non-distended, normal bowel sounds Male genitourinary: Present: normal - Integumentary Integumentary: Present: clear, warm, dry - Musculoskeletal Musculoskeletal: gait normal, strength equal bilaterally - Psychiatric Psychiatric: appropriate mood/affect, intact judgment & insight - Neurologic Neurologic: CNII-XII intact, moves all extremities HEART Score - HEART Score EKG: Normal Age: > 65 Risk factors: > 3 risk factors or hx of atherosclerotic disease Troponin: Troponin T < 0.010 ng/mL (0.00-0.029) 07/15/20 02:56 Troponin: < normal limit Results - Labs CBC & Chem 7: 07/14/20 21:23 07/14/20 21: Labs: Laboratory Last Values WBC 9.7 K/mm3 (4.5-11.0) 07/14/20 21: RBC 5.24 M/mm3 (3.65-5.03) H 07/14/20 21: Hgb 15.2 gm/dl (11.8-15.2) 07/14/20 21: Hct 46.4 % (35.5-45.6) H 07/14/20 21: MCV 89 fl (84-94) 07/14/20 21: MCH 29 pg (28-32) 07/14/20 21: MCHC 33 % (32-34) 07/14/20 21: RDW 15.2 % (13.2-15.2) 07/14/20 21: Plt Count 180 K/mm3 (140-440) 07/14/20 21: Lymph % (Auto) 4.8 % (13.4-35.0) L 07/14/20: [place] % (Auto) 4.5 % (0.0-7.3) 07/14/20 21: Eos % (Auto) 0.7 % (0.0-4.3) 07/14/20: Baso % (Auto) 0.1 % (0.0-1.8) 07/14/20 21: Lymph # (Auto) 0.5 K/mm3 (1.2-5.4) L 07/14/20 21: [place] # (Auto) 0.4 K/mm3 (0.0-0.8) 07/14/20 21: Eos # (Auto) 0.1 K/mm3 (0.0-0.4) 07/14/20 21: Baso # (Auto) 0.0 K/mm3 (0.0-0.1) 07/14/20 21: Seg Neutrophils % 89.9 % (40.0-70.0) H 07/14/20 21:23 Seg Neutrophils # 8.7 K/mm3 (1.8-7.7) H 07/14/20 21: PT 13.4 Sec. (12.2-14.9) 07/14/20 21: INR 1.04 (0.87-1.13) 07/14/20 21: APTT 30.3 Sec. (24.2-36.6) 07/14/20 21: Sodium 140 mmol/L (137-145) 07/14/20 21: Potassium 4.5 mmol/L (3.6-5.0) 07/14/20 21: Chloride 105.2 mmol/L (98-107) 07/14/20 21: Carbon Dioxide 26 mmol/L (22-30) 07/14/20 21: Anion Gap 13 mmol/L 07/14/20 21: BUN 18 mg/dL (9-20) 07/14/20 21: Creatinine 1.0 mg/dL (0.8-1.3) 07/14/20 21: Estimated GFR > 60 ml/min 07/14/20 21: BUN/Creatinine Ratio 18 % 07/14/20 21: Glucose 113 mg/dL (75-100) H 07/14/20 21: Calcium 9.1 mg/dL (8.4-10.2) 07/14/20 21: Total Bilirubin 0.60 mg/dL (0.1-1.2) 07/14/20 21: AST 22 units/L (5-40) 07/14/20 21: ALT 20 units/L (7-56) 07/14/20 21:23 Alkaline Phosphatase 99 units/L (35-129) 07/14/20 21: Troponin T < 0.010 ng/mL (0.00-0.029) 07/15/20 02:56 NT-Pro-B Natriuret Pep 38.67 pg/mL (0-900) 07/14/20 21:23 Total Protein 6.8 g/dL (6.3-8.2) 07/14/20 21: Albumin 3.9 g/dL (3.9-5) 07/14/20 21:23 Albumin/Globulin Ratio 1.3 % 07/14/20 21:23 Lipase 22 units/L (13-60) 07/14/20 21:23 - Imaging and Cardiology Chest x-ray: image reviewed Assessment and Plan VTE prophylaxis?: Chemical Plan of care discussed with patient/family: Yes - Patient Problems (1) ACS (acute coronary syndrome) Current Visit: No Status: Acute Plan to address problem: Admit the patient to the medical telemetry. Put the patient on aspirin 81 mg p.o. daily. Lipitor 40 mg p.o. daily. Nitroglycerin as needed and Imdur 30 mg p.o. daily. We will do the serial cardiac enzyme. We also do echocardiogram. Consult cardiology if needed (2) Diabetes 1.5, managed as type 2 Current Visit: Yes Status: Acute Plan to address problem: We will put the patient on 1800 kcal ADA diet. We will continue the home diabetic medication. Glimepiride 2 mg p.o. every morning and Metformin 500 mg p.o. twice daily. recheck BMP in the morning (3) Accelerated hypertension Current Visit: No Status: Acute Plan to address problem: We will continue the home hypertension medication. Metoprolol XL 50 mg. Daily, lisinopril 20 mg p.o. daily, Imdur 30 mg p.o. daily we will monitor the blood pressure closely (4) COPD with acute exacerbation Current Visit: No Status: Acute Plan to address problem: Oxygen via nasal cannula 3 L/min. DuoNeb by nebulizer every 4 hours as needed. We continue the home medication (5) DVT prophylaxis Current Visit: No Status: Acute Plan to address problem: Heparin 5000 units subcu every 8 hours for DVT prophylaxis. Protonix 40 mg p.o. daily for GI prophylaxis. Patient is a full code
[2020-07-15] MEDS ORDERED: PREDNISONE 5 MG PO SCH (05:00)
[2020-07-15] MEDS ORDERED: ALBUTEROL 2.5 MG/3 ML NEBU IH PRN (05:08)
[2020-07-15 06:04] LABS: Basophils % (Auto) 0.2 % (0.0-1.8); Eosinophils % (Auto) 0.4 % (0.0-4.3); Hematocrit 45.9 % (35.5-45.6); Hemoglobin 15.1 gm/dl (11.8-15.2); Lymphocytes # (Auto) 1.8 K/mm3 (1.2-5.4); Lymphocytes % (Auto) 19.7 % (13.4-35.0); Mean Corpuscular HGB Conc 33 % (32-34); Mean Corpuscular Volume 89 fl (84-94); Monocytes # (Auto) 0.8 K/mm3 (0.0-0.8); Monocytes % (Auto) 8.6 % (0.0-7.3); Red Blood Count 5.18 M/mm3 (3.65-5.03); Red Cell Distribution Width 15.5 % (13.2-15.2)
[2020-07-15 06:07] LABS: Platelet Count 174 K/mm3 (140-440)
[2020-07-15 06:29] LABS: BUN/Creatinine Ratio 18; Blood Urea Nitrogen 18 mg/dL (9-20); Calcium 8.8 mg/dL (8.4-10.2); Chol/HDL Ratio 2.56 %; HDL Cholesterol 44 mg/dL (40-59); Hemolysis Index 38; LDL Cholesterol,Direct 59 mg/dL (50-130)
[2020-07-15] MEDS ORDERED: NON-FORMULARY EACH (Fluticasone/Salmeterol(Nf) [Advair Hfa 115-21 Mcg] 115 MCG/PUFF Hfa.Ae IH SCH (10:00)
[2020-07-15] MEDS ORDERED: LISINOPRIL 20 MG TAB PO SCH (10:00)
[2020-07-15] MEDS: metFORMIN 500 MG TAB PO SCH ×2 (11:09→18:53)
[2020-07-15] MEDS: TAMSULOSIN 0.4 MG CAP PO SCH (11:10)
[2020-07-15] MEDS: BACLOFEN 10 MG TAB PO SCH ×3 (11:10→21:25)
[2020-07-15] MEDS: amLODIPine 5 MG TAB PO SCH (11:10)
[2020-07-15] MEDS: GABAPENTIN 100 MG CAP PO SCH ×2 (11:10→21:26)
[2020-07-15] MEDS: ASPIRIN EC 81 MG TAB PO SCH (11:10)
[2020-07-15] MEDS: hydroCHLOROthiazide 12.5 MG CAP PO SCH (11:11)
[2020-07-15] MEDS: GLIMEPIRIDE 2 MG TAB PO SCH (11:12)
[2020-07-15] MEDS: ALBUTEROL 2.5 MG/3 ML NEBU IH SCH ×3 (11:12→21:55)
[2020-07-15] MEDS: ARFORMOTEROL 15 MCG/2 ML NEBU IH SCH ×2 (11:13→21:56)
[2020-07-15] MEDS: BUDESONIDE 0.5 MG/2 ML NEBU IH SCH ×2 (11:13→21:55)
[2020-07-15] MEDS: HEPARIN 5,000 UNIT/1 ML VIAL SUB-Q SCH ×3 (11:38→21:26)
[2020-07-15] MEDS: FAMOTIDINE 20 MG TAB PO SCH ×2 (12:01→21:26)
[2020-07-15] MEDS: OXYBUTYNIN 5 MG TAB PO SCH ×2 (12:01→21:34)
[2020-07-15] MEDS: LISINOPRIL 40 MG TAB PO SCH (12:02)
[2020-07-15] MEDS: METOPROLOL SUCCINATE XL 50 MG TAB PO SCH (12:02)
[2020-07-15] MEDS: NORTRIPTYLINE 10 MG CAP PO SCH ×2 (12:03→21:30)
--- NOTE | 2020-07-15 12:43 | Event Note ---
Date: 07/15/20 Patient admitted with left-sided chest pain with radiation Has a history of coronary artery disease Troponin x2 -ve Plan for stress test on Friday
[2020-07-16] MEDS: ALBUTEROL 2.5 MG/3 ML NEBU IH SCH ×4 (03:54→20:21)
[2020-07-16] MEDS: HEPARIN 5,000 UNIT/1 ML VIAL SUB-Q SCH ×3 (05:09→22:50)
[2020-07-16] MEDS: ARFORMOTEROL 15 MCG/2 ML NEBU IH SCH ×2 (08:16→20:20)
[2020-07-16] MEDS: BUDESONIDE 0.5 MG/2 ML NEBU IH SCH ×2 (08:16→20:19)
[2020-07-16] MEDS: GLIMEPIRIDE 2 MG TAB PO SCH (08:32)
[2020-07-16] MEDS: metFORMIN 500 MG TAB PO SCH ×2 (08:32→16:09)
[2020-07-16] MEDS: BACLOFEN 10 MG TAB PO SCH ×3 (08:34→22:49)
[2020-07-16] MEDS: TAMSULOSIN 0.4 MG CAP PO SCH (09:59)
[2020-07-16] MEDS: ASPIRIN EC 81 MG TAB PO SCH (09:59)
[2020-07-16] MEDS: NORTRIPTYLINE 10 MG CAP PO SCH ×2 (09:59→22:49)
[2020-07-16] MEDS: hydroCHLOROthiazide 12.5 MG CAP PO SCH (09:59)
[2020-07-16] MEDS: OXYBUTYNIN 5 MG TAB PO SCH ×2 (10:00→22:49)
[2020-07-16] MEDS: METOPROLOL SUCCINATE XL 50 MG TAB PO SCH (10:00)
[2020-07-16] MEDS: GABAPENTIN 100 MG CAP PO SCH ×2 (10:00→22:49)
[2020-07-16] MEDS: amLODIPine 5 MG TAB PO SCH (10:00)
[2020-07-16] MEDS: FAMOTIDINE 20 MG TAB PO SCH ×2 (10:00→22:49)
[2020-07-16] MEDS: LISINOPRIL 40 MG TAB PO SCH (10:01)
--- NOTE | 2020-07-16 10:36 | Progress Note ---
Assessment and Plan Assessment and plan: #Chest pain Troponin x3 - Plan for stress test tomorrow N.p.o. after midnight #Mild COPD extubation Started on Solu-Medrol 40 every 8 Bronchodilators Pulmonology evaluation as outpatient #DM Continue home DM medications #Hypertension Continue low pressure medications #DVT prophylaxis-Heparin History Interval history: 07/16. Denies any chest pain this morning. Slight wheezing noted. Started on IV Solu-Medrol. Plan for stress test tomorrow Hospitalist Physical - Physical exam Narrative exam: VITAL SIGNS: Reviewed. GENERAL: Awake HEAD: No signs of head trauma. EYES: Pupils are equal. Extraocular motions intact. MOUTH: Oropharynx is normal. NECK: No adenopathy, no JVD. CHEST: Slight wheeze on exam CARDIAC: normal S1 and S2, without murmurs, gallops, or rubs. ABDOMEN: Soft, non tender and non distended. No rebound or guarding, and no masses palpated. Bowel Sounds normal. MUSCULOSKELETAL: No edema NEUROLOGIC EXAM: Alert and oriented x3. No focal neurologic deficits SKIN: No obvious lesions - Constitutional Vitals: Temp Pulse Resp BP Pulse Ox 98.1 F 75 18 118/82 99 07/16/20 07:47 07/16/20 10:01 07/16/20 08:00 07/16/20 10:01 07/16/20 08:18 General appearance: Present: well-nourished HEART Score - HEART Score EKG: Normal Age: > 65 Risk factors: > 3 risk factors or hx of atherosclerotic disease Troponin: Troponin T < 0.010 ng/mL (0.00-0.029) 07/15/20 11:50 Troponin: < normal limit Results - Labs CBC & Chem 7: 07/15/20 05:42 07/15/20 05:42 Labs: Laboratory Last Values WBC 9.3 K/mm3 (4.5-11.0) 07/15/20 05:42 RBC 5.18 M/mm3 (3.65-5.03) H 07/15/20 05:42 Hgb 15.1 gm/dl (11.8-15.2) 07/15/20 05:42 Hct 45.9 % (35.5-45.6) H 07/15/20 05:42 MCV 89 fl (84-94) 07/15/20 05:42 MCH 29 pg (28-32) 07/15/20 05:42 MCHC 33 % (32-34) 07/15/20 05:42 RDW 15.5 % (13.2-15.2) H 07/15/20 05:42 Plt Count 174 K/mm3 (140-440) 07/15/20 05:42 Lymph % (Auto) 19.7 % (13.4-35.0) 07/15/20 05:42 Sawyer % (Auto) 8.6 % (0.0-7.3) H 07/15/20 05:42 Eos % (Auto) 0.4 % (0.0-4.3) 07/15/20 05:42 Baso % (Auto) 0.2 % (0.0-1.8) 07/15/20 05:42 Lymph # (Auto) 1.8 K/mm3 (1.2-5.4) 07/15/20 05:42 Sawyer # (Auto) 0.8 K/mm3 (0.0-0.8) 07/15/20 05:42 Eos # (Auto) 0.0 K/mm3 (0.0-0.4) 07/15/20 05:42 Baso # (Auto) 0.0 K/mm3 (0.0-0.1) 07/15/20 05:42 Seg Neutrophils % 71.1 % (40.0-70.0) H 07/15/20 05:42 Seg Neutrophils # 6.6 K/mm3 (1.8-7.7) 07/15/20 05:42 PT 13.4 Sec. (12.2-14.9) 07/14/20 21:23 INR 1.04 (0.87-1.13) 07/14/20 21:23 APTT 30.3 Sec. (24.2-36.6) 07/14/20 21:23 Sodium 140 mmol/L (137-145) 07/15/20 05:42 Potassium 4.6 mmol/L (3.6-5.0) 07/15/20 05:42 Chloride 105.7 mmol/L (98-107) 07/15/20 05:42 Carbon Dioxide 25 mmol/L (22-30) 07/15/20 05:42 Anion Gap 14 mmol/L 07/15/20 05:42 BUN 18 mg/dL (9-20) 07/15/20 05:42 Creatinine 1.0 mg/dL (0.8-1.3) 07/15/20 05:42 Estimated GFR > 60 ml/min 07/15/20 05:42 BUN/Creatinine Ratio 18 % 07/15/20 05:42 Glucose 91 mg/dL (75-100) 07/15/20 05:42 POC Glucose 108 mg/dL (70-105) H 07/16/20 08:35 Calcium 8.8 mg/dL (8.4-10.2) 07/15/20 05:42 Total Bilirubin 0.60 mg/dL (0.1-1.2) 07/14/20 21:23 AST 22 units/L (5-40) 07/14/20 21:23 ALT 20 units/L (7-56) 07/14/20 21:23 Alkaline Phosphatase 99 units/L (35-129) 07/14/20 21:23 Troponin T < 0.010 ng/mL (0.00-0.029) 07/15/20 11:50 NT-Pro-B Natriuret Pep 38.67 pg/mL (0-900) 07/14/20 21:23 Total Protein 6.8 g/dL (6.3-8.2) 07/14/20 21:23 Albumin 3.9 g/dL (3.9-5) 07/14/20 21:23 Albumin/Globulin Ratio 1.3 % 07/14/20 21:23 Triglycerides 87 mg/dL (2-149) 07/15/20 05:42 Cholesterol 113 mg/dL (50-199) 07/15/20 05:42 LDL Cholesterol Direct 59 mg/dL (50-130) 07/15/20 05:42 HDL Cholesterol 44 mg/dL (40-59) 07/15/20 05:42 Cholesterol/HDL Ratio 2.56 % 07/15/20 05:42 Lipase 22 units/L (13-60) 07/14/20 21:23 Mahan/IV: Voiding Method Toilet Active Medications - Current Medications Current Medications: Generic Name Dose Route Start Last Admin Trade Name Freq PRN Reason Stop Dose Admin Acetaminophen 650 mg 07/15/20 04:49 Acetaminophen 325 Mg Tab PO Q6H PRN Pain, Mild (1-3) Albuterol 2.5 mg 07/15/20 08:00 07/16/20 08:16 Albuterol 2.5 Mg/3 Ml Nebu IH Not Given Q6HRT MOIZ Albuterol 2.5 mg 07/15/20 05:08 Albuterol 2.5 Mg/3 Ml Nebu IH Q4HRT PRN Shortness Of Breath Amlodipine Besylate 5 mg 07/15/20 10:00 07/16/20 10:00 Amlodipine 5 Mg Tab PO 5 mg QDAY MOIZ Administration Arformoterol Tartrate 15 mcg 07/15/20 08:00 07/16/20 08:16 Arformoterol 15 Mcg/2 Ml Nebu IH 15 mcg Q12HRT MOIZ Administration Aspirin 81 mg 07/15/20 10:00 07/16/20 09:59 Aspirin Ec 81 Mg Tab PO 81 mg DAILY MOIZ Administration Atorvastatin Calcium 40 mg 07/15/20 22:00 07/15/20 21:25 Atorvastatin 40 Mg Tab PO 40 mg QHS MOIZ Administration Baclofen 10 mg 07/15/20 08:00 07/16/20 08:34 Baclofen 10 Mg Tab PO 10 mg TID MOIZ Administration Budesonide 0.5 mg 07/15/20 08:00 07/16/20 08:16 Budesonide 0.5 Mg/2 Ml Nebu IH 0.5 mg Q12HRT MOIZ Administration Cyclobenzaprine HCl 5 mg 07/15/20 04:47 07/15/20 12:03 Cyclobenzaprine 10 Mg Tab PO 5 mg TID PRN Administration Muscle Spasm Famotidine 20 mg 07/15/20 10:00 07/16/20 10:00 Famotidine 20 Mg Tab PO 20 mg BID MOIZ Administration Gabapentin 100 mg 07/15/20 10:00 07/16/20 10:00 Gabapentin 100 Mg Cap PO 100 mg BID MOIZ Administration Glimepiride 2 mg 07/15/20 08:00 07/16/20 08:32 Glimepiride 2 Mg Tab PO 2 mg QAMDIAB MOIZ Administration Heparin Sodium (Porcine) 5,000 unit 07/15/20 06:00 07/16/20 05:09 Heparin 5,000 Unit/1 Ml Vial SUB-Q 5,000 unit Q8HR MOIZ Administration Hydralazine HCl 10 mg 07/15/20 04:51 Hydralazine 20 Mg/1 Ml Inj IV Q6H PRN htn Hydrochlorothiazide 12.5 mg 07/15/20 10:00 07/16/20 09:59 Hydrochlorothiazide 12.5 Mg Cap PO 12.5 mg QDAY MOIZ Administration Methylprednisolone Sodium 100 mls @ 200 mls/hr 07/16/20 10:33 Succinate 40 mg/ Sodium IV Chloride Q8HR [facility] Isosorbide Mononitrate 30 mg 07/15/20 10:00 07/16/20 10:00 Isosorbide Mononitrate Er 30 Mg Tab PO 30 mg DAILY MOIZ Administration Lisinopril 40 mg 07/15/20 10:00 07/16/20 10:01 Lisinopril 40 Mg Tab PO 40 mg QDAY [facility] Administration Metformin HCl 500 mg 07/15/20 08:00 07/16/20 08:32 Metformin 500 Mg Tab PO 500 mg BIDDIAB MOIZ Administration Metoprolol Succinate 50 mg 07/15/20 10:00 07/16/20 10:00 Metoprolol Succinate Xl 50 Mg Tab PO 50 mg QDAY [facility] Administration Nitroglycerin 0.4 mg 07/15/20 04:49 Nitroglycerin 0.4 Mg Tab Subl SL Q5M PRN Chest Pain Nortriptyline HCl 30 mg 07/15/20 10:00 07/16/20 09:59 Nortriptyline 10 Mg Cap PO 30 mg BID MOIZ Administration Oxybutynin Chloride 5 mg 07/15/20 10:00 07/16/20 10:00 Oxybutynin 5 Mg Tab PO 5 mg BID MOIZ Administration Sodium Chloride 10 ml 07/15/20 04:49 Sodium Chloride 0.9% 10 Ml Flush Syringe IV PRN PRN LINE FLUSH Tamsulosin HCl 0.4 mg 07/15/20 10:00 07/16/20 09:59 Tamsulosin 0.4 Mg Cap PO 0.4 mg QDAY MOIZ Administration Tramadol HCl 50 mg 07/15/20 04:49 Tramadol 50 Mg Tab PO Q6H PRN Pain, Moderate (4-6)
[2020-07-16] MEDS: methylPREDNISolone Sod Suc 40 MG in SODIUM CHLORIDE 0.9% 100 ML IV SCH ×2 (11:21→13:58)
[2020-07-16] MEDS: methylPREDNISolone Sod Succinate 40 MG/1 ML INJ IV SCH (22:50)
[2020-07-17] MEDS: ALBUTEROL 2.5 MG/3 ML NEBU IH SCH ×3 (03:02→13:30)
[2020-07-17] MEDS: methylPREDNISolone Sod Succinate 40 MG/1 ML INJ IV SCH ×2 (05:39→13:22)
[2020-07-17] MEDS: HEPARIN 5,000 UNIT/1 ML VIAL SUB-Q SCH ×2 (05:39→13:22)
[2020-07-17] MEDS ORDERED: REGADENOSON 0.4 MG/5 ML INJ IV ONE ×2 (08:08→08:11)
[2020-07-17] MEDS: BUDESONIDE 0.5 MG/2 ML NEBU IH SCH (08:20)
[2020-07-17] MEDS: ARFORMOTEROL 15 MCG/2 ML NEBU IH SCH (08:20)
--- NOTE | 2020-07-17 10:31 | Electrocardiograph Report ---
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
[2020-07-17] MEDS: OXYBUTYNIN 5 MG TAB PO SCH (12:45)
[2020-07-17] MEDS: ASPIRIN EC 81 MG TAB PO SCH (12:45)
[2020-07-17] MEDS: TAMSULOSIN 0.4 MG CAP PO SCH (12:45)
[2020-07-17] MEDS: hydroCHLOROthiazide 12.5 MG CAP PO SCH (12:45)
[2020-07-17] MEDS: NORTRIPTYLINE 10 MG CAP PO SCH (12:45)
[2020-07-17] MEDS: LISINOPRIL 40 MG TAB PO SCH ×2 (12:46→12:58)
[2020-07-17] MEDS: GABAPENTIN 100 MG CAP PO SCH (12:47)
[2020-07-17] MEDS: METOPROLOL SUCCINATE XL 50 MG TAB PO SCH (12:47)
[2020-07-17] MEDS: FAMOTIDINE 20 MG TAB PO SCH (12:47)
[2020-07-17] MEDS: BACLOFEN 10 MG TAB PO SCH ×2 (12:48→13:35)
[2020-07-17] MEDS: GLIMEPIRIDE 2 MG TAB PO SCH (12:55)
[2020-07-17] MEDS: amLODIPine 5 MG TAB PO SCH (12:56)
[2020-07-17] MEDS: metFORMIN 500 MG TAB PO SCH (12:56)
--- NOTE | 2020-07-17 13:16 | Discharge Summary ---
Providers - Providers Date of Admission: 07/15/20 04:20 Attending physician: GABY MARTELL 07/15/20 Consult to Cardiac Rehabilitation [CONS] Routine Reason For Exam: Phase I Hospitalization Condition: Fair Exam - Constitutional Vitals: Temp Pulse Resp BP Pulse Ox 97.1 F L 86 18 116/69 95 07/17/20 12:37 07/17/20 12:47 07/17/20 12:37 07/17/20 12:47 07/17/20 12:37 Plan Diet: low fat, low cholesterol, low salt, diabetic Additional Instructions: Continue medications as ordered. Follow-up with pulmonology in the office for management of COPD/asthma Follow up with: DR POPPY [Other] - 3-5 Days Prescriptions: predniSONE [Deltasone] 20 mg PO QDAY #21 tab
--- NOTE | 2020-07-17 14:16 | Nuclear Medicine Report ---
APPROVED REPORT Exam: Nuclear Stress Test Indication: chest pain [facility] Ht: 5 ft 7 in Wt: 176 lbs BSA: 1.91 m2 HR: 78 bpm BP: 123/78 mmHg BMI: 27.56 Rhythm: NSR Medical History Medical History: Diabetes, Heart failure Stress Test Details Stress Test: Pharmacologic stress testing performed using 0.4 mg of regadenoson per 5 mL given IV over 10 seconds. Reason for pharmacologic stress test: physical limitation. HR Resting HR: 78 bpmMax Heart Rate (APMHR): 147 bpm Max HR Achieved: 117 bpmTarget HR (85% APMHR): 124 bpm % of APMHR: 79 Recovery HR: 96 bpm BP Resting BP: 123/78 mmHg Max BP: 137/74 mmHg ECG Resting ECG: Sinus Rhythm Stress ECG: Sinus Rhythm ST Change: None Arrhythmia: None Recovery ECG: Sinus Rhythm Recovery ST Change: None Recovery Arrhythmia: None Clinical Reason for Termination: Completed protocol Stress Symptoms: None Stress ECG Conclusion No ST changes of ischemia with Lexiscan, thallium images are pending for final test interpretation. NM EXAM: Myocardial Perfusion REST/STRESS Imaging Protocol: Rest Tc-99m/Stress Tc-99m 1 day Resting Data Rest SPECT myocardial perfusion imaging was performed in supine position 45 minutes following the intravenous injection of 10 mCi of Tc-99m Myoview. Time of rest injection: 1000 Pharmacologic Stress Pharmacologic stress test was performed by injecting Regadenoson 0.4 mg IV push followed by the intravenous injection of 28 mCi of Tc-99m Myoview. Time of stress injection: 1100 Gated Stress SPECT was performed 30 minutes after stress injection. The images were gated to evaluate regional wall motion and calculate left ventricular ejection fraction. Study Quality Study: excellent Lung Uptake: Normal Study Data TID = 1.22. Perfusion Wall Motion The rest and stress images show normal left ventricular wall motion. Nuclear Conclusion ECG Findings: negative for ischemia Clinical Findings: negative for ischemia Nuclear Findings: negative for ischemia Left Ventricular Function: normal Risk Study: low Normal rest and stress perfusion images, normal left ventricular systolic function with calculated ejection fraction 62%. Conclusion No ST changes of ischemia with Lexiscan, thallium images are pending for final test interpretation.
[2020-07-17 17:33] VITALS: BP 112/62
== END 2020-07-17 17:00 | disposition home or self-care (01) ==
LOC: ED 20:13 → 4A 07-15 04:20
PROVIDERS: ADMIT Hospitalist; ATTEND Internal Medicine
DX: I24.9 Acute ischemic heart disease, unspecified (principal); I10 Essential (primary) hypertension; E11.9 Type 2 diabetes mellitus without complications; J44.1 Chronic obstructive pulmonary disease with (acute) exacerbation; M19.90 Unspecified osteoarthritis, unspecified site; I85.00 Esophageal varices without bleeding; I73.9 Peripheral vascular disease, unspecified; K21.9 Gastro-esophageal reflux disease without esophagitis; K22.70 Barrett's esophagus without dysplasia; E78.5 Hyperlipidemia, unspecified; R07.89 Other chest pain; Z85.9 Personal history of malignant neoplasm, unspecified; Z79.84 Long term (current) use of oral hypoglycemic drugs; Z79.82 Long term (current) use of aspirin; Z98.890 Other specified postprocedural states
CPT/HCPCS: 36415; 71045; 78452; 80048; 80053; 80061; 82962; 83690; 83880; 84484; 85025; 85610; 85730; 93005; 93017; 94640; 94644; 96365; 96366; 96372; 96376; 99285; A9270; A9502; G0378; J1644; J2785; J2920; J2930

== ENCOUNTER 2021-03-04 17:49 | Observation (INO) | payer MEDICARE ==
--- NOTE | 2021-03-04 19:30 | Emergency Department Report ---
ED Chest Pain HPI - General Chief Complaint: Chest Pain Stated Complaint: SOB/CHEST PAIN Time Seen by Provider: 03/04/21 18:55 Source: patient, old records reviewed Mode of arrival: Ambulatory Limitations: No Limitations - History of Present Illness Initial Comments: 75-year-old male with a past medical history of chronic medical conditions including but not limited to diabetes, GERD, hypertension, elevated cholesterol, CAD, PVD, and abdominal aortic aneurysm presents to the hospital complaint of intermittent chest pain for several days has been more constant since a.m. Pain feels like a tightness exacerbated with ambulation. Positive shortness of breath and nausea without vomiting or diaphoresis reported. Patient takes a baby aspirin daily. Patient ported 12/31 chest pain 1 triage however, no significant distress noted. Patient also complains of some dark discoloration to bilateral lower extremity however, no pain. Patient ambulates with a cane secondary to bilateral hip arthritis with history of hip replacement As per medical record review patient had an unremarkable stress test July 17, 2020 He has been seen by [facility] in the past Severity scale (0 -10): 10 - Related Data Home Medications Medication Instructions Recorded Confirmed Last Taken Baclofen [Lioresal] 10 mg PO TID 08/27/18 02/09/20 02/08/20 20:00 Tamsulosin [Flomax] 0.4 mg PO QDAY 08/27/18 02/09/20 02/08/20 08:00 raNITIdine HCl [Zantac] 300 mg PO QHS 08/27/18 02/09/20 02/08/20 20:00 Aspirin [Adult Aspirin] 81 mg PO DAILY 12/16/19 02/09/20 02/05/20 08:00 Gabapentin 100 mg PO BID 12/16/19 02/09/20 02/08/20 20:00 Oxybutynin [Ditropan] 5 mg PO BID 12/16/19 02/09/20 02/08/20 20:00 lisinopriL [Zestril TAB] 20 mg PO DAILY 12/16/19 02/09/20 02/08/20 08:00 ALBUTEROL NEB's [Proventil 0.083% 2.5 mg IH Q6HR 01/31/20 02/09/20 02/08/20 08:00 NEBS] Amlodipine Besylate/Benazepril 1 each PO DAILY 01/31/20 02/09/20 02/08/20 08:00 [Amlodipine-Benazepril 5-40 mg] Cyclobenzaprine [Flexeril 10 MG 5 mg PO TID PRN 01/31/20 02/09/20 02/08/20 20:00 TAB] Famotidine [Pepcid] 20 mg PO BID 01/31/20 02/09/20 02/08/20 20:00 Fluticasone/Salmeterol(Nf) [Advair 2 puff IH BID 01/31/20 02/09/20 02/08/20 20:00 HFA 115-21 mcg] HYDROcodone/APAP 5-325 [Romayor 1 each PO Q6HR PRN 01/31/20 02/09/20 02/08/20 08:00 5-325 mg TAB] ISOSORBIDE MONOnitrate [Imdur ER] 30 mg PO DAILY 01/31/20 02/09/20 02/08/20 08:00 Umeclidinium Brm/Vilanterol Tr 1 each IH DAILY 01/31/20 02/09/20 02/08/20 08:00 [Anoro Ellipta 62.5-25 Mcg INH] hydroCHLOROthiazide [HCTZ] 12.5 mg PO QDAY 01/31/20 02/09/20 02/08/20 08:00 Previous Rx's Medication Instructions Recorded Last Taken Type AtorvaSTATin [Lipitor] 40 mg PO QHS #30 tablet 08/04/18 02/08/20 20:00 Rx metFORMIN [Glucophage] 500 mg PO BID #60 tablet 08/04/18 02/08/20 17:00 Rx Glimepiride [Amaryl] 2 mg PO QAM #30 tablet 09/13/18 02/08/20 08:00 Rx Nortriptyline [Pamelor] 30 mg PO BID #60 capsule 09/13/18 02/08/20 20:00 Rx Albuterol Sulfate [Proventil Hfa] 2 puff IH PRN PRN #1 05/24/20 Unknown Rx Metoprolol Xl [Metoprolol 50 mg PO QDAY #60 05/24/20 Unknown Rx SUCCINATE ER TAB] Prednisone [predniSONE 5 mg (6-Day 5 mg PO .TAPER #1 tab.ds.pk 05/24/20 Unknown Rx Pack, 21 Tabs)] Nitroglycerin [Nitrostat] 0.4 mg SL Q5M PRN tablet 07/17/20 Unknown Rx predniSONE [Deltasone] 20 mg PO QDAY #21 tab 07/17/20 Unknown Rx Allergies Allergy/AdvReac Type Severity Reaction Status Date / Time No Known Allergies Allergy Verified 05/22/20 07:59 Heart Score - HEART Score History: Slightly suspicious EKG: Non-specific Age: > 65 Risk factors: > 3 risk factors or hx of atherosclerotic disease Troponin: < normal limit HEART Score: 5 - EKG Read Time Time EKG Completed: 18:34 EKG Read Time: 18:45 ED Review of Systems ROS: Stated complaint: SOB/CHEST PAIN Other details as noted in HPI Comment: All other systems reviewed and negative ED Past Medical Hx - Past Medical History Previous Medical History?: Yes Hx Hypertension: Yes Hx Heart Attack/AMI: No Hx Diabetes: Yes Hx GERD: Yes Hx Liver Disease: No Hx Renal Disease: No Hx Arthritis: Yes (osteoarthritis) Hx Seizures: No Hx Psychiatric Treatment: Yes (depression) Hx COPD: Yes (DAILY AND PRN INHALERS/ POOR COMPLIANCE) Hx HIV: No Additional medical history: high cholesterol, Neuropathy, Chronic Foot Pain. sleep apnea. CAD. spinal stenosis. PVD. 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 Frausto's esophagus - Surgical History Past Surgical History?: Yes Hx Pacemaker: No Hx Internal Defibrillator: No Additional Surgical History: hernia repair x 2. Prostate cancer removal surgery. hip replacement - Social History Smoking Status: Never Smoker - Medications Home Medications: Home Medications Medication Instructions Recorded Confirmed Last Taken Type AtorvaSTATin [Lipitor] 40 mg PO QHS #30 tablet 08/04/18 02/09/20 02/08/20 20:00 Rx metFORMIN [Glucophage] 500 mg PO BID #60 tablet 08/04/18 02/09/20 02/08/20 17:00 Rx Baclofen [Lioresal] 10 mg PO TID 08/27/18 02/09/20 02/08/20 20:00 History Tamsulosin [Flomax] 0.4 mg PO QDAY 08/27/18 02/09/20 02/08/20 08:00 History raNITIdine HCl [Zantac] 300 mg PO QHS 06/09/0902/09/20 02/08/20 20:00 History Glimepiride [Amaryl] 2 mg PO QAM #30 tablet 09/13/18 02/09/20 02/08/20 08:00 Rx Nortriptyline [Pamelor] 30 mg PO BID #60 capsule 09/13/18 02/09/20 02/08/20 20:00 Rx Aspirin [Adult Aspirin] 81 mg PO DAILY 12/16/19 02/09/20 02/05/20 08:00 History Gabapentin 100 mg PO BID 12/16/19 02/09/20 02/08/20 20:00 History Oxybutynin [Ditropan] 5 mg PO BID 12/16/19 02/09/20 02/08/20 20:00 History lisinopriL [Zestril TAB] 20 mg PO DAILY 12/16/19 02/09/20 02/08/20 08:00 History ALBUTEROL NEB's [Proventil 0.083% 2.5 mg IH Q6HR 01/31/20 02/09/20 02/08/20 08:00 History NEBS] Amlodipine Besylate/Benazepril 1 each PO DAILY 01/31/20 02/09/20 02/08/20 08:00 History [Amlodipine-Benazepril 5-40 mg] Cyclobenzaprine [Flexeril 10 MG 5 mg PO TID PRN 01/31/20 02/09/20 02/08/20 20:00 History TAB] Famotidine [Pepcid] 20 mg PO BID 01/31/20 02/09/20 02/08/20 20:00 History Fluticasone/Salmeterol(Nf) [Advair 2 puff IH BID 01/31/20 02/09/20 02/08/20 20:00 History HFA 115-21 mcg] HYDROcodone/APAP 5-325 [Romayor 1 each PO Q6HR PRN 01/31/20 02/09/20 02/08/20 08:00 History 5-325 mg TAB] ISOSORBIDE MONOnitrate [Imdur ER] 30 mg PO DAILY 01/31/20 02/09/20 02/08/20 08:00 History Umeclidinium Brm/Vilanterol Tr 1 each IH DAILY 01/31/20 02/09/20 02/08/20 08:00 History [Anoro Ellipta 62.5-25 Mcg INH] hydroCHLOROthiazide [HCTZ] 12.5 mg PO QDAY 01/31/20 02/09/20 02/08/20 08:00 History Albuterol Sulfate [Proventil Hfa] 2 puff IH PRN PRN #1 05/24/20 Unknown Rx Metoprolol Xl [Metoprolol 50 mg PO QDAY #60 05/24/20 Unknown Rx SUCCINATE ER TAB] Prednisone [predniSONE 5 mg (6-Day 5 mg PO .TAPER #1 tab.ds.pk 05/24/20 Unknown Rx Pack, 21 Tabs)] Nitroglycerin [Nitrostat] 0.4 mg SL Q5M PRN tablet 07/17/20 Unknown Rx predniSONE [Deltasone] 20 mg PO QDAY #21 tab 07/17/20 Unknown Rx ED Physical Exam - General Limitations: No Limitations - Other Other exam information: General: No acute distress Head: Atraumatic Eyes: normal appearance ENT: Moist mucous membranes Neck: Normal appearance, no midline tenderness Chest: Clear to auscultation bilaterally, mild left lower chest wall tender CV: Regular rate and rhythm Abdomen: Soft, normal bowel sounds, nontender, nondistended, no rebound or guarding Back: Normal inspection Extremity: Mild dark discoloration of bilateral lower extremities without significant edema. No calf tenderness, no erythema or warmth Neuro: Alert O x 3, no facial asymmetry, speech clear, no gross motor sensory deficit Psych: Appropriate behavior Skin: No rash ED Course Vital Signs 03/04/21 03/04/21 17:51 17:57 Temperature 97.3 F L Pulse Rate 76 Respiratory 18 Rate Blood Pressure 120/74 [Left] Blood Pressure 121/79 [Right] O2 Sat by Pulse 99 Oximetry LV score - Lv Score Age > 65: (1) Yes Aspirin use within the Past 7 Days: (1) Yes 3 or more CAD Risk Factors: (1) Yes 2 or more Angina events in past 24 hrs: (1) Yes Known CAD with more than 50% Stenosis: (0) No Elevated Cardiac Markers: (0) No ST Deviation Greater than 0.5mm: (0) No LV Score: 4 ED Medical Decision Making - Lab Data Result diagrams: 03/04/21 19:27 03/04/21 19:27 Lab Results 03/04/21 03/04/21 03/04/21 Range/Units 19:27 19:27 19:27 WBC 6.9 (4.5-11.0) K/mm3 RBC 5.04 H (3.65-5.03) M/mm3 Hgb 13.3 (11.8-15.2) gm/dl Hct 42.6 (35.5-45.6) % MCV 85 (84-94) fl MCH 26 L (28-32) pg MCHC 31 L (32-34) % RDW 19.1 H (13.2-15.2) % Plt Count 211 (140-440) K/mm3 Lymph % (Auto) 17.3 (13.4-35.0) % Gillespie % (Auto) 7.4 H (0.0-7.3) % Eos % (Auto) 3.1 (0.0-4.3) % Baso % (Auto) 0.3 (0.0-1.8) % Lymph # (Auto) 1.2 (1.2-5.4) K/mm3 Gillespie # (Auto) 0.5 (0.0-0.8) K/mm3 Eos # (Auto) 0.2 (0.0-0.4) K/mm3 Baso # (Auto) 0.0 (0.0-0.1) K/mm3 Seg Neutrophils % 71.9 H (40.0-70.0) % Seg Neutrophils # 5.0 (1.8-7.7) K/mm3 PT 13.7 (12.2-14.9) Sec. INR 0.95 (0.87-1.13) APTT 29.9 (24.2-36.6) Sec. Sodium 140 (137-145) mmol/L Potassium 4.0 (3.6-5.0) mmol/L Chloride 105.7 (98-107) mmol/L Carbon Dioxide 21 L (22-30) mmol/L Anion Gap 17 mmol/L BUN 24 H (9-20) mg/dL Creatinine 1.0 (0.8-1.3) mg/dL Estimated GFR > 60 ml/min BUN/Creatinine Ratio 24 % Glucose 111 H (75-100) mg/dL Calcium 9.2 (8.4-10.2) mg/dL Total Bilirubin 0.30 (0.1-1.2) mg/dL AST 15 (5-40) units/L ALT 12 (7-56) units/L Alkaline Phosphatase 75 (35-129) units/L Troponin T 0.015 (0.00-0.029) ng/mL Total Protein 7.1 (6.3-8.2) g/dL Albumin 3.9 (3.9-5) g/dL Albumin/Globulin Ratio 1.2 % 03/04/21 Range/Units 22:32 WBC (4.5-11.0) K/mm3 RBC (3.65-5.03) M/mm3 Hgb (11.8-15.2) gm/dl Hct (35.5-45.6) % MCV (84-94) fl MCH (28-32) pg MCHC (32-34) % RDW (13.2-15.2) % Plt Count (140-440) K/mm3 Lymph % (Auto) (13.4-35.0) % Gillespie % (Auto) (0.0-7.3) % Eos % (Auto) (0.0-4.3) % Baso % (Auto) (0.0-1.8) % Lymph # (Auto) (1.2-5.4) K/mm3 Gillespie # (Auto) (0.0-0.8) K/mm3 Eos # (Auto) (0.0-0.4) K/mm3 Baso # (Auto) (0.0-0.1) K/mm3 Seg Neutrophils % (40.0-70.0) % Seg Neutrophils # (1.8-7.7) K/mm3 PT (12.2-14.9) Sec. INR (0.87-1.13) APTT (24.2-36.6) Sec. Sodium (137-145) mmol/L Potassium (3.6-5.0) mmol/L Chloride (98-107) mmol/L Carbon Dioxide (22-30) mmol/L Anion Gap mmol/L BUN (9-20) mg/dL Creatinine (0.8-1.3) mg/dL Estimated GFR ml/min BUN/Creatinine Ratio % Glucose (75-100) mg/dL Calcium (8.4-10.2) mg/dL Total Bilirubin (0.1-1.2) mg/dL AST (5-40) units/L ALT (7-56) units/L Alkaline Phosphatase (35-129) units/L Troponin T < 0.010 (0.00-0.029) ng/mL Total Protein (6.3-8.2) g/dL Albumin (3.9-5) g/dL Albumin/Globulin Ratio % - EKG Data -: EKG Interpreted by Mo EKG shows normal: sinus rhythm, ST-T waves (Mild T wave inversions no ST elevation ID) Rate: normal (71) - EKG Data When compared to previous EKG there are: no significant change - Radiology Data Radiology results: report reviewed CTA CHEST WITH IV CONTRAST INDICATION: chest pain. TECHNIQUE: Axial CT images were obtained through the chest after injection of IV contrast. 3 plane MIP reconstructions were produced. All CT scans at this location are performed using CT dose reduction for ALARA by means of automated exposure control. COMPARISON: None available. FINDINGS: Pulmonary Arteries: No pulmonary emboli. Thoracic Aorta: No acute abnormality. Heart: Heart size is normal. Mild coronary artery calcification is noted. Lungs: No acute air space or interstitial disease. COPD changes are noted. Pleura: No pleural effusion. No pneumothorax. Lymph Nodes: No significant adenopathy. Additional Findings: None. Upper Abdomen: No acute findings. Skeletal Structures: No significant osseous abnormality. IMPRESSION: 1. No CT evidence for pulmonary embolism. 2. No acute findings. CHEST 2 VIEWS INDICATION / CLINICAL INFORMATION: Chest Pain. COMPARISON: 07/14/2020 FINDINGS: SUPPORT DEVICES: None. HEART / MEDIASTINUM: No significant abnormality. LUNGS / PLEURA: No significant pulmonary or pleural abnormality. No pneumothorax. ADDITIONAL FINDINGS: No significant additional findings. IMPRESSION: 1. No acute findings. - Medical Decision Making 75-year-old male presents to the hospital with chest pain. Several cardiac risk factors. No acute ischemic findings on EKG. Troponin negative. CT angiogram without acute abnormality. Patient treated with aspirin and will be admitted to the hospital service for further work-up and evaluation Critical Care Time: No Critical care attestation.: If time is entered above; I have spent that time in minutes in the direct care of this critically ill patient, excluding procedure time. ED Disposition Clinical Impression: Chest pain Disposition: 09 ADMITTED INPATIENT Is pt being admited?: Yes Does the pt Need Aspirin: Yes Condition: Stable Time of Disposition: 23:50 (dr rangel)
[2021-03-04 19:57] LABS: Basophils % (Auto) 0.3 % (0.0-1.8); Eosinophils # (Auto) 0.2 K/mm3 (0.0-0.4); Eosinophils % (Auto) 3.1 % (0.0-4.3); Hematocrit 42.6 % (35.5-45.6); Hemoglobin 13.3 gm/dl (11.8-15.2); Lymphocytes # (Auto) 1.2 K/mm3 (1.2-5.4); Lymphocytes % (Auto) 17.3 % (13.4-35.0); Mean Corpuscular HGB Conc 31 % (32-34); Mean Corpuscular Volume 85 fl (84-94); Monocytes # (Auto) 0.5 K/mm3 (0.0-0.8); Monocytes % (Auto) 7.4 % (0.0-7.3); Platelet Count 211 K/mm3 (140-440); Red Blood Count 5.04 M/mm3 (3.65-5.03); Red Cell Distribution Width 19.1 % (13.2-15.2)
[2021-03-04 20:09] LABS: Alanine Aminotransferase 12 units/L (7-56); Albumin 3.9 g/dL (3.9-5); BUN/Creatinine Ratio 24; Blood Urea Nitrogen 24 mg/dL (9-20); Calcium 9.2 mg/dL (8.4-10.2); Hemolysis Index 14; INR 0.95 (0.87-1.13)
[2021-03-04 20:10] LABS: Partial Thromboplastin Time 29.9 Sec. (24.2-36.6)
--- NOTE | 2021-03-04 21:03 | XRay Report ---
CHEST 2 VIEWS INDICATION / CLINICAL INFORMATION: Chest Pain. COMPARISON: 07/14/2020 FINDINGS: SUPPORT DEVICES: None. HEART / MEDIASTINUM: No significant abnormality. LUNGS / PLEURA: No significant pulmonary or pleural abnormality. No pneumothorax. ADDITIONAL FINDINGS: No significant additional findings. IMPRESSION: 1. No acute findings. Signer Name: Prince Rojas MD Signed: 03/04/2021 8:58 PM Workstation Name: [id number]
--- NOTE | 2021-03-04 22:23 | Cat Scan Report ---
CTA CHEST WITH IV CONTRAST INDICATION: chest pain. TECHNIQUE: Axial CT images were obtained through the chest after injection of IV contrast. 3 plane MIP reconstru ctions were produced. All CT scans at this location are performed using CT dose reduction for ALARA b y means of automated exposure control. COMPARISON: None available. FINDINGS: Pulmonary Arteries: No pulmonary emboli. Thoracic Aorta: No acute abnormality. Heart: Heart size is normal. Mild coronary artery calcification is noted. Lungs: No acute air space or interstitial disease. COPD changes are noted. Pleura: No pleural effusion. No pneumothorax. Lymph Nodes: No significant adenopathy. Additional Findings: None. Upper Abdomen: No acute findings. Skeletal Structures: No significant osseous abnormality. IMPRESSION: 1. No CT evidence for pulmonary embolism. 2. No acute findings. Signer Name: Beck Lawrence MD Signed: 03/04/2021 10:18 PM Workstation Name: [id number]
[2021-03-04] MEDS ORDERED: ASPIRIN 325 MG TAB PO ONE (23:50)
[2021-03-05] MEDS ORDERED: ACETAMINOPHEN 325 MG TAB PO PRN (00:43)
[2021-03-05] MEDS ORDERED: MORPHINE 2 MG/1 ML INJ IV PRN (00:43)
[2021-03-05] MEDS ORDERED: MAGNESIUM HYDROXIDE (MOM) ORAL LIQD UDC PO PRN (00:43)
[2021-03-05] MEDS ORDERED: MORPHINE 4 MG/1 ML INJ IV PRN ×2 (00:43)
[2021-03-05] MEDS ORDERED: ONDANSETRON 4 MG/2 ML INJ IV PRN (00:43)
[2021-03-05] MEDS ORDERED: DEXTROSE 50% IN WATER (25GM) 50 ML SYRINGE IV PRN (00:43)
[2021-03-05] MEDS ORDERED: traMADol 50 MG TAB PO PRN ×2 (00:43→13:00)
[2021-03-05] MEDS ORDERED: NITROGLYCERIN 0.4 MG TAB SUBL SL PRN (00:43)
--- NOTE | 2021-03-05 01:00 | History and Physical Report ---
History of Present Illness Date of examination: 03/05/21 Date of admission: 03/04/21 23:50 Chief complaint: Chest pain History of present illness: 75-year-old male with known history of hypertension, hyperlipidemia, coronary artery disease, abdominal aortic aneurysm and peripheral vascular disease presents to the emergency room today complaining of chest pain which has been ongoing for the past few days. Chest pain has been intermittent. Pain is worse upon exertion and feels better upon resting. On a scale of 10 pain was 10/10 upon in severity. Patient denies any headache or dizziness and denies any diaphoresis. Denies any fever or chills, no nausea vomiting, no abdominal pain. Review of patient records indicates that he had a stress test sometime in June 2020 with no significant abnormality. Work-up in the emergency room today including EKG, chest x-ray and troponin were unremarkable. Patient being admitted for chest pain evaluation. Past History Past Medical History: arthritis, COPD, diabetes, GERD, hypertension, hyperlipidemia, other (Depression,Neuropathy, Chronic Foot Pain. sleep apnea. CAD. spinal stenosis. PVD. 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 Frausto's esophagus) Past Surgical History: hernia repair (X2), total hip replacement, Other (Prostate cancer surgery) Social history: no significant social history Medications and Allergies Allergies Allergy/AdvReac Type Severity Reaction Status Date / Time No Known Allergies Allergy Verified 05/22/20 07:59 Home Medications Medication Instructions Recorded Confirmed Last Taken Type AtorvaSTATin [Lipitor] 40 mg PO QHS #30 tablet 08/04/18 02/09/20 02/08/20 20:00 Rx metFORMIN [Glucophage] 500 mg PO BID #60 tablet 08/04/18 02/09/20 02/08/20 17:00 Rx Baclofen [Lioresal] 10 mg PO TID 08/27/18 02/09/20 02/08/20 20:00 History Tamsulosin [Flomax] 0.4 mg PO QDAY 08/27/18 02/09/20 02/08/20 08:00 History raNITIdine HCl [Zantac] 300 mg PO QHS 08/27/18 02/09/20 02/08/20 20:00 History Glimepiride [Amaryl] 2 mg PO QAM #30 tablet 09/13/18 02/09/20 02/08/20 08:00 Rx Nortriptyline [Pamelor] 30 mg PO BID #60 capsule 09/13/18 02/09/20 02/08/20 20:00 Rx Aspirin [Adult Aspirin] 81 mg PO DAILY 12/16/19 02/09/20 02/05/20 08:00 History Gabapentin 100 mg PO BID 12/16/19 02/09/20 02/08/20 20:00 History Oxybutynin [Ditropan] 5 mg PO BID 12/16/19 02/09/20 02/08/20 20:00 History lisinopriL [Zestril TAB] 20 mg PO DAILY 12/16/19 02/09/20 02/08/20 08:00 History ALBUTEROL NEB's [Proventil 0.083% 2.5 mg IH Q6HR 01/31/20 02/09/20 02/08/20 08:00 History NEBS] Amlodipine Besylate/Benazepril 1 each PO DAILY 01/31/20 02/09/20 02/08/20 08:00 History [Amlodipine-Benazepril 5-40 mg] Cyclobenzaprine [Flexeril 10 MG 5 mg PO TID PRN 01/31/20 02/09/20 02/08/20 20:00 History TAB] Famotidine [Pepcid] 20 mg PO BID 01/31/20 02/09/20 02/08/20 20:00 History Fluticasone/Salmeterol(Nf) [Advair 2 puff IH BID 01/31/20 02/09/20 02/08/20 20:00 History HFA 115-21 mcg] HYDROcodone/APAP 5-325 [[place] 1 each PO Q6HR PRN 01/31/20 02/09/20 02/08/20 08:00 History 5-325 mg TAB] ISOSORBIDE MONOnitrate [Imdur ER] 30 mg PO DAILY 01/31/20 02/09/20 02/08/20 08:00 History Umeclidinium Brm/Vilanterol Tr 1 each IH DAILY 01/31/20 02/09/20 02/08/20 08:00 History [Anoro Ellipta 62.5-25 Mcg INH] hydroCHLOROthiazide [HCTZ] 12.5 mg PO QDAY 01/31/20 02/09/20 02/08/20 08:00 History Albuterol Sulfate [Proventil Hfa] 2 puff IH PRN PRN #1 05/24/20 Unknown Rx Metoprolol Xl [Metoprolol 50 mg PO QDAY #60 05/24/20 Unknown Rx SUCCINATE ER TAB] Prednisone [predniSONE 5 mg (6-Day 5 mg PO .TAPER #1 tab.ds.pk 05/24/20 Unknown Rx Pack, 21 Tabs)] Nitroglycerin [Nitrostat] 0.4 mg SL Q5M PRN tablet 07/17/20 Unknown Rx predniSONE [Deltasone] 20 mg PO QDAY #21 tab 07/17/20 Unknown Rx Active Meds: Active Medications Acetaminophen (Acetaminophen 325 Mg Tab) 650 mg PO Q4H PRN PRN Reason: Pain MILD(1-3)/Fever >100.5/FERRER Acetaminophen (Acetaminophen 325 Mg Tab) 650 mg PO Q6H PRN PRN Reason: Pain, Mild (1-3) Aspirin (Aspirin Ec 325 Mg Tab) 325 mg PO QDAY MOIZ Dextrose (Dextrose 50% In Water (25gm) 50 Ml Syringe) 50 ml IV Q30MIN PRN; Protocol PRN Reason: Hypoglycemia Dextrose (Dextrose 50% In Water (25gm) 50 Ml Syringe) 50 ml IV Q30MIN PRN; Protocol PRN Reason: Hypoglycemia Heparin Sodium (Porcine) (Heparin 5,000 Unit/1 Ml Vial) 5,000 unit SUB-Q Q8HR MOIZ Insulin Human Lispro (Insulin Lispro 100 Unit/Ml) 0 unit SUB-Q ACHS MOIZ; Protocol Magnesium Hydroxide (Magnesium Hydroxide (Mom) Oral Liqd Udc) 30 ml PO Q4H PRN PRN Reason: Constipation Morphine Sulfate (Morphine 2 Mg/1 Ml Inj) 2 mg IV Q4H PRN PRN Reason: Pain, Moderate (4-6) Morphine Sulfate (Morphine 4 Mg/1 Ml Inj) 4 mg IV Q4H PRN PRN Reason: Pain , Severe (7-10) Morphine Sulfate (Morphine 4 Mg/1 Ml Inj) 2 mg IV Q5MIN PRN PRN Reason: Chest Pain unrelieved by NTG Nitroglycerin (Nitroglycerin 0.4 Mg Tab Subl) 0.4 mg SL Q5M PRN PRN Reason: Chest Pain Ondansetron HCl (Ondansetron 4 Mg/2 Ml Inj) 4 mg IV Q8H PRN PRN Reason: Nausea And Vomiting Sodium Chloride (Sodium Chloride 0.9% 10 Ml Flush Syringe) 10 ml IV BID MOIZ Sodium Chloride (Sodium Chloride 0.9% 10 Ml Flush Syringe) 10 ml IV PRN PRN PRN Reason: LINE FLUSH Sodium Chloride (Sodium Chloride 0.9% 10 Ml Flush Syringe) 10 ml IV PRN PRN PRN Reason: LINE FLUSH Tramadol HCl (Tramadol 50 Mg Tab) 50 mg PO Q6H PRN PRN Reason: Pain, Moderate (4-6) Review of Systems Constitutional: no fever, no chills Ears, nose, mouth and throat: no nasal congestion, no sore throat Cardiovascular: no chest pain, no palpitations Respiratory: no cough, no shortness of breath Gastrointestinal: no abdominal pain, no nausea, no vomiting, no diarrhea Genitourinary Male: no dysuria, no hematuria, no nocturia, no polyuria Musculoskeletal: no neck pain, no low back pain Integumentary: no rash, no pruritis Neurological: no headaches, no confusion Psychiatric: no anxiety, no depression Endocrine: no polyphagia, no polydipsia, no polyuria, no nocturia Exam - Constitutional Vitals: Temp Pulse Resp BP Pulse Ox 97.3 F L 76 18 120/74 99 03/04/21 17:51 03/04/21 17:51 03/04/21 17:51 03/04/21 17:57 03/04/21 17:51 General appearance: Present: no acute distress, well-nourished - EENT Eyes: Present: PERRL, EOM intact. Absent: scleral icterus ENT: hearing intact, clear oral mucosa, dentition normal - Neck Neck: Present: supple, normal ROM - Respiratory Respiratory effort: normal Respiratory: bilateral: CTA - Cardiovascular Rhythm: regular Heart Sounds: Present: S1 & S2. Absent: gallop, systolic murmur, diastolic murmur, rub, click - Extremities Extremities: no ischemia, pulses intact, pulses symmetrical, No edema, normal temperature, normal color, Full ROM - Abdominal General gastrointestinal: Present: soft, non-tender, non-distended, normal bowel sounds. Absent: mass - Integumentary Integumentary: Present: clear, warm, dry, normal turgor. Absent: rash - Musculoskeletal Musculoskeletal: strength equal bilaterally - Psychiatric Psychiatric: appropriate mood/affect, intact judgment & insight, memory intact, cooperative - Neurologic Neurologic: CNII-XII intact, no focal deficits, moves all extremities HEART Score - HEART Score EKG: Non-specific Age: > 65 Risk factors: > 3 risk factors or hx of atherosclerotic disease Troponin: Troponin T < 0.010 ng/mL (0.00-0.029) 03/04/21 22:32 Troponin: < normal limit Results - Labs CBC & Chem 7: 03/05/21 00:58 03/05/21 00:58 Labs: Abnormal lab results 03/04/21 03/04/21 Range/Units 19:27 19:27 RBC 5.04 H (3.65-5.03) M/mm3 MCH 26 L (28-32) pg MCHC 31 L (32-34) % RDW 19.1 H (13.2-15.2) % [place] % (Auto) 7.4 H (0.0-7.3) % Seg Neutrophils % 71.9 H (40.0-70.0) % Carbon Dioxide 21 L (22-30) mmol/L BUN 24 H (9-20) mg/dL Glucose 111 H (75-100) mg/dL Assessment and Plan - Patient Problems (1) Chest pain Current Visit: Yes Status: Acute Qualifiers: Plan to address problem: Patient admitted and placed on telemetry. We will check serial cardiac enzymes. Patient placed on daily aspirin, sublingual nitroglycerin and IV morphine as needed for chest pain. Consult placed to cardiology for evaluation. (2) HTN (hypertension) Current Visit: No Status: Chronic Plan to address problem: We will resume routine home medications and monitor vital signs closely. (3) Diabetes mellitus Current Visit: No Status: Chronic Plan to address problem: Patient placed on sliding scale. We will monitor Accu-Cheks closely. (4) Hyperlipemia Current Visit: No Status: Chronic Plan to address problem: We will resume routine home medications and monitor lipid profile. (5) DVT prophylaxis Current Visit: No Status: Acute Plan to address problem: Patient placed on subcutaneous heparin. (6) Full code status Current Visit: Yes Status: Acute Plan to address problem: Patient is full code.
[2021-03-05 01:18] LABS: Hematocrit 42.2 % (35.5-45.6); Hemoglobin 13.1 gm/dl (11.8-15.2); Mean Corpuscular HGB Conc 31 % (32-34); Mean Corpuscular Volume 84 fl (84-94); Red Blood Count 5.03 M/mm3 (3.65-5.03); Red Cell Distribution Width 19.2 % (13.2-15.2)
[2021-03-05 01:19] LABS: Basophils % (Auto) 0.2 % (0.0-1.8); Eosinophils # (Auto) 0.2 K/mm3 (0.0-0.4); Eosinophils % (Auto) 2.8 % (0.0-4.3); Lymphocytes # (Auto) 1.3 K/mm3 (1.2-5.4); Lymphocytes % (Auto) 18.5 % (13.4-35.0); Monocytes # (Auto) 0.6 K/mm3 (0.0-0.8); Monocytes % (Auto) 8.3 % (0.0-7.3); Platelet Count 208 K/mm3 (140-440)
[2021-03-05 01:24] LABS: BUN/Creatinine Ratio 27; Blood Urea Nitrogen 24 mg/dL (9-20); Calcium 9.4 mg/dL (8.4-10.2); Hemolysis Index 10
[2021-03-05] MEDS: HEPARIN 5,000 UNIT/1 ML VIAL SUB-Q SCH ×3 (05:53→22:51)
[2021-03-05] MEDS: INSULIN LISPRO 100 UNIT/ML SUB-Q SCH ×4 (07:28→22:57)
--- NOTE | 2021-03-05 09:56 | Event Note ---
Date: 03/05/21 This is a follow-up from an admission earlier this morning. Patient seen and examined. We will continue to plan as outlined in H&P. Work-up in the emergency room today including EKG, chest x-ray and troponin were unremarkable. Await cardiology recommendations with regards to ischemic evaluation. Total visit time equals 35 minutes with greater than 50% spent on coordination of care and counseling
[2021-03-05] MEDS ORDERED: SODIUM CHLORIDE 0.9% 500 ML 500 ML IV SCH (10:00)
[2021-03-05] MEDS ORDERED: HEPARIN 10,000 UNITS/10 ML VIAL ONE (10:44)
[2021-03-05] MEDS ORDERED: LIDOCAINE (2%) 20 MG/1 ML VIAL 20 ML MDV INFILTRATI ONE (10:44)
[2021-03-05] MEDS ORDERED: HEPARIN/NS 5000 UNIT/500ML 1,000 ML IR ONE (10:44)
[2021-03-05] MEDS ORDERED: VERAPAMIL 5 MG/2 ML INJ ONE (10:44)
[2021-03-05] MEDS ORDERED: MIDAZOLAM 2 MG/2 ML INJ ONE (10:44)
[2021-03-05] MEDS ORDERED: fentaNYL 100 MCG/2 ML INJ ONE (10:44)
[2021-03-05] MEDS ORDERED: NITROGLYCERIN SYRINGE 3 ML ONE (10:50)
[2021-03-05] MEDS ORDERED: SODIUM CHLORIDE 0.9% 500 ML 500 ML ONE (10:52)
--- NOTE | 2021-03-05 12:29 | Cardiac Catherization Report ---
DATE OF SERVICE: 03/05/2021 LEFT HEART CATHETERIZATION CLINICAL INFORMATION: This is a 75-year-old -[place] male with history of smoking, hypertension, hyperlipidemia, diabetes, having recurrent chest pain despite negative stress test earlier this year. Procedure was done with moderate sedation, started on 11:16, finished at 11:28 with 12 minutes of moderate sedation. DESCRIPTION OF PROCEDURE: Procedure was done via the right radial artery, sterile technique and local anesthesia. A 6-Tunisian radial sheath inserted. Left system engaged with JL4 catheter. Left main is large and patent, and bifurcates into the large LAD, is patent, with mild luminal irregularities. Diagonal 1 is a medium caliber vessel, ostial 20%. Circumflex is large, dominant, it is patent with mild luminal irregularities. OM1 and OM2 are medium caliber vessels that are patent. LPDA is a medium caliber vessel, patent with mild luminal irregularities, and OM3 is a medium caliber vessel, it is patent with mild luminal irregularities. RCA is engaged with JR4, it is a small nondominant vessel. LV gram done in MACEDONIAN and JANE view shows normal LV function, EF 55-60%. LVEDP 13 mmHg, LV is 131, aortic is 131 mm hg. No gradient across the aortic valve on pullback. The 5-Tunisian catheters all taken over guidewire. A 6-Tunisian radial sheath was discontinued. Radial band applied. No hematoma, no bleeding. SUMMARY: Left main patent, LAD patent, mild luminal irregularities. Diagonal 1 ostial 20%. Circumflex dominant, patent. OM1, 2 and 3, [id number] caliber vessels, are patent; mild luminal irregularities. LPDA is a medium caliber vessel, it is patent, mild luminal irregularities. RCA is a small, nondominant vessel, it is patent with normal LV function. Continue medical management. TID: [id number] RECEIPT: [id number] PAMELA/BATSHEVA/DARYL MTDChica
--- NOTE | 2021-03-05 12:46 | Consultation ---
History of Present Illness Consult date: 03/05/21 Requesting physician: PILLO CRUZ Consult reason: chest pain History of present illness: Patient is 75-year-old male with a past medical history of hypertension, coronary artery disease, AAA, peripheral vascular disease, and hyperlipidemia who presented to the ED with complaint of chest pain x 3 to 4 days. Patient reports chest pain is intermittent and is worse with exertion however pain is relieved with rest. Patient reports pain as 10 out of 10. Pain is reproducible with palpitation and pain radiates to patient's neck. Patient denies palpitations, nausea vomiting, or diaphoresis. Patient has been previously seen by Dr. Farah of our practice. Cardiology is consulted for chest pain. Past History Past Medical History: arthritis, COPD, diabetes, GERD, hypertension, hyperlipidemia, other (Depression,Neuropathy, Chronic Foot Pain. sleep apnea. CAD. spinal stenosis. PVD. 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 Frausto's esophagus) Past Surgical History: hernia repair (X2), total hip replacement, Other (Prostate cancer surgery) Social history: no significant social history Family history: no significant family history Medications and Allergies Allergies Allergy/AdvReac Type Severity Reaction Status Date / Time No Known Allergies Allergy Verified 03/05/21 11:31 Home Medications Medication Instructions Recorded Confirmed Last Taken Type AtorvaSTATin [Lipitor] 40 mg PO QHS #30 tablet 08/04/18 03/05/21 03/04/21 Rx metFORMIN [Glucophage] 500 mg PO BID #60 tablet 08/04/18 03/05/21 03/04/21 Rx Baclofen [Lioresal] 10 mg PO TID 08/27/18 03/05/21 03/04/21 History Tamsulosin [Flomax] 0.8 mg PO QDAY 08/27/18 03/05/21 03/04/21 History Glimepiride [Amaryl] 2 mg PO QAM #30 tablet 09/13/18 03/05/21 03/04/21 Rx Nortriptyline [Pamelor] 30 mg PO BID #60 capsule 09/13/18 03/05/21 03/04/21 Rx Aspirin [Adult Aspirin] 81 mg PO DAILY 12/16/19 03/05/21 03/04/21 History lisinopriL [Zestril TAB] 20 mg PO DAILY 09/03/05/21 03/04/21 History ALBUTEROL NEB's [Proventil 0.083% 2.5 mg IH Q6HR 01/31/20 03/05/21 03/04/21 History NEBS] Amlodipine Besylate/Benazepril 1 each PO DAILY 01/31/20 03/05/21 03/04/21 History [Amlodipine-Benazepril 5-40 mg] Cyclobenzaprine [Flexeril 10 MG 5 mg PO TID PRN 01/31/20 03/05/21 03/04/21 History TAB] Famotidine [Pepcid] 20 mg PO BID 01/31/20 03/05/21 03/04/21 History Fluticasone/Salmeterol(Nf) [Advair 2 puff IH BID 01/31/20 03/05/21 03/04/21 History HFA 115-21 mcg] HYDROcodone/APAP 5-325 [[place] 1 each PO Q6H PRN 01/31/20 03/05/21 03/04/21 History 5-325 mg TAB] ISOSORBIDE MONOnitrate [Imdur ER] 30 mg PO DAILY 01/31/20 03/05/21 03/04/21 History Umeclidinium Brm/Vilanterol Tr 1 each IH DAILY 01/31/20 03/05/21 03/04/21 History [Anoro Ellipta 62.5-25 Mcg INH] hydroCHLOROthiazide [HCTZ] 12.5 mg PO QDAY 01/31/20 03/05/21 03/04/21 History Albuterol Sulfate [Proventil Hfa] 2 puff IH PRN PRN #1 05/24/20 03/05/21 03/04/21 Rx Metoprolol Xl [Metoprolol 50 mg PO QDAY #60 05/24/20 03/05/21 03/04/21 Rx SUCCINATE ER TAB] Nitroglycerin [Nitrostat] 0.4 mg SL Q5M PRN tablet 07/17/20 03/05/21 03/04/21 Rx Omeprazole 40 mg PO QAM 03/05/21 03/05/21 03/04/21 History Oxybutynin Chloride [Ditropan Xl] 10 mg PO QDAY 03/05/21 03/05/2103/04/21 History Active Meds: Active Medications Acetaminophen (Acetaminophen 325 Mg Tab) 650 mg PO Q4H PRN PRN Reason: Pain MILD(1-3)/Fever >100.5/FERRER Aspirin (Aspirin Ec 325 Mg Tab) 325 mg PO QDAY MOIZ Dextrose (Dextrose 50% In Water (25gm) 50 Ml Syringe) 50 ml IV Q30MIN PRN; Protocol PRN Reason: Hypoglycemia Heparin Sodium (Porcine) (Heparin 5,000 Unit/1 Ml Vial) 5,000 unit SUB-Q Q8HR MOIZ Last Admin: 03/05/21 05:53 Dose: 5,000 unit Documented by: Sodium Chloride (Nacl 0.9% 500 Ml) 500 mls @ 50 mls/hr IV DIRECT MOIZ Stop: 03/05/21 19:59 Insulin Human Lispro (Insulin Lispro 100 Unit/Ml) 0 unit SUB-Q ACHS MOIZ; Protocol Last Admin: 03/05/21 12:12 Dose: Not Given Documented by: Magnesium Hydroxide (Magnesium Hydroxide (Mom) Oral Liqd Udc) 30 ml PO Q4H PRN PRN Reason: Constipation Morphine Sulfate (Morphine 2 Mg/1 Ml Inj) 2 mg IV Q4H PRN PRN Reason: Pain, Moderate (4-6) Morphine Sulfate (Morphine 4 Mg/1 Ml Inj) 4 mg IV Q4H PRN PRN Reason: Pain , Severe (7-10) Morphine Sulfate (Morphine 4 Mg/1 Ml Inj) 2 mg IV Q5MIN PRN PRN Reason: Chest Pain unrelieved by NTG Nitroglycerin (Nitroglycerin 0.4 Mg Tab Subl) 0.4 mg SL Q5M PRN PRN Reason: Chest Pain Ondansetron HCl (Ondansetron 4 Mg/2 Ml Inj) 4 mg IV Q8H PRN PRN Reason: Nausea And Vomiting Sodium Chloride (Sodium Chloride 0.9% 10 Ml Flush Syringe) 10 ml IV BID MOIZ Sodium Chloride (Sodium Chloride 0.9% 10 Ml Flush Syringe) 10 ml IV PRN PRN PRN Reason: LINE FLUSH Tramadol HCl (Tramadol 50 Mg Tab) 50 mg PO Q6H PRN PRN Reason: Pain, Moderate (4-6) Last Admin: 03/05/21 12:06 Dose: 50 mg Documented by: Tramadol HCl (Tramadol 50 Mg Tab) 50 mg PO Q4H PRN PRN Reason: Pain, Mild (1-3) Review of Systems Constitutional: no weight loss, no weight gain, no fever, no chills Ears, nose, mouth and throat: no nasal congestion, no nasal discharge, no sinus pressure Cardiovascular: chest pain, no palpitations, no shortness of breath, no dyspnea on exertion Respiratory: no shortness of breath, no dyspnea on exertion Gastrointestinal: no abdominal pain, no nausea, no vomiting Musculoskeletal: neck pain, no shooting arm pain, no arm numbness/tingling Integumentary: no rash, no pruritis, no redness Neurological: no head injury, no transient paralysis, no paralysis Psychiatric: no anxiety, no memory loss Endocrine: no cold intolerance, no heat intolerance Hematologic/Lymphatic: no easy bruising, no easy bleeding Physical Examination Vital Signs Temp Pulse Resp BP Pulse Ox 97.3 F L 76 18 121/79 99 03/04/21 17:51 03/04/21 17:51 03/04/21 17:51 03/04/21 17:51 03/04/21 17:51 General appearance: no acute distress HEENT: Positive: PERRL, Mucus Membranes Dry Neck: Positive: trachea midline Cardiac: Positive: Reg Rate and Rhythm Lungs: Positive: Normal Breath Sounds Neuro: Positive: Grossly Intact Abdomen: Positive: Soft, Active Bowel Sounds Skin: Negative: Rash, Suspicious Lesions, Ulceration Extremities: Present: upper extr. pulses. Absent: edema Results 03/05/21 00:58 03/05/21 00:58 Cardiac Enzymes 03/04/21 Range/Units 19:27 AST 15 (5-40) units/L Coagulation 03/04/21 Range/Units 19:27 PT 13.7 (12.2-14.9) Sec. INR 0.95 (0.87-1.13) APTT 29.9 (24.2-36.6) Sec. CBC 03/04/21 03/05/21 Range/Units 19:27 00:58 WBC 6.9 7.0 (4.5-11.0) K/mm3 RBC 5.04 H 5.03 (3.65-5.03) M/mm3 Hgb 13.3 13.1 (11.8-15.2) gm/dl Hct 42.6 42.2 (35.5-45.6) % Plt Count 211 208 (140-440) K/mm3 Lymph # (Auto) 1.2 1.3 (1.2-5.4) K/mm3 [place] # (Auto) 0.5 0.6 (0.0-0.8) K/mm3 Eos # (Auto) 0.2 0.2 (0.0-0.4) K/mm3 Baso # (Auto) 0.0 0.0 (0.0-0.1) K/mm3 Comprehensive Metabolic Panel 03/04/21 03/05/21 Range/Units 19:27 00:58 Sodium 140 139 (137-145) mmol/L Potassium 4.0 4.0 (3.6-5.0) mmol/L Chloride 105.7 103.6 (98-107) mmol/L Carbon Dioxide 21 L 23 (22-30) mmol/L BUN 24 H 24 H (9-20) mg/dL Creatinine 1.0 0.9 (0.8-1.3) mg/dL Glucose 111 H 100 (75-100) mg/dL Calcium 9.2 9.4 (8.4-10.2) mg/dL AST 15 (5-40) units/L ALT 12 (7-56) units/L Alkaline Phosphatase 75 (35-129) units/L Total Protein 7.1 (6.3-8.2) g/dL Albumin 3.9 (3.9-5) g/dL - Imaging and Cardiology Echo: report reviewed Cardiac cath: pending EKG interpretations - Telemetry EKG Rhythm: Sinus Rhythm - EKG Sinus rhythms and dysrhythmias: sinus rhythm Assessment and Plan Patient is 75-year-old male with a past medical history of hypertension, coronary artery disease, AAA, peripheral vascular disease, and hyperlipidemia who presented to the ED with complaint of chest pain x 3 to 4 days Chronic HFpEF CAD AAA PVD HTN HLD Tobacco use Echo 05/23/2020-EF 55 to 60%, abnormal left ventricular diastolic filling impaired relaxation. No LVH. Nuclear stress test 07/17/2020-negative for signs of ischemia Cardiac cath 03/05/2021-negative for blockages. No indication for PCI. Plan: Troponins negative x3. Chest pain atypical Patient should continue outpatient medication regime of lisinopril 20 mg p.o. daily, hydrochlorothiazide 12.5 mg p.o. daily, metoprolol XL 50 mg p.o. daily, Imdur 30 mg p.o. daily, aspirin, and Lipitor Patient should hold Metformin following cardiac cath Cardiac status otherwise stable. Will sign off Patient should follow-up with Dr. Farah, [facility] bpo specialist, 1 to 2 weeks after discharge. Phone [phone] Patient seen in conjunction with Dr. Lance who agrees with this plan of care - Patient Problems (1) Chest pain Current Visit: Yes Status: Acute Qualifiers: (2) (HFpEF) heart failure with preserved ejection fraction Current Visit: No Status: Acute (3) CAD (coronary artery disease) Current Visit: No Status: Chronic Qualifiers: Associated angina: with stable angina (4) COPD (chronic obstructive pulmonary disease) Current Visit: No Status: Chronic (5) HLD (hyperlipidemia) Current Visit: No Status: Chronic Qualifiers: Hyperlipidemia type: mixed hyperlipidemia Qualified Code(s): E78.2 - Mixed hyperlipidemia (6) HTN (hypertension) Current Visit: No Status: Chronic (7) History of PTCA Current Visit: No Status: Chronic (8) Nicotine dependence Current Visit: No Status: Chronic (9) PVD (peripheral vascular disease) Current Visit: No Status: Chronic
[2021-03-05] MEDS ORDERED: METOPROLOL SUCCINATE XL 50 MG TAB PO SCH (17:00)
[2021-03-05] MEDS ORDERED: hydroCHLOROthiazide 12.5 MG CAP PO SCH (17:00)
[2021-03-05] MEDS: LISINOPRIL 20 MG TAB PO SCH (17:09)
[2021-03-06] MEDS: ACETAMINOPHEN 325 MG TAB PO PRN ×2 (01:53→14:08)
[2021-03-06 04:39] VITALS: BP 97/67
[2021-03-06 06:35] LABS: Basophils % (Auto) 0.2 % (0.0-1.8); Eosinophils # (Auto) 0.1 K/mm3 (0.0-0.4); Eosinophils % (Auto) 0.9 % (0.0-4.3); Hematocrit 40.5 % (35.5-45.6); Hemoglobin 12.6 gm/dl (11.8-15.2); Lymphocytes # (Auto) 1.4 K/mm3 (1.2-5.4); Lymphocytes % (Auto) 18.2 % (13.4-35.0); Mean Corpuscular HGB Conc 31 % (32-34); Mean Corpuscular Volume 83 fl (84-94); Monocytes # (Auto) 0.6 K/mm3 (0.0-0.8); Monocytes % (Auto) 7.3 % (0.0-7.3); Platelet Count 195 K/mm3 (140-440); Red Blood Count 4.85 M/mm3 (3.65-5.03)
[2021-03-06] MEDS: HEPARIN 5,000 UNIT/1 ML VIAL SUB-Q SCH (06:54)
[2021-03-06 06:59] LABS: BUN/Creatinine Ratio 23; Blood Urea Nitrogen 21 mg/dL (9-20); Calcium 9.3 mg/dL (8.4-10.2); Hemolysis Index 11
[2021-03-06] MEDS: INSULIN LISPRO 100 UNIT/ML SUB-Q SCH (07:30)
[2021-03-06] MEDS ORDERED: ASPIRIN EC 325 MG TAB PO SCH (10:00)
--- NOTE | 2021-03-06 10:25 | Electrocardiograph Report ---
[facility] Test Date: 2021-03-06 Test Time: 07:08:11 Pat Name: SHELTON BRYAN Department: Room: A464 1 Gender: M Histopathology Technician: LATANYA : 1945 Requested By: PILLO CRUZ Order Number: [id number] Reading MD: Chester Lance Measurements Intervals [place] Rate: 106 P: 54 VA: 147 QRS: 37 QRSD: 90 T: 76 QT: 326 QTc: 433 Interpretive Statements Sinus tachycardia Compared to ECG 03/04/2021 18:32:24 Sinus rhythm no longer present Electronically Signed On 03-06-2021 10:25:15 EST by Chester Lance
[2021-03-06] MEDS: LISINOPRIL 20 MG TAB PO SCH (10:36)
--- NOTE | 2021-03-06 12:10 | Progress Note ---
Assessment and Plan Patient is 75-year-old male with a past medical history of hypertension, coronary artery disease, AAA, peripheral vascular disease, and hyperlipidemia who presented to the ED with complaint of chest pain x 3 to 4 days Chronic HFpEF CAD AAA PVD HTN HLD Tobacco use Echo 05/23/2020-EF 55 to 60%, abnormal left ventricular diastolic filling impaired relaxation. No LVH. Nuclear stress test 07/17/2020-negative for signs of ischemia Cardiac cath 03/05/2021-Left main patent, LAD patent mild luminal irregularities. Circumflex patent. Small to medium caliber vessels are patent. RCA is patent with normal LV function. Continue medical management Plan: Patient currently chest pain free Patient should continue outpatient medication regime of lisinopril 20 mg p.o. daily, hydrochlorothiazide 12.5 mg p.o. daily, metoprolol XL 50 mg p.o. daily, Imdur 30 mg p.o. daily, aspirin, and Lipitor Cardiac status otherwise stable. Will sign off Patient should follow-up with Dr. Farah, [facility] network specialist, 1 to 2 weeks after discharge. Phone [phone] Patient seen in conjunction with Dr. Lance who agrees with this plan of care - Patient Problems (1) Chest pain Current Visit: Yes Status: Acute Qualifiers: (2) (HFpEF) heart failure with preserved ejection fraction Current Visit: No Status: Acute (3) CAD (coronary artery disease) Current Visit: No Status: Chronic Qualifiers: Associated angina: with stable angina (4) COPD (chronic obstructive pulmonary disease) Current Visit: No Status: Chronic (5) HLD (hyperlipidemia) Current Visit: No Status: Chronic Qualifiers: Hyperlipidemia type: mixed hyperlipidemia Qualified Code(s): E78.2 - Mixed hyperlipidemia (6) HTN (hypertension) Current Visit: No Status: Chronic (7) History of PTCA Current Visit: No Status: Chronic (8) Nicotine dependence Current Visit: No Status: Chronic (9) PVD (peripheral vascular disease) Current Visit: No Status: Chronic Subjective Date of service: 03/06/21 Principal diagnosis: chest pain, HTN Interval history: Patient resting in bed comfortably in no acute distress. Patient reports feeling much better Patient sinus 60 on monitor with no events Objective Vital Signs Temp Pulse Resp BP Pulse Ox 03/06/21 10:35 96 H 97/67 03/06/21 08:14 97.9 F 96 H 18 96 03/06/21 04:29 98.0 F 120 H 14 97/67 93 03/06/21 03:24 98.1 F 113 H 19 82/49 91 03/05/21 23:20 98.4 F 73 16 136/76 95 03/05/21 20:25 97.5 F L 77 18 122/91 97 03/05/21 20:00 97 03/05/21 19:28 72 173/99 03/05/21 19:02 66 18 172/92 100 03/05/21 18:05 61 17 155/107 100 03/05/21 17:09 70 159/108 03/05/21 17:00 65 18 159/108 95 03/05/21 16:00 66 17 142/103 95 03/05/21 15:30 55 L 16 168/94 99 03/05/21 15:00 63 16 181/106 99 03/05/21 14:30 60 19 165/87 99 03/05/21 14:00 70 17 150/108 99 03/05/21 13:30 67 16 156/102 96 03/05/21 13:06 16 03/05/21 13:00 81 12 142/88 99 03/05/21 12:30 79 16 142/97 95 03/05/21 12:15 87 20 138/96 94 03/05/21 12:06 12 - Physical Examination General: No Apparent Distress HEENT: Positive: PERRL, Mucus Membranes Dry Neck: Positive: trachea midline Cardiac: Positive: Reg Rate and Rhythm Lungs: Positive: Normal Breath Sounds Neuro: Positive: Grossly Intact Abdomen: Positive: Soft, Active Bowel Sounds Skin: Negative: Rash, Suspicious Lesions, Ulceration Incision: Cardiac Cath Site (Dressing clean dry and intact. No signs of bleeding or hematoma) Extremities: Present: upper extr. pulses. Absent: edema - Labs and Meds CBC 03/06/21 Range/Units 04:57 WBC 7.8 (4.5-11.0) K/mm3 RBC 4.85 (3.65-5.03) M/mm3 Hgb 12.6 (11.8-15.2) gm/dl Hct 40.5 (35.5-45.6) % Plt Count 195 (140-440) K/mm3 Lymph # (Auto) 1.4 (1.2-5.4) K/mm3 Cross # (Auto) 0.6 (0.0-0.8) K/mm3 Eos # (Auto) 0.1 (0.0-0.4) K/mm3 Baso # (Auto) 0.0 (0.0-0.1) K/mm3 Comprehensive Metabolic Panel 03/06/21 Range/Units 04:57 Sodium 138 (137-145) mmol/L Potassium 3.9 (3.6-5.0) mmol/L Chloride 98.7 (98-107) mmol/L Carbon Dioxide 29 (22-30) mmol/L BUN 21 H (9-20) mg/dL Creatinine 0.9 (0.8-1.3) mg/dL Glucose 99 (75-100) mg/dL Calcium 9.3 (8.4-10.2) mg/dL - Imaging and Cardiology Echo: report reviewed Cardiac cath: report reviewed - Telemetry EKG Rhythm: Sinus Rhythm - EKG Sinus rhythms and dysrhythmias: sinus rhythm
--- NOTE | 2021-03-06 14:05 | Discharge Summary ---
Providers - Providers Date of Admission: 03/04/21 23:50 Date of discharge: 03/06/21 Attending physician: BETTY NAVAS MD 03/05/21 Consult to Cardiac Rehabilitation [CONS] Routine Reason For Exam: Phase I 03/05/21 00:44 Consult to Cardiology [CONS] Routine Consulting Provider: DORIAN KNOX Reason For Exam: chest pain Consult to Dietitian/Nutrition [CONS] Routine Physician Instructions: Reason For Exam: Reason for Consult: Diet education 03/05/21 11:46 Consult to Cardiac Rehabilitation [CONS] Routine Reason For Exam: Cardiac Rehab Evaluation Primary care physician: CORTEZ MARTINEZ MD Hospitalization Reason for admission: chest pain Condition: Stable Hospital course: History of present illness: 75-year-old male with known history of hypertension, hyperlipidemia, coronary artery disease, abdominal aortic aneurysm and peripheral vascular disease presents to the emergency room today complaining of chest pain which has been ongoing for the past few days. Chest pain has been intermittent. Pain is worse upon exertion and feels better upon resting. On a scale of 10 pain was 10/10 upon in severity. Patient denies any headache or dizziness and denies any diaphoresis. Denies any fever or chills, no nausea vomiting, no abdominal pain. Review of patient records indicates that he had a stress test sometime in June 2020 with no significant abnormality. Work-up in the emergency room today including EKG, chest x-ray and troponin were unremarkable. Patient being admitted for chest pain evaluation. Hospital course Patient admitted for chest pain. Work-up with EKG, chest x-ray, troponin negative. Cardiology completed stress test in June which was negative patient also had cath in February which was negative. Discharge patient home today. Will send home with rx for for outpatient medication regimen lisinopril 20 mg p.o. d aily, HCTZ 12.5 mg p.o. daily, Lipitor 40 mg p.o. daily, metoprolol XL 50 mg p.o. daily, Imdur 30 mg p.o. daily, aspirin 81 mg p.o. daily. he was advised to follow-up with Dr. Farah at [facility] insurance customer service specialist in 1 to 2 weeks after discharge. Assessment and plan (1) Chest pain Current Visit: Yes Status: Acute Qualifiers: Plan to address problem: Patient admitted and placed on telemetry. We will check serial cardiac enzymes. Patient placed on daily aspirin, sublingual nitroglycerin and IV morphine as needed for chest pain. Consult placed to cardiology for evaluation. (2) HTN (hypertension) Current Visit: No Status: Chronic Plan to address problem: We will resume routine home medications and monitor vital signs closely. (3) Diabetes mellitus Current Visit: No Status: Chronic Plan to address problem: Patient placed on sliding scale. We will monitor Accu-Cheks closely. (4) Hyperlipemia Current Visit: No Status: Chronic Plan to address problem: We will resume routine home medications and monitor lipid profile. (5) DVT prophylaxis Current Visit: No Status: Acute Plan to address problem: Patient placed on subcutaneous heparin. (6) Full code status Current Visit: Yes Status: Acute Plan to address problem: Patient is full code. Disposition: 01 HOME / SELF CARE / HOMELESS Final Discharge Diagnosis (Prints w/discharge instructions): chest pain Time spent for discharge: 35 Core Measure Documentation - Palliative Care Palliative Care/ Comfort Measures: Not Applicable - Core Measures Any of the following diagnoses?: none Exam - Physical Exam Narrative exam: General: No Apparent Distress HEENT: Positive: PERRL, Mucus Membranes Dry Neck: Positive: trachea midline Cardiac: Positive: Reg Rate and Rhythm Lungs: Positive: Normal Breath Sounds Neuro: Positive: Grossly Intact Abdomen: Positive: Soft, Active Bowel Sounds Skin: Negative: Rash, Suspicious Lesions, Ulceration Incision: Cardiac Cath Site (Dressing clean dry and intact. No signs of bleeding or hematoma) Extremities: Present: upper extr. pulses. Absent: edema - Constitutional Vitals: Temp Pulse Resp BP Pulse Ox 97.9 F 96 H 18 97/67 96 03/06/21 08:14 03/06/21 10:35 03/06/21 08:14 03/06/21 10:35 03/06/21 10:00 Plan Activity: no restrictions Weight Bearing Status: Full Weight Bearing Diet: low fat, low cholesterol, low salt Follow up with: CORTEZ MARTINEZ MD [Primary Care Provider] - 3-5 Days JAVIER FARAH MD [Staff Physician] - 7 Days Prescriptions: AtorvaSTATin [Lipitor] 40 mg PO QHS 30 Days #30 tablet metFORMIN [Glucophage] 500 mg PO BID #60 tablet hydroCHLOROthiazide [HCTZ] 12.5 mg PO QDAY 30 Days #30 cap ISOSORBIDE MONOnitrate [Imdur ER] 30 mg PO QDAY 30 Days #30 tab Metoprolol Xl [Metoprolol SUCCINATE ER TAB] 50 mg PO QDAY 30 Days #30 tab lisinopriL [Zestril TAB] 20 mg PO QDAY 30 Days #30 tablet
--- NOTE | 2021-03-06 14:31 | Electrocardiograph Report ---
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
--- NOTE | 2021-03-06 14:31 | Electrocardiograph Report ---
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
== END 2021-03-06 15:27 | disposition home or self-care (01) ==
LOC: ED 17:49 → 4A 23:50
PROVIDERS: ADMIT Internal Medicine Geriatric Medicine; ATTEND Internal Medicine
DX: R07.89 Other chest pain (principal); E11.9 Type 2 diabetes mellitus without complications; E78.5 Hyperlipidemia, unspecified; M19.90 Unspecified osteoarthritis, unspecified site; J44.9 Chronic obstructive pulmonary disease, unspecified; I11.0 Hypertensive heart disease with heart failure; I50.30 Unspecified diastolic (congestive) heart failure; K21.9 Gastro-esophageal reflux disease without esophagitis; I25.10 Atherosclerotic heart disease of native coronary artery without angina pectoris; I71.4 Abdominal aortic aneurysm, without rupture; I73.9 Peripheral vascular disease, unspecified; F32.A Depression, unspecified; M79.673 Pain in unspecified foot; G62.9 Polyneuropathy, unspecified; K22.70 Barrett's esophagus without dysplasia; I85.00 Esophageal varices without bleeding; F17.210 Nicotine dependence, cigarettes, uncomplicated; Z79.899 Other long term (current) drug therapy; Z98.890 Other specified postprocedural states; Z96.649 Presence of unspecified artificial hip joint; Z79.84 Long term (current) use of oral hypoglycemic drugs; Z79.82 Long term (current) use of aspirin
CPT/HCPCS: 36415; 71046; 71275; 80048; 80053; 82962; 84484; 85025; 85610; 85730; 93005; 93458; 96372; 96374; 96375; 99285; C1894; G0378; J1644; J1815; J2250; J2270; J2405; J3010; J3490; J7040; Q9967